=== PATIENT | male | born 1950 | race Caucasian/White ===

== ENCOUNTER → 2017-07-10 11:11 | Outpatient (CLI) | payer MEDICARE, BC, SELFPAY ==
[2017-07-10 12:14] LABS: Absolute Lymphocyte Count 2.16 X10^3/ul (0.83-4.51); Absolute Neutrophil Count 5.6 X10^3/uL (2.0-7.7); Basophil# 0.03 X10^3/uL; Basophil% 0.3 % (0-1); Eosinophil# 0.61 X10^3/uL; Eosinophils% 6.7 % (0-5); Hematocrit 40.5 % (40-54); Hemoglobin 13.4 g/dl (13.0-16.5); Lymphocyte # 2.16 X10^3/ul (4.0); Lymphocyte % 23.7 % (19-41); Mean Corp Hgb Conc 33.1 g/gl (32-36); Mean Corpuscular Volume 96.7 fL (80-94); Mean Platelet Vol. 9.8 fl (6.2-12.0); Monocyte# 0.62 X10^3/uL; Monocyte% 6.8 % (0-10); Neutrophil # 5.64 X10^3/uL (2.7-7.7); Neutrophil % 62.1 % (47-70); Platelet Count 232 K/mm3 (150-450); RBC Distribution Width CV 12.6 % (11.6-14.6); Red Blood Count 4.19 M/mm3 (4.6-6.2); White Blood Count 9.1 K/mm3 (4.4-11.0)
[2017-07-10 12:24] LABS: POSITIVE COUNT NO; POSITIVE DIFFERENTIAL NO; POSITIVE MORPHOLOGY NO
[2017-07-10 13:09] LABS: Albumin, Serum 3.6 g/dL (3.2-5.0); BUN 66 mg/dL (7-18); BUN/Creat Ratio 29.6 RATIO (10-20); Chloride 99 mmol/L (98-107); Creatinine, Serum 2.23 mg/dL (0.70-1.30); EST Glomerular Filtration Rate 31 mL/min (>60); Est Glom Filt Rate - Afr Amer 38 mL/min (>60); Glucose 89 mg/dL (74-106); Magnesium 2.2 mg/dL (1.6-2.6); Phosphorus 4.1 mg/dL (2.5-4.9); Potassium 4.7 mmol/L (3.5-5.1); Sodium Level 137 mmol/L (136-145); Uric Acid 6.4 mg/dL (3.5-7.2)
[2017-07-10 13:41] LABS: PTHIN 77.6 pg/mL (18.4-80.1)
[2017-07-10 13:42] LABS: Vitamin D,25 Hydroxy 23.4 ng/mL (29.95-100.01)
[2017-07-10 14:14] LABS: Microalbumin:Creatinine Ratio 365.2 mg/g CRE (<30 mg/g CRE)
== END ==
PROVIDERS: Family Provider Preventive Medicine Occupational Medicine; PCP Preventive Medicine Occupational Medicine; Visit Provider Internal Medicine Nephrology
DX: N18.3 Chronic kidney disease, stage 3 (moderate) (principal); E55.9 Vitamin D deficiency, unspecified; E83.42 Hypomagnesemia; M10.9 Gout, unspecified
CPT/HCPCS: 36415; 80069; 82043; 82306; 82570; 83735; 83970; 84550; 85025

== ENCOUNTER → 2017-08-21 09:43 | Outpatient (CLI) | payer MEDICARE, BC, SELFPAY ==
[2017-08-21 12:44] LABS: Hemoglobin A1c 7.7 % (4.2-6.3)
[2017-08-21 12:46] LABS: AST(SGOT) 23 U/L (15-37); Alanine Aminotransfer ALT/SGPT 29 U/L (16-61); Anion Gap 7 (5-15); BUN 59 mg/dL (7-18); BUN/Creat Ratio 29.6 RATIO (10-20); Calcium,Total 9.1 mg/dL (8.5-10.1); Chloride 103 mmol/L (98-107); Creatinine, Serum 1.99 mg/dL (0.70-1.30); EST Glomerular Filtration Rate 36 mL/min (>60); Est Glom Filt Rate - Afr Amer 43 mL/min (>60); Glucose 98 mg/dL (74-106); Potassium 4.4 mmol/L (3.5-5.1); Sodium Level 140 mmol/L (136-145)
== END ==
PROVIDERS: Family Provider Preventive Medicine Occupational Medicine; PCP Preventive Medicine Occupational Medicine; Visit Provider Internal Medicine Endocrinology, Diabetes & Metabolism
DX: E11.42 Type 2 diabetes mellitus with diabetic polyneuropathy (principal)
CPT/HCPCS: 36415; 80048; 83036; 84450; 84460

== ENCOUNTER → 2018-02-26 07:02 | Outpatient (CLI) | payer MEDICARE, BC, SELFPAY ==
[2018-02-26 10:21] LABS: Hemoglobin A1c 6.9 % (4.2-6.3)
[2018-02-26 10:29] LABS: AST(SGOT) 22 U/L (15-37); Alanine Aminotransfer ALT/SGPT 31 U/L (16-61); Anion Gap 10 (5-15); BUN 62 mg/dL (7-18); BUN/Creat Ratio 32.5 RATIO (10-20); Calcium,Total 9.5 mg/dL (8.5-10.1); Chloride 102 mmol/L (98-107); Cholesterol 146 mg/dL (200); Creatinine, Serum 1.91 mg/dL (0.70-1.30); EST Glomerular Filtration Rate 37 mL/min (>60); Est Glom Filt Rate - Afr Amer 45 mL/min (>60); Glucose 126 mg/dL (74-106); High Density Lipoprotein 32 mg/dL; Potassium 4.4 mmol/L (3.5-5.1); Sodium Level 141 mmol/L (136-145); Triglycerides 275 mg/dL; Very Low Density Lipoprotein 55 mg/dL (5-40)
== END ==
PROVIDERS: Family Provider Preventive Medicine Occupational Medicine; PCP Preventive Medicine Occupational Medicine; Referring Provider Internal Medicine Endocrinology, Diabetes & Metabolism; Visit Provider Internal Medicine Endocrinology, Diabetes & Metabolism
DX: E11.42 Type 2 diabetes mellitus with diabetic polyneuropathy (principal); E11.21 Type 2 diabetes mellitus with diabetic nephropathy; E78.2 Mixed hyperlipidemia
CPT/HCPCS: 36415; 80048; 80061; 83036; 84450; 84460

== ENCOUNTER → 2018-05-04 09:47 | Outpatient (CLI) | payer MEDICARE, BC, SELFPAY ==
[2018-05-04 11:59] LABS: Hematocrit 39.3 % (40-54); Hemoglobin 12.9 g/dl (13.0-16.5); Mean Corp Hgb Conc 32.8 g/gl (32-36); Mean Corpuscular Hgb 31.9 pg (27.0-32.0); Mean Platelet Vol. 10.4 fl (6.2-12.0); Platelet Count 254 K/mm3 (150-450); RBC Distribution Width CV 12.6 % (11.6-14.6); RBC Distribution Width SD 44.6 fl (35.1-43.9); Red Blood Count 4.05 M/mm3 (4.6-6.2)
[2018-05-04 12:02] LABS: Scan Indicated on CBC? Y/N NO
[2018-05-04 12:11] LABS: Protein, Urine (Random) 24.5 mg/dL (<11.9); Protein:Creat Ratio 648 mg/g CRE (0-200)
[2018-05-04 12:13] LABS: Albumin, Serum 3.8 g/dL (3.2-5.0); BUN 83 mg/dL (7-18); BUN/Creat Ratio 40.7 RATIO (10-20); Calcium,Total 9.6 mg/dL (8.5-10.1); Chloride 105 mmol/L (98-107); Creatinine, Serum 2.04 mg/dL (0.70-1.30); EST Glomerular Filtration Rate 35 mL/min (>60); Est Glom Filt Rate - Afr Amer 42 mL/min (>60); Glucose 90 mg/dL (74-106); Phosphorus 4.8 mg/dL (2.5-4.9); Potassium 4.5 mmol/L (3.5-5.1); Sodium Level 140 mmol/L (136-145); Uric Acid 6.3 mg/dL (3.5-7.2)
[2018-05-04 12:14] LABS: Hemoglobin A1c 7.9 % (4.2-6.3)
[2018-05-04 12:17] LABS: PTHIN 20.3 pg/mL (18.4-80.1); Vitamin D,25 Hydroxy 31.3 ng/mL (29.95-100.01)
== END ==
PROVIDERS: Family Provider Preventive Medicine Occupational Medicine; PCP Preventive Medicine Occupational Medicine; Referring Provider Internal Medicine Nephrology; Visit Provider Internal Medicine Nephrology
DX: E11.21 Type 2 diabetes mellitus with diabetic nephropathy (principal); E11.22 Type 2 diabetes mellitus with diabetic chronic kidney disease; N18.4 Chronic kidney disease, stage 4 (severe); E55.9 Vitamin D deficiency, unspecified; E83.42 Hypomagnesemia; M10.9 Gout, unspecified
CPT/HCPCS: 36415; 80069; 82306; 82570; 83036; 83735; 83970; 84156; 84550; 85027

== ENCOUNTER → 2018-06-05 10:44 | Outpatient (CLI) | payer MEDICARE, BC, SELFPAY ==
[2018-06-05 12:28] LABS: AST(SGOT) 19 U/L (15-37); Alanine Aminotransfer ALT/SGPT 32 U/L (16-61); Anion Gap 9 (5-15); BUN 72 mg/dL (7-18); BUN/Creat Ratio 31.7 RATIO (10-20); Calcium,Total 9.8 mg/dL (8.5-10.1); Chloride 105 mmol/L (98-107); Creatinine, Serum 2.27 mg/dL (0.70-1.30); EST Glomerular Filtration Rate 31 mL/min (>60); Est Glom Filt Rate - Afr Amer 37 mL/min (>60); Glucose 144 mg/dL (74-106); Potassium 4.5 mmol/L (3.5-5.1); Sodium Level 142 mmol/L (136-145)
[2018-06-05 12:35] LABS: Hemoglobin A1c 7.7 % (4.2-6.3)
== END ==
PROVIDERS: Family Provider Preventive Medicine Occupational Medicine; PCP Preventive Medicine Occupational Medicine; Referring Provider Internal Medicine Endocrinology, Diabetes & Metabolism; Visit Provider Internal Medicine Endocrinology, Diabetes & Metabolism
DX: E11.42 Type 2 diabetes mellitus with diabetic polyneuropathy (principal)
CPT/HCPCS: 36415; 80048; 83036; 84450; 84460

== ENCOUNTER → 2018-09-05 10:06 | Outpatient (CLI) | payer MEDICARE, BC, SELFPAY ==
[2018-09-05 12:35] LABS: Hematocrit 38.1 % (40-54); Hemoglobin 12.7 g/dl (13.0-16.5); Mean Corp Hgb Conc 33.3 g/gl (32-36); Mean Platelet Vol. 10.2 fl (6.2-12.0); Platelet Count 256 K/mm3 (150-450); RBC Distribution Width CV 12.6 % (11.6-14.6); RBC Distribution Width SD 43.9 fl (35.1-43.9); Red Blood Count 3.97 M/mm3 (4.6-6.2); White Blood Count 8.7 K/mm3 (4.4-11.0)
[2018-09-05 12:46] LABS: Scan Indicated on CBC? Y/N NO
[2018-09-05 12:49] LABS: AST(SGOT) 17 U/L (15-37); Alanine Aminotransfer ALT/SGPT 32 U/L (16-61); Albumin, Serum 3.7 g/dL (3.2-5.0); BUN 79 mg/dL (7-18); BUN/Creat Ratio 33.3 RATIO (10-20); Calcium,Total 9.2 mg/dL (8.5-10.1); Chloride 107 mmol/L (98-107); Creatinine, Serum 2.37 mg/dL (0.70-1.30); EST Glomerular Filtration Rate 29 mL/min (>60); Est Glom Filt Rate - Afr Amer 35 mL/min (>60); Glucose 91 mg/dL (74-106); Magnesium 2.4 mg/dL (1.6-2.6); Potassium 4.3 mmol/L (3.5-5.1); Sodium Level 140 mmol/L (136-145)
[2018-09-05 12:54] LABS: Microalbumin:Creatinine Ratio 81.1 mg/g CRE (<30 mg/g CRE); Protein, Urine (Random) 8.4 mg/dL (<11.9); Protein:Creat Ratio 148 mg/g CRE (0-200)
[2018-09-05 12:59] LABS: Vitamin D,25 Hydroxy 27.2 ng/mL (29.95-100.01)
[2018-09-05 13:18] LABS: PTHIN 54.7 pg/mL (18.4-80.1)
== END ==
PROVIDERS: Family Provider Preventive Medicine Occupational Medicine; PCP Preventive Medicine Occupational Medicine; Referring Provider Internal Medicine Endocrinology, Diabetes & Metabolism; Visit Provider Internal Medicine Endocrinology, Diabetes & Metabolism
DX: E11.65 Type 2 diabetes mellitus with hyperglycemia (principal); E55.9 Vitamin D deficiency, unspecified; N18.4 Chronic kidney disease, stage 4 (severe)
CPT/HCPCS: 36415; 80069; 82043; 82306; 82570; 83036; 83735; 83970; 84156; 84450; 84460; 85027

== ENCOUNTER → 2019-01-01 | Outpatient (CLI) | payer MEDICARE, BC, SELFPAY ==
[2019-01-01 10:21] LABS: Hematocrit 35.8 % (40-54); Hemoglobin 11.9 g/dL (13.0-16.5); Mean Corp Hgb Conc 33.2 g/dL (32-36); Mean Corpuscular Hgb 33.1 pg (27.0-32.0); Mean Corpuscular Volume 99.7 fL (80-94); Mean Platelet Vol. 10.2 fl (6.2-12.0); Platelet Count 227 K/mm3 (150-450); RBC Distribution Width CV 12.2 % (11.6-14.6); RBC Distribution Width SD 44.5 fl (35.1-43.9); Red Blood Count 3.59 M/mm3 (4.6-6.2); White Blood Count 10.9 K/mm3 (4.4-11.0)
[2019-01-01 10:40] LABS: Microalbumin:Creatinine Ratio 328.7 mg/g CRE (<30 mg/g CRE)
[2019-01-01 10:44] LABS: PTHIN 64.4 pg/mL (18.4-80.1)
[2019-01-01 10:49] LABS: Hemoglobin A1c 6.6 % (4.2-6.3)
[2019-01-01 10:54] LABS: AST(SGOT) 18 U/L (15-37); Alanine Aminotransfer ALT/SGPT 27 U/L (16-61); Albumin, Serum 3.4 g/dL (3.2-5.0); BUN 78 mg/dL (7-18); BUN/Creat Ratio 34.5 RATIO (10-20); Chloride 106 mmol/L (98-107); Creatinine, Serum 2.26 mg/dL (0.70-1.30); EST Glomerular Filtration Rate 31 mL/min (>60); Est Glom Filt Rate - Afr Amer 37 mL/min (>60); Glucose 133 mg/dL (74-106); Magnesium 2.4 mg/dL (1.6-2.6); Phosphorus 2.9 mg/dL (2.5-4.9); Potassium 4.7 mmol/L (3.5-5.1); Sodium Level 141 mmol/L (136-145); Uric Acid 6.3 mg/dL (3.5-7.2)
[2019-01-01 11:05] LABS: Vitamin D,25 Hydroxy 36.5 ng/mL (29.95-100.01)
== END | disposition home or self-care (01) ==
LOC: MTLAB 09:06
PROVIDERS: Internal Medicine Endocrinology, Diabetes & Metabolism; Family Provider Preventive Medicine Occupational Medicine; PCP Preventive Medicine Occupational Medicine; Referring Provider Preventive Medicine Occupational Medicine; Visit Provider Preventive Medicine Occupational Medicine
DX: E55.9 Vitamin D deficiency, unspecified (principal); E11.22 Type 2 diabetes mellitus with diabetic chronic kidney disease; N18.4 Chronic kidney disease, stage 4 (severe); E83.42 Hypomagnesemia; M10.9 Gout, unspecified; E11.65 Type 2 diabetes mellitus with hyperglycemia
CPT/HCPCS: 36415; 80069; 82043; 82306; 82570; 83036; 83735; 83970; 84450; 84460; 84550; 85027

== ENCOUNTER → 2019-06-27 | Outpatient (CLI) | payer MEDICARE, BC, SELFPAY ==
[2019-06-27 12:27] LABS: Hematocrit 37.1 % (40-54); Hemoglobin 12.1 g/dL (13.0-16.5); Mean Corp Hgb Conc 32.6 g/dL (32-36); Mean Corpuscular Hgb 31.9 pg (27.0-32.0); Mean Corpuscular Volume 97.9 fL (80-94); Mean Platelet Vol. 10.3 fl (6.2-12.0); Platelet Count 233 K/mm3 (150-450); RBC Distribution Width CV 11.9 % (11.6-14.6); RBC Distribution Width SD 43.3 fl (35.1-43.9); Red Blood Count 3.79 M/mm3 (4.6-6.2); White Blood Count 7.4 K/mm3 (4.4-11.0)
[2019-06-27 12:54] LABS: PTHIN 35.7 pg/mL (18.4-80.1)
[2019-06-27 12:58] LABS: Vitamin D,25 Hydroxy 40.1 ng/mL
[2019-06-27 13:00] LABS: Hemoglobin A1c 6.4 % (4.2-6.3)
[2019-06-27 13:14] LABS: ALB/GLOB Ratio 0.8 RATIO (0.9-2.4); AST(SGOT) 22 U/L (15-37); Alanine Aminotransfer ALT/SGPT 34 U/L (16-61); Albumin, Serum 3.7 g/dL (3.2-5.0); Alkaline Phosphatase 110 U/L (45-117); Anion Gap 5 (5-15); BUN 72 mg/dL (7-18); BUN/Creat Ratio 29.3 RATIO (10-20); Calcium,Total 9.6 mg/dL (8.5-10.1); Chloride 108 mmol/L (98-107); Creatinine, Serum 2.46 mg/dL (0.70-1.30); EST Glomerular Filtration Rate 28 mL/min (>60); Est Glom Filt Rate - Afr Amer 34 mL/min (>60); Globulin 4.8 g/dL (2.2-4.2); Glucose 109 mg/dL (74-106); Magnesium 2.4 mg/dL (1.6-2.6); PSA,Total - Annual Screen 0.74 ng/mL (0.00-4.00); Phosphorus 3.7 mg/dL (2.5-4.9); Potassium 4.5 mmol/L (3.5-5.1); Protein, Total 8.5 g/dL (6.4-8.2); Sodium Level 141 mmol/L (136-145)
[2019-06-27 13:18] LABS: Microalbumin,Random Urine 54.9 mg/L (NO RANGE EST.); Microalbumin:Creatinine Ratio 125.3 mg/g CRE (<30 mg/g CRE)
== END | disposition home or self-care (01) ==
LOC: MTLAB 09:23
PROVIDERS: PCP Preventive Medicine Occupational Medicine; Referring Provider Urology; Visit Provider Urology
DX: E55.9 Vitamin D deficiency, unspecified (principal); E11.22 Type 2 diabetes mellitus with diabetic chronic kidney disease; N18.4 Chronic kidney disease, stage 4 (severe); E11.42 Type 2 diabetes mellitus with diabetic polyneuropathy; E83.42 Hypomagnesemia; Z12.5 Encounter for screening for malignant neoplasm of prostate
CPT/HCPCS: 36415; 80053; 82043; 82306; 82570; 83036; 83735; 83970; 84100; 84153; 85027; G0103

== ENCOUNTER 2019-10-14 14:51 | Outpatient (RCR) | payer MEDICARE, BC, SELFPAY ==
--- NOTE | 2019-10-15 06:17 | HP.OTEVAL_ITS ---
Patient's Visit Information ANALILIA CORLEY is a 69 year old M, referred to Occupational Therapy by Dr. Fabrice Pulido MD, with a diagnosis of lymphedema. Date of Evaluation: 10/14/19 Occupational Therapist: Emilie Billingsley, LINDAR/Oracio, CHT - Subjective This 69 year old male was seen for OT eval with dx of LE lymphedema. pt states he has had the issue of swelling since May. pt states he worked with his family and then was referred to [facility] for care. Pt states he has a sore on his left LE at this time. right has compression sock as wound on that leg is gone. pt would like to know what to do to assist. in decreassing his fluid retention and assist with wound healing on left LE. pt's compresssion socks are 20-30mmHg. - Pain bilateral LE 2 Pain Intensity Range: 2, 3 - Lymphedema (Circumferential Measure) Ankle: left 29cm right 27cm Lower calf: left 32cm right 28cm Largest calf: left 49cm right 47cm Below knee: left 41cm right 40cm - Sensation Sensation Comments: at times tingling - Lower Limb Functional Index Lower Extremity Functional Score: 44 - Goals Demonstrate a 20% reduction in edema by d/c: Yes Demonstrate adequate knowledge of self-bangaging by 1st week: Yes Demonstrate adequate knowledge skin care/prec by 2nd week: Yes Demonstrate adequate knowledge therapeutic exercises by d/c: Yes Select approp compression garment w/donning/care/wear by d/c: Yes Voice need to replace compression garment every 4-6mo by dc: Yes Goal:: pt will demo the understanding to increase compression of socks to 30-40 mmHg if his current socks do not assist with controlling edema. - Rehabilitation General Assessment: pt demo with mild swelling in bilateral LE- right LE has compression sock on at 20-30mmHG. pts left LE has unoboot on ( wrap from above ankle to mid calf) pt report typically he is wrapped weekly from foot to below knee. states new person at [facility] wapped him last week. therapist advised to return as this facility does not carry unoboots. Pt stated he would call. Pt demo a need for skilled OT services 2-3 visits to ed. on self mtg of lymphedema and compression socks or alternatives. Today pt was ed. on lymphedema, skin care, use of compression socks 20-30 mmHg and if they did not mtg edema he would have to increase compression class to 30-40mmHg. pt demo understanding. therapist ed. pt on lymph stim exercises and beneficial physical tasks as water arobics, walking or swimming would also assist in mtg edema. Therapist advised not to get in water until wound was healed. Pt demo understanding. Therapist ed. pt on lymphedema tx with use of short stretch wraps with multi wraps and wrapping clock kenny and counter clockwise to assist with edema (pt not receptive at this time as it would be difficult for pt to wrap his LE). Therapist and pt agree to use of compression socks, lymph stim exercises and skin care will be pt initial targeted mtg at this time. Pt demo understanding and agree to POC. Rehabilitation Potential: Questionable - Anticipated Interventions Education re Diagnosis, Education re Life-long lymphedema Management, Education re Skin Care and Precautions, Education re Correct Donning Tech,Care&Wearing Sched Comp Garments, Home Program - Visit Plan TEXT: Thank you for the opportunity to evaluate your patient. For Medicare and Medicare HMO plans, please review the plan of care and approve it. It will need to be FAXED BACK to us at [phone] for Medicare purposes. Please let me know if there are questions or concerns regarding this plan of care. Physician Signature: Date:
--- NOTE | 2020-01-01 14:29 | HP.OT.NRP ---
ANALILIA CORLEY was seen in my office for initial evaluation on 10/14/19. The following Plan of Care was established for this patient: pt was seen for eval only- has not called with questions or scheduled further apts. Pt d/c at this time. Anticipated Interventions: Education re Diagnosis, Education re Life-long lymphedema Management, Education re Skin Care and Precautions, Education re Correct Donning Tech,Care&Wearing Sched Comp Garments, Home Program This patient was last seen in our office . Pertinent comments regarding their Occupational therapy will appear below: At this point I will be discontinuing this patient from occupational therapy. I would be happy to see this patient again in the future if found appropriate by the physician. Thank you! Emilie Billingsley, OTR/L, CHT
== END 2019-10-14 19:00 ==
LOC: OT 14:51
PROVIDERS: PCP Preventive Medicine Occupational Medicine; Referring Provider Dermatology; Visit Provider Dermatology
DX: I89.0 Lymphedema, not elsewhere classified (principal); I87.2 Venous insufficiency (chronic) (peripheral)
CPT/HCPCS: 97110; 97166

== ENCOUNTER → 2020-03-02 07:17 | Outpatient (CLI) | payer MEDICARE, BC, SELFPAY ==
[2020-03-02 10:17] LABS: Hematocrit 37.1 % (40-54); Hemoglobin 11.8 g/dL (13.0-16.5); Mean Corp Hgb Conc 31.8 g/dL (32-36); Mean Corpuscular Hgb 32.3 pg (27.0-32.0); Mean Corpuscular Volume 101.6 fL (80-94); Mean Platelet Vol. 10.1 fl (6.2-12.0); Platelet Count 202 K/mm3 (150-450); RBC Distribution Width CV 12.6 % (11.6-14.6); RBC Distribution Width SD 47.5 fl (35.1-43.9); Red Blood Count 3.65 M/mm3 (4.6-6.2); White Blood Count 5.7 K/mm3 (4.4-11.0)
[2020-03-02 10:22] LABS: PTHIN 37.8 pg/mL (18.4-80.1)
[2020-03-02 10:22] LABS: Hemoglobin A1c 6.7 % (3.8-5.6)
[2020-03-02 10:25] LABS: Vitamin D,25 Hydroxy 44.2 ng/mL
[2020-03-02 10:29] LABS: AST(SGOT) 25 U/L (15-37); Alanine Aminotransfer ALT/SGPT 37 U/L (16-61); Anion Gap 6 (5-15); BUN 58 mg/dL (7-18); BUN/Creat Ratio 25.7 RATIO (10-20); Calcium,Total 9.5 mg/dL (8.5-10.1); Chloride 106 mmol/L (98-107); Cholesterol 137 mg/dL (200); Creatinine, Serum 2.26 mg/dL (0.70-1.30); EST Glomerular Filtration Rate 31 mL/min (>60); Est Glom Filt Rate - Afr Amer 37 mL/min (>60); Glucose 119 mg/dL (74-106); High Density Lipoprotein 32 mg/dL; Potassium 4.7 mmol/L (3.5-5.1); Sodium Level 139 mmol/L (136-145); Triglycerides 257 mg/dL; Very Low Density Lipoprotein 51 mg/dL (5-40)
[2020-03-02 10:48] LABS: Albumin, Serum 3.6 g/dL (3.2-5.0); BUN 58 mg/dL (7-18); BUN/Creat Ratio 25.1 RATIO (10-20); Calcium,Total 9.4 mg/dL (8.5-10.1); Chloride 107 mmol/L (98-107); Creatinine, Serum 2.31 mg/dL (0.70-1.30); EST Glomerular Filtration Rate 30 mL/min (>60); Est Glom Filt Rate - Afr Amer 36 mL/min (>60); Glucose 119 mg/dL (74-106); Phosphorus 4.2 mg/dL (2.5-4.9); Potassium 4.6 mmol/L (3.5-5.1); Sodium Level 140 mmol/L (136-145)
[2020-03-02 11:52] LABS: Microalbumin:Creatinine Ratio 398.6 mg/g CRE (<30 mg/g CRE)
== END ==
PROVIDERS: Internal Medicine Endocrinology, Diabetes & Metabolism; PCP Preventive Medicine Occupational Medicine; Referring Provider Internal Medicine Nephrology; Visit Provider Internal Medicine Nephrology
DX: E11.42 Type 2 diabetes mellitus with diabetic polyneuropathy (principal); E78.2 Mixed hyperlipidemia; E55.9 Vitamin D deficiency, unspecified; E11.22 Type 2 diabetes mellitus with diabetic chronic kidney disease; N18.4 Chronic kidney disease, stage 4 (severe); E83.42 Hypomagnesemia
CPT/HCPCS: 36415; 80048; 80061; 80069; 82043; 82306; 82570; 83036; 83735; 83970; 84450; 84460; 85027

== ENCOUNTER → 2020-06-24 13:15 | Outpatient (CLI) | payer MEDICARE, BC, SELFPAY ==
[2020-06-24 15:10] LABS: Hematocrit 38.3 % (40-54); Hemoglobin 12.7 g/dL (13.0-16.5); Mean Corp Hgb Conc 33.2 g/dL (32-36); Mean Corpuscular Hgb 32.6 pg (27.0-32.0); Mean Corpuscular Volume 98.2 fL (80-94); Mean Platelet Vol. 10.5 fl (6.2-12.0); Platelet Count 236 K/mm3 (150-450); RBC Distribution Width SD 43.1 fl (35.1-43.9); White Blood Count 7.4 K/mm3 (4.4-11.0)
[2020-06-24 15:58] LABS: AST(SGOT) 25 U/L (15-37); Alanine Aminotransfer ALT/SGPT 36 U/L (16-61); Albumin, Serum 3.6 g/dL (3.2-5.0); BUN 62 mg/dL (7-18); BUN/Creat Ratio 30.2 RATIO (10-20); Calcium,Total 9.5 mg/dL (8.5-10.1); Chloride 106 mmol/L (98-107); Creatinine, Serum 2.05 mg/dL (0.70-1.30); EST Glomerular Filtration Rate 34 mL/min (>60); Est Glom Filt Rate - Afr Amer 41 mL/min (>60); Glucose 132 mg/dL (74-106); Magnesium 1.9 mg/dL (1.6-2.6); Phosphorus 3.4 mg/dL (2.5-4.9); Potassium 4.3 mmol/L (3.5-5.1); Sodium Level 139 mmol/L (136-145); Uric Acid 6.6 mg/dL (3.5-7.2)
[2020-06-24 16:01] LABS: Vitamin D,25 Hydroxy 31.9 ng/mL
[2020-06-24 16:38] LABS: Microalbumin:Creatinine Ratio 287.4 mg/g CRE (<30 mg/g CRE)
[2020-06-24 17:42] LABS: Hemoglobin A1c 6.8 % (3.8-5.6)
[2020-06-25 08:13] LABS: PTHIN 34.3 pg/mL (18.4-80.1)
== END ==
PROVIDERS: PCP Preventive Medicine Occupational Medicine; Referring Provider Preventive Medicine Occupational Medicine; Visit Provider Preventive Medicine Occupational Medicine
DX: E55.9 Vitamin D deficiency, unspecified (principal); E83.42 Hypomagnesemia; E11.42 Type 2 diabetes mellitus with diabetic polyneuropathy; M1A.9XX0 Chronic gout, unspecified, without tophus (tophi); E11.22 Type 2 diabetes mellitus with diabetic chronic kidney disease; N18.4 Chronic kidney disease, stage 4 (severe)
CPT/HCPCS: 36415; 80069; 82043; 82306; 82570; 83036; 83735; 83970; 84450; 84460; 84550; 85027

== ENCOUNTER → 2020-10-23 10:02 | Outpatient (CLI) | payer MEDICARE, BC, SELFPAY ==
[2020-10-23 12:26] LABS: Hematocrit 38.9 % (40-54); Hemoglobin 12.7 g/dL (13.0-16.5); Mean Corp Hgb Conc 32.6 g/dL (32-36); Mean Corpuscular Hgb 32.4 pg (27.0-32.0); Mean Corpuscular Volume 99.2 fL (80-94); Mean Platelet Vol. 10.3 fl (6.2-12.0); Platelet Count 264 K/mm3 (150-450); RBC Distribution Width CV 12.4 % (11.6-14.6); RBC Distribution Width SD 44.4 fl (35.1-43.9); Red Blood Count 3.92 M/mm3 (4.6-6.2); White Blood Count 8.8 K/mm3 (4.4-11.0)
[2020-10-23 12:39] LABS: Protein, Urine (Random) 7.8 mg/dL (<11.9); Protein:Creat Ratio 130 mg/g CRE (0-200)
[2020-10-23 12:56] LABS: PTHIN 52.2 pg/mL (18.4-80.1)
[2020-10-23 13:00] LABS: Hemoglobin A1c 6.6 % (3.8-5.6)
[2020-10-23 13:09] LABS: AST(SGOT) 24 U/L (15-37); Alanine Aminotransfer ALT/SGPT 32 U/L (16-61); Albumin, Serum 3.7 g/dL (3.2-5.0); BUN 74 mg/dL (7-18); Calcium,Total 9.5 mg/dL (8.5-10.1); Chloride 104 mmol/L (98-107); Creatinine, Serum 2.74 mg/dL (0.70-1.30); EST Glomerular Filtration Rate 24 mL/min (>60); Est Glom Filt Rate - Afr Amer 30 mL/min (>60); Glucose 192 mg/dL (74-106); Magnesium 2.2 mg/dL (1.6-2.6); Phosphorus 4.2 mg/dL (2.5-4.9); Potassium 4.3 mmol/L (3.5-5.1); Sodium Level 140 mmol/L (136-145)
[2020-10-23 14:25] LABS: Microalbumin,Random Urine 28.9 mg/L (NO RANGE EST.); Microalbumin:Creatinine Ratio 48.3 mg/g CRE (<30 mg/g CRE)
== END ==
PROVIDERS: PCP Preventive Medicine Occupational Medicine; Referring Provider Internal Medicine Nephrology; Visit Provider Internal Medicine Nephrology
DX: E11.42 Type 2 diabetes mellitus with diabetic polyneuropathy (principal); E11.22 Type 2 diabetes mellitus with diabetic chronic kidney disease; E55.9 Vitamin D deficiency, unspecified; N18.4 Chronic kidney disease, stage 4 (severe); E83.42 Hypomagnesemia
CPT/HCPCS: 80069; 82043; 82306; 82570; 83036; 83735; 83970; 84156; 84450; 84460; 85027

== ENCOUNTER → 2021-02-17 07:05 | Outpatient (CLI) | payer MEDICARE, BC, SELFPAY ==
[2021-02-17 10:11] LABS: Hematocrit 40.5 % (40-54); Hemoglobin 13.2 g/dL (13.0-16.5); Mean Corp Hgb Conc 32.6 g/dL (32-36); Mean Corpuscular Hgb 32.1 pg (27.0-32.0); Mean Corpuscular Volume 98.5 fL (80-94); Mean Platelet Vol. 10.4 fl (6.2-12.0); Platelet Count 309 K/mm3 (150-450); RBC Distribution Width SD 43.6 fl (35.1-43.9); Red Blood Count 4.11 M/mm3 (4.6-6.2); White Blood Count 8.2 K/mm3 (4.4-11.0)
[2021-02-17 10:30] LABS: AST(SGOT) 25 U/L (15-37); Alanine Aminotransfer ALT/SGPT 31 U/L (16-61); Albumin, Serum 3.5 g/dL (3.2-5.0); BUN 100 mg/dL (7-18); BUN/Creat Ratio 39.1 RATIO (10-20); Calcium,Total 9.7 mg/dL (8.5-10.1); Chloride 105 mmol/L (98-107); Cholesterol 149 mg/dL (200); Creatinine, Serum 2.56 mg/dL (0.70-1.30); EST Glomerular Filtration Rate 26 mL/min (>60); Est Glom Filt Rate - Afr Amer 32 mL/min (>60); Glucose 116 mg/dL (74-106); High Density Lipoprotein 35 mg/dL; Magnesium 2.3 mg/dL (1.6-2.6); PSA,Total - Annual Screen 1.46 ng/mL (0.00-4.00); Potassium 4.4 mmol/L (3.5-5.1); Sodium Level 139 mmol/L (136-145); Triglycerides 254 mg/dL; Uric Acid 6.8 mg/dL (3.5-7.2); Very Low Density Lipoprotein 51 mg/dL (5-40)
[2021-02-17 10:34] LABS: Hemoglobin A1c 7.3 % (3.8-5.6)
[2021-02-17 10:38] LABS: Microalbumin,Random Urine 54.6 mg/L (NO RANGE EST.); Microalbumin:Creatinine Ratio 64.4 mg/g CRE (<30 mg/g CRE)
[2021-02-17 12:11] LABS: PTHIN 36.9 pg/mL (18.4-80.1)
== END ==
PROVIDERS: PCP Preventive Medicine Occupational Medicine; Referring Provider Nurse Practitioner Primary Care; Visit Provider Nurse Practitioner Primary Care
DX: E11.42 Type 2 diabetes mellitus with diabetic polyneuropathy (principal); E55.9 Vitamin D deficiency, unspecified; M10.9 Gout, unspecified; E78.2 Mixed hyperlipidemia; E11.22 Type 2 diabetes mellitus with diabetic chronic kidney disease; N18.4 Chronic kidney disease, stage 4 (severe); E83.42 Hypomagnesemia; Z13.6 Encounter for screening for cardiovascular disorders; Z12.5 Encounter for screening for malignant neoplasm of prostate
CPT/HCPCS: 36415; 80061; 80069; 82043; 82306; 82570; 83036; 83735; 83970; 84153; 84450; 84460; 84550; 85027; G0103

== ENCOUNTER 2021-05-03 11:09 | Outpatient (CLI) | payer MEDICARE, BC, SELFPAY ==
[2021-05-03 12:20] LABS: Hematocrit 39.8 % (40-54); Hemoglobin 13.4 g/dL (13.0-16.5); Mean Corp Hgb Conc 33.7 g/dL (32-36); Mean Corpuscular Hgb 32.2 pg (27.0-32.0); Mean Corpuscular Volume 95.7 fL (80-94); Mean Platelet Vol. 9.8 fl (6.2-12.0); Platelet Count 314 K/mm3 (150-450); RBC Distribution Width CV 12.3 % (11.6-14.6); RBC Distribution Width SD 43.2 fl (35.1-43.9); Red Blood Count 4.16 M/mm3 (4.6-6.2); White Blood Count 10.8 K/mm3 (4.4-11.0)
[2021-05-03 12:57] LABS: PTHIN 42.7 pg/mL (18.4-80.1)
[2021-05-03 13:00] LABS: Vitamin D,25 Hydroxy 41.2 ng/mL
[2021-05-03 13:09] LABS: Albumin, Serum 3.5 g/dL (3.2-5.0); BUN 95 mg/dL (7-18); BUN/Creat Ratio 38.6 RATIO (10-20); Chloride 102 mmol/L (98-107); Creatinine, Serum 2.46 mg/dL (0.70-1.30); EST Glomerular Filtration Rate 28 mL/min (>60); Est Glom Filt Rate - Afr Amer 33 mL/min (>60); Glucose 103 mg/dL (74-106); Magnesium 2.4 mg/dL (1.6-2.6); Phosphorus 4.2 mg/dL (2.5-4.9); Potassium 4.5 mmol/L (3.5-5.1); Sodium Level 137 mmol/L (136-145)
[2021-05-03 13:17] LABS: Microalbumin,Random Urine 32.1 mg/L (NO RANGE EST.); Microalbumin:Creatinine Ratio 65.2 mg/g CRE (<30 mg/g CRE)
== END 2021-05-03 23:59 | disposition short-term general hospital (02) ==
PROVIDERS: PCP Preventive Medicine Occupational Medicine; Referring Provider Internal Medicine Nephrology; Visit Provider Internal Medicine Nephrology
DX: E55.9 Vitamin D deficiency, unspecified (principal); N18.4 Chronic kidney disease, stage 4 (severe); E83.42 Hypomagnesemia
CPT/HCPCS: 36415; 80069; 82043; 82306; 82570; 83735; 83970; 85027

== ENCOUNTER 2021-06-24 07:49 | Outpatient (CLI) | payer MEDICARE, BC, SELFPAY ==
[2021-06-24 10:25] LABS: AST(SGOT) 24 U/L (15-37); Alanine Aminotransfer ALT/SGPT 31 U/L (16-61); Anion Gap 4 (5-15); BUN 100 mg/dL (7-18); BUN/Creat Ratio 40.5 RATIO (10-20); Calcium,Total 9.4 mg/dL (8.5-10.1); Chloride 107 mmol/L (98-107); Creatinine, Serum 2.47 mg/dL (0.70-1.30); EST Glomerular Filtration Rate 27 mL/min (>60); Est Glom Filt Rate - Afr Amer 33 mL/min (>60); Glucose 133 mg/dL (74-106); PSA,Total - Annual Screen 0.76 ng/mL (0.00-4.00); Potassium 4.8 mmol/L (3.5-5.1); Sodium Level 139 mmol/L (136-145)
[2021-06-24 10:27] LABS: Hemoglobin A1c 6.7 % (3.8-5.6)
== END 2021-06-24 23:59 | disposition home or self-care (01) ==
LOC: MTLAB 07:52
PROVIDERS: PCP Preventive Medicine Occupational Medicine; Referring Provider Urology; Visit Provider Urology
DX: E11.42 Type 2 diabetes mellitus with diabetic polyneuropathy (principal); I10 Essential (primary) hypertension; Z12.5 Encounter for screening for malignant neoplasm of prostate
CPT/HCPCS: 36415; 80048; 83036; 84153; 84450; 84460; G0103

== ENCOUNTER → 2021-08-31 | Outpatient (CLI) | payer MEDICARE, BC, SELFPAY ==
[2021-08-31 10:08] LABS: Hematocrit 38.6 % (40-54); Hemoglobin 12.3 g/dL (13.0-16.5); Mean Corp Hgb Conc 31.9 g/dL (32-36); Mean Corpuscular Hgb 32.4 pg (27.0-32.0); Mean Corpuscular Volume 101.6 fL (80-94); Mean Platelet Vol. 10.3 fl (6.2-12.0); Platelet Count 243 K/mm3 (150-450); RBC Distribution Width CV 12.7 % (11.6-14.6); RBC Distribution Width SD 47.6 fl (35.1-43.9); White Blood Count 7.4 K/mm3 (4.4-11.0)
[2021-08-31 10:19] LABS: Albumin, Serum 3.4 g/dL (3.2-5.0); BUN 79 mg/dL (7-18); BUN/Creat Ratio 39.5 RATIO (10-20); Calcium,Total 9.3 mg/dL (8.5-10.1); Chloride 106 mmol/L (98-107); EST Glomerular Filtration Rate 35 mL/min (>60); Est Glom Filt Rate - Afr Amer 42 mL/min (>60); Glucose 130 mg/dL (74-106); Magnesium 2.2 mg/dL (1.6-2.6); Potassium 4.5 mmol/L (3.5-5.1); Sodium Level 143 mmol/L (136-145)
[2021-08-31 10:22] LABS: PTHIN 64.6 pg/mL (18.4-80.1)
[2021-08-31 10:27] LABS: Vitamin D,25 Hydroxy 42.6 ng/mL
[2021-08-31 10:30] LABS: Microalbumin,Random Urine 60.9 mg/L (NO RANGE EST.)
[2021-08-31 10:32] LABS: Uric Acid 5.9 mg/dL (3.5-7.2)
== END | disposition home or self-care (01) ==
LOC: MTLAB 07:53
PROVIDERS: Internal Medicine Nephrology; PCP Preventive Medicine Occupational Medicine; Referring Provider Preventive Medicine Occupational Medicine; Visit Provider Preventive Medicine Occupational Medicine
DX: N18.4 Chronic kidney disease, stage 4 (severe) (principal); E55.9 Vitamin D deficiency, unspecified; M1A.9XX0 Chronic gout, unspecified, without tophus (tophi)
CPT/HCPCS: 36415; 80069; 82043; 82306; 82570; 83735; 83970; 84550; 85027

== ENCOUNTER → 2021-11-02 | Outpatient (CLI) | payer MEDICARE, BC, SELFPAY ==
[2021-11-02 10:22] LABS: AST(SGOT) 24 U/L (15-37); Alanine Aminotransfer ALT/SGPT 31 U/L (16-61); Anion Gap 7 (5-15); BUN 72 mg/dL (7-18); BUN/Creat Ratio 25.7 RATIO (10-20); Calcium,Total 9.7 mg/dL (8.5-10.1); Chloride 104 mmol/L (98-107); EST Glomerular Filtration Rate 24 mL/min (>60); Est Glom Filt Rate - Afr Amer 29 mL/min (>60); Glucose 153 mg/dL (74-106); Potassium 4.6 mmol/L (3.5-5.1); Sodium Level 138 mmol/L (136-145)
[2021-11-02 10:24] LABS: Hemoglobin A1c 6.4 % (3.8-5.6)
== END | disposition home or self-care (01) ==
LOC: MTLAB 08:46
PROVIDERS: PCP Preventive Medicine Occupational Medicine; Referring Provider Internal Medicine Endocrinology, Diabetes & Metabolism; Visit Provider Internal Medicine Endocrinology, Diabetes & Metabolism
DX: E11.42 Type 2 diabetes mellitus with diabetic polyneuropathy (principal)
CPT/HCPCS: 36415; 80048; 83036; 84450; 84460

== ENCOUNTER → 2022-02-02 | Outpatient (CLI) | payer MEDICARE, BC, SELFPAY ==
[2022-02-02 10:15] LABS: Hematocrit 36.8 % (40-54); Hemoglobin 11.9 g/dL (13.0-16.5); Mean Corp Hgb Conc 32.3 g/dL (32-36); Mean Corpuscular Hgb 33.1 pg (27.0-32.0); Mean Corpuscular Volume 102.5 fL (80-94); Mean Platelet Vol. 10.2 fl (6.2-12.0); Platelet Count 261 K/mm3 (150-450); RBC Distribution Width SD 49.1 fl (35.1-43.9); Red Blood Count 3.59 M/mm3 (4.6-6.2); White Blood Count 7.4 K/mm3 (4.4-11.0)
[2022-02-02 10:46] LABS: Albumin, Serum 3.4 g/dL (3.2-5.0); BUN 89 mg/dL (7-18); Calcium,Total 10.1 mg/dL (8.5-10.1); Chloride 106 mmol/L (98-107); Creatinine, Serum 2.87 mg/dL (0.70-1.30); EST Glomerular Filtration Rate 23 mL/min (>60); Est Glom Filt Rate - Afr Amer 28 mL/min (>60); Glucose 104 mg/dL (74-106); Magnesium 2.2 mg/dL (1.6-2.6); Phosphorus 4.6 mg/dL (2.5-4.9); Potassium 4.3 mmol/L (3.5-5.1); Sodium Level 141 mmol/L (136-145)
[2022-02-02 10:54] LABS: PTHIN 40.3 pg/mL (18.4-80.1)
[2022-02-03 14:41] LABS: Microalbumin,Random Urine 31.8 mg/L (NO RANGE EST.); Microalbumin:Creatinine Ratio 85.7 mg/g CRE (<30 mg/g CRE)
== END | disposition home or self-care (01) ==
LOC: MTLAB 08:54
PROVIDERS: PCP Preventive Medicine Occupational Medicine; Referring Provider Internal Medicine Nephrology; Visit Provider Internal Medicine Nephrology
DX: N18.4 Chronic kidney disease, stage 4 (severe) (principal); E55.9 Vitamin D deficiency, unspecified
CPT/HCPCS: 36415; 80069; 82043; 82306; 82570; 83735; 83970; 85027

== ENCOUNTER → 2022-03-04 | Outpatient (CLI) | payer MEDICARE, BC, SELFPAY ==
[2022-03-04 10:23] LABS: Hemoglobin A1c 6.1 % (3.8-5.6)
[2022-03-04 10:24] LABS: AST(SGOT) 23 U/L (15-37); Alanine Aminotransfer ALT/SGPT 31 U/L (16-61); Albumin, Serum 3.7 g/dL (3.2-5.0); BUN 100 mg/dL (7-18); BUN/Creat Ratio 38.9 RATIO (10-20); Calcium,Total 10.2 mg/dL (8.5-10.1); Chloride 103 mmol/L (98-107); Cholesterol 170 mg/dL (200); Creatinine, Serum 2.57 mg/dL (0.70-1.30); EST Glomerular Filtration Rate 26 mL/min (>60); Est Glom Filt Rate - Afr Amer 32 mL/min (>60); Glucose 120 mg/dL (74-106); High Density Lipoprotein 32 mg/dL; Phosphorus 4.3 mg/dL (2.5-4.9); Potassium 4.3 mmol/L (3.5-5.1); Sodium Level 139 mmol/L (136-145); Triglycerides 344 mg/dL; Very Low Density Lipoprotein 69 mg/dL (5-40)
[2022-03-04 10:32] LABS: Microalbumin,Random Urine 36.7 mg/L (NO RANGE EST.); Microalbumin:Creatinine Ratio 53.7 mg/g CRE (<30 mg/g CRE)
== END | disposition home or self-care (01) ==
LOC: MTLAB 07:04
PROVIDERS: PCP Preventive Medicine Occupational Medicine; Referring Provider Internal Medicine Endocrinology, Diabetes & Metabolism; Visit Provider Internal Medicine Endocrinology, Diabetes & Metabolism
DX: E11.42 Type 2 diabetes mellitus with diabetic polyneuropathy (principal); E11.22 Type 2 diabetes mellitus with diabetic chronic kidney disease; N18.4 Chronic kidney disease, stage 4 (severe); E78.2 Mixed hyperlipidemia
CPT/HCPCS: 36415; 80061; 80069; 82043; 82570; 83036; 84450; 84460

== ENCOUNTER → 2022-11-10 | Outpatient (CLI) | payer MEDICARE, BC, SELFPAY ==
[2022-11-10 10:19] LABS: Hematocrit 38.3 % (40-54); Hemoglobin 12.3 g/dL (13.0-16.5); Mean Corp Hgb Conc 32.1 g/dL (32-36); Mean Corpuscular Volume 102.7 fL (80-94); Mean Platelet Vol. 10.1 fl (6.2-12.0); Platelet Count 226 K/mm3 (150-450); RBC Distribution Width CV 12.7 % (11.6-14.6); RBC Distribution Width SD 47.8 fl (35.1-43.9); Red Blood Count 3.73 M/mm3 (4.6-6.2); White Blood Count 7.2 K/mm3 (4.4-11.0)
[2022-11-10 11:08] LABS: Microalbumin,Random Urine 13.9 mg/L (NO RANGE EST.); PTHIN 72.7 pg/mL (18.4-80.1)
[2022-11-10 11:12] LABS: Vitamin D,25 Hydroxy 67.1 ng/mL
[2022-11-10 11:50] LABS: AST(SGOT) 23 U/L (15-37); Alanine Aminotransfer ALT/SGPT 23 U/L (16-61); Albumin, Serum 3.2 g/dL (3.2-5.0); BUN 87 mg/dL (7-18); BUN/Creat Ratio 32.1 RATIO (10-20); Calcium,Total 9.7 mg/dL (8.5-10.1); Chloride 105 mmol/L (98-107); Creatinine, Serum 2.71 mg/dL (0.70-1.30); EST Glomerular Filtration Rate 25 mL/min (>60); Est Glom Filt Rate - Afr Amer 30 mL/min (>60); Glucose 134 mg/dL (74-106); PSA,Total- Diagnostic 1.15 ng/mL (0.0-4.0); Phosphorus 3.6 mg/dL (2.5-4.9); Potassium 4.4 mmol/L (3.5-5.1); Sodium Level 139 mmol/L (136-145)
[2022-11-10 13:40] LABS: Hemoglobin A1c 5.7 % (3.8-5.6)
== END | disposition home or self-care (01) ==
LOC: MTLAB 09:20
PROVIDERS: PCP Preventive Medicine Occupational Medicine; Visit Provider Internal Medicine Nephrology
DX: E55.9 Vitamin D deficiency, unspecified (principal); E11.42 Type 2 diabetes mellitus with diabetic polyneuropathy; E11.22 Type 2 diabetes mellitus with diabetic chronic kidney disease; N18.4 Chronic kidney disease, stage 4 (severe); M10.9 Gout, unspecified; R97.20 Elevated prostate specific antigen [PSA]
CPT/HCPCS: 36415; 80069; 82043; 82306; 82570; 83036; 83735; 83970; 84153; 84450; 84460; 84550; 85027

== ENCOUNTER → 2023-02-07 | Outpatient (CLI) | payer MEDICARE, BC, SELFPAY ==
[2023-02-07 10:32] LABS: Hematocrit 36.6 % (40-54); Hemoglobin 12.1 g/dL (13.0-16.5); Mean Corp Hgb Conc 33.1 g/dL (32-36); Mean Corpuscular Hgb 33.3 pg (27.0-32.0); Mean Corpuscular Volume 100.8 fL (80-94); Mean Platelet Vol. 10.2 fl (6.2-12.0); Platelet Count 276 K/mm3 (150-450); RBC Distribution Width CV 11.8 % (11.6-14.6); RBC Distribution Width SD 43.2 fl (35.1-43.9); Red Blood Count 3.63 M/mm3 (4.6-6.2); White Blood Count 7.1 K/mm3 (4.4-11.0)
[2023-02-07 10:36] LABS: Color, Urine Yellow (Yellow); Glucose, Dipstick Normal (Normal); Ketone-Dipstick Negative (Negative); Leukocyte Esterase-Dipstick 100 /ul (Negative); Nitrite-Dipstick Negative (Negative); Occult Blood-Urine Negative /ul (Negative); Protein-Dipstick 15 mg/dl (Negative); Urine Bilirubin Dipstick Negative (Negative); Urine Clarity Clear (Clear); Urine Urobilinogen Normal (Normal)
[2023-02-07 10:59] LABS: Albumin, Serum 3.5 g/dL (3.2-5.0); BUN 65 mg/dL (7-18); BUN/Creat Ratio 26.5 RATIO (10-20); Calcium,Total 10.5 mg/dL (8.5-10.1); Chloride 102 mmol/L (98-107); Cholesterol 142 mg/dL (200); Creatinine, Serum 2.45 mg/dL (0.70-1.30); EST Glomerular Filtration Rate 28 mL/min (>60); Est Glom Filt Rate - Afr Amer 33 mL/min (>60); Glucose 179 mg/dL (74-106); High Density Lipoprotein 32 mg/dL; Phosphorus 3.5 mg/dL (2.5-4.9); Potassium 4.1 mmol/L (3.5-5.1); Sodium Level 138 mmol/L (136-145); Triglycerides 293 mg/dL; Very Low Density Lipoprotein 59 mg/dL (5-40)
[2023-02-07 11:20] LABS: PTHIN 51.1 pg/mL (18.4-80.1); Protein, Urine (Random) 7.5 mg/dL (<11.9); Protein:Creat Ratio 90 mg/g CRE (0-200)
== END | disposition home or self-care (01) ==
LOC: MTLAB 08:00
PROVIDERS: PCP Preventive Medicine Occupational Medicine; Referring Provider Nurse Practitioner Family; Visit Provider Nurse Practitioner Family
DX: N18.4 Chronic kidney disease, stage 4 (severe) (principal); E55.9 Vitamin D deficiency, unspecified; I25.10 Atherosclerotic heart disease of native coronary artery without angina pectoris; I12.9 Hypertensive chronic kidney disease with stage 1 through stage 4 chronic kidney disease, or unspecified chronic kidney disease; G47.33 Obstructive sleep apnea (adult) (pediatric)
CPT/HCPCS: 36415; 80061; 80069; 81002; 82306; 82570; 83970; 84156; 85027

== ENCOUNTER → 2023-03-20 | Outpatient (CLI) | payer MEDICARE, BC, SELFPAY ==
[2023-03-20 11:12] LABS: AST(SGOT) 21 U/L (15-37); Alanine Aminotransfer ALT/SGPT 21 U/L (16-61); Anion Gap 4 (5-15); BUN 40 mg/dL (7-18); Calcium,Total 9.8 mg/dL (8.5-10.1); Chloride 104 mmol/L (98-107); Cholesterol 135 mg/dL (200); Creatinine, Serum 1.67 mg/dL (0.70-1.30); EST Glomerular Filtration Rate 43 mL/min (>60); Est Glom Filt Rate - Afr Amer 52 mL/min (>60); Glucose 121 mg/dL (74-106); High Density Lipoprotein 36 mg/dL; Potassium 4.1 mmol/L (3.5-5.1); Sodium Level 140 mmol/L (136-145); Thyroid Stim Hormone (TSH) 2.08 uIU/mL (0.358-3.74); Triglycerides 167 mg/dL; Very Low Density Lipoprotein 33 mg/dL (5-40)
== END | disposition home or self-care (01) ==
LOC: MTLAB 07:04
PROVIDERS: PCP Preventive Medicine Occupational Medicine; Referring Provider Internal Medicine Endocrinology, Diabetes & Metabolism; Visit Provider Internal Medicine Endocrinology, Diabetes & Metabolism
DX: E11.42 Type 2 diabetes mellitus with diabetic polyneuropathy (principal); E04.9 Nontoxic goiter, unspecified; I10 Essential (primary) hypertension
CPT/HCPCS: 36415; 80048; 80061; 84443; 84450; 84460

== ENCOUNTER → 2023-06-20 | Outpatient (CLI) | payer MEDICARE, BC, SELFPAY ==
[2023-06-20 12:25] LABS: AST(SGOT) 19 U/L (15-37); Alanine Aminotransfer ALT/SGPT 26 U/L (16-61); Anion Gap 5 (5-15); BUN 49 mg/dL (7-18); BUN/Creat Ratio 28.3 RATIO (10-20); Calcium,Total 9.8 mg/dL (8.5-10.1); Chloride 105 mmol/L (98-107); Creatinine, Serum 1.73 mg/dL (0.70-1.30); EST Glomerular Filtration Rate 41 mL/min (>60); Est Glom Filt Rate - Afr Amer 50 mL/min (>60); Glucose 141 mg/dL (74-106); Potassium 4.3 mmol/L (3.5-5.1); Sodium Level 141 mmol/L (136-145)
[2023-06-20 12:36] LABS: Hemoglobin A1c 6.9 % (3.8-5.6)
== END | disposition home or self-care (01) ==
LOC: MTLAB 10:44
PROVIDERS: PCP Preventive Medicine Occupational Medicine; Referring Provider Internal Medicine Endocrinology, Diabetes & Metabolism; Visit Provider Internal Medicine Endocrinology, Diabetes & Metabolism
DX: E11.65 Type 2 diabetes mellitus with hyperglycemia (principal); E78.2 Mixed hyperlipidemia; I10 Essential (primary) hypertension
CPT/HCPCS: 36415; 80048; 83036; 84450; 84460

== ENCOUNTER → 2023-07-11 | Outpatient (CLI) | payer MEDICARE, BC, SELFPAY ==
[2023-07-11 07:32] LABS: Bacteria 0 SEEN /hpf (None Seen); Mucous, Urine 0 SEEN /hpf (<or=2+)
--- OUTSIDE RECORDS SUMMARY | 2023-07-11 07:47 | XMS RPT_ITS | CCD ---
Author Name Unknown Address [id number] [place] [address] Organization [facility] Care Team Providers Care Driver Operator Name Role Phone BOBBY WILSON Unavailable Unavailable BOBBY WILSON Unavailable Unavailable NO REFERRING Unavailable Unavailable ANALILIA WILSON Unavailable Unavailable ANALILIA WILSON Unavailable Unavailable MELE MACK DO Primary Care Physician Angela Lord PT Unavailable Unavailable Mele Mack Primary Care Provider Mele Mack Primary Care Provider MELE MACK DO Primary Care Physician Mele Mack Primary Care Provider Mele Mack DO Primary Care Provider Mele Mack DO Primary Care Provider JESS COPELAND Attending UnavailMELE Carlson Primary Care Unavailable MELE MACK F Referring Unavailable MELE MACK F Primary Care Unavailable JESS COPELAND Attending Unavaildaina MACK MELE F Referring Unavailable MELE MACK F Primary Care Unavailable JESS COPELAND Attending Unavaildaina MACK MELE F Referring Unavailable MELE MACK Primary Care Unavailable JESS COPELAND Attending Unavaildaina MACK MELE F Referring Unavailable JESS COPELAND Attending Unavaildaina MACK MELE F Primary Care Unavailable MELE MACK F Referring Unavailable DR AMANDO SANFORD MD Attending Unavailable MELE MACK DO Primary Care Unavailable DR AMANDO SANFORD MD Attending Unavailable JEREMY DO, MELE Primary Care Unavailable DR AMANDO SANFORD MD Attending Unavailable JEREMY DO, MELE Primary Care Unavailable JEREMY DO, MEEL Attending Unavailable JEREMY DO, MELE Primary Care Unavailable CORBY DE LA CRUZ, STEPHEN Mclaughlin Attending Yamini vailable JEREMY DO, MELE Primary Care Unavailable MELE RUBALCAVA MD Attending Unavailable JEREMY DO, MELE Primary Care Unavailable LAMONT JONES MD Attending Unava ilable JEREMY DO, MELE Primary Care Unavailable WAYLON SHAIKH MD Attending Unavailable JEREMY DO, MELE Primary Care Unavailable JEREMY, MELE F Primary Care Unavailable JEREMY, MELE F Primary Care Unavailable JEREMY, MELE F Primary Care Unavailable JEREMY, MELE F Primary Care Unavailable STALIN HUFFMAN Attending Unavailable JEREMY, MELE F Primary Care Unavailable LYNDSEY SANCHEZ Referring Unavailable STALIN HUFFMAN Attending Unavailable JEREMY, MELE F Primary Care Unavailable LYNDSEY SANCHEZ Referring Unavailable STALIN HUFFMAN Attending Unavailable LYNDSEY SANCHEZ Referring Unavailable JEREMY, MELE F Primary Care Unavailable STALIN HUFFMAN Attending Unavailable LYNDSEY SANCHEZ Referring Unavailable JEREMY, MELE F Primary Care Unavailable JEREMY, MELE F Primary Care Unavailable STALIN HUFFMAN Attending Unavailable LYNDSEY SANCHEZ Referring Unavailable JEREMY, MELE F Primary Care Unavailable RAFI RUFFIN Referring Unavailable JEREMY, MELE F Primary Care Unavailable RAFI RUFFIN Attending Unavailable JEREMY, MELE F Primary Care Unavailable Allergies Allergy Classification Reported Allergen(s) Allergy Type Date of Onset Reaction(s) Facility (20 sources) Bee; Translations: [BEES] Propensity to adverse reactions (disorder) 7 [facility] Repository (13 sources) Bee/Wasp/Ant venom Allergy to substance [facility] (20 sources) LORazepam; Translations: [lorazepam] Drug Allergy [address] [facility] (20 sources) Mupirocin; Translations: [mupirocin topical] Drug Allergy 0 Blister (morphologic abnormality), Rash [facility] (20 sources) Oseltamivir; Translations: [oseltamivir] Drug Allergy 0 Unknown (qualifier value), Unknown [facility] Medications Current Medications Medication Drug Class(es) Dates Sig (Normalized) Sig (Original) amoxicillin 875 mg oral tablet (1 source) Penicillin-class Antibacterial Start: 03-26-2023 End: 03-31-2023 take 1 tablet by mouth twice daily amoxicillin (AMOXIL) 875 mg tablet Indications: Tooth abscess Take 1 tablet by mouth two times a day for 5 days. 10 tablet 0 03/26/2023 03/31/2023 Active Completed/Discontinued Medications Medication Drug Class(es) Dates Sig (Normalized) Sig (Original) 0.25 MG, 0.5 MG Dose 3 ML semaglutide 0.68 MG/ML Pen Injector [Ozempic] (1 source) Start: 11-30-2022 inject 0.5 mg by subcutaneous injection every week Ozempic 2 mg/3 mL (0.25 mg or 0.5 mg dose) subcutaneous solution Dose : 0.25 mg =, Subcutaneous, qWeek, rotate injection sites, # 1 EA, 0 Refill(s) Start Date: 11/30/22 Status: Ordered acetaminophen 325 mg / HYDROcodone bitartrate 5 mg oral tablet (20 sources) Opioid Agonist Start: 01-03-2020 End: 10-29-2022 take 1 tablet by mouth every six hours as needed HYDROcodone-acetami nophen (NORCO) 5-325 mg per tablet Take 1 tablet by mouth every 6 hours as needed. 0 01/03/2020 Active Problems Active Problems Problem Classification Problem Date Documented Da te Episodic/Chronic Cancer of colon (13 sources) Malignant tumor of colon 03-01-2019 Chronic Chronic kidney disease (13 sources) Chronic kidney disease 03-01-2019 Chronic Chronic ulcer of skin (6 sources) Ulcer of big toe; Translations: [Non-pressure chronic ulcer of unspecified part of right lower leg with unspecified severity] Onset: 12-10-2021 08-17-2016 Chronic Past or Other Problems Problem Classification Problem Date Documented Date Episodic/Chronic Fracture of upper limb (20 sources) Closed fracture of upper end of humerus; Translations: [Other displaced fracture of upper end of unspecified humerus, initial encounter for closed fracture] Onset: 09-21-2007 09-21-2007 Episodic Other aftercare (4 sources) 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; Translations: [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] Onset: 12-06-2016 Episodic Other diseases of veins and lymphatics (1 source) Venous insufficiency (chronic) (peripheral); Translations: [Venous stasis dermatitis of both lower extremities] Onset: 12-10-2021 Episodic Residual codes; unclassified (1 source) Pain, unspecified; Translations: [Pain] Onset: 07-21-2022 Episodic Results Test Name Value Interpretation Reference Range Facil ity Vital Signs Date Time Vital Sign Value Performing Clinician Facility 03-26-2023 09:06-0500 Body temperature 97.81 [degF] Leyla Cain APRN.CNP Work Phone: [facility] 03-26-2023 09:06-0500 Body weight 119.3 kg Leyla Cain APRN.CNP Work Phone: [facility] 03-26-2023 09:06-0500 Diastolic blood pressure 69 mm[Hg] Leyla Cain APRN.CNP Work Phone: [facility] 03-26-2023 09:06-0500 Heart rate 61 /min Leyla Cain APRN.FARM GENERAL MANAGER Work Phone: [facility] 03-26-2023 09:06-0500 Respiratory rate 18 /min Leyla Cain APRN.CNP Work Phone: [facility] 03-26-2023 09:06-0500 SaO2% (BldA) [Mass fraction] 98 % Leyla Cain APRN.CNP Work Phone: [facility] 03-26-2023 09:06-0500 Systolic blood pressure 154 mm[Hg] Leyla Cain APRN.CNP Work Phone: [facility] 11-30-2022 08:17-0400 Body temperature 96.4 [degF] Jess Copeland APRN.CNP Work Phone: [facility] 11-30-2022 08:17-0400 Diastolic blood pressure 74 mm[Hg] Jess Copeland APRN.FARM GENERAL MANAGER Work Phone: [facility] 11-30-2022 08:17-0400 Heart rate 73 /min Jess Jarrellesperanza CARD PLACER.FARM GENERAL MANAGER Work Phone: [facility] 11-30-2022 08:17-0400 SaO2% (BldA) [Mass fraction] 98 % Jess Camachobert CARD PLACER.FARM GENERAL MANAGER Work Phone: [facility] 11-30-2022 08:17-0400 Systolic blood pressure 152 mm[Hg] Jess Jarrellesperanza CARD PLACER.FARM GENERAL MANAGER Work Phone: [facility] 10-31-2022 08:21-0400 Body temperature 97.81 [degF] Dale Oscar MD Work Phone: [facility] 10-31-2022 08:21-0400 Body weight 135.81 kg Dale Oscar MD Work Phone: [facility] 10-31-2022 08:21-0400 Diastolic blood pressure 72 mm[Hg] Dale Oscar MD Work Phone: [facility] 10-31-2022 08:21-0400 Heart rate 52 /min Dale Oscar MD Work Phone: [facility] 10-31-2022 08:21-0400 Respiratory rate 18 /min Dale Oscar MD Work Phone: [facility] 10-31-2022 08:21-0400 SaO2% (BldA) [Mass fraction] 97 % Dale Oscar MD Work Phone: [facility] 10-31-2022 08:21-0400 Systolic blood pressure 122 mm[Hg] Dale Oscar MD Work Phone: [facility] 10-02-2022 08:40-0400 Body temperature 97.7 [degF] Ifeanyi Stone APRN.FARM GENERAL MANAGER Work Phone: [facility] 10-02-2022 08:40-0400 Body weight 136.53 kg Ifeanyi Stone CARD PLACER.FARM GENERAL MANAGER Work Phone: [facility] 10-02-2022 08:40-0400 Diastolic blood pressure 70 mm[Hg] Ifeanyi Stone CARD PLACER.FARM GENERAL MANAGER Work Phone: [facility] 10-02-2022 08:40-0400 Heart rate 58 /min Ifeanyi Stone CARD PLACER.FARM GENERAL MANAGER Work Phone: [facility] 10-02-2022 08:40-0400 SaO2% (BldA) [Mass fraction] 98 % Ifeanyi Stone CARD PLACER.FARM GENERAL MANAGER Work Phone: [facility] 10-02-2022 08:40-0400 Systolic blood pressure 118 mm[Hg] Ifeanyi Stone CARD PLACER.FARM GENERAL MANAGER Work Phone: [facility] 06-20-2022 09:11-0500 Body temperature 97.9 [degF] Krislyn Aberegg PA Work Phone: [facility] 06-20-2022 09:11-0500 Body weight 140.89 kg Krislyn Aberegg PA Work Phone: [facility] 06-20-2022 09:11-0500 Diastolic blood pressure 76 mm[Hg] Krislyn Aberegg PA Work Phone: [facility] 06-20-2022 09:11-0500 Heart rate 69 /min Krislyn Aberegg PA Work Phone: [facility] 06-20-2022 09:11-0500 Respiratory rate 20 /min Krislyn Aberegg PA Work Phone: [facility] 06-20-2022 09:11-0500 SaO2% (BldA) [Mass fraction] 97 % Krislyn Aberegg PA Work Phone: [facility] 06-20-2022 09:11-0500 Systolic blood pressure 122 mm[Hg] Krislyn Aberegg PA Work Phone: [facility] 05-09-2022 16:10-0500 Body temperature 96.3 [degF] Lupe Anam CARD PLACER.FARM GENERAL MANAGER Work Phone: [facility] 05-09-2022 16:10-0500 Body weight 143.52 kg Lupe Mendieta CARD PLACER.FARM GENERAL MANAGER Work Phone: [facility] 05-09-2022 16:10-0500 Diastolic blood pressure 74 mm[Hg] Lupe Anam CARD PLACER.FARM GENERAL MANAGER Work Phone: [facility] 05-09-2022 16:10-0500 Heart rate 67 /min Lupe Anam CARD PLACER.FARM GENERAL MANAGER Work Phone: [facility] 05-09-2022 16:10-0500 Respiratory rate 21 /min Lupe Anam CARD PLACER.FARM GENERAL MANAGER Work Phone: [facility] 05-09-2022 16:10-0500 SaO2% (BldA) [Mass fraction] 98 % Lupe Mendieta CARD PLACER.FARM GENERAL MANAGER Work Phone: [facility] 05-09-2022 16:10-0500 Systolic blood pressure 148 mm[Hg] Lupe Anam CARD PLACER.FARM GENERAL MANAGER Work Phone: [facility] 01-26-2022 09:09-0400 Body temperature 97.2 [degF] Jess Copeland CARD PLACER.FARM GENERAL MANAGER Work Phone: [facility] 01-26-2022 09:09-0400 Diastolic blood pressure 77 mm[Hg] Jess Copeland CARD PLACER.FARM GENERAL MANAGER Work Phone: [facility] 01-26-2022 09:09-0400 Heart rate 60 /min Jess Coepland CARD PLACER.FARM GENERAL MANAGER Work Phone: [facility] 01-26-2022 09:09-0400 Respiratory rate 18 /min Jess Copeland CARD PLACER.FARM GENERAL MANAGER Work Phone: [facility] 01-26-2022 09:09-0400 SaO2% (BldA) [Mass fraction] 100 % Jess Copeladn CARD PLACER.FARM GENERAL MANAGER Work Phone: [facility] 01-26-2022 09:09-0400 Systolic blood pressure 156 mm[Hg] Jess Copeland CARD PLACER.FARM GENERAL MANAGER Work Phone: [facility] 01-10-2022 09:54-0400 Diastolic blood pressure 89 mm[Hg] Jess Copeland CARD PLACER.FARM GENERAL MANAGER Work Phone: [facility] 01-10-2022 09:54-0400 Systolic blood pressure 157 mm[Hg] Jess Copeland CARD PLACER.FARM GENERAL MANAGER Work Phone: [facility] 01-10-2022 09:47-0400 Body temperature 97.5 [degF] Jess Copeland CARD PLACER.FARM GENERAL MANAGER Work Phone: [facility] 01-10-2022 09:47-0400 Heart rate 85 /min Jess Copeland CARD PLACER.FARM GENERAL MANAGER Work Phone: [facility] 01-10-2022 09:47-0400 Respiratory rate 16 /min Jess Copeland CARD PLACER.FARM GENERAL MANAGER Work Phone: [facility] 01-10-2022 09:47-0400 SaO2% (BldA) [Mass fraction] 97 % Jess Copeland CARD PLACER.FARM GENERAL MANAGER Work Phone: [facility] 12-27-2021 09:54-0400 Diastolic blood pressure 59 mm[Hg] Jess Copeland CARD PLACER.FARM GENERAL MANAGER Work Phone: [facility] 12-27-2021 09:54-0400 Systolic blood pressure 121 mm[Hg] Jess Copeland CARD PLACER.FARM GENERAL MANAGER Work Phone: [facility] 12-27-2021 09:44-0400 Body temperature 97.7 [degF] Jess Copeland CARD PLACER.FARM GENERAL MANAGER Work Phone: [facility] 12-27-2021 09:44-0400 Heart rate 84 /min Jess Copeland CARD PLACER.FARM GENERAL MANAGER Work Phone: [facility] 12-27-2021 09:44-0400 Respiratory rate 18 /min Jess Katrinchak CARD PLACER.FARM GENERAL MANAGER Work Phone: [facility] 12-27-2021 09:44-0400 SaO2% (BldA) [Mass fraction] 97 % Jess Katrinchak CARD PLACER.FARM GENERAL MANAGER Work Phone: [facility] 12-10-2021 11:42-0400 Body temperature 98.49 [degF] Jess Katrinchak CARD PLACER.FARM GENERAL MANAGER Work Phone: [facility] 12-10-2021 11:42-0400 Diastolic blood pressure 64 mm[Hg] Jess Katrinchak CARD PLACER.FARM GENERAL MANAGER Work Phone: [facility] 12-10-2021 11:42-0400 Heart rate 58 /min Jess Katrinchak CARD PLACER.FARM GENERAL MANAGER Work Phone: [facility] 12-10-2021 11:42-0400 Respiratory rate 18 /min Jess Katrinchak CARD PLACER.FARM GENERAL MANAGER Work Phone: [facility] 12-10-2021 11:42-0400 SaO2% (BldA) [Mass fraction] 97 % Jess Katrinchak CARD PLACER.FARM GENERAL MANAGER Work Phone: [facility] 12-10-2021 11:42-0400 Systolic blood pressure 117 mm[Hg] Jess Katrinchak CARD PLACER.FARM GENERAL MANAGER Work Phone: [facility] 12-02-2021 09:34-0400 Body temperature 97.59 [degF] Jess Katrinchak CARD PLACER.FARM GENERAL MANAGER Work Phone: [facility] 12-02-2021 09:34-0400 Diastolic blood pressure 51 mm[Hg] Jess Katrinchak CARD PLACER.FARM GENERAL MANAGER Work Phone: [facility] 12-02-2021 09:34-0400 Heart rate 60 /min Jess Katrinchak CARD PLACER.FARM GENERAL MANAGER Work Phone: [facility] 12-02-2021 09:34-0400 Respiratory rate 22 /min Jess Camachok CARD PLACER.FARM GENERAL MANAGER Work Phone: [facility] 12-02-2021 09:34-0400 SaO2% (BldA) [Mass fraction] 98 % Jess Herrerachak CARD PLACER.FARM GENERAL MANAGER Work Phone: [facility] 12-02-2021 09:34-0400 Systolic blood pressure 140 mm[Hg] Jess Katrinchak CARD PLACER.FARM GENERAL MANAGER Work Phone: [facility] 11-25-2021 10:39-0400 Body temperature 97.11 [degF] Jess Janicek CARD PLACER.FARM GENERAL MANAGER Work Phone: [facility] 11-25-2021 10:39-0400 Diastolic blood pressure 65 mm[Hg] Jess Katrinchak CARD PLACER.FARM GENERAL MANAGER Work Phone: [facility] 11-25-2021 10:39-0400 Heart rate 83 /min Jess Katrajwinderchak CARD PLACER.FARM GENERAL MANAGER Work Phone: [facility] 11-25-2021 10:39-0400 Respiratory rate 22 /min Jess Katrajwinderchak CARD PLACER.FARM GENERAL MANAGER Work Phone: [facility] 11-25-2021 10:39-0400 SaO2% (BldA) [Mass fraction] 97 % Jess Camachok CARD PLACER.FARM GENERAL MANAGER Work Phone: [facility] 11-25-2021 10:39-0400 Systolic blood pressure 126 mm[Hg] Jess Katrinchak CARD PLACER.FARM GENERAL MANAGER Work Phone: [facility] 11-12-2021 08:26-0400 Diastolic blood pressure 57 mm[Hg] Jess Katrinchak CARD PLACER.FARM GENERAL MANAGER Work Phone: [facility] 11-12-2021 08:26-0400 Systolic blood pressure 136 mm[Hg] Jess Katrinchak CARD PLACER.FARM GENERAL MANAGER Work Phone: [facility] 11-12-2021 08:25-0400 Body temperature 97.7 [degF] Jess Copeland CARD PLACER.FARM GENERAL MANAGER Work Phone: [facility] 11-12-2021 08:25-0400 Heart rate 79 /min Jess Copeland CARD PLACER.FARM GENERAL MANAGER Work Phone: [facility] 11-12-2021 08:25-0400 SaO2% (BldA) [Mass fraction] 95 % Jess Copeland CARD PLACER.FARM GENERAL MANAGER Work Phone: [facility] 10-29-2021 09:05-0400 Body temperature 98.1 [degF] Jess Copeland CARD PLACER.FARM GENERAL MANAGER Work Phone: [facility] 10-29-2021 09:05-0400 Diastolic blood pressure 56 mm[Hg] Jess Copeland CARD PLACER.FARM GENERAL MANAGER Work Phone: [facility] 10-29-2021 09:05-0400 Heart rate 80 /min Jess Copeland CARD PLACER.FARM GENERAL MANAGER Work Phone: [facility] 10-29-2021 09:05-0400 SaO2% (BldA) [Mass fraction] 95 % Jess Copeland APRN.FARM GENERAL MANAGER Work Phone: [facility] 10-29-2021 09:05-0400 Systolic blood pressure 119 mm[Hg] Jess Copeland CARD PLACER.FARM GENERAL MANAGER Work Phone: [facility] 08-19-2021 10:39-0400 Body temperature 96.8 [degF] Jess Copeland CARD PLACER.FARM GENERAL MANAGER Work Phone: [facility] 08-19-2021 10:39-0400 Diastolic blood pressure 55 mm[Hg] Jess Copeland CARD PLACER.FARM GENERAL MANAGER Work Phone: [facility] 08-19-2021 10:39-0400 Heart rate 57 /min Jess Copeland CARD PLACER.FARM GENERAL MANAGER Work Phone: [facility] 08-19-2021 10:39-0400 SaO2% (BldA) [Mass fraction] 98 % Jess Katrinchak CARD PLACER.FARM GENERAL MANAGER Work Phone: [facility] 08-19-2021 10:39-0400 Systolic blood pressure 127 mm[Hg] Jess Katrinchak CARD PLACER.FARM GENERAL MANAGER Work Phone: [facility] 08-12-2021 09:10-0400 Diastolic blood pressure 70 mm[Hg] Jess Katrinchak CARD PLACER.FARM GENERAL MANAGER Work Phone: [facility] 08-12-2021 09:10-0400 Systolic blood pressure 127 mm[Hg] Jess Katrinchak CARD PLACER.FARM GENERAL MANAGER Work Phone: [facility] 08-12-2021 09:09-0400 Body temperature 97.5 [degF] Jess Katrinchak CARD PLACER.FARM GENERAL MANAGER Work Phone: [facility] 08-12-2021 09:09-0400 Heart rate 80 /min Jess Katrinchak CARD PLACER.FARM GENERAL MANAGER Work Phone: [facility] 08-12-2021 09:09-0400 SaO2% (BldA) [Mass fraction] 96 % Jess Katrinchak CARD PLACER.FARM GENERAL MANAGER Work Phone: [facility] 07-30-2021 08:55-0400 Body temperature 98.91 [degF] Jess Katrinchak CARD PLACER.FARM GENERAL MANAGER Work Phone: [facility] 07-30-2021 08:55-0400 Diastolic blood pressure 56 mm[Hg] Jess Katrinchak CARD PLACER.FARM GENERAL MANAGER Work Phone: [facility] 07-30-2021 08:55-0400 Heart rate 81 /min Jess Katrinchak CARD PLACER.FARM GENERAL MANAGER Work Phone: [facility] 07-30-2021 08:55-0400 Respiratory rate 20 /min Jess Katrinchak CARD PLACER.FARM GENERAL MANAGER Work Phone: [facility] 07-30-2021 08:55-0400 SaO2% (BldA) [Mass fraction] 96 % Jess Copeland CARD PLACER.FARM GENERAL MANAGER Work Phone: [facility] 07-30-2021 08:55-0400 Systolic blood pressure 133 mm[Hg] Jess Copeland CARD PLACER.FARM GENERAL MANAGER Work Phone: [facility] 07-27-2021 08:30-0400 Diastolic blood pressure 63 mm[Hg] Jess Copeland CARD PLACER.FARM GENERAL MANAGER Work Phone: [facility] 07-27-2021 08:30-0400 Systolic blood pressure 136 mm[Hg] Jess Camachok CARD PLACER.FARM GENERAL MANAGER Work Phone: [facility] 07-27-2021 08:29-0400 Body temperature 97.11 [degF] Jess oCpeland CARD PLACER.FARM GENERAL MANAGER Work Phone: [facility] 07-27-2021 08:29-0400 Heart rate 82 /min Jess Copeland CARD PLACER.FARM GENERAL MANAGER Work Phone: [facility] 07-27-2021 08:29-0400 SaO2% (BldA) [Mass fraction] 97 % Jess Copeland CARD PLACER.FARM GENERAL MANAGER Work Phone: [facility] 07-23-2021 10:04-0400 Diastolic blood pressure 71 mm[Hg] Jess Camachok CARD PLACER.FARM GENERAL MANAGER Work Phone: [facility] 07-23-2021 10:04-0400 Systolic blood pressure 138 mm[Hg] Jess Sharonchak CARD PLACER.FARM GENERAL MANAGER Work Phone: [facility] 07-23-2021 10:03-0400 Body temperature 96.91 [degF] Jess Camachok CARD PLACER.FARM GENERAL MANAGER Work Phone: [facility] 07-23-2021 10:03-0400 Heart rate 80 /min Jess Copeland CARD PLACER.FARM GENERAL MANAGER Work Phone: [facility] 07-23-2021 10:03-0400 SaO2% (BldA) [Mass fraction] 98 % Jess Copeland CARD PLACER.FARM GENERAL MANAGER Work Phone: [facility] 07-20-2021 08:20-0400 Diastolic blood pressure 65 mm[Hg] Jess Copeland CARD PLACER.FARM GENERAL MANAGER Work Phone: [facility] 07-20-2021 08:20-0400 Systolic blood pressure 132 mm[Hg] Jess Copeland CARD PLACER.FARM GENERAL MANAGER Work Phone: [facility] 07-20-2021 08:11-0400 Body temperature 97.11 [degF] Jess Copeland CARD PLACER.FARM GENERAL MANAGER Work Phone: [facility] 07-20-2021 08:11-0400 Heart rate 82 /min Jess Copeland CARD PLACER.FARM GENERAL MANAGER Work Phone: [facility] 07-20-2021 08:11-0400 Respiratory rate 16 /min Jess Copeland CARD PLACER.FARM GENERAL MANAGER Work Phone: [facility] 07-20-2021 08:11-0400 SaO2% (BldA) [Mass fraction] 96 % Jess Copeland CARD PLACER.FARM GENERAL MANAGER Work Phone: [facility] 03-08-2021 09:30-0500 Diastolic Blood Pressure NBP [address] MD [facility] 03-08-2021 09:30-0500 Heart rate 55 /min DR BLADE VILLASENOR MD [facility] 03-08-2021 09:30-0500 Respiratory rate 14 /min DR BLADE VILLASENOR MD [facility] 03-08-2021 09:30-0500 Systolic Blood Pressure NBP [address]ASENOR MD [facility] 03-08-2021 09:25-0500 Diastolic Blood Pressure NBP [address] BLADE VILLASENOR MD [facility] 03-08-2021 09:25-0500 Heart rate 61 /min DR BLADE VILLASENOR MD [facility] 03-08-2021 09:25-0500 Respiratory rate 16 /min DR BLADE VILLASENOR MD [facility] 03-08-2021 09:25-0500 Systolic Blood Pressure NBP [address] BLADE VILLASENOR MD [facility] 03-08-2021 09:20-0500 Diastolic Blood Pressure NBP [address] BLADE VILLASENOR MD [facility] 03-08-2021 09:20-0500 Heart rate 61 /min DR BLADE VILLASENOR MD [facility] 03-08-2021 09:20-0500 Respiratory rate 16 /min DR BLADE VILLASENOR MD [facility] 03-08-2021 09:20-0500 Systolic Blood Pressure NBP [address] BLADE VILLASENOR MD [facility] 03-08-2021 09:11-0500 Body temperature 97.16 [degF] DR BLADE VILLASENOR MD [facility] 03-08-2021 07:23-0500 Body height [address] BLADE VILLASENOR MD [facility] 03-08-2021 07:23-0500 Body temperature 96.62 [degF] DR BLADE VILLASENOR MD [facility] 03-08-2021 07:23-0500 Body weight [address] BLADE VILLASENOR MD [facility] 03-08-2021 07:23-0500 Body weight 41.98 kg/m2 DR BLADE VILLASENOR MD [facility] 03-08-2021 07:23-0500 diastolic 57 mm[Hg] DR BLADE VILLASENOR MD [facility] 03-08-2021 07:23-0500 Heart rate 65 /min DR BLADE VILLASENOR MD [facility] 03-08-2021 07:23-0500 systolic 149 mm[Hg] DR BLADE VILLASENOR MD [facility] Encounters Encounter Date Encounter Type Care Provider Facility Start: 03-26-2023 End: 03-26-2023 [facility] Facility:[facility] Start: 03-26-2023 End: 03-26-2023 Patient encounter procedure Leyla Cain APRN.CNP Work Phone: [facility] Procedures Date Procedure Procedure Detail Performing Clinician Start: 07-21-2022 Arthrocentesis aspir &/inj major jt/bursa w/o us Lyndsey Ruhland DO Work Phone: Start: 07-21-2022 Radiologic examinati on pelvis 1/2 views Rafi Ruffin MD Work Phone: Start: 05-01-[address] AMANDO SANFORD MD Start: 03-14-2019 Cardiovascular stres s test interpretation (observable entity) DR BLADE VILLASENOR MD Plan of Treatment Date Care Activity Detail Author Start: 12-30-2022 Covid-19 Vaccine () Covid-19 Vaccine () [facility] Start: 12-30-2022 Influenza vaccination [facility] Start: 06-20-2022 End: 07-04-2022 Influenza virus A and B RNA and SARS-CoV-2 (COVID-19) N gene panel - Respiratory specimen by ARLETTE with probe detection COVID WITH FLUA+B, ROUTINE Microbiology Routine URI, acute Expected: 06/20/2022, Expires: 07/04/2022 [facility] Work Phone: Immunizations Immunization Date Immunization Notes Care Provider [facility] 02-21-2022 influenza virus vaccine, unspecified formulation Xr Rej Work Phone: [facility] 04-27-2021 SARS-CoV-2 (COVID-19 ) mRNA-[id number] MAANDO SANFORD MD [facility] 03-27-2021 influenza virus vaccine, unspecified formulation DR AMANDO SANFORD MD [facility] 08-20-2020 SARS-CoV-2 (COVID-19 ) mRNA-[id number] BLADE VILLASENOR MD [facility] Payers Date Payer Category Payer Unknown RUBIN HORTON BS FEP PPO [id number] 2016-Present [phone] [address] [place] [address] PPO [id number] 2016 Unknown RUBIN CONKLIN BC BS FEP PPO [id number] 2016-Present [phone] [address] [place] [address] PPO [id number] 2016 Unknown [id number] 2013 Medicare MEDICARE MEDICAR E A AND B [id number] 2013-Present [phone] [place] [address] Medicare [id number] 2013 Medicare MEDICARE MEDICAR E A AND B [id number] 2013-Present [phone] [place] [address] Medicare [id number] 2013 Medicare [id number] 1948 Unknown [id number] 1948 Unknown [id number] 1948 Unknown [id number] 1948 Unknown [id number] 1948 Unknown [id number] 1948 Unknown [id number] 1948 Unknown [id number] 1950 Unknown [id number] Medicare [id number] Social History Date Type Detail Facility Start: 05-26-2020 End: 12-10-2021 Never smoked tobacco (finding) [facility] Sex Assigned At Male [facility] Start: 07-20-2021 End: 03-26-2023 Alcohol intake Current drinker of alcohol (finding) [facility] Start: 1950 Sex Assigned At Not on file [facility] Start: 07-10-2021 End: 01-26-2022 Exposure to SARS-CoV-2 (event) Not sure [facility] Start: 12-10-2021 Tobacco use and exposure Smokeless tobacco non-user [facility] Start: 09-05-2022 End: 11-30-2022 History of Social function [facility] Start: 09-05-2022 End: 11-30-2022 Tobacco use panel [facility] National Score (1-100), lower number is lower risk 36 [facility] Medical Equipment Procedure Code Equipment Code Equipment Origin al Text Equipment Identifier Dates One Touch Delica 30g Lancets Start: 11-15-2018 UNIFINE PNTP MIS [id number] Start: 11-15-2018 One Touch Delica 30g Lancets Start: 11-15-2018 UNIFINE PNTP MIS [id number] Start: 11-15-2018 One Touch Delica 30g Lancets Start: 11-15-2018 UNIFINE PNTP MIS [id number] Start: 11-15-2018 One Touch Delica 30g Lancets Start: 11-15-2018 UNIFINE PNTP MIS [id number] Start: 11-15-2018 Start: 05-14-2007 Clinical Notes 03-08-2021 to 03-26-2023 Leyla Cain APRN.[facility] - 03/26/2023 9:13 AM Jess Lopez APRN.[employer] - 11/30/2022 8:25 AM EDTPatient InstructionsIdania Rainey RN - 11/30/2022 8:17 AM EDTPatient Instructions Note Date & Type Note Facility 03-26-2023 Note HNO ID: [id number] Author: Leyla Cain APRN.[facility] Service: ? Author Type: Nurse Practitioner Type: Progress Notes Filed: 03/26/2023 9:17 AM Note Text: This note was created using [employer]. Subjective Analilia Rodirguez is a 73 year old male. Patient reports he bit his tongue on Monday and broke off part of his tooth. Patient reports since then he has had ear pain on the left side as well as sinus congestion and postnasal drainage. Patient reports he has dentist appointment on . Objective BP 154/69 Pulse 61 Temp 36.6 ?C (97.8 ?F) Resp 18 Wt 119.3 kg (263 lb) SpO2 98% BMI 36.68 kg/m? Physical Exam PHYSICAL EXAMINATION: General appearance: Well appearing, alert, in no acute distress, well-hydrated, well nourished. Oropharynx: Positive findings: dental caries, moderate oropharyngeal erythema, broken tooth left lower molar Neck: Positive findings: posterior cervical adenopathy Assessment and Plan ASSESSMENT/PLAN: 1. Tooth abscess - ICD9: 522.5, ICD10: K04.7 - AMOXICILLIN 875 MG TABLET -Follow up with dentist on as scheduled. - Encourage warm salt water gargles and use of OTC medication for pain, drainage. Leyla Cain APRN.[facility] 03-26-2023 History of Present illness Narrative This note was created using [employer]. Subjective Analilia Rodriguez is a 73 year old male. Patient reports he bit his tongue on Monday and broke off part of his tooth. Patient reports since then he has had ear pain on the left side as well as sinus congestion and postnasal drainage. Patient reports he has dentist appointment on . Objective BP 154/69 Pulse 61 Temp 36.6 C (97.8 F) Resp 18 Wt 119.3 kg (263 lb) SpO2 98% BMI 36.68 kg/m Physical Exam PHYSICAL EXAMINATION: General appearance: Well appearing, alert, in no acute distress, well-hydrated, well nourished. Oropharynx: Positive findings: dental caries, moderate oropharyngeal erythema, broken tooth left lower molar Neck: Positive findings: posterior cervical adenopathy Assessment and Plan ASSESSMENT/PLAN: 1. Tooth abscess - ICD9: 522.5, ICD10: K04.7 - AMOXICILLIN 875 MG TABLET -Follow up with dentist on as scheduled. - Encourage warm salt water gargles and use of OTC medication for pain, drainage. Leyla Cain APRN.[employer] documented in this encounter [facility] 11-30-2022 Note HNO ID: [id number] Author: Jess Copeland APRN.[facility] Service: ? Author Type: Nurse Practitioner Type: Progress Notes Filed: 11/30/2022 10:25 AM Note Text: WOUND CENTER PROGRESS NOTE PATIENT NAME: Analilia Rodriguez DATE OF FOLLOW UP: 11/30/2022 REASON FOR FOLLOW UP: bilat lower leg blisters and stasis dermatitis HISTORY OF PRESENT ILLNESS: Analilia Rodriguez is a 72 year old y/o male w/ hx DM2, HTN, CAD w/ stent placement, gout, who presents for wound assessment new blisters of bilat lower legs and increased redness of right crawford x approx 2 weeks. Pt states he noticed some blisters on the anterior aspect of both lower legs about 2 weeks ago. He denies any injury or trauma to the affected areas. He has not been wearing any compression stockings. He states compression stockings actually seem to cause blisters. He states the stockings/CircAid garments cause his legs to sweat more and feel hot. He has not worn compression since his last visit to the wound center Dec 2021, and he state he has not had any issues with wounds/blisters until now. Location: billat lower legs Onset: October 2022 Aggravating factors: Diabetes mellitus and Vascular impairment Wound etiology: Vascular, Dermatologic Associated pain with wound: no Relieving factors for wound pain: n/a Treatments: Current: triple antibiotic Past: n/a PAST MEDICAL HISTORY Diagnosis Date Cancer (HCC) colon cancer late Coronary artery disease one stent Diabetes mellitus without mention of complication Diabetes mellitus Gout Hypertension PMH - PAST MEDICAL HISTORY OF 09/10/07 Right shoulder fracture Renal disorder PAST SURGICAL HISTORY Procedure Laterality Date COLON SURGERY HX 1990s ORTHOPEDICS SURGERY HX , carpal tunnel TONSILLECTOMY HX ALLERGIES ALLERGIES Allergen Reactions Bees swells Lorazepam Intolerance Mupirocin Rash blisters Oseltamivir Unknown made me sick, told I shouldn't take it Silver Sulfadiazine Rash CURRENT OUTPATIENT MEDICATIONS semaglutide (OZEMPIC) 0.25 mg or 0.5 mg (2 mg/3 mL) pen Inject subcutaneously one time a week. cholecalciferol (VITAMIN D3) 50 mcg (2,000 unit) tablet Take 2,000 Units by mouth once daily. diclofenac sodium (VOLTAREN) 1 % topical gel Apply 2 g to affected area three times daily as needed (pain and swelling). febuxostat (ULORIC) 80 mg tab Take 1 tablet by mouth once daily. finasteride (PROSCAR) 5 mg tablet Take 1 tablet by mouth once daily. fluticasone (FLONASE) 50 mcg/actuation nasal spray Use 2 Sprays in each nostril every morning. HYDROcodone-acetaminophen (NORCO) 5-325 mg per tablet Take 1 tablet by mouth every 6 hours as needed. tamsulosin ER (FLOMAX) 0.4 mg Take 1 capsule by mouth daily at bedtime. carvedilol (COREG) 25 mg tablet Take 1 tablet by mouth twice daily. furosemide (LASIX) 20 mg tablet Take 1 tablet by mouth twice daily. Valsartan-Hydrochlorothiazide 320-25 mg per tablet Take 1 tablet by mouth once daily. blood sugar diagnostic(ASCENSIA CONTOUR TEST STRIPS) Testing twice daily needles, insulin disposable(BD INSULIN PEN NEEDLE UF SHORT 31 X 09/13 ) use as directed aspirin(ECOTRIN LOW STRENGTH 81 MG TAB) Take one(1) tablet daily. multivitamins(MULTIPLE VITAMINS TAB) Take one(1) tablet daily. calcium carbonate/vitamin d3(CALCIUM 600 + D(3) 600 MG (1,500)-200 UNIT TAB) Take 1 tablet by mouth once daily. LANCETS Use as directed. fluocinonide (LIDEX) 0.05 % cream Apply to affected areas on both lower legs as directed (Patient not taking: Reported on 10/02/2022) NOVOLOG MIX 70-30 100 unit/mL (70-30) inpn injection Inject subcutaneously three times daily with meals. -sliding scale Up to 40 units TID (Patient not taking: Reported on 11/30/2022) amLODIPine (NORVASC) 5 mg tablet Take 1 tablet by mouth once daily. (Patient not taking: No sig reported) GLIPIZIDE 10 MG TAB Take one(1) tablet two(2) times daily. (Patient not taking: No sig reported) exenatide(BYETTA 10 MCG/0.04 ML PER DOSE SUB-Q PEN INJECTOR) Inject ten(10) mcg subcutaneously twice daily within 60 minutes prior to a meal . (Patient not taking: No sig reported) carvedilol(COREG 6.25 MG TAB) Take one(1) tablet twice daily. (Patient not taking: ) furosemide(LASIX 40 MG TAB) Take one(1) tablet two(2) times daily. (Patient not taking: No sig reported) valsartan/hydrochlorothiazide(DIOV AN HCT 160 MG-12.5 MG TAB) Take one(1) tablet daily. (Patient not taking: No sig reported) amlodipine (NORVASC) 10 mg ORAL Tab Take one(1) tablet daily. (Patient not taking: No sig reported) No family history on file. Social History Tobacco Use Smoking status: Never Smokeless tobacco: Never Vaping Use Vaping Use: Never used Substance Use Topics Alcohol use: Yes Comment: rare Drug use: Never REVIEW OF SYSTEMS: GENERAL: No weight loss, malaise or fevers RESPIRATORY: Negative for cough, hemoptysis, wheezing, COPD, dyspnea or shortnes (more content not included)... [facility] 11-30-2022 History of Present illness Narrative Images from the original note were not included. WOUND CENTER PROGRESS NOTE PATIENT NAME: Analilia Rodriguez DATE OF FOLLOW UP: 11/30/2022 REASON FOR FOLLOW UP: bilat lower leg blisters and stasis dermatitis HISTORY OF PRESENT ILLNESS: Analilia Rodriguez is a 72 year old y/o male w/ hx DM2, HTN, CAD w/ stent placement, gout, who presents for wound assessment new blisters of bilat lower legs and increased redness of right crawford x approx 2 weeks. Pt states he noticed some blisters on the anterior aspect of both lower legs about 2 weeks ago. He denies any injury or trauma to the affected areas. He has not been wearing any compression stockings. He states compression stockings actually seem to cause blisters. He states the stockings/CircAid garments cause his legs to sweat more and feel hot. He has not worn compression since his last visit to the wound center Dec 2021, and he state he has not had any issues with wounds/blisters until now. Location: billat lower legs Onset: October 2022 Aggravating factors: Diabetes mellitus and Vascular impairment Wound etiology: Vascular, Dermatologic Associated pain with wound: no Relieving factors for wound pain: n/a Treatments: Current: triple antibiotic Past: n/a PAST MEDICAL HISTORY Diagnosis Date Cancer (HCC) colon cancer late Coronary artery disease one stent Diabetes mellitus without mention of complication Diabetes mellitus Gout Hypertension PMH - PAST MEDICAL HISTORY OF 09/10/07 Right shoulder fracture Renal disorder PAST SURGICAL HISTORY Procedure Laterality Date COLON SURGERY HX ORTHOPEDICS SURGERY HX , carpal tunnel TONSILLECTOMY HX ALLERGIES ALLERGIES Allergen Reactions Bees swells Lorazepam Intolerance Mupirocin Rash blisters Oseltamivir Unknown made me sick, told I shouldn't take it Silver Sulfadiazine Rash CURRENT OUTPATIENT MEDICATIONS semaglutide (OZEMPIC) 0.25 mg or 0.5 mg (2 mg/3 mL) pen Inject subcutaneously one time a week. cholecalciferol (VITAMIN D3) 50 mcg (2,000 unit) tablet Take 2,000 Units by mouth once daily. diclofenac sodium (VOLTAREN) 1 % topical gel Apply 2 g to affected area three times daily as needed (pain and swelling). febuxostat (ULORIC) 80 mg tab Take 1 tablet by mouth once daily. finasteride (PROSCAR) 5 mg tablet Take 1 tablet by mouth once daily. fluticasone (FLONASE) 50 mcg/actuation nasal spray Use 2 Sprays in each nostril every morning. HYDROcodone-acetaminophen (NORCO) 5-325 mg per tablet Take 1 tablet by mouth every 6 hours as needed. tamsulosin ER (FLOMAX) 0.4 mg Take 1 capsule by mouth daily at bedtime. carvedilol (COREG) 25 mg tablet Take 1 tablet by mouth twice daily. furosemide (LASIX) 20 mg tablet Take 1 tablet by mouth twice daily. Valsartan-Hydrochlorothiazide 320-25 mg per tablet Take 1 tablet by mouth once daily. blood sugar diagnostic(ASCENSIA CONTOUR TEST STRIPS) Testing twice daily needles, insulin disposable(BD INSULIN PEN NEEDLE UF SHORT 31 X /16 ) use as directed aspirin(ECOTRIN LOW STRENGTH 81 MG TAB) Take one(1) tablet daily. multivitamins(MULTIPLE VITAMINS TAB) Take one(1) tablet daily. calcium carbonate/vitamin d3(CALCIUM 600 + D(3) 600 MG (1,500)-200 UNIT TAB) Take 1 tablet by mouth once daily. LANCETS Use as directed. fluocinonide (LIDEX) 0.05 % cream Apply to affected areas on both lower legs as directed (Patient not taking: Reported on 10/02/2022) NOVOLOG MIX 70-30 100 unit/mL (70-30) inpn injection Inject subcutaneously three times daily with meals. -sliding scale Up to 40 units TID (Patient not taking: Reported on 11/30/2022) amLODIPine (NORVASC) 5 mg tablet Take 1 tablet by mouth once daily. (Patient not taking: No sig reported) GLIPIZIDE 10 MG TAB Take one(1) tablet two(2) times daily. (Patient not taking: No sig reported) exenatide(BYETTA 10 MCG/0.04 ML PER DOSE SUB-Q PEN INJECTOR) Inject ten(10) mcg subcutaneously twice daily within 60 minutes prior to a meal . (Patient not taking: No sig reported) carvedilol(COREG 6.25 MG TAB) Take one(1) tablet twice daily. (Patient not taking: ) furosemide(LASIX 40 MG TAB) Take one(1) tablet two(2) times daily. (Patient not taking: No sig reported) valsartan/hydrochlorothiazide(DIOV AN HCT 160 MG-12.5 MG TAB) Take one(1) tablet daily. (Patient not taking: No sig reported) amlodipine (NORVASC) 10 mg ORAL Tab Take one(1) tablet daily. (Patient not taking: No sig reported) No family history on file. Social History Tobacco Use Smoking status: Never Smokeless tobacco: Never Vaping Use Vaping Use: Never used Substance Use Topics Alcohol use: Yes Comment: rare Drug use: Never REVIEW OF SYSTEMS: GENERAL: No weight loss, malaise or fevers RESPIRATORY: Negative for cough, hemoptysis, wheezing, COPD, dyspnea or shortness of breath CARDIOVASCULAR: Negative for chest pain, HTN, leg swelling, CHF or palpitations. GI: No nausea, vomiting, or diarrhea MUSCULOSKELETAL: Negative for joint pain or swelling, back pain or muscle pain SKIN: Positive for blister, right lower leg. Positive for color change, right lateral lower leg. HEMATOLOGY/LYMPHOLOGY: Negative for prolonged bleeding, bruising easily or swollen nodes ENDOCRINE: Negative for cold or heat intolerance, polyuria, polydipsia and goiter NEURO: No history of headaches, syncope, paralysis, seizures or tremors PHYSICAL EXAM: BP 152/74 / Pulse 73 / Resp 18 / Temp 96.4 F / SpO2 98% General appearance: Well appearing, alert, in no acute distress, well-hydrated, well nourished. Skin: Skin color, texture, turgor normal, no suspicious rashes or lesions. Positive stasis related erythema with mild scabbed excoriations right pretibial area. Deflated serous blister on right lateral lower leg, no drainage. Very mild stasis related erythema of left pretibial area w/ deflated dry healing blister, no drainage. Head: Normocephalic, no masses, lesions, tenderness or abnormalities Eyes: Anicteric sclera. Pupils are equally round and reactive to light. Extraocular movements are intact. Lungs: Respirations even and unlabored Extremities: Edema: 1+ edema right lower leg, trace edema right foot; 1+ edema left lower leg, trace edema left foot Musculoskeletal: No joint swelling, deformity, or tenderness Peripheral pulses: triphasic doppler signals x 4; palpable DP pulses bilat Neuro: Oriented X 3. Ambulatory WOUND ASSESSMENT N/a DATA PHOTOGRAPHY: yes A photo was taken of the patient's wound(s). Photos can be found under the [facility] images tab on [facility]. The purpose of the photo(s) is to optimize the patient's medical care and allow a visual aid to their wound evaluation and progress. The photo(s) are not intended for publication, education, or research. If the use of the photo is desired in any additional way, other than for the above outlined purposes, then an additional consent for the intended use will need to be obtained by the requesting provider. Photo was taken of: bilat anterior shins Verbal consent was obtained: yes MICROBIOLOGY: Reviewed IMAGING: Reviewed IMPRESSION/RECOMMENDATIONS The patient's age and other co morbidities are likely to impact wound and skin integrity Additional impediments to healing Diabetic: Yes Anticoagulation: Aspirin Antibiotics: No Steroids: No (I87.2) Venous stasis dermatitis of both lower extremities (S80.821A) Blister (nonthermal), right lower leg, initial encounter Comment: No s/s acute infection. Flare of stasis dermatitis RLE. Plan: - Cleanse bilat LE with Dial soap and water. Pat dry. - Apply Triamcinolone 0.1% ointment to right crawford area twice a day. Leave SIDE GLUER. - Apply Betadine to blister on right lateral lower leg. Cover with 4x4 gauze and conform roll gauze. Change daily and prn. - Moisturize intact non reddened skin RLE and LLE daily (Vaseline applied in clinic today). - Pt agreeable to single layer Tubi-b2b sales representative RLE for compression/edema control/secure dressing - Recommend continue to elevate legs at least 30 min 3x/day - Follow up in wound center with [facility] GENERAL MANAGER in about 2 weeks I discussed the plan in detail with the patient and the patient verbalizes understanding and is in agreement. My previous progress note dated 01/26/2022 was copied forward, updated where appropriate, and reflective of current medical decision making today, 11/30/2022. Jess Copeland APRN, [employer]ARM [employer]NAGER, CWS Certified Forest Fire Prevention Specialist November 30, 2022 documented in this encounter [facility] 11-30-2022 Instructions Idania Rainey RN - 11/30/2022 8:18 AM EDT WOUND CARE INSTRUCTIONS- Analilia Rodriguez Wound location: Bilateral lower legs Wash your hands with soap and water before and after wound care. Gather all supplies needed. Wash your legs with Dial soap and warm water. Rinse and pat dry. Right Lower Leg red/ rash area -For the next two weeks apply triamcinolone mixed with triple antibiotic twice daily -Cover with 4x4, conform -apply Tubigrip size F from base of toes to 1 inch below knee daily if you can tolerate it, apply in am , may remove at bedtime Right Lower Leg blister - [place] with Betadine daily -Cover with 4x4, conform Left lower leg apply vaseline daily SHORTY WRAP/TUBI-DAG SPRAYER: Remove compression wraps if they become uncomfortable or cause a change in color or sensation to the extremity. Your wrap should always be worn from the base of the toes to 1 below the knee. Avoid sitting with your legs in a dependent position or standing for long periods of time.Attempt to lay flat and elevate your legs above the level of your heart 2-3 times daily for 30 minutes at a time. If it becomes necessary to remove the wrap, do so by unwinding it and apply clean dressing as instructed then notify the wound care center. COMPRESSION must be removed if: it becomes wet or soiled If you have numbness or tingling in your foot or toes If you have increased pain If toes become cold or discolored Regarding lymphedema/edema: Elevation of extremity above the heart for 30 minutes three times daily and as needed Exercise such as writing the ABC's with your toes in the air, walking and/or calf pumps Wearing compression as ordered by provider Diet controlling of sodium as instructed by provider Use of medication to help control edema. To give your wound the best chance to heal: - Eat three balanced meals daily focusing on the protein - Control swelling by elevating the extremity above your heart - exercise the extremity - Control your blood sugar. Keep blood sugar less than 200 - Complete your wound care instructions - Vitamin C 500 mg twice daily - Multiple Vitamin Daily - Drink a protein shake daily Report any of the following changes to the Wound Center at [phone] or go to the Emergency Department: Fever or chills Increased drainage Green or yellow drainage Foul odor Increased pain Hardness around the wound Redness, warmth or swelling of the surrounding tissue Color change to the wound Plan: Return to the wound center to see Jess Copeland CNP in 2 weeks Rx : refill for steroid cream sent to your pharmacy Jess Copeland CNP/sarah/ documented in this encounter [facility] 11-30-2022 Nurse Note Nursing Documentation Pertinent Medical History: DM II, heart stent Wound Etiology according to patient: 11/30/22Blisters started 2 weeks ago Patient arrived via: ambulatory with [facility]Nursing Facility:NA Consent captured for debridement per Jess Copeland CNP and good until June 2022 Anticoagulant Therapy: ASA 81 mg ACTIVE CARE PER PROVIDER: Jess Copeland CNP Wound 1-13 previously healed WOUND # 14 LOCATION: Right Lower Leg - Anterior (NEW 11/25/21) Closed 12/27/21, remains closed 01/10/22 WOUND # 15 LOCATION: Left lower leg - Anterior (NEW 11/25/21) Closed 12/27/21, remains closed 01/10/22 WOUND # 16 LOCATION: Right lower leg - Lateral NEW 12/02/21 Closed 12/27/21, remains closed 01/10/22 WOUND # 17 LOCATION: Right lower leg - Crawford NEW 12/02/21 Closed 12/27/21 , remains closed 01/10/22 Healed 01-26-2022 WOUND # 18 LOCATION: Right Lower leg - Crawford lateral NEW 12/02/21 - Closed 12/10/21, remains closed 12/27/21, remains closed 01/10/22, Healed 01-26-2022 WOUND # 21 LOCATION: Right Anterior Lower Leg (New 12/27/21) closed 01/10/22, Healed 01-26-2022 _WOUND # __19__ LOCATION: Left Anterior Crawford (New wound 12/10/21) Healed 01-26-2022 WOUND # __20__ LOCATION: Left Lower Medial Leg (New wound 12/10/21) Healed 01-26-2022 11/30/22 pt arrived at wound center with no compression, per pt he cannot wear compression , states blisters start when wearing any kind of compresssion WOUND ASSESSMENT: Refer to Provider's Wound Assessment Note VASCULAR ASSESSMENT BY PROVIDER: Doppler : triphasic x 4 CHF History: patient denies EDEMA: Right foot: trace Right calf: 1+ Left foot : trace Left Calf: 1+ Other: NA MEASUREMENTS: in CM Right Calf: 47.6 Right Ankle: 25.7 Left Calf: 46.7 Left Ankle: 26.5 Length: 46.5 - not measured at today's visit WOUND PHOTOGRAPHY: yes x2 DEBRIDEMENT PROCEDURE BY PROVIDER: Anesthetic Used: N/A Wound # Other procedure: N/A Specimen collected: NA WOUND TREATMENT PER MD ORDER: All wounds cleansed by mechanical debridement with NS and gauze to allow provider to visualize wound bed * DO NOT USE SILVER DRESSINGS LOCATION: right lateral lower leg, deflated blister(11/30/22) cm Post debridement measurements (if applicable) : L: cm x W: cm x D: cm Cleansed with: saline Applied to conrad-wound skin:betadine Covered and secured with: 4x4, conform Area of concern : Right lateral lower leg, contact dermatitis(11/30/22) L: cm x W: cm x D: cm Cleansed with: saline Applied to conrad-wound skin:Hydrocortisone 2.5% mixed with triple antibiotic Covered and secured with: 4x4, conform SHORTY WRAP/[employer]/Tubi-b2b sales representative: Foot is warm and pink before and after application. It was demonstrated to the patient how to check for adequate circulation. Patient voices understanding. If circulation becomes compromised by a change in color, increased pain, numbness or tingling to the area, the patient knows to remove the compression and elevate the leg above the heart. COMPRESSION: Tubigrip size f to right lower leg SPECIAL NEEDS: Coordination of care - n/a Emotional support N/A OR set-up N/A Equipment Operator N/A Incontinence needs N/A DISCHARGED in stable condition to: Self ambulatory with rolator walker [employer] period dates if applicable: N/A Plan: Return to the wound center to see Jess Copeland CNP in 2 weeks Rx : refill for steroid cream sent to your pharmacy EDUCATION: The patient/family was instructed how to cleanse the wound(s). Visual demonstration on how to apply the dressing with teach back method. Signs & symptoms of infection were reviewed: Increased redness, swelling, pain, green/yellow drainage, fever and/or chills would all need to be evaluated by a Physician. Patient received typed home-going wound care instructions and has expressed intent to comply. OTHER EDUCATION: Education performed regarding lymphedema/edema: Elevation of extremity above the heart for 30 minutes three times daily and as needed Exercise such as writing the ABC's with your toes in the air, walking and/or calf pumps Wearing compression as ordered by provider Diet controlling of sodium as instructed by provider Use of medication to help control edema. _ UNIVERSAL PROTOCOL / SAFETY CHECKLIST: N/A Current HBOT Status: Active or Complete - see screening below WOUND CENTER HYPERBARIC OXYGEN THERAPY SCREENING 1. Is the patient diabetic? (If No, skip to question 5) Yes 2. Does the patient have a lower extremity wound? Yes 3. Is there exposed/involved tendon or bone? No 4. Has the wound been present for 30 days? no If Yes to ALL questions above, consult the [facility]ic Center 5. Has the patient been diagnosed with osteomyelitis? No 6. Has the patient had a previous skin graft or flap at the wound? No 7. Has the patient had or been offered vascular intervention/evaluation? No 8. Does the patient have a wound at an amputation site? No 9. Has the patient had radiation therapy at the site of the problem? No If Yes to ANY of questions 5-9, consult the Hyperbaric Center Idania Rainey RN/LT documented in this encounter [facility] 11-11-2022 Note HNO ID: [id number] Author: Stalin Huffman PT Service: ? Author Type: Physical Therapist Type: Progress Notes Filed: 11/11/2022 1:50 PM Note Text: 11/11/2022 [facility] PHYSICAL THERAPY DISCONTINUANCE OF CARE Plan of Care Period: Start of Care Date: 08/05/22 Last Visit Date: 09/19/2022 Therapy Program: The following is a summary of the interventions provided for this episode of care; Therapeutic exercise, Manual therapy, Self-senior living management, and Patient/Family/Caregiver Education Assessment: The following is the goal status: Goals updated 09/05/2022 Goals for Episode of Care: created on 08/05/22 through 09/30/22 [place] in home exercise program. - MET Increase ROM of the R and L knee to 120 degrees or better for improved gait mechanics and ease of getting in the car - Progressing, will continue Increased strength of RLE and LE to to 5/5 for ease of getting in the car - Not met, will continue Normal gait. - Progressing, will continue Patient Goals: Basically be able to move around better Based on the most recent progress report, patient was progressing as expected toward functional goals based on pain levels and documented subjective information on progress. Reason for Discontinuation of Care: Patient has not returned to therapy or scheduled additional follow-up appointments. Stalin Huffman PT [facility] 10-31-2022 Note HNO ID: [id number] Author: Dale Oscar MD Service: ? Author Type: Physician Type: Progress Notes Filed: 10/31/2022 8:59 AM Note Text: Patient presents with: Eye Pain Left Eye: X2 days HPI: Feeling left eye irritation and cold symptoms for 3 days. Had similar issue in May. Positive symptoms: Cough, Sore throat, Nasal Congestion, Rhinorrhea, left eye irritation and drainage, blurry vision improves with clearing drainage Negative symptoms: Fever, OTC: eye drops sting, tylenol MEDICATIONS: Current Outpatient Medications Medication Sig fluocinonide (LIDEX) 0.05 % cream Apply to affected areas on both lower legs as directed (Patient not taking: Reported on 10/02/2022) cholecalciferol (VITAMIN D3) 50 mcg (2,000 unit) tablet Take 2,000 Units by mouth once daily. diclofenac sodium (VOLTAREN) 1 % topical gel Apply 2 g to affected area three times daily as needed (pain and swelling). febuxostat (ULORIC) 80 mg tab Take 1 tablet by mouth once daily. finasteride (PROSCAR) 5 mg tablet Take 1 tablet by mouth once daily. fluticasone (FLONASE) 50 mcg/actuation nasal spray Use 2 Sprays in each nostril every morning. HYDROcodone-acetaminophen (NORCO) 5-325 mg per tablet Take 1 tablet by mouth every 6 hours as needed. NOVOLOG MIX 70-30 100 unit/mL (70-30) inpn injection Inject subcutaneously three times daily with meals. -sliding scale Up to 40 units TID tamsulosin ER (FLOMAX) 0.4 mg Take 1 capsule by mouth daily at bedtime. amLODIPine (NORVASC) 5 mg tablet Take 1 tablet by mouth once daily. (Patient not taking: No sig reported) carvedilol (COREG) 25 mg tablet Take 1 tablet by mouth twice daily. furosemide (LASIX) 20 mg tablet Take 1 tablet by mouth twice daily. Valsartan-Hydrochlorothiazide 320-25 mg per tablet Take 1 tablet by mouth once daily. GLIPIZIDE 10 MG TAB Take one(1) tablet two(2) times daily. (Patient not taking: No sig reported) blood sugar diagnostic(ASCENSIA CONTOUR TEST STRIPS) Testing twice daily exenatide(BYETTA 10 MCG/0.04 ML PER DOSE SUB-Q PEN INJECTOR) Inject ten(10) mcg subcutaneously twice daily within 60 minutes prior to a meal . (Patient not taking: No sig reported) needles, insulin disposable(BD INSULIN PEN NEEDLE UF SHORT 31 X 09/13 ) use as directed carvedilol(COREG 6.25 MG TAB) Take one(1) tablet twice daily. (Patient not taking: ) furosemide(LASIX 40 MG TAB) Take one(1) tablet two(2) times daily. (Patient not taking: No sig reported) aspirin(ECOTRIN LOW STRENGTH 81 MG TAB) Take one(1) tablet daily. valsartan/hydrochlorothiazide(DIOV AN HCT 160 MG-12.5 MG TAB) Take one(1) tablet daily. (Patient not taking: No sig reported) multivitamins(MULTIPLE VITAMINS TAB) Take one(1) tablet daily. calcium carbonate/vitamin d3(CALCIUM 600 + D(3) 600 MG (1,500)-200 UNIT TAB) Take 1 tablet by mouth once daily. LANCETS Use as directed. amlodipine (NORVASC) 10 mg ORAL Tab Take one(1) tablet daily. (Patient not taking: No sig reported) No current facility-administered medications for this visit. ALLERGIES: ALLERGIES Allergen Reactions Bees swells Lorazepam Intolerance Mupirocin Rash blisters Oseltamivir Unknown made me sick, told I shouldn't take it Silver Sulfadiazine Rash VITALS: BP 122/72 Pulse (!) 52 Temp 36.6 ?C (97.8 ?F) Resp 18 Wt 135.8 kg (299 lb 6.4 oz) SpO2 97% BMI 41.76 kg/m? PHYSICAL EXAM: GEN: Pleasant, in no acute distress. HEENT: PERRL, EOMI, right conjunctiva clear, left conjunctiva moderate injection, mild lateral canthus skin irritation Ears: small cerumen. TMs without erythema, bulge, or effusion Sinuses: non-tender frontal sinus, non-tender maxillary sinuses Throat: moist mucous membranes, mild erythema, no exudate Neck: supple, no thyromegaly, no lymphadenopathy HEART: regular rate and rhythm, no murmurs LUNGS: clear to auscultation, no wheezes or crackles, no increased WOB ASSESSMENT/PLAN: 1. Acute conjunctivitis of left eye, unspecified acute conjunctivitis type - ICD9: 372.00, ICD10: H10.32 Suspect viral URI with conjunctivitis. [place] eye discussed. Infectious conjunctivitis is most commonly caused by cold viruses and is a self-limited condition which usually resolves in about a week. Bacterial conjunctivitis usually follows a similar course, but symptoms and contagiousness are responsive to antibiotics. Bacterial infection can rarely progress to more serious infection. Hand hygiene with washing or menu planner is important to reduce spread of the infection. Seek re-evaluation for high fever, increasing periocular redness/swelling, eye pain, or vision change as these can be symptoms of serious infection. He plans to use left over erythromycin ophthalmic ointment. Dale Oscar MD [facility] 10-31-2022 History of Present illness Narrative Patient presents with: Eye Pain Left Eye: X2 days HPI: Feeling left eye irritation and cold symptoms for 3 days. Had similar issue in May. Positive symptoms: Cough, Sore throat, Nasal Congestion, Rhinorrhea, left eye irritation and drainage, blurry vision improves with clearing drainage Negative symptoms: Fever, OTC: eye drops sting, tylenol MEDICATIONS: Current Outpatient Medications Medication Sig fluocinonide (LIDEX) 0.05 % cream Apply to affected areas on both lower legs as directed (Patient not taking: Reported on 10/02/2022) cholecalciferol (VITAMIN D3) 50 mcg (2,000 unit) tablet Take 2,000 Units by mouth once daily. diclofenac sodium (VOLTAREN) 1 % topical gel Apply 2 g to affected area three times daily as needed (pain and swelling). febuxostat (ULORIC) 80 mg tab Take 1 tablet by mouth once daily. finasteride (PROSCAR) 5 mg tablet Take 1 tablet by mouth once daily. fluticasone (FLONASE) 50 mcg/actuation nasal spray Use 2 Sprays in each nostril every morning. HYDROcodone-acetaminophen (NORCO) 5-325 mg per tablet Take 1 tablet by mouth every 6 hours as needed. NOVOLOG MIX 70-30 100 unit/mL (70-30) inpn injection Inject subcutaneously three times daily with meals. -sliding scale Up to 40 units TID tamsulosin ER (FLOMAX) 0.4 mg Take 1 capsule by mouth daily at bedtime. amLODIPine (NORVASC) 5 mg tablet Take 1 tablet by mouth once daily. (Patient not taking: No sig reported) carvedilol (COREG) 25 mg tablet Take 1 tablet by mouth twice daily. furosemide (LASIX) 20 mg tablet Take 1 tablet by mouth twice daily. Valsartan-Hydrochlorothiazide 320-25 mg per tablet Take 1 tablet by mouth once daily. GLIPIZIDE 10 MG TAB Take one(1) tablet two(2) times daily. (Patient not taking: No sig reported) blood sugar diagnostic(ASCENSIA CONTOUR TEST STRIPS) Testing twice daily exenatide(BYETTA 10 MCG/0.04 ML PER DOSE SUB-Q PEN INJECTOR) Inject ten(10) mcg subcutaneously twice daily within 60 minutes prior to a meal . (Patient not taking: No sig reported) needles, insulin disposable(BD INSULIN PEN NEEDLE UF SHORT 31 X 09/13 ) use as directed carvedilol(COREG 6.25 MG TAB) Take one(1) tablet twice daily. (Patient not taking: ) furosemide(LASIX 40 MG TAB) Take one(1) tablet two(2) times daily. (Patient not taking: No sig reported) aspirin(ECOTRIN LOW STRENGTH 81 MG TAB) Take one(1) tablet daily. valsartan/hydrochlorothiazide(DIOV AN HCT 160 MG-12.5 MG TAB) Take one(1) tablet daily. (Patient not taking: No sig reported) multivitamins(MULTIPLE VITAMINS TAB) Take one(1) tablet daily. calcium carbonate/vitamin d3(CALCIUM 600 + D(3) 600 MG (1,500)-200 UNIT TAB) Take 1 tablet by mouth once daily. LANCETS Use as directed. amlodipine (NORVASC) 10 mg ORAL Tab Take one(1) tablet daily. (Patient not taking: No sig reported) No current facility-administered medications for this visit. ALLERGIES: ALLERGIES Allergen Reactions Bees swells Lorazepam Intolerance Mupirocin Rash blisters Oseltamivir Unknown made me sick, told I shouldn't take it Silver Sulfadiazine Rash VITALS: BP 122/72 Pulse (!) 52 Temp 36.6 C (97.8 F) Resp 18 Wt 135.8 kg (299 lb 6.4 oz) SpO2 97% BMI 41.76 kg/m PHYSICAL EXAM: GEN: Pleasant, in no acute distress. HEENT: PERRL, EOMI, right conjunctiva clear, left conjunctiva moderate injection, mild lateral canthus skin irritation Ears: small cerumen. TMs without erythema, bulge, or effusion Sinuses: non-tender frontal sinus, non-tender maxillary sinuses Throat: moist mucous membranes, mild erythema, no exudate Neck: supple, no thyromegaly, no lymphadenopathy HEART: regular rate and rhythm, no murmurs LUNGS: clear to auscultation, no wheezes or crackles, no increased WOB ASSESSMENT/PLAN: 1. Acute conjunctivitis of left eye, unspecified acute conjunctivitis type - ICD9: 372.00, ICD10: H10.32 Suspect viral URI with conjunctivitis. [place] eye discussed. Infectious conjunctivitis is most commonly caused by cold viruses and is a self-limited condition which usually resolves in about a week. Bacterial conjunctivitis usually follows a similar course, but symptoms and contagiousness are responsive to antibiotics. Bacterial infection can rarely progress to more serious infection. Hand hygiene with washing or menu planner is important to reduce spread of the infection. Seek re-evaluation for high fever, increasing periocular redness/swelling, eye pain, or vision change as these can be symptoms of serious infection. He plans to use left over erythromycin ophthalmic ointment. Dale Oscar MD documented in this encounter [facility] 10-02-2022 Note HNO ID: [id number] Author: Ifeanyi Stone APRN.[employer]ARM GENERAL MANAGER Service: ? Author Type: Nurse Practitioner Type: Progress Notes Filed: 10/02/2022 9:02 AM Note Text: Subjective HPI Nontoxic-appearing male presents urgent care chief complaint sinus pressure cough eye drainage and redness. Duration of symptoms 8 days. Associated symptoms listed above. States on Monday he thought it was getting better. Symptoms returned again on Monday. Were symptom today is sinus pressure and drainage. Has been using OTC medications this has not helped. No significant pain currently. Sick contacts similar signs symptoms. Denies any fever body aches chills productive cough chest pain shortness of breath pleuritic pain hemoptysis nausea vomiting abdominal pain change in bowel or bladder habits. Past medical history prescription medication use and allergies reviewed. .Patient presents with: Nasal Congestion: Cough, headache, eyes sore, runny nose PAST MEDICAL HISTORY Diagnosis Date Cancer (HCC) colon cancer late Coronary artery disease one stent Diabetes mellitus without mention of complication Diabetes mellitus Gout Hypertension PMH - PAST MEDICAL HISTORY OF 09/10/07 Right shoulder fracture Renal disorder PAST SURGICAL HISTORY Procedure Laterality Date COLON SURGERY HX ORTHOPEDICS SURGERY HX , carpal tunnel TONSILLECTOMY HX ALLERGIES Bees, Lorazepam, Mupirocin, Oseltamivir, and Silver Sulfadiazine MEDICATIONS cholecalciferol (VITAMIN D3) 50 mcg (2,000 unit) tablet Take 2,000 Units by mouth once daily. diclofenac sodium (VOLTAREN) 1 % topical gel Apply 2 g to affected area three times daily as needed (pain and swelling). febuxostat (ULORIC) 80 mg tab Take 1 tablet by mouth once daily. finasteride (PROSCAR) 5 mg tablet Take 1 tablet by mouth once daily. fluticasone (FLONASE) 50 mcg/actuation nasal spray Use 2 Sprays in each nostril every morning. HYDROcodone-acetaminophen (NORCO) 5-325 mg per tablet Take 1 tablet by mouth every 6 hours as needed. NOVOLOG MIX 70-30 100 unit/mL (70-30) inpn injection Inject subcutaneously three times daily with meals. -sliding scale Up to 40 units TID tamsulosin ER (FLOMAX) 0.4 mg Take 1 capsule by mouth daily at bedtime. carvedilol (COREG) 25 mg tablet Take 1 tablet by mouth twice daily. furosemide (LASIX) 20 mg tablet Take 1 tablet by mouth twice daily. Valsartan-Hydrochlorothiazide 320-25 mg per tablet Take 1 tablet by mouth once daily. blood sugar diagnostic(ASCENSIA CONTOUR TEST STRIPS) Testing twice daily needles, insulin disposable(BD INSULIN PEN NEEDLE UF SHORT 31 X /16 ) use as directed aspirin(ECOTRIN LOW STRENGTH 81 MG TAB) Take one(1) tablet daily. multivitamins(MULTIPLE VITAMINS TAB) Take one(1) tablet daily. calcium carbonate/vitamin d3(CALCIUM 600 + D(3) 600 MG (1,500)-200 UNIT TAB) Take 1 tablet by mouth once daily. LANCETS Use as directed. fluocinonide (LIDEX) 0.05 % cream Apply to affected areas on both lower legs as directed (Patient not taking: Reported on 10/02/2022) amLODIPine (NORVASC) 5 mg tablet Take 1 tablet by mouth once daily. (Patient not taking: No sig reported) GLIPIZIDE 10 MG TAB Take one(1) tablet two(2) times daily. (Patient not taking: No sig reported) exenatide(BYETTA 10 MCG/0.04 ML PER DOSE SUB-Q PEN INJECTOR) Inject ten(10) mcg subcutaneously twice daily within 60 minutes prior to a meal . (Patient not taking: No sig reported) carvedilol(COREG 6.25 MG TAB) Take one(1) tablet twice daily. (Patient not taking: ) furosemide(LASIX 40 MG TAB) Take one(1) tablet two(2) times daily. (Patient not taking: No sig reported) valsartan/hydrochlorothiazide(DIOV AN HCT 160 MG-12.5 MG TAB) Take one(1) tablet daily. (Patient not taking: No sig reported) amlodipine (NORVASC) 10 mg ORAL Tab Take one(1) tablet daily. (Patient not taking: No sig reported) History reviewed. No pertinent family history. Social History Tobacco Use Smoking status: Never Smokeless tobacco: Never Vaping Use Vaping Use: Never used Substance Use Topics Alcohol use: Yes Comment: rare Drug use: Never BP 118/70 Pulse (!) 58 Temp 36.5 ?C (97.7 ?F) Wt (!) 136.5 kg (301 lb) SpO2 98% BMI 41.98 kg/m? Review of Systems Constitutional: Negative for chills, fever and malaise/fatigue. HENT: Positive for congestion and sinus pain. Negative for ear discharge, ear pain and sore throat. Eyes: Positive for discharge and redness. Negative for blurred vision, double vision, photophobia and pain. Respiratory: Positive for cough. Negative for hemoptysis, sputum production, shortness of breath, wheezing and stridor. Cardiovascular: Negative for chest pain. Gastrointestinal: Negative for abdominal pain, diarrhea, nausea and vomiting. Musculoskeletal: Negative for myalgias. Skin: Negative for itching and rash. Neurological: Positive for headaches. Negative for dizziness. Objective Physical E (more content not included)... [facility] 10-02-2022 History of Present illness Narrative Subjective HPI Nontoxic-appearing male presents urgent care chief complaint sinus pressure cough eye drainage and redness. Duration of symptoms 8 days. Associated symptoms listed above. States on Monday he thought it was getting better. Symptoms returned again on Monday. Were symptom today is sinus pressure and drainage. Has been using OTC medications this has not helped. No significant pain currently. Sick contacts similar signs symptoms. Denies any fever body aches chills productive cough chest pain shortness of breath pleuritic pain hemoptysis nausea vomiting abdominal pain change in bowel or bladder habits. Past medical history prescription medication use and allergies reviewed. .Patient presents with: Nasal Congestion: Cough, headache, eyes sore, runny nose PAST MEDICAL HISTORY Diagnosis Date Cancer (HCC) colon cancer late 1990s Coronary artery disease one stent Diabetes mellitus without mention of complication Diabetes mellitus Gout Hypertension PMH - PAST MEDICAL HISTORY OF 09/10/07 Right shoulder fracture Renal disorder PAST SURGICAL HISTORY Procedure Laterality Date COLON SURGERY HX 1990s ORTHOPEDICS SURGERY HX , carpal tunnel TONSILLECTOMY HX ALLERGIES Bees, Lorazepam, Mupirocin, Oseltamivir, and Silver Sulfadiazine MEDICATIONS cholecalciferol (VITAMIN D3) 50 mcg (2,000 unit) tablet Take 2,000 Units by mouth once daily. diclofenac sodium (VOLTAREN) 1 % topical gel Apply 2 g to affected area three times daily as needed (pain and swelling). febuxostat (ULORIC) 80 mg tab Take 1 tablet by mouth once daily. finasteride (PROSCAR) 5 mg tablet Take 1 tablet by mouth once daily. fluticasone (FLONASE) 50 mcg/actuation nasal spray Use 2 Sprays in each nostril every morning. HYDROcodone-acetaminophen (NORCO) 5-325 mg per tablet Take 1 tablet by mouth every 6 hours as needed. NOVOLOG MIX 70-30 100 unit/mL (70-30) inpn injection Inject subcutaneously three times daily with meals. -sliding scale Up to 40 units TID tamsulosin ER (FLOMAX) 0.4 mg Take 1 capsule by mouth daily at bedtime. carvedilol (COREG) 25 mg tablet Take 1 tablet by mouth twice daily. furosemide (LASIX) 20 mg tablet Take 1 tablet by mouth twice daily. Valsartan-Hydrochlorothiazide 320-25 mg per tablet Take 1 tablet by mouth once daily. blood sugar diagnostic(ASCENSIA CONTOUR TEST STRIPS) Testing twice daily needles, insulin disposable(BD INSULIN PEN NEEDLE UF SHORT 31 X /16 ) use as directed aspirin(ECOTRIN LOW STRENGTH 81 MG TAB) Take one(1) tablet daily. multivitamins(MULTIPLE VITAMINS TAB) Take one(1) tablet daily. calcium carbonate/vitamin d3(CALCIUM 600 + D(3) 600 MG (1,500)-200 UNIT TAB) Take 1 tablet by mouth once daily. LANCETS Use as directed. fluocinonide (LIDEX) 0.05 % cream Apply to affected areas on both lower legs as directed (Patient not taking: Reported on 10/02/2022) amLODIPine (NORVASC) 5 mg tablet Take 1 tablet by mouth once daily. (Patient not taking: No sig reported) GLIPIZIDE 10 MG TAB Take one(1) tablet two(2) times daily. (Patient not taking: No sig reported) exenatide(BYETTA 10 MCG/0.04 ML PER DOSE SUB-Q PEN INJECTOR) Inject ten(10) mcg subcutaneously twice daily within 60 minutes prior to a meal . (Patient not taking: No sig reported) carvedilol(COREG 6.25 MG TAB) Take one(1) tablet twice daily. (Patient not taking: ) furosemide(LASIX 40 MG TAB) Take one(1) tablet two(2) times daily. (Patient not taking: No sig reported) valsartan/hydrochlorothiazide(DIOV AN HCT 160 MG-12.5 MG TAB) Take one(1) tablet daily. (Patient not taking: No sig reported) amlodipine (NORVASC) 10 mg ORAL Tab Take one(1) tablet daily. (Patient not taking: No sig reported) History reviewed. No pertinent family history. Social History Tobacco Use Smoking status: Never Smokeless tobacco: Never Vaping Use Vaping Use: Never used Substance Use Topics Alcohol use: Yes Comment: rare Drug use: Never BP 118/70 Pulse (!) 58 Temp 36.5 C (97.7 F) Wt (!) 136.5 kg (301 lb) SpO2 98% BMI 41.98 kg/m Review of Systems Constitutional: Negative for chills, fever and malaise/fatigue. HENT: Positive for congestion and sinus pain. Negative for ear discharge, ear pain and sore throat. Eyes: Positive for discharge and redness. Negative for blurred vision, double vision, photophobia and pain. Respiratory: Positive for cough. Negative for hemoptysis, sputum production, shortness of breath, wheezing and stridor. Cardiovascular: Negative for chest pain. Gastrointestinal: Negative for abdominal pain, diarrhea, nausea and vomiting. Musculoskeletal: Negative for myalgias. Skin: Negative for itching and rash. Neurological: Positive for headaches. Negative for dizziness. Objective Physical Exam Constitutional: General: He is not in acute distress. Appearance: He is not diaphoretic. HENT: Head: Normocephalic. Jaw: No trismus or swelling. Nose: Congestion present. Right Sinus: Maxillary sinus tenderness present. Left Sinus: Maxillary sinus tenderness present. Mouth/Throat: Mouth: Mucous membranes are moist. Pharynx: Oropharynx is clear. No oropharyngeal exudate or posterior oropharyngeal erythema. Eyes: General: Lids are everted, no foreign bodies appreciated. Vision grossly intact. Right eye: Discharge present. No foreign body or hordeolum. Left eye: Discharge present.No foreign body or hordeolum. Conjunctiva/sclera: Right eye: Right conjunctiva is injected. No chemosis or exudate. Left eye: Left conjunctiva is injected. Exudate present. No chemosis or hemorrhage. Pupils: Pupils are equal, round, and reactive to light. Comments: [place] clear. Visual acuity unchanged. Cardiovascular: Rate and Rhythm: Normal rate and regular rhythm. Heart sounds: Normal heart sounds. Pulmonary: Effort: Pulmonary effort is normal. No tachypnea, accessory muscle usage or respiratory distress. Breath sounds: Normal breath sounds. No stridor. No wheezing, rhonchi or rales. Abdominal: Palpations: Abdomen is soft. Tenderness: There is no abdominal tenderness. There is no guarding or rebound. Musculoskeletal: Cervical back: Normal range of motion and neck supple. No rigidity or tenderness. Lymphadenopathy: Cervical: No cervical adenopathy. Skin: General: Skin is warm and dry. Neurological: Mental Status: He is alert and oriented to person, place, and time. ASSESSMENT/PLAN: 1. Sinobronchitis - ICD9: 473.9, 490, ICD10: J32.9, J40 Diagnosis sinobronchitis. Placed on doxycycline and Polytrim. Follow-up with PCP 2 to 3 days reevaluation. Red flags prompt reevaluation discussed. Patient was educated on supportive therapies. Patient was instructed to immediately proceed to emergency room for any new, worsening, or symptoms lasting longer than anticipated. The patient's clinical presentation is otherwise unremarkable at this time. Based on exam and clinical finding, the patient is stable for discharge. Plan of care was discussed with patient. Patient verbalizes understanding and agrees to plan of care. This note was generated using [employer] software. It may contain errors in wording, punctuation, or spelling. Ifeanyi Stone APRN.URIAH documented in this encounter [facility] 09-19-2022 Note HNO ID: [id number] Author: Stalin Huffman PT Service: ? Author Type: Physical Therapist Type: Progress Notes Filed: 09/19/2022 8:19 AM Note Text: Episode Visit Count: 5 Therapist That Will Accept/Oversee The Plan Of Care: Stalin Huffman Start of Care Date: 08/05/22 Onset Date: 08/15/20 Plan of Care Certification Date: 09/05/22 Next Certification Due Date: 10/10/22 Patient Identified by Name and Date of : Yes REHABILITATION AND SPORTS THERAPY PHYSICAL THERAPY TREATMENT NOTE ASSESSMENT: Analilia Rodriguez tolerated the session with no issues. He demonstrated good tolerance to newly added therapeutic exercises. The patient will continue to benefit from ongoing skilled physical therapy for reassessment by supervising therapist. PLAN FOR NEXT VISIT: Possible D/C SUBJECTIVE: Patient Reason for Visit: The back is being irritated by the knee exercises. Needs to see his pain management doctor in early September. Pain: Pain Pain Location: Knee - Right Pain Location 2: Knee - Left OBJECTIVE MEASURES WITH LEVEL OF FUNCTION: Limited knee flexion TREATMENT: Therapeutic Exercise: 1: Knee add iso x 10 holding 5 sec each 2: Seated LAQ BTB 2 x 10 each leg 3: Seated heel slides x 20 each leg 5: STS 21 inches x 10 Skilled Intervention: Patient was educated in proper exercise technique and purpose for exercises. Correct performance of therapeutic exercises was facilitated with verbal and visual cuing. Billing Therapeutic Exercise Treatment Minutes: 30 Total Treatment Time Minutes (timed/untimed): 30 Stalin Huffman PT [facility] 09-05-2022 Note HNO ID: [id number] Author: Stalin Huffman PT Service: ? Author Type: Physical Therapist Type: Progress Notes Filed: 09/05/2022 9:18 AM Note Text: Episode Visit Count: 4 Therapist That Will Accept/Oversee The Plan Of Care: Stalin Huffman Start of Care Date: 08/05/22 Onset Date: 08/15/20 Plan of Care Certification Date: 09/05/22 Next Certification Due Date: 10/10/22 Patient Identified by Name and Date of : Yes REHABILITATION AND SPORTS THERAPY PHYSICAL THERAPY PROGRESS REPORT PLAN OF CARE UPDATE: Assessment: Analilia Rodriguez demonstrates difficulty with walking and stair negotiation and improvements in knee ROM and improved ability to perform STS. He has progressed toward goals. Patient continues to present with impairments in independence in exercise, overall function, range of motion, strength, and stress management that interfere with walking in the community, walking, stair negotiation . Current prognosis is Good due to: current objective clinical presentation, good overall health status . He will benefit from continued skilled therapy services to meet the updated goals for this plan of care as noted below. Goals updated 09/05/2022 Goals for Episode of Care: created on 08/05/22 through 09/30/22 [place] in home exercise program. - MET Increase ROM of the R and L knee to 120 degrees or better for improved gait mechanics and ease of getting in the car - Progressing, will continue Increased strength of RLE and LE to to 5/5 for ease of getting in the car - Not met, will continue Normal gait. - Progressing, will continue Patient Goals: Basically be able to move around better Patient Goals: Basically be able to move around better Planned Interventions, Frequency, and Duration: 1x every other week, 4 weeks Total Number of Visits Planned: 2 Patient to be seen for Therapeutic exercise (70107), Neuromuscular re-education (13887), Manual therapy (94125), Self-senior living management (66615), Patient/Family/Caregiver Education PLAN FOR NEXT VISIT: STS, stepping, mini squats SUBJECTIVE: Patient Reason for Visit: Pt missed last appointment. Trying to do exercises once a day. Can get up and down in the bed without use of arms. Patient Goals: Basically be able to move around better Functional Limitations: walking in the community, walking, stair negotiation Prior Level of Function: Independent without limitations Intake Information: Prescription present Previous Treatment: Surgery Pain: Pain Pain Level: 0 Pain Location: Knee - Right Pain Level 2: 0 Pain Location 2: Knee - Left PROMIS Scales T-scores: mean of general population = 50. 5 points is clinically meaningfully difference Percentiles provide an indication of how the patient's score ranks in relation to the general population. Higher percentile rankings indicate better function/quality of life. 50th percentile is the average of the general population and indicates half of respondents had a worse score. OBJECTIVE MEASURES WITH LEVEL OF FUNCTION: LE AROM R LE AROM: WNL L LE AROM: WNL R Knee Extension: 3 Degrees R Knee Flexion: 106 Degrees L Knee Flexion: 103 Degrees LE Flexibility Flexibility: Hamstring Flexibility R Hamstring Flexibility: Tight L Hamstring Flexibility: Tight LE Strength R LE Strength: Grossly 5/5 L LE Strength: Grossly 5/5 R Hip Extension: 4+/5 R Hip External Rotation: 4/5 R Knee Extension (L3): 5/5 L Hip Extension: 4+/5 L Hip External Rotation: 4/5 L Knee Extension (L3): 5/5 Gait Gait Distance (feet): 50 Gait Device: Cane Gait Deviations Right Lower Extremity: Stance time decreased, Step length decreased TREATMENT: Therapeutic Exercise: 1: All objective measures taken this session 2: 4 F step-up x 10 3: 6 F step-up x 10 4: Seated HS stretch 3 x 30 sec each leg 5: STS 21 inches 2 x 10 Skilled Intervention: Patient was educated in proper exercise technique and purpose for exercises. Correct performance of therapeutic exercises was facilitated with verbal and visual cuing. Billing Therapeutic Exercise Treatment Minutes: 38 Total Treatment Time Minutes (timed/untimed): 38 Stalin Huffman PT [facility] 09-05-2022 History of Present illness Narrative Episode Visit Count: 4 Therapist That Will Accept/Oversee The Plan Of Care: Stalin Huffman Start of Care Date: 08/05/22 Onset Date: 08/15/20 Plan of Care Certification Date: 09/05/22 Next Certification Due Date: 10/10/22 Patient Identified by Name and Date of : Yes REHABILITATION AND SPORTS THERAPY PHYSICAL THERAPY PROGRESS REPORT PLAN OF CARE UPDATE: Assessment: Analilia Rodriguez demonstrates difficulty with walking and stair negotiation and improvements in knee ROM and improved ability to perform STS. He has progressed toward goals. Patient continues to present with impairments in independence in exercise, overall function, range of motion, strength, and stress management that interfere with walking in the community, walking, stair negotiation . Current prognosis is Good due to: current objective clinical presentation, good overall health status . He will benefit from continued skilled therapy services to meet the updated goals for this plan of care as noted below. Goals updated 09/05/2022 Goals for Episode of Care: created on 08/05/22 through 09/30/22 [place] in home exercise program. - MET Increase ROM of the R and L knee to 120 degrees or better for improved gait mechanics and ease of getting in the car - Progressing, will continue Increased strength of RLE and LE to to 5/5 for ease of getting in the car - Not met, will continue Normal gait. - Progressing, will continue Patient Goals: Basically be able to move around better Patient Goals: Basically be able to move around better Planned Interventions, Frequency, and Duration: 1x every other week, 4 weeks Total Number of Visits Planned: 2 Patient to be seen for Therapeutic exercise (02888), Neuromuscular re-education (60188), Manual therapy (75072), Self-senior living management (51052), Patient/Family/Caregiver Education PLAN FOR NEXT VISIT: STS, stepping, mini squats SUBJECTIVE: Patient Reason for Visit: Pt missed last appointment. Trying to do exercises once a day. Can get up and down in the bed without use of arms. Patient Goals: Basically be able to move around better Functional Limitations: walking in the community, walking, stair negotiation Prior Level of Function: Independent without limitations Intake Information: Prescription present Previous Treatment: Surgery Pain: Pain Pain Level: 0 Pain Location: Knee - Right Pain Level 2: 0 Pain Location 2: Knee - Left PROMIS Scales T-scores: mean of general population = 50. 5 points is clinically meaningfully difference Percentiles provide an indication of how the patient's score ranks in relation to the general population. Higher percentile rankings indicate better function/quality of life. 50th percentile is the average of the general population and indicates half of respondents had a worse score. OBJECTIVE MEASURES WITH LEVEL OF FUNCTION: LE AROM R LE AROM: WNL L LE AROM: WNL R Knee Extension: 3 Degrees R Knee Flexion: 106 Degrees L Knee Flexion: 103 Degrees LE Flexibility Flexibility: Hamstring Flexibility R Hamstring Flexibility: Tight L Hamstring Flexibility: Tight LE Strength R LE Strength: Grossly 5/5 L LE Strength: Grossly 5/5 R Hip Extension: 4+/5 R Hip External Rotation: 4/5 R Knee Extension (L3): 5/5 L Hip Extension: 4+/5 L Hip External Rotation: 4/5 L Knee Extension (L3): 5/5 Gait Gait Distance (feet): 50 Gait Device: Cane Gait Deviations Right Lower Extremity: Stance time decreased, Step length decreased TREATMENT: Therapeutic Exercise: 1: All objective measures taken this session 2: 4 F step-up x 10 3: 6 F step-up x 10 4: Seated HS stretch 3 x 30 sec each leg 5: STS 21 inches 2 x 10 Skilled Intervention: Patient was educated in proper exercise technique and purpose for exercises. Correct performance of therapeutic exercises was facilitated with verbal and visual cuing. Billing Therapeutic Exercise Treatment Minutes: 38 Total Treatment Time Minutes (timed/untimed): 38 Stalin Huffman PT documented in this encounter [facility] 08-22-2022 Note HNO ID: [id number] Author: Stalin Huffman PT Service: ? Author Type: Physical Therapist Type: Progress Notes Filed: 08/22/2022 11:26 AM Note Text: Episode Visit Count: 3 Therapist That Will Accept/Oversee The Plan Of Care: Stalin Huffman Start of Care Date: 08/05/22 Onset Date: 08/15/20 ( years ) Plan of Care Certification Date: 08/05/22 Next Certification Due Date: 09/09/22 Patient Identified by Name and Date of : Yes REHABILITATION AND SPORTS THERAPY PHYSICAL THERAPY TREATMENT NOTE ASSESSMENT: Analilia Rodriguez tolerated the session with no issues. He demonstrated good form with STS without need of UE support if done from 25 . The patient will continue to benefit from ongoing skilled physical therapy to progress toward set goals. PLAN FOR NEXT VISIT: Continue progressing ROM and LE strengthening SUBJECTIVE: Patient Reason for Visit: Pt feels it is getting easier to get around. Has noticed that the knees are not as sore when sitting for a prolonged period of time. Pain: Pain Pain Level: 0 Pain Location: Knee - Right Description: Stiffness Additional Pain Information : Location 2 Pain Level 2: 0 Pain Location 2: Knee - Left Description 2: Stiffness OBJECTIVE MEASURES WITH LEVEL OF FUNCTION: L knee flexion approximately 100 strap assisted TREATMENT: Therapeutic Exercise: 1: Supine heel slides x 20 each strap assist 2: Supine SLR 1# on ankles 2 x 12 reps each leg 3: Supine hip abd BTB at knees 2 x 10 each leg 4: Hooklying hip ADD iso 2 x 20 reps into ball 5: Seated HS stretch 3 x 30 each leg 6: STS from high perch 2 x 10 reps Skilled Intervention: Patient was educated in proper exercise technique and purpose for exercises. Correct performance of therapeutic exercises was facilitated with verbal cuing. Billing Therapeutic Exercise Treatment Minutes: 40 Total Treatment Time Minutes (timed/untimed): 40 Stalin Huffman PT [facility] 08-22-2022 History of Present illness Narrative Episode Visit Count: 3 Therapist That Will Accept/Oversee The Plan Of Care: Stalin Huffman Start of Care Date: 08/05/22 Onset Date: 08/15/20 ( years ) Plan of Care Certification Date: 08/05/22 Next Certification Due Date: 09/09/22 Patient Identified by Name and Date of : Yes REHABILITATION AND SPORTS THERAPY PHYSICAL THERAPY TREATMENT NOTE ASSESSMENT: Analilia Rodriguez tolerated the session with no issues. He demonstrated good form with STS without need of UE support if done from 25 . The patient will continue to benefit from ongoing skilled physical therapy to progress toward set goals. PLAN FOR NEXT VISIT: Continue progressing ROM and LE strengthening SUBJECTIVE: Patient Reason for Visit: Pt feels it is getting easier to get around. Has noticed that the knees are not as sore when sitting for a prolonged period of time. Pain: Pain Pain Level: 0 Pain Location: Knee - Right Description: Stiffness Additional Pain Information : Location 2 Pain Level 2: 0 Pain Location 2: Knee - Left Description 2: Stiffness OBJECTIVE MEASURES WITH LEVEL OF FUNCTION: L knee flexion approximately 100 strap assisted TREATMENT: Therapeutic Exercise: 1: Supine heel slides x 20 each strap assist 2: Supine SLR 1# on ankles 2 x 12 reps each leg 3: Supine hip abd BTB at knees 2 x 10 each leg 4: Hooklying hip ADD iso 2 x 20 reps into ball 5: Seated HS stretch 3 x 30 each leg 6: STS from high perch 2 x 10 reps Skilled Intervention: Patient was educated in proper exercise technique and purpose for exercises. Correct performance of therapeutic exercises was facilitated with verbal cuing. Billing Therapeutic Exercise Treatment Minutes: 40 Total Treatment Time Minutes (timed/untimed): 40 Stalin Huffman PT documented in this encounter [facility] 08-15-2022 Note HNO ID: [id number] Author: Stalin Huffman PT Service: ? Author Type: Physical Therapist Type: Progress Notes Filed: 08/15/2022 8:29 AM Note Text: Episode Visit Count: 2 Therapist That Will Accept/Oversee The Plan Of Care: Stalin Huffman Start of Care Date: 08/05/22 Onset Date: 08/15/20 ( years ) Plan of Care Certification Date: 08/05/22 Next Certification Due Date: 09/09/22 Patient Identified by Name and Date of : Yes REHABILITATION AND SPORTS THERAPY PHYSICAL THERAPY TREATMENT NOTE ASSESSMENT: Analilia Rodriguez tolerated the session with no issues. He demonstrated good form with all therapeutic exercises. The patient will continue to benefit from ongoing skilled physical therapy to progress toward set goals. PLAN FOR NEXT VISIT: Progress LE strengthening as tolerated. HS stretching SUBJECTIVE: Patient Reason for Visit: The back is sore today. May need to get something done about the back. Sees pain management for it. The LE exercises are ok but sometimes gets back pain with them. Pain: Pain Pain Level: 0 Pain Location: Knee - Right Additional Pain Information : Location 2 Pain Level 2: 0 Pain Location 2: Knee - Left OBJECTIVE MEASURES WITH LEVEL OF FUNCTION: LE Flexibility Flexibility: Hamstring Flexibility R Hamstring Flexibility: Tight L Hamstring Flexibility: Tight Wedge x2 placed under thorax decrease back pain SLR 25 degrees bilat due to HS tightness TREATMENT: Therapeutic Exercise: 1: Supine heel slides x 15 each strap assist 2: Supine SLR x 10 each leg x 2 sets 3: [place] Butterflys purple TB 2 x 15 reps 4: Hooklying Hip ADD iso ball 2 x 15 reps holding 2 sec each 5: Seated HS stretch 3 x 30 each leg Skilled Intervention: Patient was educated in proper exercise technique and purpose for exercises. Correct performance of therapeutic exercises was facilitated with verbal and visual cuing. Billing Therapeutic Exercise Treatment Minutes: 42 Total Treatment Time Minutes (timed/untimed): 42 Stalin Huffman PT [facility] 08-15-2022 History of Present illness Narrative Episode Visit Count: 2 Therapist That Will Accept/Oversee The Plan Of Care: Stalin Huffman Start of Care Date: 08/05/22 Onset Date: 08/15/20 ( years ) Plan of Care Certification Date: 08/05/22 Next Certification Due Date: 09/09/22 Patient Identified by Name and Date of : Yes REHABILITATION AND SPORTS THERAPY PHYSICAL THERAPY TREATMENT NOTE ASSESSMENT: Analilia Rodriguez tolerated the session with no issues. He demonstrated good form with all therapeutic exercises. The patient will continue to benefit from ongoing skilled physical therapy to progress toward set goals. PLAN FOR NEXT VISIT: Progress LE strengthening as tolerated. HS stretching SUBJECTIVE: Patient Reason for Visit: The back is sore today. May need to get something done about the back. Sees pain management for it. The LE exercises are ok but sometimes gets back pain with them. Pain: Pain Pain Level: 0 Pain Location: Knee - Right Additional Pain Information : Location 2 Pain Level 2: 0 Pain Location 2: Knee - Left OBJECTIVE MEASURES WITH LEVEL OF FUNCTION: LE Flexibility Flexibility: Hamstring Flexibility R Hamstring Flexibility: Tight L Hamstring Flexibility: Tight Wedge x2 placed under thorax decrease back pain SLR 25 degrees bilat due to HS tightness TREATMENT: Therapeutic Exercise: 1: Supine heel slides x 15 each strap assist 2: Supine SLR x 10 each leg x 2 sets 3: [place] Butterflys purple TB 2 x 15 reps 4: Hooklying Hip ADD iso ball 2 x 15 reps holding 2 sec each 5: Seated HS stretch 3 x 30 each leg Skilled Intervention: Patient was educated in proper exercise technique and purpose for exercises. Correct performance of therapeutic exercises was facilitated with verbal and visual cuing. Billing Therapeutic Exercise Treatment Minutes: 42 Total Treatment Time Minutes (timed/untimed): 42 Stalin Huffman PT documented in this encounter [facility] 08-05-2022 Note HNO ID: [id number] Author: Stalin Huffman PT Service: ? Author Type: Physical Therapist Type: Progress Notes Filed: 08/15/2022 7:43 AM Note Text: Episode Visit Count: 1 Therapist That Will Accept/Oversee The Plan Of Care: Stalin Huffman Start of Care Date: 08/05/22 Onset Date: 08/15/20 ( years ) Plan of Care Certification Date: 08/05/22 Next Certification Due Date: 09/09/22 Patient Identified by Name and Date of : Yes REHABILITATION AND SPORTS THERAPY PHYSICAL THERAPY EVALUATION PLAN OF CARE: Assessment: Analilia Rodriguez presents with chief complaint of bilat knee stiffness that interferes with walking in the community, walking, stair negotiation . He presents with impairments in gait, independence in exercise, range of motion, and strength. Patient did not complete the PROMIS? (Patient Reported Outcome Measures Information System). Prognosis for therapy is Good due to: current objective clinical presentation, good overall health status . Pt demonstrates hypomobility of the tibiofemoral joint bilat as most pertinent findings. He will benefit from skilled therapy services to meet the goals established for this plan of care as noted below. Goals for Episode of Care: created on 08/05/22 through 09/30/22 [place] in home exercise program. Increase ROM of the R and L knee to 120 degrees or better for improved gait mechanics and ease of getting in the car Increased strength of RLE and LE to to 5/5 for ease of getting in the car Normal gait. Patient Goals: Basically be able to move around better Planned Interventions, Frequency, and Duration: Current Frequency: 1x/week Duration: 4 weeks Total Number of Visits Planned: 4 Planned Treatment Interventions: Therapeutic exercise (71304), Neuromuscular re-education (90032), Manual therapy (42824), Self-senior living management (54006), Patient/Family/Caregiver Education PLAN FOR NEXT VISIT: Assess reaction to HEP. Mobility exercises for bilat knees. STS from high perch. SLR. HS stretch seated. Patient demonstrates good understanding of plan of care and treatment. The above goals and plan of care were discussed and agreed upon by patient/family. SUBJECTIVE: Analilia Rodriguez is a 72 year old male seen today for The Pain is not bad but mostly stiff. Uses a cane out and about. Not in the house. Got a shot in the L knee and the R knee seems more stiff. Pt can walk very short distances maybe more due to his back. Had PT around 1.5 years ago after a meniscal procedure. @ procedures in the L knee and none in the R. Getting in the car is a challenge because there is a lack of mobility in the knees, particularly the L knee. Patient Goals: Basically be able to move around better Functional Limitations: walking in the community, walking, stair negotiation Prior Level of Function: Independent without limitations Intake Information: Prescription present Previous Treatment: Surgery Pain: Pain Pain Level: 0 Pain Location: Knee - Right Additional Pain Information : Location 2 Pain Level 2: 0 Pain Location 2: Knee - Left PROMIS Scales T-scores: mean of general population = 50. 5 points is clinically meaningfully difference Percentiles provide an indication of how the patient's score ranks in relation to the general population. Higher percentile rankings indicate better function/quality of life. 50th percentile is the average of the general population and indicates half of respondents had a worse score. OBJECTIVE MEASURES WITH LEVEL OF FUNCTION: LE AROM R LE AROM: WNL L LE AROM: WNL R Knee Extension: 3 Degrees R Knee Flexion: 96 Degrees L Knee Extension: 3 Degrees L Knee Flexion: 90 Degrees LE Strength R LE Strength: Grossly 5/5 L LE Strength: Grossly 5/5 R Hip Extension: 4+/5 R Hip Flexion (L2): 4/5 R Hip External Rotation: 4/5 L Hip Extension: 4+/5 L Hip Flexion (L2): 4/5 L Hip External Rotation: 4/5 L Knee Extension (L3): 4+/5 Gait Gait: Modified Independent Gait Distance (feet): 50 Gait Device: Cane Gait Deviations: Right Lower Extremity, Left Lower Extremity Gait Deviations Right Lower Extremity: Stance time decreased, Step length decreased, Heel strike during initial stance decreased Gait Deviations Left Lower Extremity: Stance time decreased, Step length decreased, Heel strike during initial stance decreased Education: Education Learning Preferences: Demonstration, Explanation, Performance, Printed Materials Barriers: None Learning/educational needs: Home exercise program, Plan of Care Education Provided: Yes, see treatment interventions for education provided Education Provided To: Patient Education Mode/Type: Demonstration, Explanation/Discussion, Literature/Printed Materials, Performance Response to Education/Teach Back: States/Identifies, Return Demonstration TREATMENT: PT Treatment Interventions: Therapeutic Exercise Evaluation Therapeutic Exercise: 1: Di (more content not included)... [facility] 08-05-2022 History of Present illness Narrative Episode Visit Count: 1 Therapist That Will Accept/Oversee The Plan Of Care: Stalin Huffman Start of Care Date: 08/05/22 Plan of Care Certification Date: 08/05/22 Next Certification Due Date: 09/09/22 Patient Identified by Name and Date of : Yes REHABILITATION AND SPORTS THERAPY PHYSICAL THERAPY EVALUATION PLAN OF CARE: Assessment: Analilia oRdriguez presents with chief complaint of bilat knee stiffness that interferes with walking in the community, walking, stair negotiation . He presents with impairments in gait, independence in exercise, range of motion, and strength. Patient did not complete the PROMIS (Patient Reported Outcome Measures Information System). Prognosis for therapy is Good due to: current objective clinical presentation, good overall health status . Pt demonstrates hypomobility of the tibiofemoral joint bilat as most pertinent findings. He will benefit from skilled therapy services to meet the goals established for this plan of care as noted below. Goals for Episode of Care: created on 08/05/22 through 09/30/22 [place] in home exercise program. Increase ROM of the R and L knee to 120 degrees or better for improved gait mechanics and ease of getting in the car Increased strength of RLE and LE to to 5/5 for ease of getting in the car Normal gait. Patient Goals: Basically be able to move around better Planned Interventions, Frequency, and Duration: Current Frequency: 1x/week Duration: 4 weeks Total Number of Visits Planned: 4 Planned Treatment Interventions: Therapeutic exercise (30813), Neuromuscular re-education (49233), Manual therapy (17968), Self-senior living management ([id number]), Patient/Family/Caregiver Education PLAN FOR NEXT VISIT: Assess reaction to HEP. Mobility exercises for bilat knees. STS from high perch. SLR. HS stretch seated. Patient demonstrates good understanding of plan of care and treatment. The above goals and plan of care were discussed and agreed upon by patient/family. SUBJECTIVE: Analilia Rodriguez is a 72 year old male seen today for The Pain is not bad but mostly stiff. Uses a cane out and about. Not in the house. Got a shot in the L knee and the R knee seems more stiff. Pt can walk very short distances maybe more due to his back. Had PT around 1.5 years ago after a meniscal procedure. @ procedures in the L knee and none in the R. Getting in the car is a challenge because there is a lack of mobility in the knees, particularly the L knee. Patient Goals: Basically be able to move around better Functional Limitations: walking in the community, walking, stair negotiation Prior Level of Function: Independent without limitations Intake Information: Prescription present Previous Treatment: Surgery Pain: Pain Pain Level: 0 Pain Location: Knee - Right Additional Pain Information : Location 2 Pain Level 2: 0 Pain Location 2: Knee - Left PROMIS Scales T-scores: mean of general population = 50. 5 points is clinically meaningfully difference Percentiles provide an indication of how the patient's score ranks in relation to the general population. Higher percentile rankings indicate better function/quality of life. 50th percentile is the average of the general population and indicates half of respondents had a worse score. OBJECTIVE MEASURES WITH LEVEL OF FUNCTION: LE AROM R LE AROM: WNL L LE AROM: WNL R Knee Extension: 3 Degrees R Knee Flexion: 96 Degrees L Knee Extension: 3 Degrees L Knee Flexion: 90 Degrees LE Strength R LE Strength: Grossly 5/5 L LE Strength: Grossly 5/5 R Hip Extension: 4+/5 R Hip Flexion (L2): 4/5 R Hip External Rotation: 4/5 L Hip Extension: 4+/5 L Hip Flexion (L2): 4/5 L Hip External Rotation: 4/5 L Knee Extension (L3): 4+/5 Gait Gait: Modified Independent Gait Distance (feet): 50 Gait Device: Cane Gait Deviations: Right Lower Extremity, Left Lower Extremity Gait Deviations Right Lower Extremity: Stance time decreased, Step length decreased, Heel strike during initial stance decreased Gait Deviations Left Lower Extremity: Stance time decreased, Step length decreased, Heel strike during initial stance decreased Education: Education Learning Preferences: Demonstration, Explanation, Performance, Printed Materials Barriers: None Learning/educational needs: Home exercise program, Plan of Care Education Provided: Yes, see treatment interventions for education provided Education Provided To: Patient Education Mode/Type: Demonstration, Explanation/Discussion, Literature/Printed Materials, Performance Response to Education/Teach Back: States/Identifies, Return Demonstration TREATMENT: PT Treatment Interventions: Therapeutic Exercise Evaluation Therapeutic Exercise: 1: Discussed therapy goals, exam findings, and HEP discussed. 2: Supine heel slides strap assist x 10 each leg 3: Supine SLR x 8 each leg Skilled Intervention: Patient was educated in proper exercise technique and purpose for exercises. Provided written instruction for home exercise program to facilitate proper performance and compliance. Correct performance of therapeutic exercises was facilitated with verbal and visual cuing. Billing * Evaluation Low Complexity: 1 Unit Therapeutic Exercise Treatment Minutes: 15 Total Treatment Time Minutes (timed/untimed): 35 Stalin Huffman PT documented in this encounter [facility] 07-21-2022 Note HNO ID: [id number] Author: Stephen Garcia, RT(R) Service: Radiology Author Type: Technologist Type: Progress Notes Filed: 07/21/2022 1:39 PM Note Text: Radiology Service Progress Note PATIENT NAME: Analilia Rodriguez DATE OF SERVICE: July 21, 2022 TIME: 1:34 PM PATIENT IDENTITY VERIFICATION COMPLETED USING TWO (2) IDENTIFIERS: Name and Date of confirmed by patient verbally. FALL SCREENING: Has the patient had 2 falls in the last year or 1 fall with injury or currently using an Ambulatory Assistive Device (Walker, Cane, Wheelchair, Crutches, etc.)? No PATIENT GENDER DATA: Male PATIENT RELEVANT IMPLANT DATA REVIEWED: Not Applicable RADIOLOGY DEPARTMENT: General X-ray: Exam(s) Completed: Pelvis X-Ray: Pelvis General AP Lower Extremity X-Ray(s): Knee, AP / Lat / Tunne / Merchant Bilateral and Wt. Bearing PERIPHERAL IV DATA: Not applicable SIGNED BY: Angela Millan (RT) RT Kayli(R) July 21, 2022 1:34 PM [facility] 07-21-2022 Note HNO ID: [id number] Author: Rafi Ruffin MD Service: ? Author Type: Physician Type: Progress Notes Filed: 07/21/2022 2:25 PM Note Text: CONSULT ORTHOPAEDIC: KNEE PRIMARY CARE PHYSICIAN: Mele Mack DO REFERRING PROVIDER: No referring provider defined for this encounter. ASSESSMENT AND PLAN Impression: Bilateral Knee Moderate Degenerative Osteoarthritis, Primary After discussion with Analilia Rodriguez, continued non-operative management of physical therapy and injection(s) was chosen. The patient currently has had six months of unsuccessful non-operative treatment as outlined in the HPI below and progressive symptoms. Provided patient with a left knee CSI in office today. Progressive Symptoms Include: Pain worsened by weight bearing Pain limiting ability to stay fit and healthy Unable to ambulate 2 blocks without significant pain and dysfunction . The patient has been ordered: Physical therapy CONSULTS: Patient does not require consults for optimization at this time. ACTIVE PROBLEM LIST Type II Or Unspecified Type Diabetes Mellitus Without Mention of Complication, Not Stated As Uncontrolled Other Closed Fractures of Upper End of Humerus Localized Osteoarthrosis Not Specified Whether Primary Or Secondary, Shoulder Region SUBJECTIVE CHIEF COMPLAINT: Bilateral Knee Pain HPI: Analilia Rodriguez is a 72 year old patient here for evaluation and management of bilateral knee pain, left greater than right. Analilia Rodriguez has had progressive problems with the knees, primarily the left knee for many years, worse over the past 3 to 4 years interfering with activities which include walking, rising from a sitting position, standing for prolonged periods of time, and climbing stairs. Patient states that about 10 years ago he had 5 series gel injection which did provide some significant relief for what was thought to be a meniscus tear. He states that the knee has continued to be problematic and that about a year and a half ago he underwent left knee arthroscopy with partial meniscectomy by the [facility]. This provided some improvement in his symptoms but the knee continues to be painful and stiff. His right knee only gives him problems intermittently outside of an incident in March when there was a loud pop in the right knee associated with pain. He was again found to have a meniscus tear but was recommended not to proceed with arthroscopy due to the advanced state of his degenerative disease. He denies any hip pain. Does not walk with any ambulatory devices. Anlailia Rodriguez also complains of chronic low back pain. FUNCTIONAL STATUS: Walk a block or two on level ground (2.75 METs) PREVIOUS TREATMENTS: Medical Treatments: Viscosupplementation Left Knee Physical Therapy: Activities Modified Previous Surgery: Knee Arthroscopy- left knee ~2020 REVIEW OF SYSTEMS: PAIN ASSESSMENT: See HPI. MUSCULOSKELETAL: See HPI. Risk Factors for Total Joint Arthroplasty (TJA) Obesity Unknown Risk High: BMI > 40 Moderate: BMI 30-40 Normal: BMI < 30 Diabetes High Risk High: A1C > 8 Moderate: A1C 7-8 Normal: A1C < 7 Smoking normal High: Current smoker Normal: Non smoker Anemia normal High: Hgb < 13 (men) N/A: Hgb >= 13 (men) Nutritional Status normal High: Alb<3.4, or prealb<15, or serum transferrin<200, or total lymphocyte count<1500 Normal: normal labs COPD normal High: dx of COPD Normal: no dx of COPD MRSA normal High: dx of MRSA or positive lab test Normal: no MRSA CKD normal High: eGFR<60 Moderate: eGFR 60-89 Normal: eGFR>90 Hx of DVT / PE normal High: dx of DVT / PE Normal: no dx of DVT / PE Narcotics Use Moderate Risk High:NarxCare >=300 Moderate: 100-299 Normal: 0-99 CEDRIC normal High: dx of CEDRIC N/A: no dx of CEDRIC Coagulation normal High:PT Sec>13, or PT INR>1.3, or APTT>32.4, or Plt ct<150k Moderate: on anticoag but none of the above Normal: none Obesity: height and/or weight are out of date (There is no height and/or weight reading in the past 365 days, so the below BMI readings may be inaccurate) BMI Readings from Last 3 Encounters: 06/20/22 : 43.32 kg/m? 05/09/22 : 44.13 kg/m? 05/09/20 : 43.24 kg/m? Diabetes: Analilia has been diagnosed with Diabetes. His last Hemoglobin A1C was 8.2 (05/27/2008). NarxCare score NARX Narcotics: 250 (07/21/2022 12:57 PM) Other Risk Factors None PAST MEDICAL HISTORY Diagnosis Date Cancer (HCC) colon cancer late Coronary artery disease one stent Diabetes mellitus without mention of complication Diabetes mellitus Gout Hypertension PMH - PAST MEDICAL HISTORY OF 09/10/07 Right shoulder fracture Renal disorder PAST SURGICAL HISTORY Procedure Laterality Date COLON SURGERY HX ORTHOPEDICS SURGERY HX , carpal tunnel TONSILLECTOMY HX No family history on file. Social History Tobacco Use Smoking status: Never Smokeless tobacco: Never Vaping Use Vaping Use: Never us (more content not included)... [facility] 07-21-2022 History of Present illness Narrative Radiology Service Progress Note PATIENT NAME: Analilia Rodriguez DATE OF SERVICE: July 21, 2022 TIME: 1:34 PM PATIENT IDENTITY VERIFICATION COMPLETED USING TWO (2) IDENTIFIERS: Name and Date of confirmed by patient verbally. FALL SCREENING: Has the patient had 2 falls in the last year or 1 fall with injury or currently using an Ambulatory Assistive Device (Walker, Cane, Wheelchair, Crutches, etc.)? No PATIENT GENDER DATA: Male PATIENT RELEVANT IMPLANT DATA REVIEWED: Not Applicable RADIOLOGY DEPARTMENT: General X-ray: Exam(s) Completed: Pelvis X-Ray: Pelvis General AP Lower Extremity X-Ray(s): Knee, AP / Lat / Tunne / Merchant Bilateral and Wt. Bearing PERIPHERAL IV DATA: Not applicable SIGNED BY: Angela Millan (RT) RT Kayli(R) July 21, 2022 1:34 PM documented in this encounter [facility] 07-21-2022 History of Present illness Narrative Associated Order(s): Large Joint Arthro/Inj: L knee joint Post-Procedure Diagnose(s): Primary osteoarthritis of left knee CONSULT ORTHOPAEDIC: KNEE PRIMARY CARE PHYSICIAN: Mele Mack DO REFERRING PROVIDER: No referring provider defined for this encounter. ASSESSMENT & PLAN Impression: Bilateral Knee Moderate Degenerative Osteoarthritis, Primary After discussion with Analilia Rodriguez, continued non-operative management of physical therapy and injection(s) was chosen. The patient currently has had six months of unsuccessful non-operative treatment as outlined in the HPI below and progressive symptoms. Provided patient with a left knee CSI in office today. Progressive Symptoms Include: Pain worsened by weight bearing Pain limiting ability to stay fit and healthy Unable to ambulate 2 blocks without significant pain and dysfunction . The patient has been ordered: Physical therapy CONSULTS: Patient does not require consults for optimization at this time. ACTIVE PROBLEM LIST Type II Or Unspecified Type Diabetes Mellitus Without Mention of Complication, Not Stated As Uncontrolled Other Closed Fractures of Upper End of Humerus Localized Osteoarthrosis Not Specified Whether Primary Or Secondary, Shoulder Region SUBJECTIVE CHIEF COMPLAINT: Bilateral Knee Pain HPI: Analilia Rodriguez is a 72 year old patient here for evaluation and management of bilateral knee pain, left greater than right. Analilia Rodriguez has had progressive problems with the knees, primarily the left knee for many years, worse over the past 3 to 4 years interfering with activities which include walking, rising from a sitting position, standing for prolonged periods of time, and climbing stairs. Patient states that about 10 years ago he had 5 series gel injection which did provide some significant relief for what was thought to be a meniscus tear. He states that the knee has continued to be problematic and that about a year and a half ago he underwent left knee arthroscopy with partial meniscectomy by the [facility]. This provided some improvement in his symptoms but the knee continues to be painful and stiff. His right knee only gives him problems intermittently outside of an incident in March when there was a loud pop in the right knee associated with pain. He was again found to have a meniscus tear but was recommended not to proceed with arthroscopy due to the advanced state of his degenerative disease. He denies any hip pain. Does not walk with any ambulatory devices. Analilia Rodriguez also complains of chronic low back pain. FUNCTIONAL STATUS: Walk a block or two on level ground (2.75 METs) PREVIOUS TREATMENTS: Medical Treatments: Viscosupplementation Left Knee Physical Therapy: Activities Modified Previous Surgery: Knee Arthroscopy- left knee ~2020 REVIEW OF SYSTEMS: PAIN ASSESSMENT: See HPI. MUSCULOSKELETAL: See HPI. Risk Factors for Total Joint Arthroplasty (TJA) Obesity Unknown Risk High: BMI > 40 Moderate: BMI 30-40 Normal: BMI < 30 Diabetes High Risk High: A1C > 8 Moderate: A1C 7-8 Normal: A1C < 7 Smoking normal High: Current smoker Normal: Non smoker Anemia normal High: Hgb < 13 (men) N/A: Hgb >= 13 (men) Nutritional Status normal High: Alb<3.4, or prealb<15, or serum transferrin<200, or total lymphocyte count<1500 Normal: normal labs COPD normal High: dx of COPD Normal: no dx of COPD MRSA normal High: dx of MRSA or positive lab test Normal: no MRSA CKD normal High: eGFR<60 Moderate: eGFR 60-89 Normal: eGFR>90 Hx of DVT / PE normal High: dx of DVT / PE Normal: no dx of DVT / PE Narcotics Use Moderate Risk High:NarxCare >=300 Moderate: 100-299 Normal: 0-99 CEDRIC normal High: dx of CEDRIC N/A: no dx of CEDRIC Coagulation normal High:PT Sec>13, or PT INR>1.3, or APTT>32.4, or Plt ct<150k Moderate: on anticoag but none of the above Normal: none Obesity: height and/or weight are out of date (There is no height and/or weight reading in the past 365 days, so the below BMI readings may be inaccurate) BMI Readings from Last 3 Encounters: 06/20/22 : 43.32 kg/m 05/09/22 : 44.13 kg/m 05/09/20 : 43.24 kg/m Diabetes: Analilia has been diagnosed with Diabetes. His last Hemoglobin A1C was 8.2 (05/27/2008). NarxCare score NARX Narcotics: 250 (07/21/2022 12:57 PM) Other Risk Factors None PAST MEDICAL HISTORY Diagnosis Date Cancer (HCC) colon cancer late Coronary artery disease one stent Diabetes mellitus without mention of complication Diabetes mellitus Gout Hypertension PMH - PAST MEDICAL HISTORY OF 09/10/07 Right shoulder fracture Renal disorder PAST SURGICAL HISTORY Procedure Laterality Date COLON SURGERY HX ORTHOPEDICS SURGERY HX , carpal tunnel TONSILLECTOMY HX No family history on file. Social History Tobacco Use Smoking status: Never Smokeless tobacco: Never Vaping Use Vaping Use: Never used Substance Use Topics Alcohol use: Yes Comment: rare Drug use: Never ALLERGIES: Bees, Lorazepam, Mupirocin, Oseltamivir, and Silver Sulfadiazine MEDICATIONS: fluocinonide (LIDEX) 0.05 % cream Apply to affected areas on both lower legs as directed cholecalciferol (VITAMIN D3) 50 mcg (2,000 unit) tablet Take 2,000 Units by mouth once daily. diclofenac sodium (VOLTAREN) 1 % topical gel Apply 2 g to affected area three times daily as needed (pain and swelling). febuxostat (ULORIC) 80 mg tab Take 1 tablet by mouth once daily. finasteride (PROSCAR) 5 mg tablet Take 1 tablet by mouth once daily. fluticasone (FLONASE) 50 mcg/actuation nasal spray Use 2 Sprays in each nostril every morning. HYDROcodone-acetaminophen (NORCO) 5-325 mg per tablet Take 1 tablet by mouth every 6 hours as needed. NOVOLOG MIX 70-30 100 unit/mL (70-30) inpn injection Inject subcutaneously three times daily with meals. -sliding scale Up to 40 units TID tamsulosin ER (FLOMAX) 0.4 mg Take 1 capsule by mouth daily at bedtime. amLODIPine (NORVASC) 5 mg tablet Take 1 tablet by mouth once daily. (Patient not taking: Reported on 05/12/2021 ) carvedilol (COREG) 25 mg tablet Take 1 tablet by mouth twice daily. furosemide (LASIX) 20 mg tablet Take 1 tablet by mouth twice daily. Valsartan-Hydrochlorothiazide 320-25 mg per tablet Take 1 tablet by mouth once daily. GLIPIZIDE 10 MG TAB Take one(1) tablet two(2) times daily. (Patient not taking: ) blood sugar diagnostic(ASCENSIA CONTOUR TEST STRIPS) Testing twice daily exenatide(BYETTA 10 MCG/0.04 ML PER DOSE SUB-Q PEN INJECTOR) Inject ten(10) mcg subcutaneously twice daily within 60 minutes prior to a meal . (Patient not taking: ) needles, insulin disposable(BD INSULIN PEN NEEDLE UF SHORT 31 X 5/16 ) use as directed carvedilol(COREG 6.25 MG TAB) Take one(1) tablet twice daily. (Patient not taking: ) furosemide(LASIX 40 MG TAB) Take one(1) tablet two(2) times daily. (Patient not taking: ) aspirin(ECOTRIN LOW STRENGTH 81 MG TAB) Take one(1) tablet daily. valsartan/hydrochlorothiazide(DIOV AN HCT 160 MG-12.5 MG TAB) Take one(1) tablet daily. (Patient not taking: No sig reported) multivitamins(MULTIPLE VITAMINS TAB) Take one(1) tablet daily. calcium carbonate/vitamin d3(CALCIUM 600 + D(3) 600 MG (1,500)-200 UNIT TAB) Take 1 tablet by mouth once daily. LANCETS Use as directed. amlodipine (NORVASC) 10 mg ORAL Tab Take one(1) tablet daily. (Patient not taking: Reported on 05/12/2021) PHYSICAL EXAM: There were no vitals taken for this visit. All other systems deferred. GENERAL: Appears healthy, well-nourished, no deformities. HABITUS: Obese GAIT: Waddling, stifflegged gait KNEE EXAM: Left: Alignment: Varus deformity, Partially Correctable Range of motion is 5 degrees in extension and 90 degrees of flexion. Extension La degrees Pain with ROM: Yes Effusion: None Tender to the palpation of Patellar tendon, Medial femoral condyle, and Medial joint line Pain with patellar compression: Yes Stability: Anterior/Posterior stable and Varus/Valgus stable Hip Exam: flexion to 100+ degrees, full extension, internal/external rotation adequate, and no pain with log roll Neurovascular Status: Sensation Intact and Moves foot and ankle up & down Right: Alignment: Neutral Range of motion is lacking a few degrees secondary to tight hamstrings degrees in extension and 105 degrees of flexion. Extension La degrees Pain with ROM: No Effusion: None Tender to the palpation of Lateral joint line Pain with patellar compression: No Stability: Anterior/Posterior stable and Varus/Valgus stable Hip Exam: flexion to 100+ degrees, full extension, internal/external rotation adequate, and no pain with log roll Neurovascular Status: Sensation Intact and Moves foot and ankle up & down DATA: Diagnostic tests reviewed for today's visit: Right knee X-Ray: Moderate degenerative changes noted including partial joint space narrowing medially and laterally; calcifications noted in menisci Left knee X-Ray: Moderate degenerative changes noted including partial joint space narrowing medially and laterally; calcifications noted in menisc The following conditions were addressed during the office visit today: None Large Joint Arthro/Inj: L knee joint Informed Consent Consent Obtained: Verbal [place] Protocol SIGN IN Personnel directly involved with the procedure wore the appropriate PPE. TIME OUT Medications required for procedure verified. 07/21/2022 2:05 PM The procedure site was prepped in the usual sterile fashion. Site: L knee joint Medications: 40 mg triamcinolone acetonide 40 mg/mL; 12 mg betamethasone acetate-betamethasone sodium phosphate 6 mg/mL Anesthetics: 4 mL lidocaine (PF) 20 mg/mL (2 %) Outcome: Tolerated well, no immediate complications Post-injection instructions were reviewed with the patient and the patient voiced understanding of these instructions. The History, Exam, and Plan as documented by the Orthopaedic surgery resident/fellow/physician virtual assistant was reviewed and discussed in detail. We have discussed the case and management of the patient's care, and I agree with the above documented information and plan. SIGNATURE: Rafi Ruffin MD PATIENT NAME: Analilia Rodriguez DATE: July 21, 2022 TIME: 1:15 PM documented in this encounter [facility] 06-21-2022 Miscellaneous Notes Left message for patient with negative results.Susie Dowd LPN Left message for patient to return call. Marlene Al Let patient know COVID and flu test was negative. documented in this encounter [facility] 06-20-2022 Note HNO ID: [id number] Author: SHIMA Awad Service: ? Author Type: Physician Chinese Language Professor Type: Progress Notes Filed: 06/20/2022 9:24 AM Note Text: This note was created using [employer]. Subjective Analilia Rodriguez is a 72 year old male. HPI 72-year-old male presents for sinus congestion, sore throat and cough since yesterday. Patient states he started not feeling well yesterday. His is sick with similar symptoms. He has not had any vomiting or diarrhea. No fevers or chills. He states that he mainly just has nasal congestion, cough and sore throat. He denies any sick contacts other than his . No known exposure to COVID. No chest pain or shortness of breath. No history of COPD or asthma. Review of Systems Constitutional: Negative for chills and fever. HENT: Positive for congestion and sore throat. Respiratory: Positive for cough. Negative for shortness of breath. Gastrointestinal: Negative for diarrhea and vomiting. Objective BP 122/76 Pulse 69 Temp 36.6 ?C (97.9 ?F) Resp 20 Wt (!) 140.9 kg (310 lb 9.6 oz) SpO2 97% BMI 43.32 kg/m? Physical Exam Vitals and nursing note reviewed. Constitutional: General: He is not in acute distress. Appearance: Normal appearance. He is not toxic-appearing. HENT: Right Ear: Tympanic membrane and ear canal normal. Left Ear: Tympanic membrane and ear canal normal. Nose: Congestion present. Mouth/Throat: Mouth: Mucous membranes are moist. Eyes: Conjunctiva/sclera: Conjunctivae normal. Cardiovascular: Rate and Rhythm: Normal rate and regular rhythm. Pulmonary: Effort: Pulmonary effort is normal. Breath sounds: Normal breath sounds. Skin: General: Skin is warm and dry. Neurological: Mental Status: He is alert. Assessment and Plan ASSESSMENT/PLAN: 1. URI, acute - ICD9: 465.9, ICD10: J06.9 - Discussed viral etiology and rationale for treatment. - Symptomatic treatment with prn analgesia - Supportive care with fluids and rest - COVID WITH FLUA+B, ROUTINE - In window for antiviral if COVID +. Advised will need follow up with PCP or express care online. He understands. Diagnosis and treatment plan were discussed and questions were answered to the patient's satisfaction. Pt acknowledged understanding of concepts and follow up plan. Specific signs and symptoms that would indicate the need for higher level of care were discussed in detail warranting prompt ER evaluation. SHIMA Awad [facility] 06-20-2022 History of Present illness Narrative This note was created using [employer]. Subjective Analilia Rodriguez is a 72 year old male. HPI 72-year-old male presents for sinus congestion, sore throat and cough since yesterday. Patient states he started not feeling well yesterday. His is sick with similar symptoms. He has not had any vomiting or diarrhea. No fevers or chills. He states that he mainly just has nasal congestion, cough and sore throat. He denies any sick contacts other than his . No known exposure to COVID. No chest pain or shortness of breath. No history of COPD or asthma. Review of Systems Constitutional: Negative for chills and fever. HENT: Positive for congestion and sore throat. Respiratory: Positive for cough. Negative for shortness of breath. Gastrointestinal: Negative for diarrhea and vomiting. Objective BP 122/76 Pulse 69 Temp 36.6 C (97.9 F) Resp 20 Wt (!) 140.9 kg (310 lb 9.6 oz) SpO2 97% BMI 43.32 kg/m Physical Exam Vitals and nursing note reviewed. Constitutional: General: He is not in acute distress. Appearance: Normal appearance. He is not toxic-appearing. HENT: Right Ear: Tympanic membrane and ear canal normal. Left Ear: Tympanic membrane and ear canal normal. Nose: Congestion present. Mouth/Throat: Mouth: Mucous membranes are moist. Eyes: Conjunctiva/sclera: Conjunctivae normal. Cardiovascular: Rate and Rhythm: Normal rate and regular rhythm. Pulmonary: Effort: Pulmonary effort is normal. Breath sounds: Normal breath sounds. Skin: General: Skin is warm and dry. Neurological: Mental Status: He is alert. Assessment and Plan ASSESSMENT/PLAN: 1. URI, acute - ICD9: 465.9, ICD10: J06.9 - Discussed viral etiology and rationale for treatment. - Symptomatic treatment with prn analgesia - Supportive care with fluids and rest - COVID WITH FLUA+B, ROUTINE - In window for antiviral if COVID +. Advised will need follow up with PCP or express care online. He understands. Diagnosis and treatment plan were discussed and questions were answered to the patient's satisfaction. Pt acknowledged understanding of concepts and follow up plan. Specific signs and symptoms that would indicate the need for higher level of care were discussed in detail warranting prompt ER evaluation. SHIMA Awad documented in this encounter [facility] 05-09-2022 Note HNO ID: [id number] Author: Lupe Mendieta APRN.FARM GENERAL MANAGER Service: ? Author Type: Nurse Practitioner Type: Progress Notes Filed: 05/09/2022 4:39 PM Note Text: Subjective The history is provided by the patient. No foreign language stenographer was used. HPI Analilia Rodriguez is a 72 year old male who presents today for CC of itchy, slightly swollen redness around eyelash area for 4 days. This is slight crusting in the am. He is also having mild flaking skin, slight light sensitivity. He denies any pain in eye or swelling around eye or redness, no loss or change in vision. He has been using Systane eye drop without relief. BP 148/74 Pulse 67 Temp (!) 35.7 ?C (96.3 ?F) Resp 21 Wt (!) 143.5 kg (316 lb 6.4 oz) SpO2 98% BMI 44.13 kg/m? Social History Tobacco Use Smoking status: Never Smokeless tobacco: Never Vaping Use Vaping Use: Never used Substance Use Topics Alcohol use: Yes Comment: rare Drug use: Never PAST MEDICAL HISTORY Diagnosis Date Cancer (HCC) colon cancer late 1990s Coronary artery disease one stent Diabetes mellitus without mention of complication Diabetes mellitus Gout Hypertension PMH - PAST MEDICAL HISTORY OF 09/10/07 Right shoulder fracture Renal disorder I have confirmed and edited as necessary, the [facility] Review of Systems Constitutional: Negative for chills and fever. HENT: Negative for congestion, ear pain, sinus pain and sore throat. Eyes: Positive for redness (itching). Respiratory: Negative for cough. Musculoskeletal: Negative for myalgias. Neurological: Negative for headaches. Objective Physical Exam Vitals and nursing note reviewed. Constitutional: Appearance: He is not toxic-appearing. HENT: Head: Normocephalic and atraumatic. Right Ear: Tympanic membrane, ear canal and external ear normal. Left Ear: Tympanic membrane, ear canal and external ear normal. Nose: No mucosal edema, congestion or rhinorrhea. Right Sinus: No maxillary sinus tenderness or frontal sinus tenderness. Left Sinus: No maxillary sinus tenderness or frontal sinus tenderness. Mouth/Throat: Pharynx: Uvula midline. No oropharyngeal exudate or posterior oropharyngeal erythema. Tonsils: No tonsillar abscesses. Eyes: General: Lids are normal. Lids are everted, no foreign bodies appreciated. Vision grossly intact. Right eye: No foreign body, discharge or hordeolum. Left eye: No foreign body or discharge. Extraocular Movements: Right eye: Normal extraocular motion. Left eye: Normal extraocular motion. Conjunctiva/sclera: Right eye: Right conjunctiva is not injected. Left eye: Left conjunctiva is injected. Comments: Area marked redness, slight swelling, flaking skin Cardiovascular: Rate and Rhythm: Normal rate and regular rhythm. Heart sounds: Normal heart sounds. Pulmonary: Effort: Pulmonary effort is normal. Breath sounds: Normal breath sounds. No decreased breath sounds, wheezing, rhonchi or rales. Lymphadenopathy: Head: Right side of head: No submental, submandibular, tonsillar or preauricular adenopathy. Left side of head: No submental, submandibular, tonsillar or preauricular adenopathy. Cervical: No cervical adenopathy. Right cervical: No superficial cervical adenopathy. Left cervical: No superficial cervical adenopathy. Neurological: Mental Status: He is alert. ASSESSMENT/PLAN: 1. Eyelid problem - ICD9: 374.9, ICD10: H02.9 Appears to be blepharitis Warm compresses to area, comfort wetting drops Erythromycin eye ointment as ordered Follow up with opthalmologist if no improvement in the next few days. Lupe Mendieta APRN.CNP [facility] 05-09-2022 Instructions Lupe Mendieta APRN.CNP - 05/09/2022 4:39 PM EST Warm compresses to area, comfort wetting drops Erythromycin eye ointment as ordered Follow up with opthalmologist if no improvement in the next few days. documented in this encounter [facility] 05-09-2022 History of Present illness Narrative Images from the original note were not included. Subjective The history is provided by the patient. No foreign language stenographer was used. [facility] Analilia Rodriguez is a 72 year old male who presents today for CC of itchy, slightly swollen redness around eyelash area for 4 days. This is slight crusting in the am. He is also having mild flaking skin, slight light sensitivity. He denies any pain in eye or swelling around eye or redness, no loss or change in vision. He has been using Systane eye drop without relief. BP 148/74 Pulse 67 Temp (!) 35.7 C (96.3 F) Resp 21 Wt (!) 143.5 kg (316 lb 6.4 oz) SpO2 98% BMI 44.13 kg/m Social History Tobacco Use Smoking status: Never Smokeless tobacco: Never Vaping Use Vaping Use: Never used Substance Use Topics Alcohol use: Yes Comment: rare Drug use: Never PAST MEDICAL HISTORY Diagnosis Date Cancer (HCC) colon cancer late 1990s Coronary artery disease one stent Diabetes mellitus without mention of complication Diabetes mellitus Gout Hypertension PMH - PAST MEDICAL HISTORY OF 09/10/07 Right shoulder fracture Renal disorder I have confirmed and edited as necessary, the [facility] Review of Systems Constitutional: Negative for chills and fever. HENT: Negative for congestion, ear pain, sinus pain and sore throat. Eyes: Positive for redness (itching). Respiratory: Negative for cough. Musculoskeletal: Negative for myalgias. Neurological: Negative for headaches. Objective Physical Exam Vitals and nursing note reviewed. Constitutional: Appearance: He is not toxic-appearing. HENT: Head: Normocephalic and atraumatic. Right Ear: Tympanic membrane, ear canal and external ear normal. Left Ear: Tympanic membrane, ear canal and external ear normal. Nose: No mucosal edema, congestion or rhinorrhea. Right Sinus: No maxillary sinus tenderness or frontal sinus tenderness. Left Sinus: No maxillary sinus tenderness or frontal sinus tenderness. Mouth/Throat: Pharynx: Uvula midline. No oropharyngeal exudate or posterior oropharyngeal erythema. Tonsils: No tonsillar abscesses. Eyes: General: Lids are normal. Lids are everted, no foreign bodies appreciated. Vision grossly intact. Right eye: No foreign body, discharge or hordeolum. Left eye: No foreign body or discharge. Extraocular Movements: Right eye: Normal extraocular motion. Left eye: Normal extraocular motion. Conjunctiva/sclera: Right eye: Right conjunctiva is not injected. Left eye: Left conjunctiva is injected. Comments: Area marked redness, slight swelling, flaking skin Cardiovascular: Rate and Rhythm: Normal rate and regular rhythm. Heart sounds: Normal heart sounds. Pulmonary: Effort: Pulmonary effort is normal. Breath sounds: Normal breath sounds. No decreased breath sounds, wheezing, rhonchi or rales. Lymphadenopathy: Head: Right side of head: No submental, submandibular, tonsillar or preauricular adenopathy. Left side of head: No submental, submandibular, tonsillar or preauricular adenopathy. Cervical: No cervical adenopathy. Right cervical: No superficial cervical adenopathy. Left cervical: No superficial cervical adenopathy. Neurological: Mental Status: He is alert. ASSESSMENT/PLAN: 1. Eyelid problem - ICD9: 374.9, ICD10: H02.9 Appears to be blepharitis Warm compresses to area, comfort wetting drops Erythromycin eye ointment as ordered Follow up with opthalmologist if no improvement in the next few days. Lupe Mendieta APRN.URIAH documented in this encounter [facility] 01-26-2022 Note HNO ID: [id number] Author: Jess Copeland APRN.URIAH Service: ? Author Type: Nurse Practitioner Type: Progress Notes Filed: 01/26/2022 11:03 AM Note Text: WOUND CENTER PROGRESS NOTE PATIENT NAME: Analilia Rodriguez DATE OF FOLLOW UP: 01/26/2022 REASON FOR FOLLOW UP: left lower leg wounds and stasis dermatitis HISTORY OF PRESENT ILLNESS: Analilia Rodriguez is a 71 year old y/o male w/ hx DM2, HTN, CAD w/ stent placement, gout, who presents for wound assessment and treatment evaluation of left lower leg wound and stasis dermatitis. Location: left lower leg Onset: October 2021 Aggravating factors: Diabetes mellitus and Vascular impairment Wound etiology: Vascular, Dermatologic Associated pain with wound: no Relieving factors for wound pain: wound care Treatments: Current: Lidex gel, triple antibiotic, Xeroform Past: hydrogel wound gel, MediHoney gel, triple antibiotic ointment PAST MEDICAL HISTORY Diagnosis Date Cancer (HCC) colon cancer late 1990s Coronary artery disease one stent Diabetes mellitus without mention of complication Diabetes mellitus Gout Hypertension PMH - PAST MEDICAL HISTORY OF 09/10/07 Right shoulder fracture Renal disorder PAST SURGICAL HISTORY Procedure Laterality Date COLON SURGERY HX ORTHOPEDICS SURGERY HX , carpal tunnel TONSILLECTOMY HX ALLERGIES ALLERGIES Allergen Reactions Bees swells Lorazepam Intolerance Mupirocin Rash blisters Oseltamivir Unknown made me sick, told I shouldn't take it Silver Sulfadiazine Rash CURRENT OUTPATIENT MEDICATIONS fluocinonide (LIDEX) 0.05 % cream Apply to affected areas on both lower legs as directed cholecalciferol (VITAMIN D3) 50 mcg (2,000 unit) tablet Take 2,000 Units by mouth once daily. diclofenac sodium (VOLTAREN) 1 % topical gel Apply 2 g to affected area three times daily as needed (pain and swelling). febuxostat (ULORIC) 80 mg tab Take 1 tablet by mouth once daily. finasteride (PROSCAR) 5 mg tablet Take 1 tablet by mouth once daily. fluticasone (FLONASE) 50 mcg/actuation nasal spray Use 2 Sprays in each nostril every morning. HYDROcodone-acetaminophen (NORCO) 5-325 mg per tablet Take 1 tablet by mouth every 6 hours as needed. NOVOLOG MIX 70-30 100 unit/mL (70-30) inpn injection Inject subcutaneously three times daily with meals. -sliding scale Up to 40 units TID tamsulosin ER (FLOMAX) 0.4 mg Take 1 capsule by mouth daily at bedtime. amLODIPine (NORVASC) 5 mg tablet Take 1 tablet by mouth once daily. (Patient not taking: Reported on 05/12/2021 ) carvedilol (COREG) 25 mg tablet Take 1 tablet by mouth twice daily. furosemide (LASIX) 20 mg tablet Take 1 tablet by mouth twice daily. Valsartan-Hydrochlorothiazide 320-25 mg per tablet Take 1 tablet by mouth once daily. GLIPIZIDE 10 MG TAB Take one(1) tablet two(2) times daily. (Patient not taking: ) blood sugar diagnostic(ASCENSIA CONTOUR TEST STRIPS) Testing twice daily exenatide(BYETTA 10 MCG/0.04 ML PER DOSE SUB-Q PEN INJECTOR) Inject ten(10) mcg subcutaneously twice daily within 60 minutes prior to a meal . (Patient not taking: ) needles, insulin disposable(BD INSULIN PEN NEEDLE UF SHORT 31 X 5/16 ) use as directed carvedilol(COREG 6.25 MG TAB) Take one(1) tablet twice daily. (Patient not taking: ) furosemide(LASIX 40 MG TAB) Take one(1) tablet two(2) times daily. (Patient not taking: ) aspirin(ECOTRIN LOW STRENGTH 81 MG TAB) Take one(1) tablet daily. valsartan/hydrochlorothiazide(DIOV AN HCT 160 MG-12.5 MG TAB) Take one(1) tablet daily. (Patient not taking: No sig reported) multivitamins(MULTIPLE VITAMINS TAB) Take one(1) tablet daily. calcium carbonate/vitamin d3(CALCIUM 600 + D(3) 600 MG (1,500)-200 UNIT TAB) Take 1 tablet by mouth once daily. LANCETS Use as directed. amlodipine (NORVASC) 10 mg ORAL Tab Take one(1) tablet daily. (Patient not taking: Reported on 05/12/2021) No family history on file. Social History Tobacco Use Smoking status: Never Smokeless tobacco: Never Vaping Use Vaping Use: Never used Substance Use Topics Alcohol use: Yes Comment: rare Drug use: Never REVIEW OF SYSTEMS: GENERAL: No weight loss, malaise or fevers RESPIRATORY: Negative for cough, hemoptysis, wheezing, COPD, dyspnea or shortness of breath CARDIOVASCULAR: Negative for chest pain, HTN, CHF or palpitations. Positive for leg edema (chronic). GI: No nausea, vomiting, or diarrhea MUSCULOSKELETAL: Negative for joint pain or swelling, back pain or muscle pain SKIN: Positive for color change, bilat shins. HEMATOLOGY/LYMPHOLOGY: Negative for prolonged bleeding, bruising easily or swollen nodes ENDOCRINE: Negative for cold or heat intolerance, polyuria, polydipsia and goiter NEURO: No history of headaches, syncope, paralysis, seizures or tremors PHYSICAL EXAM: BP 156/77 / Pulse 60 / Resp 18 / Temp 97.2 F / SpO2 100% General appearance: Well appearing, alert (more content not included)... [facility] 01-26-2022 History of Present illness Narrative Images from the original note were not included. WOUND CENTER PROGRESS NOTE PATIENT NAME: Analilia Rodriguez DATE OF FOLLOW UP: 01/26/2022 REASON FOR FOLLOW UP: left lower leg wounds and stasis dermatitis HISTORY OF PRESENT ILLNESS: Analilia Rodriguez is a 71 year old y/o male w/ hx DM2, HTN, CAD w/ stent placement, gout, who presents for wound assessment and treatment evaluation of left lower leg wound and stasis dermatitis. Location: left lower leg Onset: October 2021 Aggravating factors: Diabetes mellitus and Vascular impairment Wound etiology: Vascular, Dermatologic Associated pain with wound: no Relieving factors for wound pain: wound care Treatments: Current: Lidex gel, triple antibiotic, Xeroform Past: hydrogel wound gel, MediHoney gel, triple antibiotic ointment PAST MEDICAL HISTORY Diagnosis Date Cancer (HCC) colon cancer late Coronary artery disease one stent Diabetes mellitus without mention of complication Diabetes mellitus Gout Hypertension PMH - PAST MEDICAL HISTORY OF 09/10/07 Right shoulder fracture Renal disorder PAST SURGICAL HISTORY Procedure Laterality Date COLON SURGERY HX ORTHOPEDICS SURGERY HX , carpal tunnel TONSILLECTOMY HX ALLERGIES ALLERGIES Allergen Reactions Bees swells Lorazepam Intolerance Mupirocin Rash blisters Oseltamivir Unknown made me sick, told I shouldn't take it Silver Sulfadiazine Rash CURRENT OUTPATIENT MEDICATIONS fluocinonide (LIDEX) 0.05 % cream Apply to affected areas on both lower legs as directed cholecalciferol (VITAMIN D3) 50 mcg (2,000 unit) tablet Take 2,000 Units by mouth once daily. diclofenac sodium (VOLTAREN) 1 % topical gel Apply 2 g to affected area three times daily as needed (pain and swelling). febuxostat (ULORIC) 80 mg tab Take 1 tablet by mouth once daily. finasteride (PROSCAR) 5 mg tablet Take 1 tablet by mouth once daily. fluticasone (FLONASE) 50 mcg/actuation nasal spray Use 2 Sprays in each nostril every morning. HYDROcodone-acetaminophen (NORCO) 5-325 mg per tablet Take 1 tablet by mouth every 6 hours as needed. NOVOLOG MIX 70-30 100 unit/mL (70-30) inpn injection Inject subcutaneously three times daily with meals. -sliding scale Up to 40 units TID tamsulosin ER (FLOMAX) 0.4 mg Take 1 capsule by mouth daily at bedtime. amLODIPine (NORVASC) 5 mg tablet Take 1 tablet by mouth once daily. (Patient not taking: Reported on 05/12/2021 ) carvedilol (COREG) 25 mg tablet Take 1 tablet by mouth twice daily. furosemide (LASIX) 20 mg tablet Take 1 tablet by mouth twice daily. Valsartan-Hydrochlorothiazide 320-25 mg per tablet Take 1 tablet by mouth once daily. GLIPIZIDE 10 MG TAB Take one(1) tablet two(2) times daily. (Patient not taking: ) blood sugar diagnostic(ASCENSIA CONTOUR TEST STRIPS) Testing twice daily exenatide(BYETTA 10 MCG/0.04 ML PER DOSE SUB-Q PEN INJECTOR) Inject ten(10) mcg subcutaneously twice daily within 60 minutes prior to a meal . (Patient not taking: ) needles, insulin disposable(BD INSULIN PEN NEEDLE UF SHORT 31 X 5/16 ) use as directed carvedilol(COREG 6.25 MG TAB) Take one(1) tablet twice daily. (Patient not taking: ) furosemide(LASIX 40 MG TAB) Take one(1) tablet two(2) times daily. (Patient not taking: ) aspirin(ECOTRIN LOW STRENGTH 81 MG TAB) Take one(1) tablet daily. valsartan/hydrochlorothiazide(DIOV AN HCT 160 MG-12.5 MG TAB) Take one(1) tablet daily. (Patient not taking: No sig reported) multivitamins(MULTIPLE VITAMINS TAB) Take one(1) tablet daily. calcium carbonate/vitamin d3(CALCIUM 600 + D(3) 600 MG (1,500)-200 UNIT TAB) Take 1 tablet by mouth once daily. LANCETS Use as directed. amlodipine (NORVASC) 10 mg ORAL Tab Take one(1) tablet daily. (Patient not taking: Reported on 05/12/2021) No family history on file. Social History Tobacco Use Smoking status: Never Smokeless tobacco: Never Vaping Use Vaping Use: Never used Substance Use Topics Alcohol use: Yes Comment: rare Drug use: Never REVIEW OF SYSTEMS: GENERAL: No weight loss, malaise or fevers RESPIRATORY: Negative for cough, hemoptysis, wheezing, COPD, dyspnea or shortness of breath CARDIOVASCULAR: Negative for chest pain, HTN, CHF or palpitations. Positive for leg edema (chronic). GI: No nausea, vomiting, or diarrhea MUSCULOSKELETAL: Negative for joint pain or swelling, back pain or muscle pain SKIN: Positive for color change, bilat shins. HEMATOLOGY/LYMPHOLOGY: Negative for prolonged bleeding, bruising easily or swollen nodes ENDOCRINE: Negative for cold or heat intolerance, polyuria, polydipsia and goiter NEURO: No history of headaches, syncope, paralysis, seizures or tremors PHYSICAL EXAM: BP 156/77 / Pulse 60 / Resp 18 / Temp 97.2 F / SpO2 100% General appearance: Well appearing, alert, in no acute distress, well-hydrated, well nourished. Skin: Skin color, texture, turgor normal, no suspicious rashes or lesions. Positive mild erythema bilat pretibial areas, R>L. Head: Normocephalic, no masses, lesions, tenderness or abnormalities Eyes: Anicteric sclera. Pupils are equally round and reactive to light. Extraocular movements are intact. Lungs: Respirations even and unlabored Extremities: Edema: 2+ edema right lower leg, 1+ edema right foot; 2+ edema left lower leg, trace edema left foot Musculoskeletal: No joint swelling, deformity, or tenderness Peripheral pulses: triphasic doppler signals x 4; palpable DP pulses bilat Neuro: Oriented X 3. Ambulatory WOUND ASSESSMENT Wound 19: Location: left anterior crawford Type: vascular insufficiency Stage: NA Exposed structure:None Progress: healed Wound measurements (cm): 0 Full thickness- Yes Tunneling/undermining: none Wound tissue color: epithelial Periwound tissue: dry and intact Drainage: none Drainage odor: n/a Wound 20: Location: left medial lower leg Type: vascular insufficiency Stage: NA Exposed structure:None Progress: healed Wound measurements (cm): 0 Full thickness- Yes Tunneling/undermining: none Wound tissue color: epithelial Periwound tissue: dry and intact Drainage: none Drainage odor: n/a DATA PHOTOGRAPHY: yes A photo was taken of the patient's wound(s). Photos can be found under the [facility] images tab on [facility]. The purpose of the photo(s) is to optimize the patient's medical care and allow a visual aid to their wound evaluation and progress. The photo(s) are not intended for publication, education, or research. If the use of the photo is desired in any additional way, other than for the above outlined purposes, then an additional consent for the intended use will need to be obtained by the requesting provider. 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 Mild stasis erythema; expect some residual chronic erythema Plan: Taper off topical steroid - Apply Fluocinonide 0.05% cream to reddened areas bilat anterior shins M-F x 2 weeks, then every other day x 2 weeks then stop. - Vaseline to intact non reddened skin bilat lower legs daily to moisturize. - Double layer Tubi-b2b sales representative size F bilat LE ---pt to resume wear of his CircAid compression wraps at home - Recommend to continue to elevate legs at least 30 min 3x/day - Follow up in wound center as needed I discussed the plan in detail with the patient and the patient verbalizes understanding and is in agreement. My previous progress note dated 01/10/2022 was copied forward, updated where appropriate, and reflective of current medical decision making today, 01/26/2022. Jess Copeland APRN, URIAH, CWS Certified Forest Fire Prevention Specialist January 26, 2022 Medical Decision Making: Problems: Low: Stable chronic illness Risk: Low: Low risk from testing/treatment Moderate: Drug management Medical Decision Making Level: 3 - Low documented in this encounter [facility] 01-26-2022 Nurse Note Nursing Documentation Pertinent Medical History: DM II, heart stent Wound Etiology according to patient: Blisters and wounds appeared March 31 2021 Patient arrived via: ambulatory with [facility]Nursing Facility:NA Consent captured for debridement per Jess Copeland CNP and good until June 2022 Anticoagulant Therapy: ASA 81 mg ACTIVE CARE PER PROVIDER: Jess Copeland CNP Wound 1-13 previously healed WOUND # 14 LOCATION: Right Lower Leg - Anterior (NEW 11/25/21) Closed 12/27/21, remains closed 01/10/22 WOUND # 15 LOCATION: Left lower leg - Anterior (NEW 11/25/21) Closed 12/27/21, remains closed 01/10/22 WOUND # 16 LOCATION: Right lower leg - Lateral NEW 12/02/21 Closed 12/27/21, remains closed 01/10/22 WOUND # 17 LOCATION: Right lower leg - Crawford NEW 12/02/21 Closed 12/27/21 , remains closed 01/10/22 Healed 01-26-2022 WOUND # 18 LOCATION: Right Lower leg - Crawford lateral NEW 12/02/21 - Closed 12/10/21, remains closed 12/27/21, remains closed 01/10/22, Healed 01-26-2022 WOUND # 21 LOCATION: Right Anterior Lower Leg (New 12/27/21) closed 01/10/22, Healed 01-26-2022 WOUND ASSESSMENT: Refer to Provider's Wound Assessment Note VASCULAR ASSESSMENT BY PROVIDER: Doppler : triphasic x 4 CHF History: patient denies EDEMA: Right foot: 1+ Right calf: 2+ Left foot : trace Left Calf: 2+ Other: NA MEASUREMENTS: in CM Right Calf: 47.4 Right Ankle: 26.5 Left Calf: 46.4 Left Ankle: 26.0 Length: 46.5 - not measured at today's visit WOUND PHOTOGRAPHY: yes x2 DEBRIDEMENT PROCEDURE BY PROVIDER: Anesthetic Used: N/A Wound # Other procedure: N/A Specimen collected: NA WOUND TREATMENT PER MD ORDER: All wounds cleansed by mechanical debridement with NS and gauze to allow provider to visualize wound bed * DO NOT USE SILVER DRESSINGS WOUND # __19__ LOCATION: Left Anterior Crawford (New wound 12/10/21) Healed 01-26-2022 WOUND # __20__ LOCATION: Left Lower Medial Leg (New wound 12/10/21) Healed 01-26-2022 SHORTY WRAP/SurePress/Tubi-b2b sales representative: Foot is warm and pink before and after application. It was demonstrated to the patient how to check for adequate circulation. Patient voices understanding. If circulation becomes compromised by a change in color, increased pain, numbness or tingling to the area, the patient knows to remove the compression and elevate the leg above the heart. COMPRESSION: Double layerTubiGrip size F SPECIAL NEEDS: Coordination of care - n/a Emotional support N/A OR set-up N/A Equipment Operator N/A Incontinence needs N/A DISCHARGED in stable condition to: Self ambulatory with dileep walker [facility] surgical period dates if applicable: N/A Plan: Return to the wound center to see Jess Copeland CNP as needed Rx : refill for steroid cream sent to your pharmacy 3. PRISM: for any additional wound care supplies EDUCATION: The patient/family was instructed how to cleanse the wound(s). Visual demonstration on how to apply the dressing with teach back method. Signs & symptoms of infection were reviewed: Increased redness, swelling, pain, green/yellow drainage, fever and/or chills would all need to be evaluated by a Physician. Patient received typed home-going wound care instructions and has expressed intent to comply. OTHER EDUCATION: Education performed regarding lymphedema/edema: Elevation of extremity above the heart for 30 minutes three times daily and as needed Exercise such as writing the ABC's with your toes in the air, walking and/or calf pumps Wearing compression as ordered by provider Diet controlling of sodium as instructed by provider Use of medication to help control edema. _ UNIVERSAL PROTOCOL / SAFETY CHECKLIST: N/A Current HBOT Status: Active or Complete - see screening below WOUND CENTER HYPERBARIC OXYGEN THERAPY SCREENING 1. Is the patient diabetic? (If No, skip to question 5) Yes 2. Does the patient have a lower extremity wound? Yes 3. Is there exposed/involved tendon or bone? No 4. Has the wound been present for 30 days? no If Yes to ALL questions above, consult the [facility]ic Center 5. Has the patient been diagnosed with osteomyelitis? No 6. Has the patient had a previous skin graft or flap at the wound? No 7. Has the patient had or been offered vascular intervention/evaluation? No 8. Does the patient have a wound at an amputation site? No 9. Has the patient had radiation therapy at the site of the problem? No If Yes to ANY of questions 5-9, [facility] Luzma Yang RN/vicky/ej- orientation documented in this encounter [facility] 01-26-2022 Instructions Nadja Carson RN - 01/26/2022 9:37 AM EDT WOUND CARE INSTRUCTIONS- Analilia Rodriguez Wound location: Bilateral lower legs Wash your hands with soap and water before and after wound care. Gather all supplies needed. Wash your legs with Dial soap and warm water. Rinse and pat dry. Both Lower Legs: Apply steroid cream rapp Monday through Monday and not Monday and Monday for two weeks For the next two weeks apply steroid cream every other day Then after that stop steroid cream and monitor for any inflammation If any inflammation call the wound center to be seen Return to using own compression wraps SHORTY WRAP/TUBI-DAG SPRAYER: Remove compression wraps if they become uncomfortable or cause a change in color or sensation to the extremity. Your wrap should always be worn from the base of the toes to 1 below the knee. Avoid sitting with your legs in a dependent position or standing for long periods of time.Attempt to lay flat and elevate your legs above the level of your heart 2-3 times daily for 30 minutes at a time. If it becomes necessary to remove the wrap, do so by unwinding it and apply clean dressing as instructed then notify the wound care center. COMPRESSION must be removed if: it becomes wet or soiled If you have numbness or tingling in your foot or toes If you have increased pain If toes become cold or discolored Regarding lymphedema/edema: Elevation of extremity above the heart for 30 minutes three times daily and as needed Exercise such as writing the ABC's with your toes in the air, walking and/or calf pumps Wearing compression as ordered by provider Diet controlling of sodium as instructed by provider Use of medication to help control edema. To give your wound the best chance to heal: - Eat three balanced meals daily focusing on the protein - Control swelling by elevating the extremity above your heart - exercise the extremity - Control your blood sugar. Keep blood sugar less than 200 - Complete your wound care instructions - Vitamin C 500 mg twice daily - Multiple Vitamin Daily - Drink a protein shake daily Report any of the following changes to the Wound Center at [phone] or go to the Emergency Department: Fever or chills Increased drainage Green or yellow drainage Foul odor Increased pain Hardness around the wound Redness, warmth or swelling of the surrounding tissue Color change to the wound Plan: Return to the wound center to see Jess Copeland CNP as needed Rx : refill for steroid cream sent to your pharmacy 3. PRISM: for any additional wound care supplies Jess Copeland CNP/patrick documented in this encounter [facility] 01-10-2022 Note HNO ID: [id number] Author: Jess Copeland APRN.URIAH Service: ? Author Type: Nurse Practitioner Type: Progress Notes Filed: 01/10/2022 12:14 PM Note Text: WOUND CENTER PROGRESS NOTE PATIENT NAME: Analilai Rodriguez DATE OF FOLLOW UP: 01/10/2022 REASON FOR FOLLOW UP: bilat lower leg wounds HISTORY OF PRESENT ILLNESS: Analilia Rodriguez is a 71 year old y/o male w/ hx DM2, HTN, CAD w/ stent placement, gout, who presents for wound assessment and treatment evaluation of bilat lower leg wounds. Location: left lower leg Onset: October 2021 Aggravating factors: Diabetes mellitus and Vascular impairment Wound etiology: Vascular, Dermatologic Associated pain with wound: yes, mild tenderness to right leg wound Relieving factors for wound pain: wound care Treatments: Current: Lidex gel, triple antibiotic, Xeroform Past: hydrogel wound gel, MediHoney gel, triple antibiotic ointment PAST MEDICAL HISTORY Diagnosis Date Cancer (HCC) colon cancer late Coronary artery disease one stent Diabetes mellitus without mention of complication Diabetes mellitus Gout Hypertension PMH - PAST MEDICAL HISTORY OF 09/10/07 Right shoulder fracture Renal disorder PAST SURGICAL HISTORY Procedure Laterality Date COLON SURGERY HX ORTHOPEDICS SURGERY HX , carpal tunnel TONSILLECTOMY HX ALLERGIES ALLERGIES Allergen Reactions Bees swells Lorazepam Intolerance Mupirocin Rash blisters Oseltamivir Unknown made me sick, told I shouldn't take it Silver Sulfadiazine Rash CURRENT OUTPATIENT MEDICATIONS fluocinonide (LIDEX) 0.05 % cream Apply to affected areas on both lower legs as directed cholecalciferol (VITAMIN D3) 50 mcg (2,000 unit) tablet Take 2,000 Units by mouth once daily. diclofenac sodium (VOLTAREN) 1 % topical gel Apply 2 g to affected area three times daily as needed (pain and swelling). febuxostat (ULORIC) 80 mg tab Take 1 tablet by mouth once daily. finasteride (PROSCAR) 5 mg tablet Take 1 tablet by mouth once daily. fluticasone (FLONASE) 50 mcg/actuation nasal spray Use 2 Sprays in each nostril every morning. HYDROcodone-acetaminophen (NORCO) 5-325 mg per tablet Take 1 tablet by mouth every 6 hours as needed. NOVOLOG MIX 70-30 100 unit/mL (70-30) inpn injection Inject subcutaneously three times daily with meals. -sliding scale Up to 40 units TID tamsulosin ER (FLOMAX) 0.4 mg Take 1 capsule by mouth daily at bedtime. amLODIPine (NORVASC) 5 mg tablet Take 1 tablet by mouth once daily. (Patient not taking: Reported on 05/12/2021 ) carvedilol (COREG) 25 mg tablet Take 1 tablet by mouth twice daily. furosemide (LASIX) 20 mg tablet Take 1 tablet by mouth twice daily. Valsartan-Hydrochlorothiazide 320-25 mg per tablet Take 1 tablet by mouth once daily. GLIPIZIDE 10 MG TAB Take one(1) tablet two(2) times daily. (Patient not taking: ) blood sugar diagnostic(ASCENSIA CONTOUR TEST STRIPS) Testing twice daily exenatide(BYETTA 10 MCG/0.04 ML PER DOSE SUB-Q PEN INJECTOR) Inject ten(10) mcg subcutaneously twice daily within 60 minutes prior to a meal . (Patient not taking: ) needles, insulin disposable(BD INSULIN PEN NEEDLE UF SHORT 31 X 09/13 ) use as directed carvedilol(COREG 6.25 MG TAB) Take one(1) tablet twice daily. (Patient not taking: ) furosemide(LASIX 40 MG TAB) Take one(1) tablet two(2) times daily. (Patient not taking: ) aspirin(ECOTRIN LOW STRENGTH 81 MG TAB) Take one(1) tablet daily. valsartan/hydrochlorothiazide(DIOV AN HCT 160 MG-12.5 MG TAB) Take one(1) tablet daily. (Patient not taking: No sig reported) multivitamins(MULTIPLE VITAMINS TAB) Take one(1) tablet daily. calcium carbonate/vitamin d3(CALCIUM 600 + D(3) 600 MG (1,500)-200 UNIT TAB) Take 1 tablet by mouth once daily. LANCETS Use as directed. amlodipine (NORVASC) 10 mg ORAL Tab Take one(1) tablet daily. (Patient not taking: Reported on 05/12/2021) No family history on file. Social History Tobacco Use Smoking status: Never Smokeless tobacco: Never Vaping Use Vaping Use: Never used Substance Use Topics Alcohol use: Yes Comment: rare Drug use: Never REVIEW OF SYSTEMS: GENERAL: No weight loss, malaise or fevers RESPIRATORY: Negative for cough, hemoptysis, wheezing, COPD, dyspnea or shortness of breath CARDIOVASCULAR: Negative for chest pain, HTN, CHF or palpitations. Positive for leg edema (chronic). GI: No nausea, vomiting, or diarrhea MUSCULOSKELETAL: Negative for joint pain or swelling, back pain or muscle pain SKIN: Positive for wounds, left lower leg (see wound assessment). HEMATOLOGY/LYMPHOLOGY: Negative for prolonged bleeding, bruising easily or swollen nodes ENDOCRINE: Negative for cold or heat intolerance, polyuria, polydipsia and goiter NEURO: No history of headaches, syncope, paralysis, seizures or tremors PHYSICAL EXAM: BP 157/89 / Pulse 85 / Resp 16 / Temp 97.5 F / SpO2 97% General appearance: Well a (more content not included)... [facility] 01-10-2022 History of Present illness Narrative Images from the original note were not included. WOUND CENTER PROGRESS NOTE PATIENT NAME: Analilia Rodriguez DATE OF FOLLOW UP: 01/10/2022 REASON FOR FOLLOW UP: bilat lower leg wounds HISTORY OF PRESENT ILLNESS: Analilia Rodriguez is a 71 year old y/o male w/ hx DM2, HTN, CAD w/ stent placement, gout, who presents for wound assessment and treatment evaluation of bilat lower leg wounds. Location: left lower leg Onset: October 2021 Aggravating factors: Diabetes mellitus and Vascular impairment Wound etiology: Vascular, Dermatologic Associated pain with wound: yes, mild tenderness to right leg wound Relieving factors for wound pain: wound care Treatments: Current: Lidex gel, triple antibiotic, Xeroform Past: hydrogel wound gel, MediHoney gel, triple antibiotic ointment PAST MEDICAL HISTORY Diagnosis Date Cancer (HCC) colon cancer late Coronary artery disease one stent Diabetes mellitus without mention of complication Diabetes mellitus Gout Hypertension PMH - PAST MEDICAL HISTORY OF 09/10/07 Right shoulder fracture Renal disorder PAST SURGICAL HISTORY Procedure Laterality Date COLON SURGERY HX ORTHOPEDICS SURGERY HX , carpal tunnel TONSILLECTOMY HX ALLERGIES ALLERGIES Allergen Reactions Bees swells Lorazepam Intolerance Mupirocin Rash blisters Oseltamivir Unknown made me sick, told I shouldn't take it Silver Sulfadiazine Rash CURRENT OUTPATIENT MEDICATIONS fluocinonide (LIDEX) 0.05 % cream Apply to affected areas on both lower legs as directed cholecalciferol (VITAMIN D3) 50 mcg (2,000 unit) tablet Take 2,000 Units by mouth once daily. diclofenac sodium (VOLTAREN) 1 % topical gel Apply 2 g to affected area three times daily as needed (pain and swelling). febuxostat (ULORIC) 80 mg tab Take 1 tablet by mouth once daily. finasteride (PROSCAR) 5 mg tablet Take 1 tablet by mouth once daily. fluticasone (FLONASE) 50 mcg/actuation nasal spray Use 2 Sprays in each nostril every morning. HYDROcodone-acetaminophen (NORCO) 5-325 mg per tablet Take 1 tablet by mouth every 6 hours as needed. NOVOLOG MIX 70-30 100 unit/mL (70-30) inpn injection Inject subcutaneously three times daily with meals. -sliding scale Up to 40 units TID tamsulosin ER (FLOMAX) 0.4 mg Take 1 capsule by mouth daily at bedtime. amLODIPine (NORVASC) 5 mg tablet Take 1 tablet by mouth once daily. (Patient not taking: Reported on 05/12/2021 ) carvedilol (COREG) 25 mg tablet Take 1 tablet by mouth twice daily. furosemide (LASIX) 20 mg tablet Take 1 tablet by mouth twice daily. Valsartan-Hydrochlorothiazide 320-25 mg per tablet Take 1 tablet by mouth once daily. GLIPIZIDE 10 MG TAB Take one(1) tablet two(2) times daily. (Patient not taking: ) blood sugar diagnostic(ASCENSIA CONTOUR TEST STRIPS) Testing twice daily exenatide(BYETTA 10 MCG/0.04 ML PER DOSE SUB-Q PEN INJECTOR) Inject ten(10) mcg subcutaneously twice daily within 60 minutes prior to a meal . (Patient not taking: ) needles, insulin disposable(BD INSULIN PEN NEEDLE UF SHORT 31 X 5/16 ) use as directed carvedilol(COREG 6.25 MG TAB) Take one(1) tablet twice daily. (Patient not taking: ) furosemide(LASIX 40 MG TAB) Take one(1) tablet two(2) times daily. (Patient not taking: ) aspirin(ECOTRIN LOW STRENGTH 81 MG TAB) Take one(1) tablet daily. valsartan/hydrochlorothiazide(DIOV AN HCT 160 MG-12.5 MG TAB) Take one(1) tablet daily. (Patient not taking: No sig reported) multivitamins(MULTIPLE VITAMINS TAB) Take one(1) tablet daily. calcium carbonate/vitamin d3(CALCIUM 600 + D(3) 600 MG (1,500)-200 UNIT TAB) Take 1 tablet by mouth once daily. LANCETS Use as directed. amlodipine (NORVASC) 10 mg ORAL Tab Take one(1) tablet daily. (Patient not taking: Reported on 05/12/2021) No family history on file. Social History Tobacco Use Smoking status: Never Smokeless tobacco: Never Vaping Use Vaping Use: Never used Substance Use Topics Alcohol use: Yes Comment: rare Drug use: Never REVIEW OF SYSTEMS: GENERAL: No weight loss, malaise or fevers RESPIRATORY: Negative for cough, hemoptysis, wheezing, COPD, dyspnea or shortness of breath CARDIOVASCULAR: Negative for chest pain, HTN, CHF or palpitations. Positive for leg edema (chronic). GI: No nausea, vomiting, or diarrhea MUSCULOSKELETAL: Negative for joint pain or swelling, back pain or muscle pain SKIN: Positive for wounds, left lower leg (see wound assessment). HEMATOLOGY/LYMPHOLOGY: Negative for prolonged bleeding, bruising easily or swollen nodes ENDOCRINE: Negative for cold or heat intolerance, polyuria, polydipsia and goiter NEURO: No history of headaches, syncope, paralysis, seizures or tremors PHYSICAL EXAM: BP 157/89 / Pulse 85 / Resp 16 / Temp 97.5 F / SpO2 97% General appearance: Well appearing, alert, in no acute distress, well-hydrated, well nourished. Skin: Skin color, texture, turgor normal, no suspicious rashes or lesions. Positive mild erythema bilat pretibial areas, R>L. Positive wounds, left lower leg (see wound assessment). Head: Normocephalic, no masses, lesions, tenderness or abnormalities Eyes: Anicteric sclera. Pupils are equally round and reactive to light. Extraocular movements are intact. Lungs: Respirations even and unlabored Extremities: Edema: 2+ edema right lower leg, 1+ edema right foot; 2+ edema left lower leg, trace edema left foot Musculoskeletal: No joint swelling, deformity, or tenderness Peripheral pulses: triphasic doppler signals x 4; palpable DP pulses bilat Neuro: Oriented X 3. Ambulatory WOUND ASSESSMENT Wound 19: Location: left anterior crawford Type: vascular insufficiency Stage: NA Exposed structure:None Progress: reopened Wound measurements (cm): 0.7 x 0.3 x 0.1 Full thickness- Yes Tunneling/undermining: none Wound tissue color: red Periwound tissue: dry and intact Drainage:serosanguinous, scant Drainage odor: none Wound 20: Location: left medial lower leg Type: vascular insufficiency Stage: NA Exposed structure:None Progress: reopened Wound measurements (cm): 0.6 x 0.3 x 0.1 Full thickness- Yes Tunneling/undermining: none Wound tissue color: red Periwound tissue: dry and intact Drainage: serosanguinous, scant Drainage odor: none Wound 21: Location: right anterior lower leg Type: trauma complicated by vascular insufficiency Stage: NA Exposed structure:None Progress: closed Wound measurements (cm): 0 Full thickness- Yes Tunneling/undermining: none Wound tissue color: epithelial Periwound tissue: dry and intact Drainage: none Drainage odor: n/a DATA PHOTOGRAPHY: yes A photo was taken of the patient's wound(s). Photos can be found under the [facility] images tab on [facility]. The purpose of the photo(s) is to optimize the patient's medical care and allow a visual aid to their wound evaluation and progress. The photo(s) are not intended for publication, education, or research. If the use of the photo is desired in any additional way, other than for the above outlined purposes, then an additional consent for the intended use will need to be obtained by the requesting provider. 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 Edema improved Plan: - Cleanse legs with Dial soap and water. Pat dry. Vashe soak to wounds. Apply Fluocinonide 0.05% cream to reddened areas bilat anterior shins (Hydrocortisone 2.5% cream applied in clinic today) daily. Apply triple antibiotic and Xeroform to the open wounds on LLE. Cover with 4x4 gauze and conform roll gauze. Change daily and prn. - Vaseline to intact non reddened skin bilat lower legs daily to moisturize. - Double layer Tubi-b2b sales representative size F reny ORAL ---pt to try wearing his CircAid wrap on his right leg at home - Recommend elevate legs at least 30 min 3x/day - Follow up in wound center in 2 weeks I discussed the plan in detail with the patient and the patient verbalizes understanding and is in agreement. My previous progress note dated 12/27/2021 was copied forward, updated where appropriate, and reflective of current medical decision making today, 01/10/2022. Jess Copeland APRN, FARM GENERAL MANAGER, CWS Certified Forest Fire Prevention Specialist January 10, 2022 documented in this encounter [facility] 01-10-2022 Instructions Luzma Yang RN - 01/10/2022 9:50 AM EDT WOUND CARE INSTRUCTIONS- Analilia Rodriguez Wound location: Bilateral lower legs Wash your hands with soap and water before and after wound care. Gather all supplies needed. Wash your legs with Dial soap and warm water. Rinse and pat dry. Apply Vashe' soak for 5-10 minutes then pat dry Both Lower Legs: Cleanse with: Vashe Apply to conrad-wound skin: vaseline avoiding red areas, may use steroid cream to the red areas both legs. Apply to wound bed: thin layer of antibiotic ointment to the xeroform then place antibiotic side down to all the open area on left leg only. No need to wrap Right leg. Cover and secure with: 4x4 gauze, conform and tape Change your dressing every day. Other: Apply compression wrap on your right leg and apply double layer size F tubi-b2b sales representative to Left Leg (On in the AM and off at Bedtime) SHORTY WRAP/TUBI-DAG SPRAYER: Remove compression wraps if they become uncomfortable or cause a change in color or sensation to the extremity. Your wrap should always be worn from the base of the toes to 1 below the knee. Avoid sitting with your legs in a dependent position or standing for long periods of time.Attempt to lay flat and elevate your legs above the level of your heart 2-3 times daily for 30 minutes at a time. If it becomes necessary to remove the wrap, do so by unwinding it and apply clean dressing as instructed then notify the wound care center. COMPRESSION must be removed if: it becomes wet or soiled If you have numbness or tingling in your foot or toes If you have increased pain If toes become cold or discolored Regarding lymphedema/edema: Elevation of extremity above the heart for 30 minutes three times daily and as needed Exercise such as writing the ABC's with your toes in the air, walking and/or calf pumps Wearing compression as ordered by provider Diet controlling of sodium as instructed by provider Use of medication to help control edema. To give your wound the best chance to heal: - Eat three balanced meals daily focusing on the protein - Control swelling by elevating the extremity above your heart - exercise the extremity - Control your blood sugar. Keep blood sugar less than 200 - Complete your wound care instructions - Vitamin C 500 mg twice daily - Multiple Vitamin Daily - Drink a protein shake daily Report any of the following changes to the Wound Center at [phone] or go to the Emergency Department: Fever or chills Increased drainage Green or yellow drainage Foul odor Increased pain Hardness around the wound Redness, warmth or swelling of the surrounding tissue Color change to the wound Plan: Return to the wound center to see Jess Copeland CNP in 2 weeks Follow up with your PCP regarding elevated BP 3. PRISM: for any additional wound care supplies Jess Copeland CNP/morgan/vicky/matt documented in this encounter [facility] 01-10-2022 Nurse Note Nursing Documentation Pertinent Medical History: DM II, heart stent Wound Etiology according to patient: Blisters and wounds appeared March 31 2021 Patient arrived via: ambulatory with LouiseAcacia FREDRICK [employer]/Nursing Facility:NA Consent captured for debridement per Jess Copeland CNP and good until June 2022 Anticoagulant Therapy: ASA 81 mg ACTIVE CARE PER PROVIDER: Jess Copeland CNP Wound 1-13 previously healed WOUND ASSESSMENT: Refer to Provider's Wound Assessment Note VASCULAR ASSESSMENT BY PROVIDER: Doppler : triphasic x 4 CHF History: patient denies EDEMA: Right foot: 1+ Right calf: 2+ Left foot : trace Left Calf: 2+ Other: NA MEASUREMENTS: in CM Right Calf: 47.4 Right Ankle: 26.5 Left Calf: 46.4 Left Ankle: 26.0 Length: 46.5 - not measured at today's visit WOUND PHOTOGRAPHY: yes x2 DEBRIDEMENT PROCEDURE BY PROVIDER: Anesthetic Used: N/A Wound # Other procedure: N/A Specimen collected: NA WOUND TREATMENT PER MD ORDER: All wounds cleansed by mechanical debridement with NS and gauze to allow provider to visualize wound bed * DO NOT USE SILVER DRESSINGS WOUND # 14 LOCATION: Right Lower Leg - Anterior (NEW 11/25/21) L: cm x W: cm x D: cm - Closed 12/27/21, remains closed 01/10/22 DEBRIDEMENT by provider: n/a WOUND # 15 LOCATION: Left lower leg - Anterior (NEW 11/25/21) cx collected L: cm x W: cm x D:cm - Closed 12/27/21, remains closed 01/10/22 DEBRIDEMENT by provider: n/a WOUND # 16 LOCATION: Right lower leg - Lateral NEW 12/02/21 cx collected L: cm x W: m x D: cm - Closed 12/27/21, remains closed 01/10/22 DEBRIDEMENT by provider: n/a WOUND # 17 LOCATION: Right lower leg - Crawford NEW 12/02/21 L: cm x W: cm x D: cm - Closed 12/27/21 , remains closed 01/10/22 DEBRIDEMENT by provider: n/a WOUND # 18 LOCATION: Right Lower leg - Crawford lateral NEW 12/02/21 - Closed 12/10/21, remains closed 12/27/21, remains closed 01/10/22 WOUND # __19__ LOCATION: Left Anterior Crawford (New wound 12/10/21) L: 0.7 cm x W: 0.3 cm x D: 0.1 cm - closed 12/27/21, re-opened 01/10/22 DEBRIDEMENT: None WOUND # __20__ LOCATION: Left Lower Medial Leg (New wound 12/10/21) L: 0.6 cm x W: 0.3 cm x D: 0.1 cm- Closed 12/27/21, re-opened 01/10/22 DEBRIDEMENT: None Cleansed with: vashe Applied to conrad-wound skin: vaseline Applied to wound bed: triple ATB, xeroform Covered and secured with: 4x4 gauze, conform, tape. Other: WOUND # 21 LOCATION: Right Anterior Lower Leg (New 12/27/21) L: cm x W: cm x D: cm- closed 01/10/22 DEBRIDEMENT: None Post debridement measurements if applicable : L: cm x W: cm x D: cm Cleansed with: saline Applied to conrad-wound skin: Vaseline to intact skin avoiding red areas Applied to wound bed: hydrocortisone Covered and secured with: Other: Tubigrips F double layer SHORTY WRAP/[employer]/Tubi-b2b sales representative: Foot is warm and pink before and after application. It was demonstrated to the patient how to check for adequate circulation. Patient voices understanding. If circulation becomes compromised by a change in color, increased pain, numbness or tingling to the area, the patient knows to remove the compression and elevate the leg above the heart. COMPRESSION: Double layerTubiGrip size F SPECIAL NEEDS: Coordination of care - n/a Emotional support N/A OR set-up N/A Equipment Operator N/A Incontinence needs N/A DISCHARGED in stable condition to: Self ambulatory with rolator walker Global surgical period dates if applicable: N/A Plan: Return to the wound center to see Jess Copeland CNP in 2 weeks Follow up with your PCP regarding elevated BP 3. PRISM: for any additional wound care supplies EDUCATION: The patient/family was instructed how to cleanse the wound(s). Visual demonstration on how to apply the dressing with teach back method. Signs & symptoms of infection were reviewed: Increased redness, swelling, pain, green/yellow drainage, fever and/or chills would all need to be evaluated by a Physician. Patient received typed home-going wound care instructions and has expressed intent to comply. OTHER EDUCATION: Education performed regarding lymphedema/edema: Elevation of extremity above the heart for 30 minutes three times daily and as needed Exercise such as writing the ABC's with your toes in the air, walking and/or calf pumps Wearing compression as ordered by provider Diet controlling of sodium as instructed by provider Use of medication to help control edema. _ UNIVERSAL PROTOCOL / SAFETY CHECKLIST: N/A Current HBOT Status: Active or Complete - see screening below WOUND CENTER HYPERBARIC OXYGEN THERAPY SCREENING 1. Is the patient diabetic? (If No, skip to question 5) Yes 2. Does the patient have a lower extremity wound? Yes 3. Is there exposed/involved tendon or bone? No 4. Has the wound been present for 30 days? no If Yes to ALL questions above, consult the Hyperbaric Center 5. Has the patient been diagnosed with osteomyelitis? No 6. Has the patient had a previous skin graft or flap at the wound? No 7. Has the patient had or been offered vascular intervention/evaluation? No 8. Does the patient have a wound at an amputation site? No 9. Has the patient had radiation therapy at the site of the problem? No If Yes to ANY of questions 5-9, consult the Hyperbaric Center Luzma Yang RN/vicky/ej- orientation documented in this encounter [facility] 12-27-2021 Note HNO ID: [id number] Author: Jess Copeland APRN.FARM GENERAL MANAGER Service: ? Author Type: Nurse Practitioner Type: Progress Notes Filed: 12/27/2021 11:15 AM Note Text: WOUND CENTER PROGRESS NOTE PATIENT NAME: Analilia Rodriguez DATE OF FOLLOW UP: 12/27/2021 REASON FOR FOLLOW UP: bilat lower leg wounds HISTORY OF PRESENT ILLNESS: Analilia Rodriguez is a 71 year old y/o male w/ hx DM2, HTN, CAD w/ stent placement, gout, who presents for wound assessment and treatment evaluation of bilat lower leg wounds. Pt reports a new wound on his right lower leg x 1 week; he dropped something and it his his right crawford as it fell. Location: left lower leg, right lower leg Onset: right lower leg-October 2021 Aggravating factors: Diabetes mellitus and Vascular impairment Wound etiology: Vascular, Dermatologic Associated pain with wound: yes, mild tenderness to right leg wound Relieving factors for wound pain: wound care Treatments: Current: Lidex gel, triple antibiotic, Xeroform Past: hydrogel wound gel, MediHoney gel, triple antibiotic ointment PAST MEDICAL HISTORY Diagnosis Date Cancer (HCC) colon cancer late Coronary artery disease one stent Diabetes mellitus without mention of complication Diabetes mellitus Gout Hypertension PMH - PAST MEDICAL HISTORY OF 09/10/07 Right shoulder fracture Renal disorder PAST SURGICAL HISTORY Procedure Laterality Date COLON SURGERY HX ORTHOPEDICS SURGERY HX , carpal tunnel TONSILLECTOMY HX ALLERGIES ALLERGIES Allergen Reactions Bees swells Lorazepam Intolerance Mupirocin Rash blisters Oseltamivir Unknown made me sick, told I shouldn't take it Silver Sulfadiazine Rash CURRENT OUTPATIENT MEDICATIONS fluocinonide (LIDEX) 0.05 % cream Apply to affected areas on both lower legs as directed sulfamethoxazole-trimethoprim (BACTRIM DS,SEPTRA DS) 800-160 mg per tablet TAKE 1 TABLET BY MOUTH EVERY 12 HOURS FOR 10 DAYS. Drink plenty OF fluids (Patient not taking: No sig reported) cholecalciferol (VITAMIN D3) 50 mcg (2,000 unit) tablet Take 2,000 Units by mouth once daily. diclofenac sodium (VOLTAREN) 1 % topical gel Apply 2 g to affected area three times daily as needed (pain and swelling). febuxostat (ULORIC) 80 mg tab Take 1 tablet by mouth once daily. finasteride (PROSCAR) 5 mg tablet Take 1 tablet by mouth once daily. fluticasone (FLONASE) 50 mcg/actuation nasal spray Use 2 Sprays in each nostril every morning. HYDROcodone-acetaminophen (NORCO) 5-325 mg per tablet Take 1 tablet by mouth every 6 hours as needed. NOVOLOG MIX 70-30 100 unit/mL (70-30) inpn injection Inject subcutaneously three times daily with meals. -sliding scale Up to 40 units TID tamsulosin ER (FLOMAX) 0.4 mg Take 1 capsule by mouth daily at bedtime. amLODIPine (NORVASC) 5 mg tablet Take 1 tablet by mouth once daily. (Patient not taking: Reported on 05/12/2021 ) carvedilol (COREG) 25 mg tablet Take 1 tablet by mouth twice daily. furosemide (LASIX) 20 mg tablet Take 1 tablet by mouth twice daily. Valsartan-Hydrochlorothiazide 320-25 mg per tablet Take 1 tablet by mouth once daily. GLIPIZIDE 10 MG TAB Take one(1) tablet two(2) times daily. (Patient not taking: ) blood sugar diagnostic(ASCENSIA CONTOUR TEST STRIPS) Testing twice daily exenatide(BYETTA 10 MCG/0.04 ML PER DOSE SUB-Q PEN INJECTOR) Inject ten(10) mcg subcutaneously twice daily within 60 minutes prior to a meal . (Patient not taking: ) needles, insulin disposable(BD INSULIN PEN NEEDLE UF SHORT 31 X 09/13 ) use as directed carvedilol(COREG 6.25 MG TAB) Take one(1) tablet twice daily. (Patient not taking: ) furosemide(LASIX 40 MG TAB) Take one(1) tablet two(2) times daily. (Patient not taking: ) aspirin(ECOTRIN LOW STRENGTH 81 MG TAB) Take one(1) tablet daily. valsartan/hydrochlorothiazide(DIOV AN HCT 160 MG-12.5 MG TAB) Take one(1) tablet daily. (Patient not taking: No sig reported) multivitamins(MULTIPLE VITAMINS TAB) Take one(1) tablet daily. calcium carbonate/vitamin d3(CALCIUM 600 + D(3) 600 MG (1,500)-200 UNIT TAB) Take 1 tablet by mouth once daily. LANCETS Use as directed. amlodipine (NORVASC) 10 mg ORAL Tab Take one(1) tablet daily. (Patient not taking: Reported on 05/12/2021) No family history on file. Social History Tobacco Use Smoking status: Never Smokeless tobacco: Never Vaping Use Vaping Use: Never used Substance Use Topics Alcohol use: Yes Comment: rare Drug use: Never REVIEW OF SYSTEMS: GENERAL: No weight loss, malaise or fevers RESPIRATORY: Negative for cough, hemoptysis, wheezing, COPD, dyspnea or shortness of breath CARDIOVASCULAR: Negative for chest pain, HTN, CHF or palpitations. Positive for leg edema (chronic). GI: No nausea, vomiting, or diarrhea MUSCULOSKELETAL: Negative for joint pain or swelling, back pain or muscle pain SKIN: Positive for wounds, right and left lower legs (see wound assessment) (more content not included)... [facility] 12-27-2021 Instructions Luzma Yang RN - 12/27/2021 9:41 AM EDT WOUND CARE INSTRUCTIONS- Analilia Rodriguez Wound location: Bilateral lower legs Wash your hands with soap and water before and after wound care. Gather all supplies needed. Wash your legs with Dial soap and warm water. Rinse and pat dry. Apply Vashe' soak for 5-10 minutes then pat dry Both Lower Legs: Cleanse with: Vashe' Apply to conrad-wound skin: vaseline avoiding red areas, may use hydrocortisone to the red areas & wounds on both legs Apply to wound bed: thin layer of antibiotic ointment to the xeroform then place antibiotic side down to all the open area Cover and secure with: 4x4 gauze, conform and tape Change your dressing every day. Other: Apply a single layer of tubi-b2b sales representative F on Right Leg and apply double layer size F tubi-b2b sales representative to Left Leg (On in the AM and off at Bedtime) SHORTY WRAP/TUBI-DAG SPRAYER: Remove compression wraps if they become uncomfortable or cause a change in color or sensation to the extremity. Your wrap should always be worn from the base of the toes to 1 below the knee. Avoid sitting with your legs in a dependent position or standing for long periods of time.Attempt to lay flat and elevate your legs above the level of your heart 2-3 times daily for 30 minutes at a time. If it becomes necessary to remove the wrap, do so by unwinding it and apply clean dressing as instructed then notify the wound care center. COMPRESSION must be removed if: it becomes wet or soiled If you have numbness or tingling in your foot or toes If you have increased pain If toes become cold or discolored Regarding lymphedema/edema: Elevation of extremity above the heart for 30 minutes three times daily and as needed Exercise such as writing the ABC's with your toes in the air, walking and/or calf pumps Wearing compression as ordered by provider Diet controlling of sodium as instructed by provider Use of medication to help control edema. To give your wound the best chance to heal: - Eat three balanced meals daily focusing on the protein - Control swelling by elevating the extremity above your heart - exercise the extremity - Control your blood sugar. Keep blood sugar less than 200 - Complete your wound care instructions - Vitamin C 500 mg twice daily - Multiple Vitamin Daily - Drink a protein shake daily Report any of the following changes to the Wound Center at [phone] or go to the Emergency Department: Fever or chills Increased drainage Green or yellow drainage Foul odor Increased pain Hardness around the wound Redness, warmth or swelling of the surrounding tissue Color change to the wound Plan: Return to the wound center to see Jess Copeland CNP in 2 weeks 2. PRISM: for any additional wound care supplies- supplies ordered this visit Jess Copeland CNP/morgan/brice/matt documented in this encounter [facility] 12-27-2021 History of Present illness Narrative Images from the original note were not included. WOUND CENTER PROGRESS NOTE PATIENT NAME: Analilia Rodriguez DATE OF FOLLOW UP: 12/27/2021 REASON FOR FOLLOW UP: bilat lower leg wounds HISTORY OF PRESENT ILLNESS: Analilia Rodriguez is a 71 year old y/o male w/ hx DM2, HTN, CAD w/ stent placement, gout, who presents for wound assessment and treatment evaluation of bilat lower leg wounds. Pt reports a new wound on his right lower leg x 1 week; he dropped something and it his his right crawford as it fell. Location: left lower leg, right lower leg Onset: right lower leg-October 2021 Aggravating factors: Diabetes mellitus and Vascular impairment Wound etiology: Vascular, Dermatologic Associated pain with wound: yes, mild tenderness to right leg wound Relieving factors for wound pain: wound care Treatments: Current: Lidex gel, triple antibiotic, Xeroform Past: hydrogel wound gel, MediHoney gel, triple antibiotic ointment PAST MEDICAL HISTORY Diagnosis Date Cancer (HCC) colon cancer late Coronary artery disease one stent Diabetes mellitus without mention of complication Diabetes mellitus Gout Hypertension PMH - PAST MEDICAL HISTORY OF 09/10/07 Right shoulder fracture Renal disorder PAST SURGICAL HISTORY Procedure Laterality Date COLON SURGERY HX ORTHOPEDICS SURGERY HX , carpal tunnel TONSILLECTOMY HX ALLERGIES ALLERGIES Allergen Reactions Bees swells Lorazepam Intolerance Mupirocin Rash blisters Oseltamivir Unknown made me sick, told I shouldn't take it Silver Sulfadiazine Rash CURRENT OUTPATIENT MEDICATIONS fluocinonide (LIDEX) 0.05 % cream Apply to affected areas on both lower legs as directed sulfamethoxazole-trimethoprim (BACTRIM DS,SEPTRA DS) 800-160 mg per tablet TAKE 1 TABLET BY MOUTH EVERY 12 HOURS FOR 10 DAYS. Drink plenty OF fluids (Patient not taking: No sig reported) cholecalciferol (VITAMIN D3) 50 mcg (2,000 unit) tablet Take 2,000 Units by mouth once daily. diclofenac sodium (VOLTAREN) 1 % topical gel Apply 2 g to affected area three times daily as needed (pain and swelling). febuxostat (ULORIC) 80 mg tab Take 1 tablet by mouth once daily. finasteride (PROSCAR) 5 mg tablet Take 1 tablet by mouth once daily. fluticasone (FLONASE) 50 mcg/actuation nasal spray Use 2 Sprays in each nostril every morning. HYDROcodone-acetaminophen (NORCO) 5-325 mg per tablet Take 1 tablet by mouth every 6 hours as needed. NOVOLOG MIX 70-30 100 unit/mL (70-30) inpn injection Inject subcutaneously three times daily with meals. -sliding scale Up to 40 units TID tamsulosin ER (FLOMAX) 0.4 mg Take 1 capsule by mouth daily at bedtime. amLODIPine (NORVASC) 5 mg tablet Take 1 tablet by mouth once daily. (Patient not taking: Reported on 05/12/2021 ) carvedilol (COREG) 25 mg tablet Take 1 tablet by mouth twice daily. furosemide (LASIX) 20 mg tablet Take 1 tablet by mouth twice daily. Valsartan-Hydrochlorothiazide 320-25 mg per tablet Take 1 tablet by mouth once daily. GLIPIZIDE 10 MG TAB Take one(1) tablet two(2) times daily. (Patient not taking: ) blood sugar diagnostic(ASCENSIA CONTOUR TEST STRIPS) Testing twice daily exenatide(BYETTA 10 MCG/0.04 ML PER DOSE SUB-Q PEN INJECTOR) Inject ten(10) mcg subcutaneously twice daily within 60 minutes prior to a meal . (Patient not taking: ) needles, insulin disposable(BD INSULIN PEN NEEDLE UF SHORT 31 X 09/13 ) use as directed carvedilol(COREG 6.25 MG TAB) Take one(1) tablet twice daily. (Patient not taking: ) furosemide(LASIX 40 MG TAB) Take one(1) tablet two(2) times daily. (Patient not taking: ) aspirin(ECOTRIN LOW STRENGTH 81 MG TAB) Take one(1) tablet daily. valsartan/hydrochlorothiazide(DIOV AN HCT 160 MG-12.5 MG TAB) Take one(1) tablet daily. (Patient not taking: No sig reported) multivitamins(MULTIPLE VITAMINS TAB) Take one(1) tablet daily. calcium carbonate/vitamin d3(CALCIUM 600 + D(3) 600 MG (1,500)-200 UNIT TAB) Take 1 tablet by mouth once daily. LANCETS Use as directed. amlodipine (NORVASC) 10 mg ORAL Tab Take one(1) tablet daily. (Patient not taking: Reported on 05/12/2021) No family history on file. Social History Tobacco Use Smoking status: Never Smokeless tobacco: Never Vaping Use Vaping Use: Never used Substance Use Topics Alcohol use: Yes Comment: rare Drug use: Never REVIEW OF SYSTEMS: GENERAL: No weight loss, malaise or fevers RESPIRATORY: Negative for cough, hemoptysis, wheezing, COPD, dyspnea or shortness of breath CARDIOVASCULAR: Negative for chest pain, HTN, CHF or palpitations. Positive for leg edema (chronic). GI: No nausea, vomiting, or diarrhea MUSCULOSKELETAL: Negative for joint pain or swelling, back pain or muscle pain SKIN: Positive for wounds, right and left lower legs (see wound assessment). HEMATOLOGY/LYMPHOLOGY: Negative for prolonged bleeding, bruising easily or swollen nodes ENDOCRINE: Negative for cold or heat intolerance, polyuria, polydipsia and goiter NEURO: No history of headaches, syncope, paralysis, seizures or tremors PHYSICAL EXAM: BP 121/59 / Pulse 84 / Resp 18 / Temp 97.7 F / SpO2 97% General appearance: Well appearing, alert, in no acute distress, well-hydrated, well nourished. Skin: Skin color, texture, turgor normal, no suspicious rashes or lesions. Positive erythema bilat pretibial areas, R>L, improving. Positive wounds, right and left lower leg (see wound assessment). Head: Normocephalic, no masses, lesions, tenderness or abnormalities Eyes: Anicteric sclera. Pupils are equally round and reactive to light. Extraocular movements are intact. Lungs: Respirations even and unlabored Extremities: Edema: 3+ edema right lower leg, 1+ edema right foot; 3+ edema left lower leg, 1+ edema left foot Musculoskeletal: No joint swelling, deformity, or tenderness Peripheral pulses: triphasic doppler signals x 4; palpable DP pulses bilat Neuro: Oriented X 3. Ambulatory WOUND ASSESSMENT Wound 14: Location: right anterior lower leg Type: vascular insufficiency Stage: NA Exposed structure:None Progress:closed Wound measurements (cm): 0 Full thickness- Yes Tunneling/undermining: none Wound tissue color: epithelial Periwound tissue: erythema, improved Drainage:none Drainage odor: n/a Wound 15: Location: left anterior lower leg Type: vascular insufficiency Stage: NA Exposed structure:None Progress: closed Wound measurements (cm): 0 Full thickness- Yes Tunneling/undermining: none Wound tissue color: epithelial Periwound tissue: erythema, improved Drainage: none Drainage odor: n/a Wound 16: Location: right lower leg lateral Type: vascular insufficiency Stage: NA Exposed structure:None Progress: closed Wound measurements (cm): 0 Full thickness- Yes Tunneling/undermining: none Wound tissue color: epithelial Periwound tissue: erythema, improved Drainage: none Drainage odor: n/a Wound 17: Location: right crawford Type: vascular insufficiency Stage: NA Exposed structure:None Progress: closed Wound measurements (cm): 0 Full thickness- Yes Tunneling/undermining: none Wound tissue color: epithelial Periwound tissue: erythema, improved Drainage: none Drainage odor: n/a Wound 18: Location: right crawford lateral Type: vascular insufficiency Stage: NA Exposed structure:None Progress: healed Wound measurements (cm): 0 Full thickness- Yes Tunneling/undermining: none Wound tissue color: epithelial Periwound tissue: erythema, improved Drainage: none Drainage odor: n/a Wound 19: Location: left anterior crawford Type: vascular insufficiency Stage: NA Exposed structure:None Progress:closed Wound measurements (cm): 1.5 x 1.2 Full thickness- Yes Tunneling/undermining: none Wound tissue color: fragile epithelial Periwound tissue: dry and intact Drainage: none Drainage odor: n/a Wound 20: Location: left medial lower leg Type: vascular insufficiency Stage: NA Exposed structure:None Progress: closed Wound measurements (cm): 0 Full thickness- Yes Tunneling/undermining: none Wound tissue color: epithelial Periwound tissue: dry and intact Drainage: none Drainage odor: n/a Wound 21: Location: right anterior lower leg Type: trauma complicated by vascular insufficiency Stage: NA Exposed structure:None Progress: initial Wound measurements (cm): 1.3 x 0.9 x 0.1 Full thickness- Yes Tunneling/undermining: none Wound tissue color: red Periwound tissue: dry and intact Drainage: serosanguinous, small Drainage odor: none DATA PHOTOGRAPHY: yes A photo was taken of the patient's wound(s). Photos can be found under the [facility] images tab on [facility]. The purpose of the photo(s) is to optimize the patient's medical care and allow a visual aid to their wound evaluation and progress. The photo(s) are not intended for publication, education, or research. If the use of the photo is desired in any additional way, other than for the above outlined purposes, then an additional consent for the intended use will need to be obtained by the requesting provider. Photo was taken of: reny MIXON nichelle Verbal consent was obtained: yes MICROBIOLOGY: Reviewed; wound culture, left lower leg (12/02/2021)- no growth IMAGING: Reviewed IMPRESSION/RECOMMENDATIONS The patient's age and other co morbidities are likely to impact wound and skin integrity Additional impediments to healing Diabetic: Yes Anticoagulation: Aspirin Antibiotics: Bactrim (per PCP) Steroids: No (I87.311, L97.919) 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) (I87.312, L97.929) Idiopathic chronic venous hypertention of left leg with ulcer (HCC) (I87.2) Venous stasis dermatitis of both lower extremities Comment: Bilat LE improved, several wounds closed; erythema much improved. One new wound d/t injury. Plan: - Cleanse legs with Dial soap and water. Pat dry. Vashe soak to wounds. Apply Fluocinonide 0.05% cream to reddened areas bilat anterior shins, including wounds (Hydrocortisone 2.5% cream applied in clinic today). Then apply triple antibiotic and Xeroform to the open wounds. Cover with 4x4 gauze and conform roll gauze. Change daily and prn. - Apply Fluocinonide cream to reddened areas on shins not covered by dressing twice a day. - Continue antibiotic as prescribed - Vaseline to intact non reddened skin bilat lower legs daily to moisturize. - Single layer Tubi-b2b sales representative size F RLE (d/t crawford tenderness with wound), double layer Tubi-b2b sales representative LLE ---unable to tolerate double layer at this time d/t wound discomfort - Recommend elevate legs at least 30 min 3x/day - Follow up in wound center in 2 weeks I discussed the plan in detail with the patient and the patient verbalizes understanding and is in agreement. My previous progress note dated 12/10/2021 was copied forward, updated where appropriate, and reflective of current medical decision making today, 12/27/2021. Jess Copeland APRN, URIAH, CWS Certified Forest Fire Prevention Specialist December 27, 2021 documented in this encounter [facility] 12-27-2021 Nurse Note Nursing Documentation Pertinent Medical History: DM II, heart stent Wound Etiology according to patient: Blisters and wounds appeared March 31 2021 Patient arrived via: ambulatory with [facility]Nursing Facility:NA Consent captured for debridement per Jess Copeland CNP and good until June 2022 Anticoagulant Therapy: ASA 81 mg ACTIVE CARE PER PROVIDER: Jess Copeland CNP Wound 1-13 previously healed WOUND ASSESSMENT: Refer to Provider's Wound Assessment Note VASCULAR ASSESSMENT BY PROVIDER: Doppler : triphasic x 4 CHF History: patient denies EDEMA: Right foot: 1+ Right calf: 3+ Left foot : 1+ Left Calf: 3+ Other: NA MEASUREMENTS: in CM Right Calf: 46.0 Right Ankle: 26.0 Left Calf: 46.0 Left Ankle: 26.0 Length: 46.5 - not measured at today's visit WOUND PHOTOGRAPHY: yes DEBRIDEMENT PROCEDURE BY PROVIDER: Anesthetic Used: Lidogel 2% applied by maria l Doshi RN Wound # 21 Other procedure: N/A Specimen collected: NA WOUND TREATMENT PER MD ORDER: All wounds cleansed by mechanical debridement with NS and gauze to allow provider to visualize wound bed * DO NOT USE SILVER DRESSINGS WOUND # 14 LOCATION: Right Lower Leg - Anterior (NEW 11/25/21) L: cm x W: cm x D: cm - Closed 12/27/21 DEBRIDEMENT by provider: n/a WOUND # 15 LOCATION: Left lower leg - Anterior (NEW 11/25/21) cx collected L: cm x W: cm x D:cm - Closed 12/27/21 DEBRIDEMENT by provider: n/a WOUND # 16 LOCATION: Right lower leg - Lateral NEW 12/02/21 cx collected L: cm x W: m x D: cm - Closed 12/27/21 DEBRIDEMENT by provider: n/a WOUND # 17 LOCATION: Right lower leg - Crawford NEW 12/02/21 L: cm x W: cm x D: cm - Closed 12/27/21 DEBRIDEMENT by provider: n/a WOUND # 18 LOCATION: Right Lower leg - Crawford lateral NEW 12/02/21 - Closed 12/10/21, remains closed 12/27/21 WOUND # __19__ LOCATION: Left Anterior Crawford (New wound 12/10/21) L: 1.5 cm x W: 1.2 cm x D: cm - closed 12/27/21 , newly epithelialized, patient states still stinging Cleansed with: Vashe' Applied to conrad-wound skin: Vaseline to intact skin avoiding red areas Applied to wound bed: antibiotic ointment , xeroform Covered and secured with: 4x4 gauze, conform and tape Other: Tubigrips F double layer WOUND # __20__ LOCATION: Left Lower Medial Leg (New wound 12/10/21) L: cm x W: cm x D: cm- Closed 12/27/21 DEBRIDEMENT by provider: n/a WOUND # 21 LOCATION: Right Anterior Lower Leg (New 12/27/21) L: 1.3 cm x W: 0.9 cm x D: 0.1 cm DEBRIDEMENT: None Post debridement measurements if applicable : L: cm x W: cm x D: cm Cleansed with: vashe Applied to conrad-wound skin: vaseline Applied to wound bed: triple ATB, xeroform Covered and secured with: 4x4 gauze, conform, tape. Other: Scattered blanchable erythema noted on bilateral anterior lower legs- resolved 12/27/21 SHORTY WRAP/SurePress/Tubi-b2b sales representative: Foot is warm and pink before and after application. It was demonstrated to the patient how to check for adequate circulation. Patient voices understanding. If circulation becomes compromised by a change in color, increased pain, numbness or tingling to the area, the patient knows to remove the compression and elevate the leg above the heart. COMPRESSION: Double layerTubiGrip size F to Left leg and single layer to Right leg SPECIAL NEEDS: Coordination of care - n/a Emotional support N/A OR set-up N/A Equipment Operator N/A Incontinence needs N/A DISCHARGED in stable condition to: Self ambulatory with rolator walker Global surgical period dates if applicable: N/A Plan: Return to the wound center to see Jess Copeland CNP in 2 weeks 2. PRISM: for any additional wound care supplies- supplies ordered this visit EDUCATION: The patient/family was instructed how to cleanse the wound(s). Visual demonstration on how to apply the dressing with teach back method. Signs & symptoms of infection were reviewed: Increased redness, swelling, pain, green/yellow drainage, fever and/or chills would all need to be evaluated by a Physician. Patient received typed home-going wound care instructions and has expressed intent to comply. OTHER EDUCATION: Education performed regarding lymphedema/edema: Elevation of extremity above the heart for 30 minutes three times daily and as needed Exercise such as writing the ABC's with your toes in the air, walking and/or calf pumps Wearing compression as ordered by provider Diet controlling of sodium as instructed by provider Use of medication to help control edema. _ UNIVERSAL PROTOCOL / SAFETY CHECKLIST: N/A Current HBOT Status: Active or Complete - see screening below WOUND CENTER HYPERBARIC OXYGEN THERAPY SCREENING 1. Is the patient diabetic? (If No, skip to question 5) Yes 2. Does the patient have a lower extremity wound? Yes 3. Is there exposed/involved tendon or bone? No 4. Has the wound been present for 30 days? no If Yes to ALL questions above, consult the Hyperbaric Center 5. Has the patient been diagnosed with osteomyelitis? No 6. Has the patient had a previous skin graft or flap at the wound? No 7. Has the patient had or been offered vascular intervention/evaluation? No 8. Does the patient have a wound at an amputation site? No 9. Has the patient had radiation therapy at the site of the problem? No If Yes to ANY of questions 5-9, consult the Hyperbaric Center Luzma Yang RN/briec/matt documented in this encounter [facility] 12-10-2021 Note HNO ID: [id number] Author: Jess Copeland APRN.FARM GENERAL MANAGER Service: ? Author Type: Nurse Practitioner Type: Progress Notes Filed: 12/10/2021 3:19 PM Note Text: WOUND CENTER PROGRESS NOTE PATIENT NAME: Analilia Rodriguez DATE OF FOLLOW UP: 12/10/2021 REASON FOR FOLLOW UP: bilat lower leg wounds HISTORY OF PRESENT ILLNESS: Analilia Rodriguez is a 71 year old y/o male w/ hx DM2, HTN, CAD w/ stent placement, gout, who presents for wound assessment and treatment evaluation of bilat lower leg wounds. Location: left lower leg, right lower leg Onset: right lower leg-October 2021 Aggravating factors: Diabetes mellitus and Vascular impairment Wound etiology: Vascular, Dermatologic Associated pain with wound: yes Relieving factors for wound pain: wound care Treatments: Current: triple antibiotic, Xeroform Past: hydrogel wound gel, MediHoney gel, triple antibiotic ointment PAST MEDICAL HISTORY Diagnosis Date Cancer (HCC) colon cancer late Coronary artery disease one stent Diabetes mellitus without mention of complication Diabetes mellitus Gout Hypertension PMH - PAST MEDICAL HISTORY OF 09/10/07 Right shoulder fracture Renal disorder PAST SURGICAL HISTORY Procedure Laterality Date COLON SURGERY HX ORTHOPEDICS SURGERY HX , carpal tunnel TONSILLECTOMY HX ALLERGIES ALLERGIES Allergen Reactions Bees swells Lorazepam Intolerance Mupirocin Rash blisters Oseltamivir Unknown made me sick, told I shouldn't take it Silver Sulfadiazine Rash CURRENT OUTPATIENT MEDICATIONS sulfamethoxazole-trimethoprim (BACTRIM DS,SEPTRA DS) 800-160 mg per tablet TAKE 1 TABLET BY MOUTH EVERY 12 HOURS FOR 10 DAYS. Drink plenty OF fluids (Patient not taking: Reported on 11/25/2021) triamcinolone acetonide (KENALOG) 0.1 % ointment Apply to affected areas on both lower legs twice a day as directed (Patient not taking: Reported on 10/29/2021 ) cholecalciferol (VITAMIN D-3) 50 mcg (2,000 unit) tablet Take 2,000 Units by mouth once daily. diclofenac sodium (VOLTAREN) 1 % topical gel Apply 2 g to affected area three times daily as needed (pain and swelling). febuxostat (ULORIC) 80 mg tab Take 1 tablet by mouth once daily. finasteride (PROSCAR) 5 mg tablet Take 1 tablet by mouth once daily. fluticasone (FLONASE) 50 mcg/actuation nasal spray Use 2 Sprays in each nostril every morning. HYDROcodone-acetaminophen (NORCO) 5-325 mg per tablet Take 1 tablet by mouth every 6 hours as needed. NOVOLOG MIX 70-30 100 unit/mL (70-30) inpn injection Inject subcutaneously three times daily with meals. -sliding scale Up to 40 units TID tamsulosin ER (FLOMAX) 0.4 mg Take 1 capsule by mouth daily at bedtime. amLODIPine (NORVASC) 5 mg tablet Take 1 tablet by mouth once daily. (Patient not taking: Reported on 05/12/2021 ) carvedilol (COREG) 25 mg tablet Take 1 tablet by mouth twice daily. furosemide (LASIX) 20 mg tablet Take 1 tablet by mouth twice daily. Valsartan-Hydrochlorothiazide 320-25 mg per tablet Take 1 tablet by mouth once daily. GLIPIZIDE 10 MG TAB Take one(1) tablet two(2) times daily. (Patient not taking: ) blood sugar diagnostic(ASCENSIA CONTOUR TEST STRIPS) Testing twice daily exenatide(BYETTA 10 MCG/0.04 ML PER DOSE SUB-Q PEN INJECTOR) Inject ten(10) mcg subcutaneously twice daily within 60 minutes prior to a meal . (Patient not taking: ) needles, insulin disposable(BD INSULIN PEN NEEDLE UF SHORT 31 X 5/16 ) use as directed carvedilol(COREG 6.25 MG TAB) Take one(1) tablet twice daily. (Patient not taking: ) furosemide(LASIX 40 MG TAB) Take one(1) tablet two(2) times daily. (Patient not taking: ) aspirin(ECOTRIN LOW STRENGTH 81 MG TAB) Take one(1) tablet daily. valsartan/hydrochlorothiazide(DIOV AN HCT 160 MG-12.5 MG TAB) Take one(1) tablet daily. (Patient not taking: ) multivitamins(MULTIPLE VITAMINS TAB) Take one(1) tablet daily. calcium carbonate/vitamin d3(CALCIUM 600 + D(3) 600 MG (1,500)-200 UNIT TAB) Take 1 tablet by mouth once daily. LANCETS Use as directed. amlodipine (NORVASC) 10 mg ORAL Tab Take one(1) tablet daily. (Patient not taking: Reported on 05/12/2021) No family history on file. Social History Tobacco Use Smoking status: Never Smokeless tobacco: Never Vaping Use Vaping Use: Never used Substance Use Topics Alcohol use: Yes Comment: rare Drug use: Never REVIEW OF SYSTEMS: GENERAL: No weight loss, malaise or fevers RESPIRATORY: Negative for cough, hemoptysis, wheezing, COPD, dyspnea or shortness of breath CARDIOVASCULAR: Negative for chest pain, HTN, CHF or palpitations. Positive for leg edema (chronic). GI: No nausea, vomiting, or diarrhea MUSCULOSKELETAL: Negative for joint pain or swelling, back pain or muscle pain SKIN: Positive for wounds, right and left lower legs (see wound assessment). HEMATOLOGY/LYMPHOLOGY: Negative for prolonged bleeding, bruising easily or swollen nodes E (more content not included)... [facility] 12-10-2021 History of Present illness Narrative Images from the original note were not included. WOUND CENTER PROGRESS NOTE PATIENT NAME: Analilia Rodriguez DATE OF FOLLOW UP: 12/10/2021 REASON FOR FOLLOW UP: bilat lower leg wounds HISTORY OF PRESENT ILLNESS: Analilia Rodriguez is a 71 year old y/o male w/ hx DM2, HTN, CAD w/ stent placement, gout, who presents for wound assessment and treatment evaluation of bilat lower leg wounds. Location: left lower leg, right lower leg Onset: right lower leg-October 2021 Aggravating factors: Diabetes mellitus and Vascular impairment Wound etiology: Vascular, Dermatologic Associated pain with wound: yes Relieving factors for wound pain: wound care Treatments: Current: triple antibiotic, Xeroform Past: hydrogel wound gel, MediHoney gel, triple antibiotic ointment PAST MEDICAL HISTORY Diagnosis Date Cancer (HCC) colon cancer late Coronary artery disease one stent Diabetes mellitus without mention of complication Diabetes mellitus Gout Hypertension PMH - PAST MEDICAL HISTORY OF 09/10/07 Right shoulder fracture Renal disorder PAST SURGICAL HISTORY Procedure Laterality Date COLON SURGERY HX ORTHOPEDICS SURGERY HX , carpal tunnel TONSILLECTOMY HX ALLERGIES ALLERGIES Allergen Reactions Bees swells Lorazepam Intolerance Mupirocin Rash blisters Oseltamivir Unknown made me sick, told I shouldn't take it Silver Sulfadiazine Rash CURRENT OUTPATIENT MEDICATIONS sulfamethoxazole-trimethoprim (BACTRIM DS,SEPTRA DS) 800-160 mg per tablet TAKE 1 TABLET BY MOUTH EVERY 12 HOURS FOR 10 DAYS. Drink plenty OF fluids (Patient not taking: Reported on 11/25/2021) triamcinolone acetonide (KENALOG) 0.1 % ointment Apply to affected areas on both lower legs twice a day as directed (Patient not taking: Reported on 10/29/2021 ) cholecalciferol (VITAMIN D-3) 50 mcg (2,000 unit) tablet Take 2,000 Units by mouth once daily. diclofenac sodium (VOLTAREN) 1 % topical gel Apply 2 g to affected area three times daily as needed (pain and swelling). febuxostat (ULORIC) 80 mg tab Take 1 tablet by mouth once daily. finasteride (PROSCAR) 5 mg tablet Take 1 tablet by mouth once daily. fluticasone (FLONASE) 50 mcg/actuation nasal spray Use 2 Sprays in each nostril every morning. HYDROcodone-acetaminophen (NORCO) 5-325 mg per tablet Take 1 tablet by mouth every 6 hours as needed. NOVOLOG MIX 70-30 100 unit/mL (70-30) inpn injection Inject subcutaneously three times daily with meals. -sliding scale Up to 40 units TID tamsulosin ER (FLOMAX) 0.4 mg Take 1 capsule by mouth daily at bedtime. amLODIPine (NORVASC) 5 mg tablet Take 1 tablet by mouth once daily. (Patient not taking: Reported on 05/12/2021 ) carvedilol (COREG) 25 mg tablet Take 1 tablet by mouth twice daily. furosemide (LASIX) 20 mg tablet Take 1 tablet by mouth twice daily. Valsartan-Hydrochlorothiazide 320-25 mg per tablet Take 1 tablet by mouth once daily. GLIPIZIDE 10 MG TAB Take one(1) tablet two(2) times daily. (Patient not taking: ) blood sugar diagnostic(ASCENSIA CONTOUR TEST STRIPS) Testing twice daily exenatide(BYETTA 10 MCG/0.04 ML PER DOSE SUB-Q PEN INJECTOR) Inject ten(10) mcg subcutaneously twice daily within 60 minutes prior to a meal . (Patient not taking: ) needles, insulin disposable(BD INSULIN PEN NEEDLE UF SHORT 31 X 09/13 ) use as directed carvedilol(COREG 6.25 MG TAB) Take one(1) tablet twice daily. (Patient not taking: ) furosemide(LASIX 40 MG TAB) Take one(1) tablet two(2) times daily. (Patient not taking: ) aspirin(ECOTRIN LOW STRENGTH 81 MG TAB) Take one(1) tablet daily. valsartan/hydrochlorothiazide(DIOV AN HCT 160 MG-12.5 MG TAB) Take one(1) tablet daily. (Patient not taking: ) multivitamins(MULTIPLE VITAMINS TAB) Take one(1) tablet daily. calcium carbonate/vitamin d3(CALCIUM 600 + D(3) 600 MG (1,500)-200 UNIT TAB) Take 1 tablet by mouth once daily. LANCETS Use as directed. amlodipine (NORVASC) 10 mg ORAL Tab Take one(1) tablet daily. (Patient not taking: Reported on 05/12/2021) No family history on file. Social History Tobacco Use Smoking status: Never Smokeless tobacco: Never Vaping Use Vaping Use: Never used Substance Use Topics Alcohol use: Yes Comment: rare Drug use: Never REVIEW OF SYSTEMS: GENERAL: No weight loss, malaise or fevers RESPIRATORY: Negative for cough, hemoptysis, wheezing, COPD, dyspnea or shortness of breath CARDIOVASCULAR: Negative for chest pain, HTN, CHF or palpitations. Positive for leg edema (chronic). GI: No nausea, vomiting, or diarrhea MUSCULOSKELETAL: Negative for joint pain or swelling, back pain or muscle pain SKIN: Positive for wounds, right and left lower legs (see wound assessment). HEMATOLOGY/LYMPHOLOGY: Negative for prolonged bleeding, bruising easily or swollen nodes ENDOCRINE: Negative for cold or heat intolerance, polyuria, polydipsia and goiter NEURO: No history of headaches, syncope, paralysis, seizures or tremors PHYSICAL EXAM: BP 117/64 / Pulse 58 / Resp 18 / Temp 98.5 F / SpO2 97% General appearance: Well appearing, alert, in no acute distress, well-hydrated, well nourished. Skin: Skin color, texture, turgor normal, no suspicious rashes or lesions. Positive erythema bilat pretibial areas, R>L. Positive wounds, right and left lower leg (see wound assessment). Head: Normocephalic, no masses, lesions, tenderness or abnormalities Eyes: Anicteric sclera. Pupils are equally round and reactive to light. Extraocular movements are intact. Lungs: Respirations even and unlabored Extremities: Edema: trace edema right lower leg, 1+ edema right foot; trace edema left lower leg, trace edema left foot Musculoskeletal: No joint swelling, deformity, or tenderness Peripheral pulses: triphasic doppler signals x 4; palpable DP pulses bilat Neuro: Oriented X 3. Ambulatory WOUND ASSESSMENT Wound 14: Location: right anterior lower leg Type: vascular insufficiency Stage: NA Exposed structure:None Progress: improved Wound measurements (cm): 0.5 x 0.5 x 0.1 Full thickness- Yes Tunneling/undermining: none Wound tissue color: red Periwound tissue: erythema, improved Drainage: serosanguinous, small Drainage odor: none Wound 15: Location: left anterior lower leg Type: vascular insufficiency Stage: NA Exposed structure:None Progress: no change Wound measurements (cm): 2.1 x 1.5 x 0.1 Full thickness- Yes Tunneling/undermining: none Wound tissue color: red Periwound tissue: erythema, improved Drainage: serosanguinous, small Drainage odor: none Wound 16: Location: right lower leg lateral Type: vascular insufficiency Stage: NA Exposed structure:None Progress: improved Wound measurements (cm): 0.5 x 0.3 x 0.1 Full thickness- Yes Tunneling/undermining: none Wound tissue color: red Periwound tissue: erythema, improved Drainage: serosanguinous, small Drainage odor: none Wound 17: Location: right [place] Type: vascular insufficiency Stage: NA Exposed structure:None Progress: improved Wound measurements (cm): 1.2 x 1.0 Full thickness- Yes Tunneling/undermining: none Wound tissue color: red Periwound tissue: erythema, improved Drainage: serosanguinous, scant Drainage odor: none Wound 18: Location: right [place] lateral Type: vascular insufficiency Stage: NA Exposed structure:None Progress: healed Wound measurements (cm): 0 Full thickness- Yes Tunneling/undermining: none Wound tissue color: epithelial Periwound tissue: erythema, improved Drainage: none Drainage odor: n/a Wound 19: Location: left anterior [place] Type: vascular insufficiency Stage: NA Exposed structure:None Progress:initial Wound measurements (cm): 0.4 x 0.3 x 0.1 Full thickness- Yes Tunneling/undermining: none Wound tissue color: deflated blister Periwound tissue: erythema Drainage: none Drainage odor: n/a Wound 20: Location: left anterior [place] Type: vascular insufficiency Stage: NA Exposed structure:None Progress:initial Wound measurements (cm): 2.0 x 1.5 x 0.1 Full thickness- Yes Tunneling/undermining: none Wound tissue color:red Periwound tissue: erythema Drainage: serosanguinous, small Drainage odor: n/a DATA PHOTOGRAPHY: yes A photo was taken of the patient's wound(s). Photos can be found under the [facility] images tab on [facility]. The purpose of the photo(s) is to optimize the patient's medical care and allow a visual aid to their wound evaluation and progress. The photo(s) are not intended for publication, education, or research. If the use of the photo is desired in any additional way, other than for the above outlined purposes, then an additional consent for the intended use will need to be obtained by the requesting provider. 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 Wound culture showed no growth. Erythema likely r/t dermatitis vs infectious Plan: - Cleanse legs with Dial soap and water. Pat dry. Vashe soak to wounds. Apply Fluocinonide 0.05% cream to reddened areas bilat anterior shins, including wounds (Hydrocortisone 2.5% cream applied in clinic today). Then apply triple antibiotic and Xeroform to open wounds. Cover with 4x4 gauze and conform roll gauze. Change daily and prn. - Vaseline to intact non reddened skin bilat lower legs daily to moisturize. - Single layer Tubi-b2b sales representative size F bilat LE for edema control/compression ---unable to tolerate double layer at this time d/t wound discomfort - Recommend elevate legs at least 30 min 3x/day - Follow up in wound center in 2 weeks I discussed the plan in detail with the patient and the patient verbalizes understanding and is in agreement. My previous progress note dated 12/02/2021 was copied forward, updated where appropriate, and reflective of current medical decision making today, 12/10/2021. Jess Copeland APRN, URIAH, CWS Certified Forest Fire Prevention Specialist December 10, 2021 documented in this encounter [facility] 12-10-2021 Nurse Note Nursing Documentation Pertinent Medical History: DM II, heart stent Wound Etiology according to patient: Blisters and wounds appeared March 31 2021 Patient arrived via: ambulatory , POV Home Care Company/Nursing Facility:NA Consent captured for debridement per Jess Copeland CNP and good until November 2021 Anticoagulant Therapy: ASA 81 mg ACTIVE CARE PER PROVIDER: Jess Copeland CNP Wound 1-7 previously healed WOUND # [id number] previously closed WOUND ASSESSMENT: Refer to Provider's Wound Assessment Note VASCULAR ASSESSMENT BY PROVIDER: Doppler : triphasic x 4 CHF History: patient denies EDEMA: Right foot: 1+ Right calf: trace Left foot : trace Left Calf: trace Other: NA MEASUREMENTS: in CM Right Calf: 48.0 Right Ankle: 25.6 Left Calf: 47.0 Left Ankle: 26.0 Length: 46.5 - not measured at today's visit WOUND PHOTOGRAPHY: yes DEBRIDEMENT PROCEDURE BY PROVIDER: Anesthetic Used: NA Wound # Other procedure: N/A Specimen collected: NA WOUND TREATMENT PER MD ORDER: All wounds cleansed by mechanical debridement with NS and gauze to allow provider to visualize wound bed * DO NOT USE SILVER DRESSINGS WOUND # 14 LOCATION: Right Lower Leg - Anterior (NEW 11/25/21) L: 0.5 cm x W: 0.5 cm x D: 0.1 cm DEBRIDEMENT by provider: n/a WOUND # 15 LOCATION: Left lower leg - Anterior (NEW 11/25/21) cx collected L: 2.1 cm x W: 1.5 cm x D: 0.1 cm DEBRIDEMENT by provider: ARTURO WOUND # 16 LOCATION: Right lower leg - Lateral NEW 12/02/21 cx collected L: 0.5 cm x W: 0.3 cm x D: 0.1 cm DEBRIDEMENT by provider: ARTURO WOUND # 17 LOCATION: Right lower leg - [place] NEW 12/02/21 L: 1.2 cm x W: 1.0 cm x D: 0.1 cm DEBRIDEMENT by provider: ARTURO WOUND # 18 LOCATION: Right Lower leg - [place] lateral NEW 12/02/21 - Closed 12/10/21 WOUND # __19__ LOCATION: Left Anterior [place] (New wound 12/10/21) L: 0.4 cm x W: 0. 3 cm x D: 0.1 cm WOUND # __20__ LOCATION: Left Lower Medial Leg (New wound 12/10/21) L: 2.0cm x W: 1.5 cm x D: 0.1cm DEBRIDEMENT: NA Cleansed with: Vashe' Applied to conrad-wound skin: Vaseline to intact skin avoiding red areas, hydrocortisone to red areas on legs Applied to wound bed: antibiotic ointment , xeroform Covered and secured with: 4x4 gauze, conform and tape Other: Tubigrips F bilateral lower legs Scattered blanchable erythema noted on bilateral anterior lower legs . 1. Right lateral lower leg 20.0 cm x 10.0 cm blanchable erythema 2. Left lateral lower leg 13.4 cm x 10.2 cm blanchable erythema SHORTY WRAP/SurePress/Tubi-b2b sales representative: Foot is warm and pink before and after application. It was demonstrated to the patient how to check for adequate circulation. Patient voices understanding. If circulation becomes compromised by a change in color, increased pain, numbness or tingling to the area, the patient knows to remove the compression and elevate the leg above the heart. COMPRESSION: Double layerTubiGrip size F bilateral lower legs - patient unable to tolerate the 2 layer of tubi-b2b sales representative due to pain SPECIAL NEEDS: Coordination of care - n/a Emotional support N/A OR set-up N/A Equipment Operator N/A Incontinence needs N/A DISCHARGED in stable condition to: Self ambulatory with dlieep walker [facility] surgical period dates if applicable: N/A Plan: Return to the wound center to see Jess Copeland CNP in 2 weeks Prescription for steriod cream sent to your pharmacy ([facility] in [place]). 3. PRISM: for any additional wound care supplies EDUCATION: The patient/family was instructed how to cleanse the wound(s). Visual demonstration on how to apply the dressing with teach back method. Signs & symptoms of infection were reviewed: Increased redness, swelling, pain, green/yellow drainage, fever and/or chills would all need to be evaluated by a Physician. Patient received typed home-going wound care instructions and has expressed intent to comply. OTHER EDUCATION: Education performed regarding lymphedema/edema: Elevation of extremity above the heart for 30 minutes three times daily and as needed Exercise such as writing the ABC's with your toes in the air, walking and/or calf pumps Wearing compression as ordered by provider Diet controlling of sodium as instructed by provider Use of medication to help control edema. _ UNIVERSAL PROTOCOL / SAFETY CHECKLIST: N/A Current HBOT Status: Active or Complete - see screening below WOUND CENTER HYPERBARIC OXYGEN THERAPY SCREENING 1. Is the patient diabetic? (If No, skip to question 5) Yes 2. Does the patient have a lower extremity wound? Yes 3. Is there exposed/involved tendon or bone? No 4. Has the wound been present for 30 days? no If Yes to ALL questions above, consult the Hyperbaric Center 5. Has the patient been diagnosed with osteomyelitis? No 6. Has the patient had a previous skin graft or flap at the wound? No 7. Has the patient had or been offered vascular intervention/evaluation? No 8. Does the patient have a wound at an amputation site? No 9. Has the patient had radiation therapy at the site of the problem? No If Yes to ANY of questions 5-9, consult the Hyperbaric Center Shira SLADE, RN, CWOCN Nadja Carson RN documented in this encounter [facility] 12-10-2021 Instructions Shira Loving RN - 12/10/2021 11:29 AM EDT WOUND CARE INSTRUCTIONS- Analilia Rodriguez Wound location: Bilateral lower legs Wash your hands with soap and water before and after wound care. Gather all supplies needed. Wash your legs with Dial soap and warm water. Rinse and pat dry. Apply Vashe' soak for 5-10 minutes then pat dry Both Lower Legs: Cleanse with: Vashe' Apply to conrad-wound skin: vaseline avoiding red areas, may use hydrocortisone to the red areas & wounds on both legs Apply to wound bed: thin layer of antibiotic ointment to the xeroform then place antibiotic side down to all the open area Cover and secure with: 4x4 gauze, conform and tape Change your dressing every day. Other: Apply a single layer of tubi-b2b sales representative F to both lower legs (On in the AM and off at Bedtime) SHORTY WRAP/TUBI-DAG SPRAYER: Remove compression wraps if they become uncomfortable or cause a change in color or sensation to the extremity. Your wrap should always be worn from the base of the toes to 1 below the knee. Avoid sitting with your legs in a dependent position or standing for long periods of time.Attempt to lay flat and elevate your legs above the level of your heart 2-3 times daily for 30 minutes at a time. If it becomes necessary to remove the wrap, do so by unwinding it and apply clean dressing as instructed then notify the wound care center. COMPRESSION must be removed if: it becomes wet or soiled If you have numbness or tingling in your foot or toes If you have increased pain If toes become cold or discolored Regarding lymphedema/edema: Elevation of extremity above the heart for 30 minutes three times daily and as needed Exercise such as writing the ABC's with your toes in the air, walking and/or calf pumps Wearing compression as ordered by provider Diet controlling of sodium as instructed by provider Use of medication to help control edema. To give your wound the best chance to heal: - Eat three balanced meals daily focusing on the protein - Control swelling by elevating the extremity above your heart - exercise the extremity - Control your blood sugar. Keep blood sugar less than 200 - Complete your wound care instructions - Vitamin C 500 mg twice daily - Multiple Vitamin Daily - Drink a protein shake daily Report any of the following changes to the Wound Center at [phone] or go to the Emergency Department: Fever or chills Increased drainage Green or yellow drainage Foul odor Increased pain Hardness around the wound Redness, warmth or swelling of the surrounding tissue Color change to the wound Plan: Return to the wound center to see Jess Copeland CNP in 2 weeks Prescription for steriod cream sent to your pharmacy ([facility] in [place]). 3. PRISM: for any additional wound care supplies Jess Copeland CNP documented in this encounter [facility] 12-02-2021 History of Present illness Narrative Images from the original note were not included. WOUND CENTER PROGRESS NOTE PATIENT NAME: Analilia Rodriguez DATE OF FOLLOW UP: 12/02/2021 REASON FOR FOLLOW UP: left lower leg wounds HISTORY OF PRESENT ILLNESS: Analilia Rodriguez is a 71 year old y/o male w/ hx DM2, HTN, CAD w/ stent placement, gout, who presents for wound assessment and treatment evaluation of bilat lower leg wounds. Pt complete course of Doxycycline for bilat LE cellulitis. Location: left lower leg, right lower leg Onset: right lower leg-October 2021 Aggravating factors: Diabetes mellitus and Vascular impairment Wound etiology: Vascular, Dermatologic Associated pain with wound: yes Relieving factors for wound pain: wound care Treatments: Current: hydrogel, Xeroform Past: MediHoney gel, triple antibiotic ointment PAST MEDICAL HISTORY Diagnosis Date Cancer (HCC) colon cancer late Coronary artery disease one stent Diabetes mellitus without mention of complication Diabetes mellitus Gout Hypertension PMH - PAST MEDICAL HISTORY OF 09/10/07 Right shoulder fracture Renal disorder PAST SURGICAL HISTORY Procedure Laterality Date COLON SURGERY HX ORTHOPEDICS SURGERY HX , carpal tunnel TONSILLECTOMY HX ALLERGIES ALLERGIES Allergen Reactions Bees swells Lorazepam Intolerance Mupirocin Rash blisters Oseltamivir Unknown made me sick, told I shouldn't take it Silver Sulfadiazine Rash CURRENT OUTPATIENT MEDICATIONS cholecalciferol (VITAMIN D-3) 50 mcg (2,000 unit) tablet Take 2,000 Units by mouth once daily. diclofenac sodium (VOLTAREN) 1 % topical gel Apply 2 g to affected area three times daily as needed (pain and swelling). febuxostat (ULORIC) 80 mg tab Take 1 tablet by mouth once daily. finasteride (PROSCAR) 5 mg tablet Take 1 tablet by mouth once daily. fluticasone (FLONASE) 50 mcg/actuation nasal spray Use 2 Sprays in each nostril every morning. HYDROcodone-acetaminophen (NORCO) 5-325 mg per tablet Take 1 tablet by mouth every 6 hours as needed. NOVOLOG MIX 70-30 100 unit/mL (70-30) inpn injection Inject subcutaneously three times daily with meals. -sliding scale Up to 40 units TID tamsulosin ER (FLOMAX) 0.4 mg Take 1 capsule by mouth daily at bedtime. carvedilol (COREG) 25 mg tablet Take 1 tablet by mouth twice daily. furosemide (LASIX) 20 mg tablet Take 1 tablet by mouth twice daily. Valsartan-Hydrochlorothiazide 320-25 mg per tablet Take 1 tablet by mouth once daily. blood sugar diagnostic(ASCENSIA CONTOUR TEST STRIPS) Testing twice daily needles, insulin disposable(BD INSULIN PEN NEEDLE UF SHORT 31 X 5/16 ) use as directed aspirin(ECOTRIN LOW STRENGTH 81 MG TAB) Take one(1) tablet daily. multivitamins(MULTIPLE VITAMINS TAB) Take one(1) tablet daily. calcium carbonate/vitamin d3(CALCIUM 600 + D(3) 600 MG (1,500)-200 UNIT TAB) Take 1 tablet by mouth once daily. LANCETS Use as directed. doxycycline monohydrate (MONODOX) 100 mg capsule Take 1 capsule by mouth twice daily for 7 days. sulfamethoxazole-trimethoprim (BACTRIM DS,SEPTRA DS) 800-160 mg per tablet TAKE 1 TABLET BY MOUTH EVERY 12 HOURS FOR 10 DAYS. Drink plenty OF fluids triamcinolone acetonide (KENALOG) 0.1 % ointment Apply to affected areas on both lower legs twice a day as directed amLODIPine (NORVASC) 5 mg tablet Take 1 tablet by mouth once daily. GLIPIZIDE 10 MG TAB Take one(1) tablet two(2) times daily. exenatide(BYETTA 10 MCG/0.04 ML PER DOSE SUB-Q PEN INJECTOR) Inject ten(10) mcg subcutaneously twice daily within 60 minutes prior to a meal . carvedilol(COREG 6.25 MG TAB) Take one(1) tablet twice daily. furosemide(LASIX 40 MG TAB) Take one(1) tablet two(2) times daily. valsartan/hydrochlorothiazide(DIOV AN HCT 160 MG-12.5 MG TAB) Take one(1) tablet daily. amlodipine (NORVASC) 10 mg ORAL Tab Take one(1) tablet daily. No family history on file. Social History Tobacco Use Smoking status: Never Smoker Smokeless tobacco: Never Used Vaping Use Vaping Use: Never used Substance Use Topics Alcohol use: Yes Comment: rare Drug use: Never REVIEW OF SYSTEMS: GENERAL: No weight loss, malaise or fevers RESPIRATORY: Negative for cough, hemoptysis, wheezing, COPD, dyspnea or shortness of breath CARDIOVASCULAR: Negative for chest pain, HTN, CHF or palpitations. Positive for leg edema (chronic). GI: No nausea, vomiting, or diarrhea MUSCULOSKELETAL: Negative for joint pain or swelling, back pain or muscle pain SKIN: Positive for wounds, right and left lower legs (see wound assessment). HEMATOLOGY/LYMPHOLOGY: Negative for prolonged bleeding, bruising easily or swollen nodes ENDOCRINE: Negative for cold or heat intolerance, polyuria, polydipsia and goiter NEURO: No history of headaches, syncope, paralysis, seizures or tremors PHYSICAL EXAM: BP 140/51 / Pulse 60 / Resp 22 / Temp 97.6 F / SpO2 98% General appearance: Well appearing, alert, in no acute distress, well-hydrated, well nourished. Skin: Skin color, texture, turgor normal, no suspicious rashes or lesions. Positive erythema bilat pretibial areas, R>L. Positive wounds, right and left lower leg (see wound assessment). Head: Normocephalic, no masses, lesions, tenderness or abnormalities Eyes: Anicteric sclera. Pupils are equally round and reactive to light. Extraocular movements are intact. Lungs: Respirations even and unlabored Extremities: Edema: 2+ right lower leg, trace edema right foot; 3+ edema left lower leg, trace edema left foot Musculoskeletal: No joint swelling, deformity, or tenderness Peripheral pulses: triphasic doppler signals x 4; palpable DP pulses bilat Neuro: Oriented X 3. Ambulatory WOUND ASSESSMENT Wound 14: Location: right anterior lower leg Type: vascular insufficiency Stage: NA Exposed structure:None Progress: improved Wound measurements (cm): 1.0 x 0.4 x 0.1 Full thickness- Yes Tunneling/undermining: none Wound tissue color: red Periwound tissue: erythema Drainage: serosanguinous, small Drainage odor: none Wound 15: Location: left anterior lower leg Type: vascular insufficiency Stage: NA Exposed structure:None Progress: slight improvment Wound measurements (cm): 2.1 x 1.5 x 0.1 Full thickness- Yes Tunneling/undermining: none Wound tissue color: 15% slough, 85% red Periwound tissue: erythema Drainage: serosanguinous, small Drainage odor: none Wound 16: Location: right lower leg lateral Type: vascular insufficiency Stage: NA Exposed structure:None Progress: initial Wound measurements (cm): 1.2 x 1.0 x 0.1 Full thickness- Yes Tunneling/undermining: none Wound tissue color: 15% slough, 85% red Periwound tissue: erythema Drainage: serosanguinous, small Drainage odor: none Wound 17: Location: right [place] Type: vascular insufficiency Stage: NA Exposed structure:None Progress: initial Wound measurements (cm): 3.0 x 1.0 Full thickness- Yes Tunneling/undermining: none Wound tissue color: deflated blister Periwound tissue: erythema Drainage: seropurulent, scant Drainage odor: none Wound 18: Location: right [place] lateral Type: vascular insufficiency Stage: NA Exposed structure:None Progress: initial Wound measurements (cm): 1.7 x 1.5 Full thickness- Yes Tunneling/undermining: none Wound tissue color: deflated blister Periwound tissue: erythema Drainage: seropurulent, scant Drainage odor: none PROCEDURE: Excisional Sharp Debridement-left lower leg anterior A time out was performed immediately prior to procedure start with the CARD PLACER and team , correctly identifying the patient name, date of , procedure, anatomy, patient position, safety precautions, and procedure-specific equipment needs. The procedure was explained to the patient including the risks, benefits and alternatives. The risks, including but not limited to infection and bleeding, were reviewed by the performing provider and the patient agrees to undergo the procedure. Written consent was obtained . With appropriate consent the wound was sharply debrided down to and including subcutaneous tissue Total tissue debrided Less than 20 sq.cm Using a sterile currette the wound was debrided. Patient required pre-medication: Lidocaine 2% gel Patient expressed pain during procedure: no Scale: 0 EBL:minimal Wound measurement prior to debridement: 2.1 x 1.5 x 0.1 Wound measurement post debridement: 2.1 x 1.5 x 0.1 Type of tissue debrided: ( slough, necrotic, devitalized) Tissue at wound bed after debridment: red Dressing applied after debridement: yes Patient tolerated procedure well without apparent complications. PROCEDURE: Excisional Sharp Debridement-right lower leg lateral A time out was performed immediately prior to procedure start with the CARD PLACER and team , correctly identifying the patient name, date of , procedure, anatomy, patient position, safety precautions, and procedure-specific equipment needs. The procedure was explained to the patient including the risks, benefits and alternatives. The risks, including but not limited to infection and bleeding, were reviewed by the performing provider and the patient agrees to undergo the procedure. Written consent was obtained . With appropriate consent the wound was sharply debrided down to and including subcutaneous tissue Total tissue debrided Less than 20 sq.cm Using a sterile currette the wound was debrided. Patient required pre-medication: Lidocaine 2% gel Patient expressed pain during procedure: no Scale: 0 EBL:minimal Wound measurement prior to debridement: 1.2 x 1.0 x 0.1 Wound measurement post debridement: 1.3 x 1.4 x 0.1 Type of tissue debrided: ( slough, necrotic, devitalized) Tissue at wound bed after debridment: red Dressing applied after debridement: yes Patient tolerated procedure well without apparent complications. DATA PHOTOGRAPHY: yes A photo was taken of the patient's wound(s). Photos can be found under the [facility] images tab on [facility]. The purpose of the photo(s) is to optimize the patient's medical care and allow a visual aid to their wound evaluation and progress. The photo(s) are not intended for publication, education, or research. If the use of the photo is desired in any additional way, other than for the above outlined purposes, then an additional consent for the intended use will need to be obtained by the requesting provider. 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 Continues to have erythema of bilat pretibial areas, R>L, no increased warmth, some tenderness; venous stasis dermatitis flare vs cellulitis Plan: change tx; wound culture - wound culture for C&S, right lateral lower leg wound, left anterior lower leg wound, concern for underlying infection, and to help guide treatment - Cleanse legs with Dial soap and water. Pat dry. Vashe soak to wounds. Apply triple antibiotic and Xeroform to open wounds. Cover with 4x4 gauze and conform roll gauze. Change daily and prn. - Hydrocortisone 2.5% cream to bilat pretibial reddened areas daily - Vaseline to intact non reddened skin bilat lower legs daily to moisturize. - Single layer Tubi-b2b sales representative size F bilat LE for edema control/compression ---unable to tolerate double layer at this time d/t wound pain - Recommend elevate legs at least 30 min 3x/day - Follow up in wound center in 1 week I discussed the plan in detail with the patient and the patient verbalizes understanding and is in agreement. My previous progress note dated 11/25/2021 was copied forward, updated where appropriate, and reflective of current medical decision making today, 12/02/2021. Jess Copeland APRN, FARM GENERAL MANAGER, CWS Certified Forest Fire Prevention Specialist December 02, 2021 documented in this encounter [facility] 12-02-2021 Instructions Marlene Raymundo RN - 12/02/2021 9:39 AM EDT WOUND CARE INSTRUCTIONS- Analilia Rodriguez Wound location: Bilateral lower legs Wash your hands with soap and water before and after wound care. Gather all supplies needed. Wash your legs with Dial soap and warm water. Rinse and pat dry. Apply vaseline or vitamin A&D to all intact skin to lower legs Apply Vashe' soak for 5-10 minutes then pat dry Lower Lower Legs: Cleanse with: Vashe' Apply to conrad-wound skin: vaseline avoiding red areas, may use hydrocortisone to the red areas on both legs Apply to wound bed: thin layer of antibiotic ointment to the xeroform then place antibiotic side down in to the wound Cover and secure with: 4x4 gauze, conform and tape Other: Apply tubi-b2b sales representative F to both lower legs (On in the AM and off at Bedtime) SHORTY WRAP/TUBI-DAG SPRAYER: Remove compression wraps if they become uncomfortable or cause a change in color or sensation to the extremity. Your wrap should always be worn from the base of the toes to 1 below the knee. Avoid sitting with your legs in a dependent position or standing for long periods of time.Attempt to lay flat and elevate your legs above the level of your heart 2-3 times daily for 30 minutes at a time. If it becomes necessary to remove the wrap, do so by unwinding it and apply clean dressing as instructed then notify the wound care center. COMPRESSION must be removed if: it becomes wet or soiled If you have numbness or tingling in your foot or toes If you have increased pain If toes become cold or discolored Regarding lymphedema/edema: Elevation of extremity above the heart for 30 minutes three times daily and as needed Exercise such as writing the ABC's with your toes in the air, walking and/or calf pumps Wearing compression as ordered by provider Diet controlling of sodium as instructed by provider Use of medication to help control edema. To give your wound the best chance to heal: - Eat three balanced meals daily focusing on the protein - Control swelling by elevating the extremity above your heart - exercise the extremity - Control your blood sugar. Keep blood sugar less than 200 - Complete your wound care instructions - Vitamin C 500 mg twice daily - Multiple Vitamin Daily - Drink a protein shake daily Report any of the following changes to the Wound Center at [phone] or go to the Emergency Department: Fever or chills Increased drainage Green or yellow drainage Foul odor Increased pain Hardness around the wound Redness, warmth or swelling of the surrounding tissue Color change to the wound Plan: Return to the wound center to see Jess Copeland CNP in 1 week PRISM: for any additional wound care supplies Jess Copeland CNP/ramirez/sis documented in this encounter [facility] 12-02-2021 Nurse Note Nursing Documentation Pertinent Medical History: DM II, heart stent Wound Etiology according to patient: Blisters and wounds appeared March 31 2021 Patient arrived via: ambulatory , POV Home Care Company/Nursing Facility:NA Consent captured for debridement per Jess Copeland CNP and good until November 2021 Anticoagulant Therapy: ASA 81 mg ACTIVE CARE PER PROVIDER: Jess Copeland CNP Wound 1-7 previously healed WOUND # 8-13 previously closed WOUND ASSESSMENT: Refer to Provider's Wound Assessment Note VASCULAR ASSESSMENT BY PROVIDER: Doppler : triphasic x 4 CHF History: patient denies EDEMA: Right foot: trace Right calf: 2+ Left foot : trace Left Calf: 3+ Other: NA MEASUREMENTS: in CM Right Calf: 47.0 Right Ankle: 26.5 Left Calf: 47.8 Left Ankle: 28.2 Length: 46.5 WOUND PHOTOGRAPHY: yes DEBRIDEMENT PROCEDURE BY PROVIDER: Anesthetic Used: 2% lidocaine gel applied by rossi Gordon RN Wound # 14, 15, 16 Other procedure: N/A Specimen collected: wound culture 15 and 16 WOUND TREATMENT PER MD ORDER: All wounds cleansed by mechanical debridement with NS and gauze to allow provider to visualize wound bed * DO NOT USE SILVER DRESSINGS WOUND # 14 LOCATION: Right Lower Leg - Anterior (11/25/21) L: 1.0 cm x W: 0.4 cm x D: 0.1 cm DEBRIDEMENT by provider: n/a Post debridement measurements: L: cm x W: cm x D: cm WOUND # 15 LOCATION: Left lower leg - Anterior (NEW 11/25/21) cx collected L: 2.1 cm x W: 1.5 cm x D: 0.1 cm DEBRIDEMENT by provider: sq Post debridement measurements: L: 2.1 cm x W: 1.5 cm x D: 0.1 cm WOUND # 16 LOCATION: Right lower leg - Lateral NEW 12/02/21 cx collected L: 1.2 cm x W: 1.0 cm x D: 0.1 cm DEBRIDEMENT by provider: sq Post debridement measurements: L: 1.3 cm x W: 1.4 cm x D: 0.1 cm WOUND # 17 LOCATION: Right lower leg - [place] NEW 12/02/21 L: cm x W: cm x D: cm DEBRIDEMENT by provider: Post debridement measurements: L: 3.0 cm x W: 1.0 cm x D: deflated WOUND # 18 LOCATION: Right Lower leg - [place] lateral NEW 12/02/21 L: cm x W: cm x D: cm DEBRIDEMENT by provider: Post debridement measurements: L: 1.7 cm x W: 1.5 cm x D: deflated Cleansed with: Vashe' Applied to conrad-wound skin: Vaseline to intact skin avoiding red areas, hydrocortisone to red areas on legs Applied to wound bed: antibiotic ointment , xeroform Covered and secured with: 4x4 gauze, conform and tape Other: Tubigrips F bilateral lower legs Scattered blanchable erythema noted on bilateral anterior lower legs . 1. Right lateral lower leg 20.5 cm x 11.0 cm blanchable 2. Left lateral lower leg 13.4 cm x 10.2 cm blanchable SHORTY WRAP/SurePress/Tubi-b2b sales representative: Foot is warm and pink before and after application. It was demonstrated to the patient how to check for adequate circulation. Patient voices understanding. If circulation becomes compromised by a change in color, increased pain, numbness or tingling to the area, the patient knows to remove the compression and elevate the leg above the heart. COMPRESSION: Double layerTubiGrip size F bilateral lower legs - patient unable to tolerate the 2 layer of tubi-b2b sales representative due to pain SPECIAL NEEDS: Coordination of care - n/a Emotional support N/A OR set-up N/A Equipment Operator N/A Incontinence needs N/A DISCHARGED in stable condition to: Self ambulatory with rolator walker Global surgical period dates if applicable: N/A Plan: Return to the wound center to see Jess Copeland CNP in 1 week PRISM: for any additional wound care supplies EDUCATION: The patient/family was instructed how to cleanse the wound(s). Visual demonstration on how to apply the dressing with teach back method. Signs & symptoms of infection were reviewed: Increased redness, swelling, pain, green/yellow drainage, fever and/or chills would all need to be evaluated by a Physician. Patient received typed home-going wound care instructions and has expressed intent to comply. OTHER EDUCATION: New wound care Education performed regarding lymphedema/edema: Elevation of extremity above the heart for 30 minutes three times daily and as needed Exercise such as writing the ABC's with your toes in the air, walking and/or calf pumps Wearing compression as ordered by provider Diet controlling of sodium as instructed by provider Use of medication to help control edema. _ UNIVERSAL PROTOCOL / SAFETY CHECKLIST: N/A __ Current HBOT Status: Active or Complete - see screening below WOUND CENTER HYPERBARIC OXYGEN THERAPY SCREENING 1. Is the patient diabetic? (If No, skip to question 5) Yes 2. Does the patient have a lower extremity wound? Yes 3. Is there exposed/involved tendon or bone? No 4. Has the wound been present for 30 days? no If Yes to ALL questions above, consult the Hyperbaric Center 5. Has the patient been diagnosed with osteomyelitis? No 6. Has the patient had a previous skin graft or flap at the wound? No 7. Has the patient had or been offered vascular intervention/evaluation? No 8. Does the patient have a wound at an amputation site? No 9. Has the patient had radiation therapy at the site of the problem? No If Yes to ANY of questions 5-9, consult the Hyperbaric Center documented in this encounter [facility] 11-25-2021 Nurse Note PRISM: Prism has provided service for the patient with no further action required Nursing Documentation Pertinent Medical History: DM II, heart stent Wound Etiology according to patient: Blisters and wounds appeared March 31 2021 Patient arrived via: ambulatory , POV Home Care Company/Nursing Facility:NA Consent captured for debridement per Jess Copeland CNP and good until November 2021 Anticoagulant Therapy: ASA 81 mg ACTIVE CARE PER PROVIDER: Jess Copeland CNP Wound 1-7 previously healed WOUND # 8-13 previously closed WOUND ASSESSMENT: Refer to Provider's Wound Assessment Note VASCULAR ASSESSMENT BY PROVIDER: Doppler : triphasic x 4 CHF History: family hx noted, patient denies EDEMA: Right foot: trace Right calf: 1+ Left foot : trace Left Calf: 1+ Other: NA MEASUREMENTS: in CM Right Calf: 46.8 Right Ankle: 27.0 Left Calf: 47.4 Left Ankle: 27.0 Length: 46.5 WOUND PHOTOGRAPHY: yes DEBRIDEMENT PROCEDURE BY PROVIDER: Anesthetic Used: 2% lidocaine gel applied by Dior Mccullough RN Wound # 14 and 15 Other procedure: N/A Specimen collected: N/A WOUND TREATMENT PER MD ORDER: All wounds cleansed by mechanical debridement with NS and gauze to allow provider to visualize wound bed WOUND # 14 LOCATION: Right Lower Leg - Anterior (NEW 11/25/21) L: 1.8 cm x W: 2.0 cm x D: 0.1 cm DEBRIDEMENT by provider: Post debridement measurements: L: cm x W: cm x D: cm WOUND # 15 LOCATION: Left lower leg - Anterior (NEW 11/25/21) L: 2.2 cm x W: 2.0 cm x D: 0.1 cm DEBRIDEMENT by provider: Post debridement measurements: L: cm x W: cm x D: cm Cleansed with: Vashe' Applied to conrad-wound skin:vaseline Applied to wound bed: hydrogel, xeroform Covered and secured with: 4x4 gauze, conform and tape Other: double Tubigrips bilateral lower legs Scattered blanchable erythema noted on bilateral anterior lower legs . 1. Right lateral lower leg 21.0 cm x 10.0cm blanchable 2. Left lateral lower leg 12.0 cm x 8.0 blanchable SHORTY WRAP/SurePress/Tubi-b2b sales representative: Foot is warm and pink before and after application. It was demonstrated to the patient how to check for adequate circulation. Patient voices understanding. If circulation becomes compromised by a change in color, increased pain, numbness or tingling to the area, the patient knows to remove the compression and elevate the leg above the heart. COMPRESSION: Double layerTubiGrip size F bilateral lower legs - patient unable to tolerate the 2 layer of tubi-b2b sales representative due to pain SPECIAL NEEDS: Coordination of care - [facility] as needed for supplies - ordered Emotional support N/A OR set-up N/A Equipment Operator N/A Incontinence needs N/A DISCHARGED in stable condition to: Self ambulatory with rollator walker Global surgical period dates if applicable: N/A Plan: Return to the wound center to see Jess Copeland CNP in 1 week Rx: Doxycycline Marlene to order wound care supplies from [facility]: EDUCATION: The patient/family was instructed how to cleanse the wound(s). Visual demonstration on how to apply the dressing with teach back method. Signs & symptoms of infection were reviewed: Increased redness, swelling, pain, green/yellow drainage, fever and/or chills would all need to be evaluated by a Physician. Patient received typed home-going wound care instructions and has expressed intent to comply. OTHER EDUCATION: Provider discussed wound care to right lower leg and also creams to treat reddened skin periwound; the need for more elevation of legs. Education performed regarding lymphedema/edema: Elevation of extremity above the heart for 30 minutes three times daily and as needed Exercise such as writing the ABC's with your toes in the air, walking and/or calf pumps Wearing compression as ordered by provider Diet controlling of sodium as instructed by provider Use of medication to help control edema. _ UNIVERSAL PROTOCOL / SAFETY CHECKLIST: N/A __ Current HBOT Status: Active or Complete - see screening below WOUND CENTER HYPERBARIC OXYGEN THERAPY SCREENING 1. Is the patient diabetic? (If No, skip to question 5) Yes 2. Does the patient have a lower extremity wound? Yes 3. Is there exposed/involved tendon or bone? No 4. Has the wound been present for 30 days? no If Yes to ALL questions above, consult the Hyperbaric Center 5. Has the patient been diagnosed with osteomyelitis? No 6. Has the patient had a previous skin graft or flap at the wound? No 7. Has the patient had or been offered vascular intervention/evaluation? No 8. Does the patient have a wound at an amputation site? No 9. Has the patient had radiation therapy at the site of the problem? No If Yes to ANY of questions 5-9, consult the Hyperbaric Center documented in this encounter [facility] 11-25-2021 History of Present illness Narrative Images from the original note were not included. WOUND CENTER PROGRESS NOTE PATIENT NAME: Analilia Rodriguez DATE OF FOLLOW UP: 11/25/2021 REASON FOR FOLLOW UP: left lower leg wounds HISTORY OF PRESENT ILLNESS: Analilia Rodriguez is a 71 year old y/o male w/ hx DM2, HTN, CAD w/ stent placement, gout, who presents for wound assessment and treatment evaluation of left lower leg wounds. Pt reports a new wounds opened up on both lower legs after his last wound center visit on 11/12/2021. He has been putting MediHoney and Adaptic on the wounds. He has only been able to tolerate one layer of Tubi-b2b sales representative since the wounds occurred d/t pain at the wound sites. Location: left lower leg, right lower leg Onset: right lower leg-approx 2 weeks Aggravating factors: Diabetes mellitus and Vascular impairment Wound etiology: Vascular, Dermatologic Associated pain with wound: yes Relieving factors for wound pain: wound care Treatments: Current: MediHoney gel, Adaptic Past: triple antibiotic ointment PAST MEDICAL HISTORY Diagnosis Date Cancer (HCC) colon cancer late Coronary artery disease one stent Diabetes mellitus without mention of complication Diabetes mellitus Gout Hypertension PMH - PAST MEDICAL HISTORY OF 09/10/07 Right shoulder fracture Renal disorder PAST SURGICAL HISTORY Procedure Laterality Date COLON SURGERY HX ORTHOPEDICS SURGERY HX , carpal tunnel TONSILLECTOMY HX ALLERGIES ALLERGIES Allergen Reactions Bees swells Lorazepam Intolerance Mupirocin Rash blisters Oseltamivir Unknown made me sick, told I shouldn't take it Silver Sulfadiazine Rash CURRENT OUTPATIENT MEDICATIONS cholecalciferol (VITAMIN D-3) 50 mcg (2,000 unit) tablet Take 2,000 Units by mouth once daily. diclofenac sodium (VOLTAREN) 1 % topical gel Apply 2 g to affected area three times daily as needed (pain and swelling). finasteride (PROSCAR) 5 mg tablet Take 1 tablet by mouth once daily. fluticasone (FLONASE) 50 mcg/actuation nasal spray Use 2 Sprays in each nostril every morning. HYDROcodone-acetaminophen (NORCO) 5-325 mg per tablet Take 1 tablet by mouth every 6 hours as needed. NOVOLOG MIX 70-30 100 unit/mL (70-30) inpn injection Inject subcutaneously three times daily with meals. -sliding scale Up to 40 units TID tamsulosin ER (FLOMAX) 0.4 mg Take 1 capsule by mouth daily at bedtime. carvedilol (COREG) 25 mg tablet Take 1 tablet by mouth twice daily. furosemide (LASIX) 20 mg tablet Take 1 tablet by mouth twice daily. Valsartan-Hydrochlorothiazide 320-25 mg per tablet Take 1 tablet by mouth once daily. blood sugar diagnostic(ASCENSIA CONTOUR TEST STRIPS) Testing twice daily needles, insulin disposable(BD INSULIN PEN NEEDLE UF SHORT 31 X 5/16 ) use as directed aspirin(ECOTRIN LOW STRENGTH 81 MG TAB) Take one(1) tablet daily. multivitamins(MULTIPLE VITAMINS TAB) Take one(1) tablet daily. calcium carbonate/vitamin d3(CALCIUM 600 + D(3) 600 MG (1,500)-200 UNIT TAB) Take 1 tablet by mouth once daily. LANCETS Use as directed. sulfamethoxazole-trimethoprim (BACTRIM DS,SEPTRA DS) 800-160 mg per tablet TAKE 1 TABLET BY MOUTH EVERY 12 HOURS FOR 10 DAYS. Drink plenty OF fluids triamcinolone acetonide (KENALOG) 0.1 % ointment Apply to affected areas on both lower legs twice a day as directed febuxostat (ULORIC) 80 mg tab Take 1 tablet by mouth once daily. amLODIPine (NORVASC) 5 mg tablet Take 1 tablet by mouth once daily. GLIPIZIDE 10 MG TAB Take one(1) tablet two(2) times daily. exenatide(BYETTA 10 MCG/0.04 ML PER DOSE SUB-Q PEN INJECTOR) Inject ten(10) mcg subcutaneously twice daily within 60 minutes prior to a meal . carvedilol(COREG 6.25 MG TAB) Take one(1) tablet twice daily. furosemide(LASIX 40 MG TAB) Take one(1) tablet two(2) times daily. valsartan/hydrochlorothiazide(DIOV AN HCT 160 MG-12.5 MG TAB) Take one(1) tablet daily. amlodipine (NORVASC) 10 mg ORAL Tab Take one(1) tablet daily. No family history on file. Social History Tobacco Use Smoking status: Never Smoker Smokeless tobacco: Never Used Vaping Use Vaping Use: Never used Substance Use Topics Alcohol use: Yes Comment: rare Drug use: Never REVIEW OF SYSTEMS: GENERAL: No weight loss, malaise or fevers RESPIRATORY: Negative for cough, hemoptysis, wheezing, COPD, dyspnea or shortness of breath CARDIOVASCULAR: Negative for chest pain, HTN, CHF or palpitations. Positive for leg edema (chronic). GI: No nausea, vomiting, or diarrhea MUSCULOSKELETAL: Negative for joint pain or swelling, back pain or muscle pain SKIN: Positive for wounds, right and left lower legs (see wound assessment). HEMATOLOGY/LYMPHOLOGY: Negative for prolonged bleeding, bruising easily or swollen nodes ENDOCRINE: Negative for cold or heat intolerance, polyuria, polydipsia and goiter NEURO: No history of headaches, syncope, paralysis, seizures or tremors PHYSICAL EXAM: BP 126/65 / Pulse 83 / Resp 22 / Temp 97.1 F / SpO2 97% General appearance: Well appearing, alert, in no acute distress, well-hydrated, well nourished. Skin: Skin color, texture, turgor normal, no suspicious rashes or lesions. Increased erythema with warmth of bilat pretibial areas, R>L. Positive wounds, right and left lower leg (see wound assessment). Head: Normocephalic, no masses, lesions, tenderness or abnormalities Eyes: Anicteric sclera. Pupils are equally round and reactive to light. Extraocular movements are intact. Lungs: Respirations even and unlabored Extremities: Edema: 1+ right lower leg, trace edema right foot; 1+ edema left lower leg, trace edema left foot Musculoskeletal: No joint swelling, deformity, or tenderness Peripheral pulses: triphasic doppler signals x 4; palpable DP pulses bilat Neuro: Oriented X 3. Ambulatory WOUND ASSESSMENT Wound 13: Location: left anterior lower leg inferior Type: vascular insufficiency Stage: NA Exposed structure:None Progress: closed Wound measurements (cm): 0 Full thickness- Yes Tunneling/undermining: not applicable Wound tissue color: epithelial Periwound tissue: erythema Drainage: none Drainage odor: n/a Wound 14: Location: right anterior lower leg Type: vascular insufficiency Stage: NA Exposed structure:None Progress: initial Wound measurements (cm): 1.8 x 2.0 x 0.1 Full thickness- Yes Tunneling/undermining: none Wound tissue color: red Periwound tissue: erythema Drainage: serosanguinous, small Drainage odor: none Wound 15: Location: left anterior lower leg Type: vascular insufficiency Stage: NA Exposed structure:None Progress: initial Wound measurements (cm): 2.2 x 2.0 x 0.1 Full thickness- Yes Tunneling/undermining: none Wound tissue color: red Periwound tissue: erythema Drainage: serosanguinous, small Drainage odor: none DATA PHOTOGRAPHY:no A photo was taken of the patient's wound(s). Photos can be found under the [facility] images tab on [facility]. The purpose of the photo(s) is to optimize the patient's medical care and allow a visual aid to their wound evaluation and progress. The photo(s) are not intended for publication, education, or research. If the use of the photo is desired in any additional way, other than for the above outlined purposes, then an additional consent for the intended use will need to be obtained by the requesting provider. 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 Increased erythema with warmth and tenderness of bilat pretibial areas. Plan: change tx - Cleanse legs with Dial soap and water. Pat dry. Vashe soak to wounds. Apply hydrogel wound gel and Xeroform to wounds. Cover with 4x4 gauze and conform roll gauze. Change daily and prn. - Doxycycline 100mg one tab po twice a day x 7 days for bilat LE cellulitis - Vaseline to intact skin bilat lower legs daily to moisturize. - Single layer Tubi-b2b sales representative size F bilat LE for edema control/compression ---unable to tolerate double layer at this time d/t wound pain - Recommend elevate legs at least 30 min 3x/day - Follow up in wound center in 1 week I discussed the plan in detail with the patient and the patient verbalizes understanding and is in agreement. My previous progress note dated 11/12/2021 was copied forward, updated where appropriate, and reflective of current medical decision making today, 11/25/2021. Jess Copeland APRN, FARM GENERAL MANAGER, CWS Certified Forest Fire Prevention Specialist November 25, 2021 documented in this encounter [facility] 11-25-2021 Instructions Marlene Raymundo RN - 11/25/2021 10:40 AM EDT WOUND CARE INSTRUCTIONS- Analilia Rodriguez Wound location: Right lower leg Wash your hands with soap and water before and after wound care. Gather all supplies needed. Wash your legs with Dial soap and warm water. Rinse and pat dry. Apply vaseline or vitamin A&D to all intact skin to lower legs Apply Vashe' soak for 5-10 minutes then pat dry Lower Anterior Lower Legs: Cleanse with: Vashe' Apply to conrad-wound skin: vaseline Apply to wound bed: dab of hydrogel, xeroform Cover and secure with: 4x4 gauze, conform and tape Other: Apply tubi-b2b sales representative F to both lower legs (On in the AM and off at Bedtime) SHORTY WRAP/TUBI-DAG SPRAYER: Remove compression wraps if they become uncomfortable or cause a change in color or sensation to the extremity. Your wrap should always be worn from the base of the toes to 1 below the knee. Avoid sitting with your legs in a dependent position or standing for long periods of time.Attempt to lay flat and elevate your legs above the level of your heart 2-3 times daily for 30 minutes at a time. If it becomes necessary to remove the wrap, do so by unwinding it and apply clean dressing as instructed then notify the wound care center. COMPRESSION must be removed if: it becomes wet or soiled If you have numbness or tingling in your foot or toes If you have increased pain If toes become cold or discolored Regarding lymphedema/edema: Elevation of extremity above the heart for 30 minutes three times daily and as needed Exercise such as writing the ABC's with your toes in the air, walking and/or calf pumps Wearing compression as ordered by provider Diet controlling of sodium as instructed by provider Use of medication to help control edema. To give your wound the best chance to heal: - Eat three balanced meals daily focusing on the protein - Control swelling by elevating the extremity above your heart - exercise the extremity - Control your blood sugar. Keep blood sugar less than 200 - Complete your wound care instructions - Vitamin C 500 mg twice daily - Multiple Vitamin Daily - Drink a protein shake daily Report any of the following changes to the Wound Center at [phone] or go to the Emergency Department: Fever or chills Increased drainage Green or yellow drainage Foul odor Increased pain Hardness around the wound Redness, warmth or swelling of the surrounding tissue Color change to the wound Plan: Return to the wound center to see Jess Copeland CNP in 1 week Rx: Doxycycline Marlene to order wound care supplies from [facility]: Jess Copeland, URIAH/mjl/tlc documented in this encounter [facility] 11-12-2021 History of Present illness Narrative Images from the original note were not included. WOUND CENTER PROGRESS NOTE PATIENT NAME: Analilia Rodriguez DATE OF FOLLOW UP: 11/12/2021 REASON FOR FOLLOW UP: left lower leg wounds HISTORY OF PRESENT ILLNESS: Analilia Rodriguez is a 71 year old y/o male w/ hx DM2, HTN, CAD w/ stent placement, gout, who presents for wound assessment and treatment evaluation of left lower leg wounds. Pt reports a new wound opened up on his right lower leg about 3 days after his last wound center visit on 10/29/2021. He has been putting MediHoney on it and thinks the wound is improving. He also has noticed some increased LE edema; he admits to being on his feet more lately. He states he does wear the Tubi-b2b sales representative compression stockings. He relates he asked his PCP about increasing his Lasix, but the PCP did not want to do that d/t pt kidney function. He completed the course of Bactrim for LE cellulitis. Location: left lower leg, right lower leg Onset: right lower leg-approx 2 weeks Aggravating factors: Diabetes mellitus and Vascular impairment Wound etiology: Vascular, Dermatologic Associated pain with wound: no Relieving factors for wound pain: n/a Treatments: Current: MediHoney gel Past: triple antibiotic ointment PAST MEDICAL HISTORY Diagnosis Date Cancer (HCC) colon cancer late Coronary artery disease one stent Diabetes mellitus without mention of complication Diabetes mellitus Gout Hypertension PMH - PAST MEDICAL HISTORY OF 09/10/07 Right shoulder fracture Renal disorder PAST SURGICAL HISTORY Procedure Laterality Date COLON SURGERY HX ORTHOPEDICS SURGERY HX , carpal tunnel TONSILLECTOMY HX ALLERGIES ALLERGIES Allergen Reactions Bees swells Lorazepam Intolerance Mupirocin Rash blisters Oseltamivir Unknown made me sick, told I shouldn't take it Silver Sulfadiazine Rash CURRENT OUTPATIENT MEDICATIONS sulfamethoxazole-trimethoprim (BACTRIM DS,SEPTRA DS) 800-160 mg per tablet TAKE 1 TABLET BY MOUTH EVERY 12 HOURS FOR 10 DAYS. Drink plenty OF fluids triamcinolone acetonide (KENALOG) 0.1 % ointment Apply to affected areas on both lower legs twice a day as directed cholecalciferol (VITAMIN D-3) 50 mcg (2,000 unit) tablet Take 2,000 Units by mouth once daily. diclofenac sodium (VOLTAREN) 1 % topical gel Apply 2 g to affected area three times daily as needed (pain and swelling). febuxostat (ULORIC) 80 mg tab Take 1 tablet by mouth once daily. finasteride (PROSCAR) 5 mg tablet Take 1 tablet by mouth once daily. fluticasone (FLONASE) 50 mcg/actuation nasal spray Use 2 Sprays in each nostril every morning. HYDROcodone-acetaminophen (NORCO) 5-325 mg per tablet Take 1 tablet by mouth every 6 hours as needed. NOVOLOG MIX 70-30 100 unit/mL (70-30) inpn injection Inject subcutaneously three times daily with meals. -sliding scale Up to 40 units TID tamsulosin ER (FLOMAX) 0.4 mg Take 1 capsule by mouth daily at bedtime. amLODIPine (NORVASC) 5 mg tablet Take 1 tablet by mouth once daily. carvedilol (COREG) 25 mg tablet Take 1 tablet by mouth twice daily. furosemide (LASIX) 20 mg tablet Take 1 tablet by mouth twice daily. Valsartan-Hydrochlorothiazide 320-25 mg per tablet Take 1 tablet by mouth once daily. GLIPIZIDE 10 MG TAB Take one(1) tablet two(2) times daily. blood sugar diagnostic(ASCENSIA CONTOUR TEST STRIPS) Testing twice daily exenatide(BYETTA 10 MCG/0.04 ML PER DOSE SUB-Q PEN INJECTOR) Inject ten(10) mcg subcutaneously twice daily within 60 minutes prior to a meal . needles, insulin disposable(BD INSULIN PEN NEEDLE UF SHORT 31 X 516 ) use as directed carvedilol(COREG 6.25 MG TAB) Take one(1) tablet twice daily. furosemide(LASIX 40 MG TAB) Take one(1) tablet two(2) times daily. aspirin(ECOTRIN LOW STRENGTH 81 MG TAB) Take one(1) tablet daily. valsartan/hydrochlorothiazide(DIOV AN HCT 160 MG-12.5 MG TAB) Take one(1) tablet daily. multivitamins(MULTIPLE VITAMINS TAB) Take one(1) tablet daily. calcium carbonate/vitamin d3(CALCIUM 600 + D(3) 600 MG (1,500)-200 UNIT TAB) Take 1 tablet by mouth once daily. LANCETS Use as directed. amlodipine (NORVASC) 10 mg ORAL Tab Take one(1) tablet daily. No family history on file. Social History Tobacco Use Smoking status: Never Smoker Smokeless tobacco: Never Used Vaping Use Vaping Use: Never used Substance Use Topics Alcohol use: Yes Comment: rare Drug use: Never REVIEW OF SYSTEMS: GENERAL: No weight loss, malaise or fevers RESPIRATORY: Negative for cough, hemoptysis, wheezing, COPD, dyspnea or shortness of breath CARDIOVASCULAR: Negative for chest pain, HTN, CHF or palpitations. Positive for leg edema (chronic). GI: No nausea, vomiting, or diarrhea MUSCULOSKELETAL: Negative for joint pain or swelling, back pain or muscle pain SKIN: Positive for wound, right lower leg. HEMATOLOGY/LYMPHOLOGY: Negative for prolonged bleeding, bruising easily or swollen nodes ENDOCRINE: Negative for cold or heat intolerance, polyuria, polydipsia and goiter NEURO: No history of headaches, syncope, paralysis, seizures or tremors PHYSICAL EXAM: BP 136/57 / Pulse 79 / Resp 20 / Temp 97.7 F / SpO2 95% General appearance: Well appearing, alert, in no acute distress, well-hydrated, well nourished. Skin: Skin color, texture, turgor normal, no suspicious rashes or lesions. Stasis related erythema bilat pretibial areas, R>L. Positive wound, right lower leg (see wound assessment). No increased warmth of pretibial areas. Head: Normocephalic, no masses, lesions, tenderness or abnormalities Eyes: Anicteric sclera. Pupils are equally round and reactive to light. Extraocular movements are intact. Lungs: Respirations even and unlabored Extremities: Edema: 2+ right lower leg, trace edema right foot; 1+ edema left lower leg, trace edema left foot Musculoskeletal: No joint swelling, deformity, or tenderness Peripheral pulses: triphasic doppler signals x 4; palpable DP pulses bilat Neuro: Oriented X 3. Ambulatory WOUND ASSESSMENT Wound 11: Location: left anterior lower leg superior Type: vascular insufficiency Stage: NA Exposed structure:None Progress: closed Wound measurements (cm): 0 Full thickness- Yes Tunneling/undermining: none Wound tissue color: epithelial Periwound tissue: mild erythema Drainage: none Drainage odor: n/a Wound 12: Location: left anterior lower leg inferior Type: vascular insufficiency Stage: NA Exposed structure:None Progress: closed Wound measurements (cm): 0 Full thickness- Yes Tunneling/undermining: not applicable Wound tissue color: epithelial Periwound tissue: mild erythema Drainage: none Drainage odor: n/a Wound 13: Location: left anterior lower leg inferior Type: vascular insufficiency Stage: NA Exposed structure:None Progress: initial Wound measurements (cm): 0.4 x 0.4 x 0.1 Full thickness- Yes Tunneling/undermining: not applicable Wound tissue color: red Periwound tissue: blanchable erythema Drainage: serosanguinous, small Drainage odor: none DATA PHOTOGRAPHY:no A photo was taken of the patient's wound(s). Photos can be found under the [facility] images tab on [facility]. The purpose of the photo(s) is to optimize the patient's medical care and allow a visual aid to their wound evaluation and progress. The photo(s) are not intended for publication, education, or research. If the use of the photo is desired in any additional way, other than for the above outlined purposes, then an additional consent for the intended use will need to be obtained by the requesting provider. 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 New right leg wound, no s/s infection. Some increased erythema of right pretibial, but no increased warmth, pt denies pain and itching, only mild soreness Plan: - Cleanse legs with Dial soap and water. Pat dry. Vashe soak to wound. Apply 50/50 mix of Hydrocortisone 2.5% cream and triple antibiotic ointment to reddened pretibial area. Apply MediHoney and Adaptic to right lower leg wound. Cover with 4x4 gauze and conform roll gauze. Change daily and prn. - No further tx needed to LLE. Keep SIDE GLUER. - Vaseline to intact skin bilat lower legs daily to moisturize. - Double layer Tubi-b2b sales representative bilat LE for edema control/compression - Recommend elevate legs at least 30 min 3x/day - Follow up in wound center in 2 weeks I discussed the plan in detail with the patient and the patient verbalizes understanding and is in agreement. My previous progress note dated 10/29/2021 was copied forward, updated where appropriate, and reflective of current medical decision making today, 11/12/2021. Jess Copeland APRN, FARM GENERAL MANAGER, CWS Certified Forest Fire Prevention Specialist November 12, 2021 documented in this encounter [facility] 11-12-2021 Instructions Maria L Roque RN - 11/12/2021 8:11 AM EDT WOUND CARE INSTRUCTIONS- Analilia Rodriguez Wound location: Right lower leg Wash your hands with soap and water before and after wound care. Gather all supplies needed. Wash your legs with Dial soap and warm water. Rinse and pat dry. Apply Vashe' soak for 5-10 minutes then pat dry Apply a mixture of 2.5% hydrocortison cream and triple antibiotic ointment to the reddened skin around the wound right leg Apply medi-honey to the base of the wound then adaptic (mesh like material) over the wound Cover with 4x4 gauze Secure with conform and tape Change your dressing every day Apply double layer tubi-b2b sales representative to both lower legs beginning behind the toes and up to one inch below the knee. Apply first thing in the morning and you may remove at bedtime SHORTY WRAP/TUBI-DAG SPRAYER: Remove compression wraps if they become uncomfortable or cause a change in color or sensation to the extremity. Your wrap should always be worn from the base of the toes to 1 below the knee. Avoid sitting with your legs in a dependent position or standing for long periods of time.Attempt to lay flat and elevate your legs above the level of your heart 2-3 times daily for 30 minutes at a time. If it becomes necessary to remove the wrap, do so by unwinding it and apply clean dressing as instructed then notify the wound care center. COMPRESSION must be removed if: it becomes wet or soiled If you have numbness or tingling in your foot or toes If you have increased pain If toes become cold or discolored Regarding lymphedema/edema: Elevation of extremity above the heart for 30 minutes three times daily and as needed Exercise such as writing the ABC's with your toes in the air, walking and/or calf pumps Wearing compression as ordered by provider Diet controlling of sodium as instructed by provider Use of medication to help control edema. To give your wound the best chance to heal: - Eat three balanced meals daily focusing on the protein - Control swelling by elevating the extremity above your heart - exercise the extremity - Control your blood sugar. Keep blood sugar less than 200 - Complete your wound care instructions - Vitamin C 500 mg twice daily - Multiple Vitamin Daily - Drink a protein shake daily Report any of the following changes to the Wound Center at [phone] or go to the Emergency Department: Fever or chills Increased drainage Green or yellow drainage Foul odor Increased pain Hardness around the wound Redness, warmth or swelling of the surrounding tissue Color change to the wound Plan: Return to the wound center to see Jess Copeland CNP in 2 weeks Jess Copeland CNP/brice/sarah documented in this encounter [facility] 11-12-2021 Nurse Note Nursing Documentation Pertinent Medical History: DM II, heart stent Wound Etiology according to patient: Blisters and wounds appeared March 31 2021 Patient arrived via: [facility] Aircraft Logs/Nursing Facility:NA Consent captured for debridement per Jess Copeland CNP and good until November 2021 Anticoagulant Therapy: ASA 81 mg ACTIVE CARE PER PROVIDER: Jess Copeland CNP Wound 1-7 previously healed WOUND # 8 RIGHT anterior lateral lower leg (NEW 08/12/21) - Closed 08/19/21 WOUND # 9 RIGHT anterior medial lower leg (NEW 08/12/21) -Closed 08/19/21 WOUND # 10 LEFT anterior lateral lower leg (NEW 08/12/21) - Closed 08/19/21 WOUND # 11 LOCATION: Left anterior lower leg superior - new 10/29/21 Closed 11/12/21 WOUND # 12 LOCATION: left anterior lower leg inferior - new 10/29/21 Closed 11/12/21 _ WOUND ASSESSMENT: Refer to Provider's Wound Assessment Note VASCULAR ASSESSMENT BY PROVIDER: Doppler : triphasic x 4 CHF History: family hx noted, patient denies EDEMA: Right foot: trace Right calf: 2+ Left foot : trace Left Calf: 1+ Other: NA MEASUREMENTS: in CM Right Calf: 47.6 Right Ankle: 27.0 Left Calf: 48.5 Left Ankle: 27.4 Length: 46.5 WOUND PHOTOGRAPHY: NO DEBRIDEMENT PROCEDURE BY PROVIDER: Anesthetic Used: 2% lidocaine gel applied by Brandon Rainey RN Wound # 13 Other procedure: N/A Specimen collected: N/A WOUND TREATMENT PER MD ORDER: All wounds cleansed by mechanical debridement with NS and gauze to allow provider to visualize wound bed WOUND #13 LOCATION: Right anterior lower leg (NEW 11/12/21) L: 0.4 cm x W: 0.4 cm x D: 0.1cm DEBRIDEMENT: N/A Post debridement measurements: L: cm x W: cm x D: Cm Cleansed with: Vashe' Applied to conrad-wound skin: triple antibiotic ointment mixed with 2.5 % hydrocortisone cream Applied to wound bed: medi-honey, adaptic Covered and secured with: 4x4 gauze, conform and tape Other: double Tubigrips bilateral lower legs Scattered blanchable erythema noted on bilateral anterior lower legs . 1. Right lateral lower leg 21.3 cm x 12.0cm 2. Left lateral lower leg 10.9cm x 8.9 cm SHORTY WRAP/SurePress/Tubi-b2b sales representative: Foot is warm and pink before and after application. It was demonstrated to the patient how to check for adequate circulation. Patient voices understanding. If circulation becomes compromised by a change in color, increased pain, numbness or tingling to the area, the patient knows to remove the compression and elevate the leg above the heart. COMPRESSION: Double layerTubiGrip size SPECIAL NEEDS: Coordination of care - Prism as needed for supplies Emotional support N/A OR set-up N/A Equipment Operator N/A Incontinence needs N/A DISCHARGED in stable condition to: Self ambulatory with rollator walker Global surgical period dates if applicable: N/A Plan: Return to the wound center to see Jess Copeland CNP in 2 weeks EDUCATION: The patient/family was instructed how to cleanse the wound(s). Visual demonstration on how to apply the dressing with teach back method. Signs & symptoms of infection were reviewed: Increased redness, swelling, pain, green/yellow drainage, fever and/or chills would all need to be evaluated by a Physician. Patient received typed home-going wound care instructions and has expressed intent to comply. OTHER EDUCATION: Provider discussed wound care to right lower leg and also creams to treat reddened skin periwound; the need for more elevation of legs. Education performed regarding lymphedema/edema: Elevation of extremity above the heart for 30 minutes three times daily and as needed Exercise such as writing the ABC's with your toes in the air, walking and/or calf pumps Wearing compression as ordered by provider Diet controlling of sodium as instructed by provider Use of medication to help control edema. _ UNIVERSAL PROTOCOL / SAFETY CHECKLIST: N/A __ Current HBOT Status: Active or Complete - see screening below WOUND CENTER HYPERBARIC OXYGEN THERAPY SCREENING 1. Is the patient diabetic? (If No, skip to question 5) Yes 2. Does the patient have a lower extremity wound? Yes 3. Is there exposed/involved tendon or bone? No 4. Has the wound been present for 30 days? no If Yes to ALL questions above, consult the Hyperbaric Center 5. Has the patient been diagnosed with osteomyelitis? No 6. Has the patient had a previous skin graft or flap at the wound? No 7. Has the patient had or been offered vascular intervention/evaluation? No 8. Does the patient have a wound at an amputation site? No 9. Has the patient had radiation therapy at the site of the problem? No If Yes to ANY of questions 5-9, consult the Hyperbaric Center Maria L Roque RN/sarah documented in this encounter [facility] 10-29-2021 History of Present illness Narrative Images from the original note were not included. WOUND CENTER PROGRESS NOTE PATIENT NAME: Analilia Rodriguez DATE OF FOLLOW UP: 10/29/2021 REASON FOR FOLLOW UP: left lower leg wounds HISTORY OF PRESENT ILLNESS: Analilia Rodriguez is a 71 year old y/o male w/ hx DM2, HTN, CAD w/ stent placement, gout, who presents for evaluation of new left lower leg wounds. Pt reports he developed blisters on his left lower leg about 2 weeks ago. He is uncertain how they started, he may have hit his leg on something. He is currently on po Bactrim for the wounds, prescribed by his PCP d/t concern for infection. Location: left lower leg Onset: 2 weeks Aggravating factors: Diabetes mellitus and Vascular impairment Wound etiology: Vascular, Dermatologic Associated pain with wound: yes, burning Relieving factors for wound pain: wound care Treatments: Current: triple antibiotic ointment Past: n/a PAST MEDICAL HISTORY Diagnosis Date Cancer (HCC) colon cancer late Coronary artery disease one stent Diabetes mellitus without mention of complication Diabetes mellitus Gout Hypertension PMH - PAST MEDICAL HISTORY OF 09/10/07 Right shoulder fracture Renal disorder PAST SURGICAL HISTORY Procedure Laterality Date COLON SURGERY HX ORTHOPEDICS SURGERY HX , carpal tunnel TONSILLECTOMY HX ALLERGIES ALLERGIES Allergen Reactions Bees swells Lorazepam Intolerance Mupirocin Rash blisters Oseltamivir Unknown made me sick, told I shouldn't take it Silver Sulfadiazine Rash CURRENT OUTPATIENT MEDICATIONS sulfamethoxazole-trimethoprim (BACTRIM DS,SEPTRA DS) 800-160 mg per tablet TAKE 1 TABLET BY MOUTH EVERY 12 HOURS FOR 10 DAYS. Drink plenty OF fluids cholecalciferol (VITAMIN D-3) 50 mcg (2,000 unit) tablet Take 2,000 Units by mouth once daily. diclofenac sodium (VOLTAREN) 1 % topical gel Apply 2 g to affected area three times daily as needed (pain and swelling). febuxostat (ULORIC) 80 mg tab Take 1 tablet by mouth once daily. finasteride (PROSCAR) 5 mg tablet Take 1 tablet by mouth once daily. fluticasone (FLONASE) 50 mcg/actuation nasal spray Use 2 Sprays in each nostril every morning. HYDROcodone-acetaminophen (NORCO) 5-325 mg per tablet Take 1 tablet by mouth every 6 hours as needed. NOVOLOG MIX 70-30 100 unit/mL (70-30) inpn injection Inject subcutaneously three times daily with meals. -sliding scale Up to 40 units TID tamsulosin ER (FLOMAX) 0.4 mg Take 1 capsule by mouth daily at bedtime. carvedilol (COREG) 25 mg tablet Take 1 tablet by mouth twice daily. furosemide (LASIX) 20 mg tablet Take 1 tablet by mouth twice daily. Valsartan-Hydrochlorothiazide 320-25 mg per tablet Take 1 tablet by mouth once daily. blood sugar diagnostic(ASCENSIA CONTOUR TEST STRIPS) Testing twice daily needles, insulin disposable(BD INSULIN PEN NEEDLE UF SHORT 31 X 09/13 ) use as directed aspirin(ECOTRIN LOW STRENGTH 81 MG TAB) Take one(1) tablet daily. multivitamins(MULTIPLE VITAMINS TAB) Take one(1) tablet daily. calcium carbonate/vitamin d3(CALCIUM 600 + D(3) 600 MG (1,500)-200 UNIT TAB) Take 1 tablet by mouth once daily. LANCETS Use as directed. triamcinolone acetonide (KENALOG) 0.1 % ointment Apply to affected areas on both lower legs twice a day as directed amLODIPine (NORVASC) 5 mg tablet Take 1 tablet by mouth once daily. GLIPIZIDE 10 MG TAB Take one(1) tablet two(2) times daily. exenatide(BYETTA 10 MCG/0.04 ML PER DOSE SUB-Q PEN INJECTOR) Inject ten(10) mcg subcutaneously twice daily within 60 minutes prior to a meal . carvedilol(COREG 6.25 MG TAB) Take one(1) tablet twice daily. furosemide(LASIX 40 MG TAB) Take one(1) tablet two(2) times daily. valsartan/hydrochlorothiazide(DIOV AN HCT 160 MG-12.5 MG TAB) Take one(1) tablet daily. amlodipine (NORVASC) 10 mg ORAL Tab Take one(1) tablet daily. No family history on file. Social History Tobacco Use Smoking status: Never Smoker Smokeless tobacco: Never Used Vaping Use Vaping Use: Never used Substance Use Topics Alcohol use: Yes Comment: rare Drug use: Never REVIEW OF SYSTEMS: GENERAL: No weight loss, malaise or fevers RESPIRATORY: Negative for cough, hemoptysis, wheezing, COPD, dyspnea or shortness of breath CARDIOVASCULAR: Negative for chest pain, HTN, CHF or palpitations. Positive for leg edema (chronic). GI: No nausea, vomiting, or diarrhea MUSCULOSKELETAL: Negative for joint pain or swelling, back pain or muscle pain SKIN: Positive for wounds, left lower leg. HEMATOLOGY/LYMPHOLOGY: Negative for prolonged bleeding, bruising easily or swollen nodes ENDOCRINE: Negative for cold or heat intolerance, polyuria, polydipsia and goiter NEURO: No history of headaches, syncope, paralysis, seizures or tremors PHYSICAL EXAM: BP 119/56 / Pulse 80 / Resp 20 / Temp 98.1 F / SpO2 95% General appearance: Well appearing, alert, in no acute distress, well-hydrated, well nourished. Skin: Skin color, texture, turgor normal, no suspicious rashes or lesions. Stasis related erythema bilat pretibial areas, R>L. Positive wounds, left lower leg (see wound assessment) Head: Normocephalic, no masses, lesions, tenderness or abnormalities Eyes: Anicteric sclera. Pupils are equally round and reactive to light. Extraocular movements are intact. Lungs: Respirations even and unlabored Extremities: Edema: Trace edema right lower leg and foot; trace edema left lower leg and left foot Musculoskeletal: No joint swelling, deformity, or tenderness Peripheral pulses: triphasic doppler signals x 4; palpable DP pulses bilat Neuro: Oriented X 3. Ambulatory WOUND ASSESSMENT Wound 11: Location: left anterior lower leg superior Type: vascular insufficiency Stage: NA Exposed structure:None Progress: initial Wound measurements (cm): 1.5 x 2.5 x 0.1 Full thickness- Yes Tunneling/undermining: none Wound tissue color: 50% slough, 50% pink Periwound tissue: mild erythema Drainage: serosanguinous, scant Drainage odor: none Wound 12: Location: left anterior lower leg inferior Type: vascular insufficiency Stage: NA Exposed structure:None Progress: initial Wound measurements (cm): 0.7 x 0.5 Full thickness- Yes Tunneling/undermining: not applicable Wound tissue color: scab Periwound tissue: mild erythema Drainage: none Drainage odor: n/a PROCEDURE: Excisional Sharp Debridement- left anterior lower leg superior A time out was performed immediately prior to procedure start with the CARD PLACER and team , correctly identifying the patient name, date of , procedure, anatomy, patient position, safety precautions, and procedure-specific equipment needs. The procedure was explained to the patient including the risks, benefits and alternatives. The risks, including but not limited to infection and bleeding, were reviewed by the performing provider and the patient agrees to undergo the procedure. Written consent was obtained . With appropriate consent the wound was sharply debrided down to and including subcutaneous tissue Total tissue debrided Less than 20 sq.cm Using a sterile currette the wound was debrided. Patient required pre-medication: Lidocaine 2% gel Patient expressed pain during procedure: yes Scale: controlled with topical Lidocaine EBL: none Wound measurement prior to debridement: 1.5 x 2.5 x 0.1 Wound measurement post debridement: 1.5 x 2.7 x 0.1 Type of tissue debrided: ( slough, necrotic, devitalized) Tissue at wound bed after debridment: 90% pink, 10% slough Dressing applied after debridement: yes Patient tolerated procedure well without apparent complications. DATA PHOTOGRAPHY:no A photo was taken of the patient's wound(s). Photos can be found under the [facility] images tab on [facility]. The purpose of the photo(s) is to optimize the patient's medical care and allow a visual aid to their wound evaluation and progress. The photo(s) are not intended for publication, education, or research. If the use of the photo is desired in any additional way, other than for the above outlined purposes, then an additional consent for the intended use will need to be obtained by the requesting provider. 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 Pat dry. Vashe soak to wounds. Apply MediHoney and Adaptic to wounds. Cover with 4x4 gauze and conform roll gauze. Change daily and prn. - Vaseline to intact skin bilat lower legs daily to moisturize. - Single layer Tubi-b2b sales representative size F applied to LLE (d/t wound soreness-double layer too painful with wound); double layer Tubi-b2b sales representative to RLE - continue antibiotic as prescribed - Recommend elevate legs at least 30 min 3x/day - Follow up in wound center in 2 weeks I discussed the plan in detail with the patient and the patient verbalizes understanding and is in agreement. My previous progress note dated 08/19/2021 was copied forward, updated where appropriate, and reflective of current medical decision making today, 10/29/2021. Jess Copeland APRN, URIAH, CWS Certified Forest Fire Prevention Specialist October 29, 2021 documented in this encounter [facility] 10-29-2021 Instructions Rossi Huang RN - 10/29/2021 9:02 AM EDT WOUND CARE INSTRUCTIONS- Analilia Rodriguez Wound location: Left lower legs Wash your hands with soap and water before and after wound care. Gather all supplies needed. Wash your legs with Dial soap and warm water. Rinse and pat dry. Apply Vashe' soak for 5-10 minutes then pat dry Apply medi-honey to the base of the wound then adaptic (mesh like material) over the wound Cover with 4x4 gauze Secure with conform and tape Change your dressing every day Apply single layer tubi-b2b sales representative to the left leg beginning behind the toes and up to one inch below the knee. Apply double layer tubi-b2b sales representative to the right leg. Apply first thing in the morning and you may remove at bedtime SHORTY WRAP/TUBI-DAG SPRAYER: Remove compression wraps if they become uncomfortable or cause a change in color or sensation to the extremity. Your wrap should always be worn from the base of the toes to 1 below the knee. Avoid sitting with your legs in a dependent position or standing for long periods of time.Attempt to lay flat and elevate your legs above the level of your heart 2-3 times daily for 30 minutes at a time. If it becomes necessary to remove the wrap, do so by unwinding it and apply clean dressing as instructed then notify the wound care center. COMPRESSION must be removed if: it becomes wet or soiled If you have numbness or tingling in your foot or toes If you have increased pain If toes become cold or discolored Regarding lymphedema/edema: Elevation of extremity above the heart for 30 minutes three times daily and as needed Exercise such as writing the ABC's with your toes in the air, walking and/or calf pumps Wearing compression as ordered by provider Diet controlling of sodium as instructed by provider Use of medication to help control edema. To give your wound the best chance to heal: - Eat three balanced meals daily focusing on the protein - Control swelling by elevating the extremity above your heart - exercise the extremity - Control your blood sugar. Keep blood sugar less than 200 - Complete your wound care instructions - Vitamin C 500 mg twice daily - Multiple Vitamin Daily - Drink a protein shake daily Report any of the following changes to the Wound Center at [phone] or go to the Emergency Department: Fever or chills Increased drainage Green or yellow drainage Foul odor Increased pain Hardness around the wound Redness, warmth or swelling of the surrounding tissue Color change to the wound Plan: 1. Return to the wound center to see Jess Copeland CNP in 2 weeks 2. Continue Bactrim 10 day course your PCP started you on 10/23/21 Jess Copeland CNP/ sis/mm documented in this encounter [facility] 10-29-2021 Nurse Note Nursing Documentation Pertinent Medical History: DM II, heart stent Wound Etiology according to patient: Blisters and wounds appeared March 31 2021 Patient arrived via: ambulatory , POV Home Care Company/Nursing Facility:NA Consent captured for debridement per Jess Copeland CNP and good until November 2021 Anticoagulant Therapy: ASA 81 mg ACTIVE CARE PER PROVIDER: Jess Copeland CNP Wound 1-7 previously healed WOUND # 8 RIGHT anterior lateral lower leg (NEW 08/12/21) - Closed 08/19/21 WOUND # 9 RIGHT anterior medial lower leg (NEW 08/12/21) -Closed 08/19/21 WOUND # 10 LEFT anterior lateral lower leg (NEW 08/12/21) - Closed 08/19/21 _ WOUND ASSESSMENT: Refer to Provider's Wound Assessment Note VASCULAR ASSESSMENT BY PROVIDER: Doppler : triphasic x 4 CHF History: family hx noted, patient denies EDEMA: Right foot: trace Right calf: trace Left foot : trace Left Calf: trace Other: NA MEASUREMENTS: in CM Right Calf: 48.3 Right Ankle: 27.8 Left Calf: 47 Left Ankle: 27.5 Length: 46.5 - Not measured at 10/29/21 visit WOUND PHOTOGRAPHY: NO DEBRIDEMENT PROCEDURE BY PROVIDER: Anesthetic Used: 2% lidocaine gel applied by Nadja Jacob RN Wound # 11 & 12 Other procedure: N/A Specimen collected: N/A WOUND TREATMENT PER MD ORDER: All wounds cleansed by mechanical debridement with NS and gauze to allow provider to visualize wound bed WOUND # 11 LOCATION: Left anterior lower leg superior - new 10/29/21 L: 1.5 cm x W: 2.5 cm x D: 0.1 cm DEBRIDEMENT: SQ Post debridement measurements if applicable : L: 1.5 cm x W: 2.7 cm x D: 0.1 cm WOUND # 12 LOCATION: left anterior lower leg inferior - new 10/29/21 L: 0.7 cm x W: 0.5 cm x D: scabbed DEBRIDEMENT: NA Cleansed with: Vashe' Applied to conrad-wound skin: none Applied to wound bed: medi-honey, adaptic Covered and secured with: 4x4 gauze, conform and tape Other: single layer F tubi-b2b sales representative to left lower extremity since it is so sore from base of toes to 1: below knee. Double tubi-b2b sales representative to the right lower leg Scattered erythema noted on bilateral lower legs . 1. Right lateral lower leg 20 cm x 11cm 2. Left lateral lower leg 15 cm x 13.5 cm SHORTY WRAP/SurePress/Tubi-b2b sales representative: Foot is warm and pink before and after application. It was demonstrated to the patient how to check for adequate circulation. Patient voices understanding. If circulation becomes compromised by a change in color, increased pain, numbness or tingling to the area, the patient knows to remove the compression and elevate the leg above the heart. COMPRESSION: Double layerTubiGrip size: F bilateral lower legs SPECIAL NEEDS: Coordination of care N/A Emotional support N/A OR set-up N/A Equipment Operator N/A Incontinence needs N/A DISCHARGED in stable condition to: Self ambulatory with rollator walker Global surgical period dates if applicable: N/A Plan: 1. Return to the wound center to see Jess Copeland CNP in 2 weeks 2. Continue Bactrim 10 day course your PCP started you on 10/23/21 EDUCATION: The patient/family was instructed how to cleanse the wound(s). Visual demonstration on how to apply the dressing with teach back method. Signs & symptoms of infection were reviewed: Increased redness, swelling, pain, green/yellow drainage, fever and/or chills would all need to be evaluated by a Physician. Patient received typed home-going wound care instructions and has expressed intent to comply. OTHER EDUCATION: Jess discussed new wounds, antibiotic course, new wound care Education performed regarding lymphedema/edema: Elevation of extremity above the heart for 30 minutes three times daily and as needed Exercise such as writing the ABC's with your toes in the air, walking and/or calf pumps Wearing compression as ordered by provider Diet controlling of sodium as instructed by provider Use of medication to help control edema. _ UNIVERSAL PROTOCOL / SAFETY CHECKLIST Procedure to be Performed: serial sharp debridement Sign In: 914 A Moment of CARE was completed. Personnel directly involved with the procedure wore the appropriate PPE (Personal Protective Equipment). Patient/Surrogate Stated/Verified: PATIENT VERIFIED(optional for EMERGENT procedures): Patient name, Date of , Relevant allergies and The intended procedure Time Out Communication: 914 Intended patient and procedure match the source documents. Consent documented and matches the intended procedure. Sign Out: 916 SIGN OUT (optional for EMERGENT procedures): No specimen collected. Rossi Huang RN Current HBOT Status: Active or Complete - see screening below WOUND CENTER HYPERBARIC OXYGEN THERAPY SCREENING 1. Is the patient diabetic? (If No, skip to question 5) Yes 2. Does the patient have a lower extremity wound? Yes 3. Is there exposed/involved tendon or bone? No 4. Has the wound been present for 30 days? no If Yes to ALL questions above, consult the Hyperbaric Center 5. Has the patient been diagnosed with osteomyelitis? No 6. Has the patient had a previous skin graft or flap at the wound? No 7. Has the patient had or been offered vascular intervention/evaluation? No 8. Does the patient have a wound at an amputation site? No 9. Has the patient had radiation therapy at the site of the problem? No If Yes to ANY of questions 5-9, consult the Hyperbaric Center Rossi Huang RN/mm documented in this encounter [facility] 08-19-2021 History of Present illness Narrative Images from the original note were not included. WOUND CENTER PROGRESS NOTE PATIENT NAME: Analilia Rodriguez DATE OF FOLLOW UP: 08/19/2021 REASON FOR FOLLOW UP: bilat lower leg rash and wounds HISTORY OF PRESENT ILLNESS: Analilia Rodriguez is a 71 year old y/o male w/ hx DM2, HTN, CAD w/ stent placement, gout, who presents for wound assessment and treatment evaluation of bilat lower leg stasis dermatitis. Location: bilat lower legs Onset: chronic, comes and goes Aggravating factors: Diabetes mellitus and Vascular impairment Wound etiology: Vascular, Dermatologic Associated pain with wound: no; itching improved Relieving factors for wound pain: wound care Treatments: Current: Triamcinolone cream, triple antibiotic ointment Past: Xeroform, MediHoney, Bacitracin, Hydrocortisone cream, unna boot PAST MEDICAL HISTORY Diagnosis Date Cancer (HCC) colon cancer late Coronary artery disease one stent Diabetes mellitus without mention of complication Diabetes mellitus Gout Hypertension PMH - PAST MEDICAL HISTORY OF 09/10/07 Right shoulder fracture Renal disorder PAST SURGICAL HISTORY Procedure Laterality Date COLON SURGERY HX ORTHOPEDICS SURGERY HX , carpal tunnel TONSILLECTOMY HX ALLERGIES ALLERGIES Allergen Reactions Bees swells Lorazepam Intolerance Mupirocin Rash blisters Oseltamivir Unknown made me sick, told I shouldn't take it Silver Sulfadiazine Rash CURRENT OUTPATIENT MEDICATIONS triamcinolone acetonide (KENALOG) 0.1 % ointment Apply to affected areas on both lower legs twice a day as directed cholecalciferol (VITAMIN D-3) 50 mcg (2,000 unit) tablet Take 2,000 Units by mouth once daily. diclofenac sodium (VOLTAREN) 1 % topical gel Apply 2 g to affected area three times daily as needed (pain and swelling). febuxostat (ULORIC) 80 mg tab Take 1 tablet by mouth once daily. finasteride (PROSCAR) 5 mg tablet Take 1 tablet by mouth once daily. fluticasone (FLONASE) 50 mcg/actuation nasal spray Use 2 Sprays in each nostril every morning. HYDROcodone-acetaminophen (NORCO) 5-325 mg per tablet Take 1 tablet by mouth every 6 hours as needed. NOVOLOG MIX 70-30 100 unit/mL (70-30) inpn injection Inject subcutaneously three times daily with meals. -sliding scale Up to 40 units TID tamsulosin ER (FLOMAX) 0.4 mg Take 1 capsule by mouth daily at bedtime. carvedilol (COREG) 25 mg tablet Take 1 tablet by mouth twice daily. furosemide (LASIX) 20 mg tablet Take 1 tablet by mouth twice daily. Valsartan-Hydrochlorothiazide 320-25 mg per tablet Take 1 tablet by mouth once daily. blood sugar diagnostic(ASCENSIA CONTOUR TEST STRIPS) Testing twice daily needles, insulin disposable(BD INSULIN PEN NEEDLE UF SHORT 31 X 09/13 ) use as directed aspirin(ECOTRIN LOW STRENGTH 81 MG TAB) Take one(1) tablet daily. multivitamins(MULTIPLE VITAMINS TAB) Take one(1) tablet daily. calcium carbonate/vitamin d3(CALCIUM 600 + D(3) 600 MG (1,500)-200 UNIT TAB) Take 1 tablet by mouth once daily. LANCETS Use as directed. amLODIPine (NORVASC) 5 mg tablet Take 1 tablet by mouth once daily. GLIPIZIDE 10 MG TAB Take one(1) tablet two(2) times daily. exenatide(BYETTA 10 MCG/0.04 ML PER DOSE SUB-Q PEN INJECTOR) Inject ten(10) mcg subcutaneously twice daily within 60 minutes prior to a meal . carvedilol(COREG 6.25 MG TAB) Take one(1) tablet twice daily. furosemide(LASIX 40 MG TAB) Take one(1) tablet two(2) times daily. valsartan/hydrochlorothiazide(DIOV AN HCT 160 MG-12.5 MG TAB) Take one(1) tablet daily. amlodipine (NORVASC) 10 mg ORAL Tab Take one(1) tablet daily. No family history on file. Social History Tobacco Use Smoking status: Never Smoker Smokeless tobacco: Never Used Vaping Use Vaping Use: Never used Substance Use Topics Alcohol use: Yes Comment: rare Drug use: Never REVIEW OF SYSTEMS: GENERAL: No weight loss, malaise or fevers RESPIRATORY: Negative for cough, hemoptysis, wheezing, COPD, dyspnea or shortness of breath CARDIOVASCULAR: Negative for chest pain, CHF or palpitations. Positive for HTN, leg edema. GI: No nausea, vomiting, or diarrhea MUSCULOSKELETAL: Negative for joint pain or swelling, back pain or muscle pain SKIN: Positive for rash, bilat shins, R>L. HEMATOLOGY/LYMPHOLOGY: Negative for prolonged bleeding, bruising easily or swollen nodes ENDOCRINE: Negative for cold or heat intolerance, polyuria, polydipsia and goiter NEURO: No history of headaches, syncope, paralysis, seizures or tremors PHYSICAL EXAM: BP 127/55 / Pulse 57 / Resp 20 / Temp 96.8 F / SpO2 98% General appearance: Well appearing, alert, in no acute distress, well-hydrated, well nourished. Skin: Skin color, texture, turgor normal, no suspicious rashes or lesions. Macular erythema, R>L, no open wounds, no drainage. Head: Normocephalic, no masses, lesions, tenderness or abnormalities Eyes: Anicteric sclera. Pupils are equally round and reactive to light. Extraocular movements are intact. Lungs: Respirations even and unlabored Extremities: Edema: Trace edema right lower leg and foot; 2+ edema left lower leg, 1+ edema left foot Musculoskeletal: No joint swelling, deformity, or tenderness Peripheral pulses: triphasic doppler signals x 4; palpable DP pulses bilat Neuro: Oriented X 3. Ambulatory WOUND ASSESSMENT Wound 8: Location: right anterior lateral lower leg Type: dermatitis, vascular insufficiency Stage: NA Exposed structure:None Progress: closed Wound measurements (cm): 0 Full thickness- Yes Tunneling/undermining: not applicable Wound tissue color: epithelial Periwound tissue: rash Drainage:none Drainage odor: n/a Wound 9: Location: right anterior medial lower leg Type: dermatitis, vascular insufficiency Stage: NA Exposed structure:None Progress: closed Wound measurements (cm): 0 Full thickness- Yes Tunneling/undermining: not applicable Wound tissue color: epithelial Periwound tissue: rash Drainage: none Drainage odor: n/a Wound 10: Location: right anterior lateral lower leg Type: dermatitis, vascular insufficiency Stage: NA Exposed structure:None Progress: closed Wound measurements (cm): 0 Full thickness- Yes Tunneling/undermining: not applicable Wound tissue color: epithelial Periwound tissue: rash Drainage: none Drainage odor: n/a DATA PHOTOGRAPHY:no A photo was taken of the patient's wound(s). Photos can be found under the [facility] images tab on [facility]. The purpose of the photo(s) is to optimize the patient's medical care and allow a visual aid to their wound evaluation and progress. The photo(s) are not intended for publication, education, or research. If the use of the photo is desired in any additional way, other than for the above outlined purposes, then an additional consent for the intended use will need to be obtained by the requesting provider. Photo was taken of: Verbal consent was obtained: MICROBIOLOGY: Reviewed; wound culture (06/09/21), right leg-moderate Staphylococcus aureus, many Staphylococcus epidermidis. Wound culture, left leg-few Staph aureus, few coag neg Staph species IMAGING: Reviewed IMPRESSION/RECOMMENDATIONS The patient's age and other co morbidities are likely to impact wound and skin integrity Additional impediments to healing Diabetic: Yes Anticoagulation: Aspirin Antibiotics:No Steroids: No (I87.2) Stasis dermatitis of both legs (I87.303) Venous hypertension of both lower extremities Comment: Improved erythema bilat pretibial areas, no open wounds. Plan: - Cleanse legs with Dial soap and water. Pat dry. Apply equal part mixture of Triamcinolone 0.1% ointment to affected areas bilat lower legs twice a day x 1 more week, then once a day x 1 week, then every other day x 1 week, then discontinue. Keep SIDE GLUER. - discontinue triple antibiotic ointment, no longer needed - Vaseline to intact skin bilat lower legs daily to moisturize. - Double layer Tubi-b2b sales representative size F applied to bilat LE, on in AM, off at hs (to decrease heat and moisture on lower legs) ---continue to hold CircAid wraps until topical steroid course complete - Recommend elevate legs at least 30 min 3x/day - Follow up in wound center as needed I discussed the plan in detail with the patient and the patient verbalizes understanding and is in agreement. My previous progress note dated 08/12/2021 was copied forward, updated where appropriate, and reflective of current medical decision making today, 08/19/2021. Jess Copeland APRN, URIAH, CWS Certified Forest Fire Prevention Specialist August 19, 2021 documented in this encounter [facility] 08-19-2021 Nurse Note Nursing Documentation Pertinent Medical History: DM II, heart stent Wound Etiology according to patient: Blisters and wounds appeared March 31 2021 Patient arrived via: ambulatory , POV Home Care Company/Nursing Facility:NA Consent captured for debridement per Jess Copeland CNP and good until November 2021 Anticoagulant Therapy: ASA 81 mg ACTIVE CARE PER PROVIDER: Jess Copeland CNP Wound 1-7 previously healed _ WOUND ASSESSMENT: Refer to Provider's Wound Assessment Note VASCULAR ASSESSMENT BY PROVIDER: Doppler : triphasic x 4 CHF History: family hx noted, patient denies EDEMA: Right foot: trace Right calf: trace Left foot : 1+ Left Calf: 2+ Other: NA MEASUREMENTS: in CM Right Calf: 46.0 cm Right Ankle: 25.5 cm Left Calf:45.0 cm Left Ankle: 26.0 cm Length: 46.5 - Not measured at today's visit WOUND PHOTOGRAPHY: NO DEBRIDEMENT PROCEDURE BY PROVIDER: Anesthetic Used: N/A Wound # N/A Other procedure: N/A Specimen collected: N/A WOUND TREATMENT PER MD ORDER: All wounds cleansed by mechanical debridement with NS and gauze to allow provider to visualize wound bed WOUND # 8 RIGHT anterior lateral lower leg (NEW 08/12/21) - Closed 08/19/21 WOUND # 9 RIGHT anterior medial lower leg (NEW 08/12/21) -Closed 08/19/21 WOUND # 10 LEFT anterior lateral lower leg (NEW 08/12/21) - Closed 08/19/21 Scattered erythema noted on bilateral lower legs . No blisters or open areas noted. Pt denies itching. 1. Right lateral lower leg 20.1 cm x 10.5 cm 2. Left lateral lower leg 15.0 cm x 10.5 cm Cleansed with: normal saline, Applied to conrad-wound skin: Vaseline Applied to wound bed: Vaseline to intact skin Covered and secured with: double layer F tubi-b2b sales representative bilateral lower extremities from base of toes to 1: below knee Other: NA SHORTY WRAP/SurePress/Tubi-b2b sales representative: Foot is warm and pink before and after application. It was demonstrated to the patient how to check for adequate circulation. Patient voices understanding. If circulation becomes compromised by a change in color, increased pain, numbness or tingling to the area, the patient knows to remove the compression and elevate the leg above the heart. COMPRESSION: Double layerTubiGrip size: F bilateral lower legs SPECIAL NEEDS: Coordination of care N/A Emotional support N/A OR set-up N/A Equipment Operator N/A Incontinence needs N/A DISCHARGED in stable condition to: Self ambulatory with rollator walker Global surgical period dates if applicable: N/A Plan: 1. Return to the wound center to see Jess Copeland CNP as needed. Wound Center EDUCATION: The patient/family was instructed how to cleanse the wound(s). Visual demonstration on how to apply the dressing with teach back method. Signs & symptoms of infection were reviewed: Increased redness, swelling, pain, green/yellow drainage, fever and/or chills would all need to be evaluated by a Physician. Patient received typed home-going wound care instructions and has expressed intent to comply. OTHER EDUCATION: wound care Education performed regarding lymphedema/edema: Elevation of extremity above the heart for 30 minutes three times daily and as needed Exercise such as writing the ABC's with your toes in the air, walking and/or calf pumps Wearing compression as ordered by provider Diet controlling of sodium as instructed by provider Use of medication to help control edema. __ __ UNIVERSAL PROTOCOL / SAFETY CHECKLIST Procedure to be Performed: N/A Current HBOT Status: Active or Complete - see screening below WOUND CENTER HYPERBARIC OXYGEN THERAPY SCREENING 1. Is the patient diabetic? (If No, skip to question 5) Yes 2. Does the patient have a lower extremity wound? Yes 3. Is there exposed/involved tendon or bone? No 4. Has the wound been present for 30 days? no If Yes to ALL questions above, consult the Hyperbaric Center 5. Has the patient been diagnosed with osteomyelitis? No 6. Has the patient had a previous skin graft or flap at the wound? No 7. Has the patient had or been offered vascular intervention/evaluation? No 8. Does the patient have a wound at an amputation site? No 9. Has the patient had radiation therapy at the site of the problem? No If Yes to ANY of questions 5-9, consult the Hyperbaric Center Shira SLADE, RN, CWOCN Rossi Huang RN documented in this encounter [facility] 08-19-2021 Instructions Shira Loving RN - 08/19/2021 10:40 AM EDT WOUND CARE INSTRUCTIONS- Analilia Rodriguez Wound location: Right and Left lower legs Wash your hands with soap and water before and after wound care. Gather all supplies needed. Wash your legs with Dial soap and warm water. Rinse and pat dry. Apply Triamcinalone cream: - twice / day for 1 week. - once / day for 1 week. - every other day for 1 week. -Then you are finished with applying the Trimamcinalone cream. -Apply double layer of Tubigrip socks size F for compression to both lower legs - apply first thing in AM and may remove at bedtime. SHORTY WRAP/TUBI-DAG SPRAYER: Remove compression wraps if they become uncomfortable or cause a change in color or sensation to the extremity. Your wrap should always be worn from the base of the toes to 1 below the knee. Avoid sitting with your legs in a dependent position or standing for long periods of time.Attempt to lay flat and elevate your legs above the level of your heart 2-3 times daily for 30 minutes at a time. If it becomes necessary to remove the wrap, do so by unwinding it and apply clean dressing as instructed then notify the wound care center. COMPRESSION must be removed if: it becomes wet or soiled If you have numbness or tingling in your foot or toes If you have increased pain If toes become cold or discolored Regarding lymphedema/edema: Elevation of extremity above the heart for 30 minutes three times daily and as needed Exercise such as writing the ABC's with your toes in the air, walking and/or calf pumps Wearing compression as ordered by provider Diet controlling of sodium as instructed by provider Use of medication to help control edema. To give your wound the best chance to heal: - Eat three balanced meals daily focusing on the protein - Control swelling by elevating the extremity above your heart - exercise the extremity - Control your blood sugar. Keep blood sugar less than 200 - Complete your wound care instructions - Vitamin C 500 mg twice daily - Multiple Vitamin Daily - Drink a protein shake daily Report any of the following changes to the Wound Center at [phone] or go to the Emergency Department: Fever or chills Increased drainage Green or yellow drainage Foul odor Increased pain Hardness around the wound Redness, warmth or swelling of the surrounding tissue Color change to the wound Plan: 1. Return to the wound center to see Jess Copeland CNP as needed. Wound Center Jess Copeland CNP/ ariella /sis documented in this encounter [facility] 08-12-2021 History of Present illness Narrative Images from the original note were not included. WOUND CENTER PROGRESS NOTE PATIENT NAME: Analilia Rodriguez DATE OF FOLLOW UP: 08/12/2021 REASON FOR FOLLOW UP: bilat lower leg rash and wounds HISTORY OF PRESENT ILLNESS: Analilia Rodriguez is a 71 year old y/o male w/ hx DM2, HTN, CAD w/ stent placement, gout, who presents for wound assessment and treatment evaluation of bilat lower leg stasis dermatitis. Pt reports he developed new blisters on both crawford areas. He has been putting zinc oxide cream on the crawford areas. He stopped wearing the CircAid compression wraps after the blisters occurred; he is currently wearing Tubi-glass tinter on both legs. Location: bilat lower legs Onset: chronic, comes and goes Aggravating factors: Diabetes mellitus and Vascular impairment Wound etiology: Vascular, Dermatologic Associated pain with wound: no, but c/o itching Relieving factors for wound pain: wound care Treatments: Current: Hydrocortisone cream Past: Xeroform, MediHoney, Bacitracin, Hydrocortisone cream, unna boot PAST MEDICAL HISTORY Diagnosis Date Cancer (HCC) colon cancer late Coronary artery disease one stent Diabetes mellitus without mention of complication Diabetes mellitus Gout Hypertension PMH - PAST MEDICAL HISTORY OF 09/10/07 Right shoulder fracture Renal disorder PAST SURGICAL HISTORY Procedure Laterality Date COLON SURGERY HX ORTHOPEDICS SURGERY HX , carpal tunnel TONSILLECTOMY HX ALLERGIES ALLERGIES Allergen Reactions Bees swells Lorazepam Intolerance Mupirocin Rash blisters Oseltamivir Unknown made me sick, told I shouldn't take it Silver Sulfadiazine Rash CURRENT OUTPATIENT MEDICATIONS triamcinolone acetonide (KENALOG) 0.1 % ointment Apply to affected areas on both lower legs twice a day as directed cholecalciferol (VITAMIN D-3) 50 mcg (2,000 unit) tablet Take 2,000 Units by mouth once daily. diclofenac sodium (VOLTAREN) 1 % topical gel Apply 2 g to affected area three times daily as needed (pain and swelling). febuxostat (ULORIC) 80 mg tab Take 1 tablet by mouth once daily. finasteride (PROSCAR) 5 mg tablet Take 1 tablet by mouth once daily. fluticasone (FLONASE) 50 mcg/actuation nasal spray Use 2 Sprays in each nostril every morning. HYDROcodone-acetaminophen (NORCO) 5-325 mg per tablet Take 1 tablet by mouth every 6 hours as needed. NOVOLOG MIX 70-30 100 unit/mL (70-30) inpn injection Inject subcutaneously three times daily with meals. -sliding scale Up to 40 units TID tamsulosin ER (FLOMAX) 0.4 mg Take 1 capsule by mouth daily at bedtime. amLODIPine (NORVASC) 5 mg tablet Take 1 tablet by mouth once daily. carvedilol (COREG) 25 mg tablet Take 1 tablet by mouth twice daily. furosemide (LASIX) 20 mg tablet Take 1 tablet by mouth twice daily. Valsartan-Hydrochlorothiazide 320-25 mg per tablet Take 1 tablet by mouth once daily. GLIPIZIDE 10 MG TAB Take one(1) tablet two(2) times daily. blood sugar diagnostic(ASCENSIA CONTOUR TEST STRIPS) Testing twice daily exenatide(BYETTA 10 MCG/0.04 ML PER DOSE SUB-Q PEN INJECTOR) Inject ten(10) mcg subcutaneously twice daily within 60 minutes prior to a meal . needles, insulin disposable(BD INSULIN PEN NEEDLE UF SHORT 31 X 5/16 ) use as directed carvedilol(COREG 6.25 MG TAB) Take one(1) tablet twice daily. furosemide(LASIX 40 MG TAB) Take one(1) tablet two(2) times daily. aspirin(ECOTRIN LOW STRENGTH 81 MG TAB) Take one(1) tablet daily. valsartan/hydrochlorothiazide(DIOV AN HCT 160 MG-12.5 MG TAB) Take one(1) tablet daily. multivitamins(MULTIPLE VITAMINS TAB) Take one(1) tablet daily. calcium carbonate/vitamin d3(CALCIUM 600 + D(3) 600 MG (1,500)-200 UNIT TAB) Take 1 tablet by mouth once daily. LANCETS Use as directed. amlodipine (NORVASC) 10 mg ORAL Tab Take one(1) tablet daily. No family history on file. Social History Tobacco Use Smoking status: Never Smoker Smokeless tobacco: Never Used Vaping Use Vaping Use: Never used Substance Use Topics Alcohol use: Yes Comment: rare Drug use: Never REVIEW OF SYSTEMS: GENERAL: No weight loss, malaise or fevers RESPIRATORY: Negative for cough, hemoptysis, wheezing, COPD, dyspnea or shortness of breath CARDIOVASCULAR: Negative for chest pain, CHF or palpitations. Positive for HTN, leg edema. GI: No nausea, vomiting, or diarrhea MUSCULOSKELETAL: Negative for joint pain or swelling, back pain or muscle pain SKIN: Positive for rash, bilat shins, R>L. Positive for wounds, bilat LE (see wound assessment) HEMATOLOGY/LYMPHOLOGY: Negative for prolonged bleeding, bruising easily or swollen nodes ENDOCRINE: Negative for cold or heat intolerance, polyuria, polydipsia and goiter NEURO: No history of headaches, syncope, paralysis, seizures or tremors PHYSICAL EXAM: BP 127/70 / Pulse 80 / Resp 20 / Temp 97.5 F / SpO2 96% General appearance: Well appearing, alert, in no acute distress, well-hydrated, well nourished. Skin: Skin color, texture, turgor normal, no suspicious rashes or lesions. Maculopapular erythema, R>L with open blister areas, bilat LE (see wound assessment). Head: Normocephalic, no masses, lesions, tenderness or abnormalities Eyes: Anicteric sclera. Pupils are equally round and reactive to light. Extraocular movements are intact. Lungs: Respirations even and unlabored Extremities: Edema: generalized non pitting edema bilat lower legs and feet. Musculoskeletal: No joint swelling, deformity, or tenderness Peripheral pulses: triphasic doppler signals x 4; palpable DP pulses bilat Neuro: Oriented X 3. Ambulatory WOUND ASSESSMENT Wound 8: Location: right anterior lateral lower leg Type: dermatitis, vascular insufficiency Stage: NA Exposed structure:None Progress: initial Wound measurements (cm): 0.5 x 0.7 x 0.1 Full thickness- Yes Tunneling/undermining: not applicable Wound tissue color: dry red Periwound tissue: rash Drainage:none Drainage odor: n/a Wound 9: Location: right anterior medial lower leg Type: dermatitis, vascular insufficiency Stage: NA Exposed structure:None Progress:initial Wound measurements (cm): 3.4 x 2.5 x 0.1 Full thickness- Yes Tunneling/undermining: not applicable Wound tissue color: dry red Periwound tissue: rash Drainage: none Drainage odor: n/a Wound 10: Location: right anterior lateral lower leg Type: dermatitis, vascular insufficiency Stage: NA Exposed structure:None Progress: initial Wound measurements (cm): 1.8 x 1.8 x 0.1 Full thickness- Yes Tunneling/undermining: not applicable Wound tissue color: dry red Periwound tissue: rash Drainage: none Drainage odor: n/a DATA PHOTOGRAPHY:no A photo was taken of the patient's wound(s). Photos can be found under the [facility] images tab on [facility]. The purpose of the photo(s) is to optimize the patient's medical care and allow a visual aid to their wound evaluation and progress. The photo(s) are not intended for publication, education, or research. If the use of the photo is desired in any additional way, other than for the above outlined purposes, then an additional consent for the intended use will need to be obtained by the requesting provider. Photo was taken of: Verbal consent was obtained: MICROBIOLOGY: Reviewed; wound culture (06/09/21), right leg-moderate Staphylococcus aureus, many Staphylococcus epidermidis. Wound culture, left leg-few Staph aureus, few coag neg Staph species; sensitive to Doxycycline IMAGING: Reviewed IMPRESSION/RECOMMENDATIONS The patient's age and other co morbidities are likely to impact wound and skin integrity Additional impediments to healing Diabetic: Yes Anticoagulation: Aspirin Antibiotics:No Steroids: No (I87.2) Stasis dermatitis of both legs (I87.303) Venous hypertension of both lower extremities Comment: Increased rash/irritation bilat crawford areas, open wounds as noted. Pt reports he sleeps with CircAid wraps and stockings on, legs sweat; may be causing the rash. Plan: - Cleanse legs with Dial soap and water. Pat dry. Apply equal part mixture of Triamcinolone 0.1% ointment and triple antibiotic ointment to rash and wound areas, bilat lower legs twice a day. (Hydrocortisone 2.5% cream and triple antibiotic ointment applied in clinic today). Keep DIANA. - Vaseline to intact skin bilat lower legs daily to moisturize. - Double layer Tubi-b2b sales representative size F applied to bilat LE, on in AM, off at hs (to decrease heat and moisture on lower legs) ---hold CircAid wraps for now - Recommend elevate legs at least 30 min 3x/day - Follow up in wound center in 1 week I discussed the plan in detail with the patient and the patient verbalizes understanding and is in agreement. My previous progress note dated 07/30/2021 was copied forward, updated where appropriate, and reflective of current medical decision making today, 08/12/2021. Jess Copeland APRN, URIAH, CWS Certified Forest Fire Prevention Specialist August 12, 2021 documented in this encounter [facility] 08-12-2021 Instructions Dior Mccain RN - 08/12/2021 9:08 AM EDT WOUND CARE INSTRUCTIONS- Analilia Rodriguez Wound location: Right and Left lower legs Wash your hands with soap and water before and after wound care. Gather all supplies needed. Wash wound with wound wash or normal saline solution. Pat dry. Apply to the wound base and to rash - equal parts triamcinalone and triple antibiotic cream Apply ointments twice daily Apply double Tubigrip socks size F for compression both lower legs - apply first thing in AM and remove at bedtime SHORTY WRAP/TUBI-DAG SPRAYER: Remove compression wraps if they become uncomfortable or cause a change in color or sensation to the extremity. Your wrap should always be worn from the base of the toes to 1 below the knee. Avoid sitting with your legs in a dependent position or standing for long periods of time.Attempt to lay flat and elevate your legs above the level of your heart 2-3 times daily for 30 minutes at a time. If it becomes necessary to remove the wrap, do so by unwinding it and apply clean dressing as instructed then notify the wound care center. COMPRESSION must be removed if: it becomes wet or soiled If you have numbness or tingling in your foot or toes If you have increased pain If toes become cold or discolored Regarding lymphedema/edema: Elevation of extremity above the heart for 30 minutes three times daily and as needed Exercise such as writing the ABC's with your toes in the air, walking and/or calf pumps Wearing compression as ordered by provider Diet controlling of sodium as instructed by provider Use of medication to help control edema. To give your wound the best chance to heal: - Eat three balanced meals daily focusing on the protein - Control swelling by elevating the extremity above your heart - exercise the extremity - Control your blood sugar. Keep blood sugar less than 200 - Complete your wound care instructions - Vitamin C 500 mg twice daily - Multiple Vitamin Daily - Drink a protein shake daily Report any of the following changes to the Wound Center at [phone] or go to the Emergency Department: Fever or chills Increased drainage Green or yellow drainage Foul odor Increased pain Hardness around the wound Redness, warmth or swelling of the surrounding tissue Color change to the wound Plan: Return to the wound center to see Jess Copeland CNP in one week RX - triamcinalone sent to your pharmacy Continue aggressive nutritional support to assist wound healing Jess Copeland CNP/terry/lanny documented in this encounter [facility] 08-12-2021 Nurse Note Nursing Documentation Pertinent Medical History: DM II, heart stent Wound Etiology according to patient: Blisters and wounds appeared March 31 2021 Patient arrived via: [employer] [facility] [employer] [facility] Home Care Company/Nursing Facility:NA Consent captured for debridement per Jess Copeland CNP and good until November 2021 Anticoagulant Therapy: ASA 81 mg ACTIVE CARE PER PROVIDER: Jess Copeland CNP Wound 1-7 previously healed _ WOUND ASSESSMENT: Refer to Provider's Wound Assessment Note VASCULAR ASSESSMENT BY PROVIDER: Doppler : triphasic x 4 CHF History: family hx noted, patient denies EDEMA: Right foot: generalized non-pitting Right calf: generalized non-pitting Left foot : generalized non-pitting Left Calf: generalized non-pitting Other: NA MEASUREMENTS: in CM Right Calf: 47.0 Right Ankle: 27.0 Left Calf: 45.5 Left Ankle: 27.0 Length: 46.5 WOUND PHOTOGRAPHY: NO DEBRIDEMENT PROCEDURE BY PROVIDER: Anesthetic Used: N/A Wound # N/A Other procedure: N/A Specimen collected: N/A WOUND TREATMENT PER MD ORDER: All wounds cleansed by mechanical debridement with NS and gauze to allow provider to visualize wound bed WOUND # 8 RIGHT anterior lateral lower leg (NEW 08/12/21) L: 0.5 cm x W: 0.7 m x D: 0.1 cm DEBRIDEMENT by provider: Post debridement measurements: L: cm x W: cm x D: cm WOUND # 9 RIGHT anterior medial lower leg (NEW 08/12/21) L: 3.4 cm x W: 2.5 cm x D: 0.1 cm DEBRIDEMENT by provider: Post debridement measurements: L: cm x W: cm x D: cm WOUND # 10 LEFT anterior lateral lower leg (NEW 08/12/21) L: 1.8 cm x W: 1.8 cm x D: 0.1 cm DEBRIDEMENT by provider: Post debridement measurements: L: cm x W: cm x D: cm Reddened peppered rash noted on right lateral lower leg 23 cm x 9 cm and left lateral lower leg 12 cm x 8 cm - patient c/o itching Cleansed with: normal saline, Vashe Applied to conrad-wound skin: Hydrocortisone and triple antibiotic to wounds and rash Applied to wound bed: Vaseline to intact skin Covered and secured with: double layer of F tubi-b2b sales representative bilateral Other: NA SHORTY WRAP/SurePress/Tubi-b2b sales representative: Foot is warm and pink before and after application. It was demonstrated to the patient how to check for adequate circulation. Patient voices understanding. If circulation becomes compromised by a change in color, increased pain, numbness or tingling to the area, the patient knows to remove the compression and elevate the leg above the heart. COMPRESSION: tubi F bilateral lower legs SPECIAL NEEDS: Coordination of care N/A Emotional support N/A OR set-up N/A Equipment Operator N/A Incontinence needs N/A DISCHARGED in stable condition to: Self ambulatory with rollator walker Global surgical period dates if applicable: N/A Plan: Return to the wound center to see Jess Copeland CNP in one week RX - triamcinalone sent to your pharmacy Continue aggressive nutritional support to assist wound healing EDUCATION: The patient/family was instructed how to cleanse the wound(s). Visual demonstration on how to apply the dressing with teach back method. Signs & symptoms of infection were reviewed: Increased redness, swelling, pain, green/yellow drainage, fever and/or chills would all need to be evaluated by a Physician. Patient received typed home-going wound care instructions and has expressed intent to comply. OTHER EDUCATION: Reviewed importance of not occluding steroid dressing to leg and wearing compression without fail with removal at bedtime Education performed regarding lymphedema/edema: Elevation of extremity above the heart for 30 minutes three times daily and as needed Exercise such as writing the ABC's with your toes in the air, walking and/or calf pumps Wearing compression as ordered by provider Diet controlling of sodium as instructed by provider Use of medication to help control edema. __ __ UNIVERSAL PROTOCOL / SAFETY CHECKLIST Procedure to be Performed: N/A Current HBOT Status: Active or Complete - see screening below WOUND CENTER HYPERBARIC OXYGEN THERAPY SCREENING 1. Is the patient diabetic? (If No, skip to question 5) Yes 2. Does the patient have a lower extremity wound? Yes 3. Is there exposed/involved tendon or bone? No 4. Has the wound been present for 30 days? no If Yes to ALL questions above, consult the Hyperbaric Center 5. Has the patient been diagnosed with osteomyelitis? No 6. Has the patient had a previous skin graft or flap at the wound? No 7. Has the patient had or been offered vascular intervention/evaluation? No 8. Does the patient have a wound at an amputation site? No 9. Has the patient had radiation therapy at the site of the problem? No If Yes to ANY of questions 5-9, consult the Hyperbaric Center Dior Mccain RN /ml documented in this encounter [facility] 07-30-2021 Instructions Marlene Raymundo RN - 07/30/2021 8:58 AM EDT WOUND CARE INSTRUCTIONS- Analilia Oatestz Wound location: Right and Left lower legs Apply hydrocortisone to red/itchy areas on both shins for 2 additional weeks Apply twice daily Moisturize intact skin with vaseline daily Wear your own Velcro compression from breakfast to bedtime Both lower leg wounds: 1. Apply single layer Xeroform (yellow mesh gauze) to the wounds 2. Cover wounds with 4x4 gauze pads 3. Secure your dressings with conform roll gauze and tape 4. Apply Tubigrip socks over the dressings for compression both lower legs Regarding lymphedema/edema: Elevation of extremity above the heart for 30 minutes three times daily and as needed Exercise such as writing the ABC's with your toes in the air, walking and/or calf pumps Wearing compression as ordered by provider Diet controlling of sodium as instructed by provider Use of medication to help control edema. To give your wound the best chance to heal: - Eat three balanced meals daily focusing on the protein - Control swelling by elevating the extremity above your heart - exercise the extremity - Control your blood sugar. Keep blood sugar less than 200 - Complete your wound care instructions - Vitamin C 500 mg twice daily - Multiple Vitamin Daily - Drink a protein shake daily Report any of the following changes to the Wound Center at [phone] or go to the Emergency Department: Fever or chills Increased drainage Green or yellow drainage Foul odor Increased pain Hardness around the wound Redness, warmth or swelling of the surrounding tissue Color change to the wound Plan: 1. Return to the wound center to see Jess Copeland CNP in 2 weeks 2. Continue aggressive nutritional support to assist wound healing 3. Wound care supplies [facility] - Jess Copeland CNP/ramirez/bb documented in this encounter [facility] 07-30-2021 History of Present illness Narrative Images from the original note were not included. WOUND CENTER PROGRESS NOTE PATIENT NAME: Analilia Rodriguez DATE OF FOLLOW UP: 07/30/2021 REASON FOR FOLLOW UP: bilat lower leg wounds HISTORY OF PRESENT ILLNESS: Analilia Rodriguez is a 71 year old y/o male w/ hx DM2, HTN, CAD w/ stent placement, gout, who presents for wound assessment and treatment evaluation of bilat lower leg stasis dermatitis. Location: bilat lower legs Onset: May 2020 Aggravating factors: Diabetes mellitus and Vascular impairment Wound etiology: Vascular, Dermatologic Associated pain with wound: yes, mild tender, right distal lower leg Relieving factors for wound pain: wound care Treatments: Current: unna boot Past: Xeroform, MediHoney, Bacitracin, Hydrocortisone cream, unna boot PAST MEDICAL HISTORY Diagnosis Date Cancer (HCC) colon cancer late Coronary artery disease one stent Diabetes mellitus without mention of complication Diabetes mellitus Gout Hypertension PMH - PAST MEDICAL HISTORY OF 09/10/07 Right shoulder fracture Renal disorder PAST SURGICAL HISTORY Procedure Laterality Date COLON SURGERY HX ORTHOPEDICS SURGERY HX , carpal tunnel TONSILLECTOMY HX ALLERGIES ALLERGIES Allergen Reactions Bees swells Lorazepam Intolerance Mupirocin Rash blisters Oseltamivir Unknown made me sick, told I shouldn't take it Silver Sulfadiazine Rash CURRENT OUTPATIENT MEDICATIONS cholecalciferol (VITAMIN D-3) 50 mcg (2,000 unit) tablet Take 2,000 Units by mouth once daily. diclofenac sodium (VOLTAREN) 1 % topical gel Apply 2 g to affected area three times daily as needed (pain and swelling). betamethasone dipropionate, augmented (DIPROLENE) 0.05 % cream as needed. febuxostat (ULORIC) 80 mg tab Take 1 tablet by mouth once daily. finasteride (PROSCAR) 5 mg tablet Take 1 tablet by mouth once daily. fluticasone (FLONASE) 50 mcg/actuation nasal spray Use 2 Sprays in each nostril every morning. HYDROcodone-acetaminophen (NORCO) 5-325 mg per tablet Take 1 tablet by mouth every 6 hours as needed. NOVOLOG MIX 70-30 100 unit/mL (70-30) inpn injection Inject subcutaneously three times daily with meals. -sliding scale Up to 40 units TID tamsulosin ER (FLOMAX) 0.4 mg Take 1 capsule by mouth daily at bedtime. amLODIPine (NORVASC) 5 mg tablet Take 1 tablet by mouth once daily. carvedilol (COREG) 25 mg tablet Take 1 tablet by mouth twice daily. furosemide (LASIX) 20 mg tablet Take 1 tablet by mouth twice daily. Valsartan-Hydrochlorothiazide 320-25 mg per tablet Take 1 tablet by mouth once daily. GLIPIZIDE 10 MG TAB Take one(1) tablet two(2) times daily. blood sugar diagnostic(ASCENSIA CONTOUR TEST STRIPS) Testing twice daily exenatide(BYETTA 10 MCG/0.04 ML PER DOSE SUB-Q PEN INJECTOR) Inject ten(10) mcg subcutaneously twice daily within 60 minutes prior to a meal . needles, insulin disposable(BD INSULIN PEN NEEDLE UF SHORT 31 X 5/16 ) use as directed carvedilol(COREG 6.25 MG TAB) Take one(1) tablet twice daily. furosemide(LASIX 40 MG TAB) Take one(1) tablet two(2) times daily. aspirin(ECOTRIN LOW STRENGTH 81 MG TAB) Take one(1) tablet daily. valsartan/hydrochlorothiazide(DIOV AN HCT 160 MG-12.5 MG TAB) Take one(1) tablet daily. multivitamins(MULTIPLE VITAMINS TAB) Take one(1) tablet daily. calcium carbonate/vitamin d3(CALCIUM 600 + D(3) 600 MG (1,500)-200 UNIT TAB) Take 1 tablet by mouth once daily. LANCETS Use as directed. amlodipine (NORVASC) 10 mg ORAL Tab Take one(1) tablet daily. No family history on file. Social History Tobacco Use Smoking status: Never Smoker Smokeless tobacco: Never Used Vaping Use Vaping Use: Never used Substance Use Topics Alcohol use: Yes Comment: rare Drug use: Never REVIEW OF SYSTEMS: GENERAL: No weight loss, malaise or fevers RESPIRATORY: Negative for cough, hemoptysis, wheezing, COPD, dyspnea or shortness of breath CARDIOVASCULAR: Negative for chest pain, CHF or palpitations. Positive for HTN, leg edema. GI: No nausea, vomiting, or diarrhea MUSCULOSKELETAL: Negative for joint pain or swelling, back pain or muscle pain SKIN: Positive for mild erythema/rash, bilat shins HEMATOLOGY/LYMPHOLOGY: Negative for prolonged bleeding, bruising easily or swollen nodes ENDOCRINE: Negative for cold or heat intolerance, polyuria, polydipsia and goiter NEURO: No history of headaches, syncope, paralysis, seizures or tremors PHYSICAL EXAM: BP 133/56 / Pulse 81 / Resp 20 / Temp 98.9 F / SpO2 96% General appearance: Well appearing, alert, in no acute distress, well-hydrated, well nourished. Skin: Skin color, texture, turgor normal, no suspicious rashes or lesions. Mild erythema of bilat pretibial areas, R>L w/ mild overlying maculopapular rash, No open wounds, no drainage. Head: Normocephalic, no masses, lesions, tenderness or abnormalities Eyes: Anicteric sclera. Pupils are equally round and reactive to light. Extraocular movements are intact. Lungs: Respirations even and unlabored Extremities: Edema: trace edema right lower leg, no edema left lower leg; no edema bilat feet Musculoskeletal: No joint swelling, deformity, or tenderness Peripheral pulses: triphasic doppler signals x 4; palpable DP pulses bilat Neuro: Oriented X 3. Ambulatory WOUND ASSESSMENT N/a DATA PHOTOGRAPHY:no A photo was taken of the patient's wound(s). Photos can be found under the [facility] images tab on [facility]. The purpose of the photo(s) is to optimize the patient's medical care and allow a visual aid to their wound evaluation and progress. The photo(s) are not intended for publication, education, or research. If the use of the photo is desired in any additional way, other than for the above outlined purposes, then an additional consent for the intended use will need to be obtained by the requesting provider. Photo was taken of: Verbal consent was obtained: MICROBIOLOGY: Reviewed; wound culture (06/09/21), right leg-moderate Staphylococcus aureus, many Staphylococcus epidermidis. Wound culture, left leg-few Staph aureus, few coag neg Staph species; sensitive to Doxycycline IMAGING: Reviewed IMPRESSION/RECOMMENDATIONS The patient's age and other co morbidities are likely to impact wound and skin integrity Additional impediments to healing Diabetic: Yes Anticoagulation: Aspirin Antibiotics:No Steroids: No (I87.2) Stasis dermatitis of both legs (I87.303) Venous hypertension of both lower extremities Comment: No open wounds; positive stasis related erythema w/ mild overlying rash of bilat pretibial areas. Will treat with rash with topical steroid cream. Underlying pretibial erythema is largely chronic, will likely not improve much with topical steroid. Plan: - Cleanse legs with Dial soap and water. Pat dry. Apply Hydrocortisone 2.5% cream to affected areas bilat lower legs twice a day. Vaseline to bilat lower legs daily to moisturize. - Pt own CircAid compression wraps bilat (double layer Tubi-b2b sales representative size F applied to bilat LE in clinic today) - Recommend elevate legs at least 30 min 3x/day - Follow up in wound center in 2 weeks I discussed the plan in detail with the patient and the patient verbalizes understanding and is in agreement. My previous progress note dated 07/27/2021 was copied forward, updated where appropriate, and reflective of current medical decision making today, 07/30/2021. Jess Copeland APRN, URIAH, CWS Certified Forest Fire Prevention Specialist July 30, 2021 Medical Decision Making: Problems: Low: Stable chronic illness Risk: Low: Low risk from testing/treatment Medical Decision Making Level: 3 - Low documented in this encounter [facility] 07-30-2021 Nurse Note Nursing Documentation Pertinent Medical History: DM II, heart stent Wound Etiology according to patient: Blisters and wounds appeared March 31 2021 Patient arrived via: ambulatory , POV Home Care Company/Nursing Facility:NA Consent captured for debridement per Jess Copeland CNP and good until November 2021 Anticoagulant Therapy: ASA 81 mg ACTIVE CARE PER PROVIDER: Jess Copeland CNP Wound 1,3-5, 7 previously healed _ WOUND ASSESSMENT: Refer to Provider's Wound Assessment Note VASCULAR ASSESSMENT BY PROVIDER: Doppler : triphasic x 4 CHF History: NA EDEMA: Right foot: none Right calf: trace Left foot : none Left Calf: none Other: NA MEASUREMENTS: in CM Right Calf: 47.0 Right Ankle: 26.0 Left Calf: 45.6 Left Ankle: 26.5 Length: 46.5 WOUND PHOTOGRAPHY: NO DEBRIDEMENT PROCEDURE BY PROVIDER: Anesthetic Used: N/A Wound # N/A Other procedure: N/A Specimen collected: N/A WOUND TREATMENT PER MD ORDER: All wounds mechanically cleansed with NS and gauze WOUND # 2 LOCATION: LLE anterior crawford Resolved 05/17/21 - reopened 05/25/21 Circumferential periwound blisters 06/09/21, resolved 07/12/21, reopened on 07/16/21, Closed 07/27/21 WOUND # 6 LOCATION: Right Anterior Crawford - Distal Cluster - Closed on 07/23/21, Closed 07/27/21 Cleansed with: Applied to conrad-wound skin: Hydrocortisone cream to red itchy areas on both shins Applied to wound bed: Vaseline to intact skin Covered and secured with: double layer of F tubi-b2b sales representative bilateral Other: NA SHORTY WRAP/SurePress/Tubi-b2b sales representative: Foot is warm and pink before and after application. It was demonstrated to the patient how to check for adequate circulation. Patient voices understanding. If circulation becomes compromised by a change in color, increased pain, numbness or tingling to the area, the patient knows to remove the compression and elevate the leg above the heart. COMPRESSION: tubi F bilateral lower legs SPECIAL NEEDS: Coordination of care N/A Emotional support N/A OR set-up N/A Equipment Operator N/A Incontinence needs N/A DISCHARGED in stable condition to: Self ambulatory with rollator walker Global surgical period dates if applicable: N/A Plan: 1. Return to the wound center to see Jess Copeland CNP in 2 weeks 2. Continue aggressive nutritional support to assist wound healing 3. Wound care supplies [facility] - EDUCATION: The patient/family was instructed how to cleanse the wound(s). Visual demonstration on how to apply the dressing with teach back method. Signs & symptoms of infection were reviewed: Increased redness, swelling, pain, green/yellow drainage, fever and/or chills would all need to be evaluated by a Physician. Patient received typed home-going wound care instructions and has expressed intent to comply. OTHER EDUCATION: Education performed regarding lymphedema/edema: Elevation of extremity above the heart for 30 minutes three times daily and as needed Exercise such as writing the ABC's with your toes in the air, walking and/or calf pumps Wearing compression as ordered by provider Diet controlling of sodium as instructed by provider Use of medication to help control edema. __ __ UNIVERSAL PROTOCOL / SAFETY CHECKLIST Procedure to be Performed: N/A Current HBOT Status: Active or Complete - see screening below WOUND CENTER HYPERBARIC OXYGEN THERAPY SCREENING 1. Is the patient diabetic? (If No, skip to question 5) Yes 2. Does the patient have a lower extremity wound? Yes 3. Is there exposed/involved tendon or bone? No 4. Has the wound been present for 30 days? no If Yes to ALL questions above, consult the Hyperbaric Center 5. Has the patient been diagnosed with osteomyelitis? No 6. Has the patient had a previous skin graft or flap at the wound? No 7. Has the patient had or been offered vascular intervention/evaluation? No 8. Does the patient have a wound at an amputation site? No 9. Has the patient had radiation therapy at the site of the problem? No If Yes to ANY of questions 5-9, consult the Hyperbaric Center documented in this encounter [facility] 07-27-2021 History of Present illness Narrative Images from the original note were not included. WOUND CENTER PROGRESS NOTE PATIENT NAME: Analilia Rodriguez DATE OF FOLLOW UP: 07/27/2021 REASON FOR FOLLOW UP: bilat lower leg wounds HISTORY OF PRESENT ILLNESS: Analilia Rodriguez is a 71 year old y/o male w/ hx DM2, HTN, CAD w/ stent placement, gout, who presents for wound assessment and treatment evaluation of bilat lower leg wounds. Location: bilat lower legs Onset: May 2020 Aggravating factors: Diabetes mellitus and Vascular impairment Wound etiology: Vascular, Dermatologic Associated pain with wound: yes, mild tender, right distal lower leg Relieving factors for wound pain: wound care Treatments: Current: unna boot Past: Xeroform, MediHoney, Bacitracin, Hydrocortisone cream, unna boot PAST MEDICAL HISTORY Diagnosis Date Cancer (HCC) colon cancer late Coronary artery disease one stent Diabetes mellitus without mention of complication Diabetes mellitus Gout Hypertension PMH - PAST MEDICAL HISTORY OF 09/10/07 Right shoulder fracture Renal disorder PAST SURGICAL HISTORY Procedure Laterality Date COLON SURGERY HX ORTHOPEDICS SURGERY HX , carpal tunnel TONSILLECTOMY HX ALLERGIES ALLERGIES Allergen Reactions Bees swells Lorazepam Intolerance Mupirocin Rash blisters Oseltamivir Unknown made me sick, told I shouldn't take it Silver Sulfadiazine Rash CURRENT OUTPATIENT MEDICATIONS cholecalciferol (VITAMIN D-3) 50 mcg (2,000 unit) tablet Take 2,000 Units by mouth once daily. diclofenac sodium (VOLTAREN) 1 % topical gel Apply 2 g to affected area three times daily as needed (pain and swelling). betamethasone dipropionate, augmented (DIPROLENE) 0.05 % cream as needed. febuxostat (ULORIC) 80 mg tab Take 1 tablet by mouth once daily. finasteride (PROSCAR) 5 mg tablet Take 1 tablet by mouth once daily. fluticasone (FLONASE) 50 mcg/actuation nasal spray Use 2 Sprays in each nostril every morning. HYDROcodone-acetaminophen (NORCO) 5-325 mg per tablet Take 1 tablet by mouth every 6 hours as needed. NOVOLOG MIX 70-30 100 unit/mL (70-30) inpn injection Inject subcutaneously three times daily with meals. -sliding scale Up to 40 units TID tamsulosin ER (FLOMAX) 0.4 mg Take 1 capsule by mouth daily at bedtime. amLODIPine (NORVASC) 5 mg tablet Take 1 tablet by mouth once daily. carvedilol (COREG) 25 mg tablet Take 1 tablet by mouth twice daily. furosemide (LASIX) 20 mg tablet Take 1 tablet by mouth twice daily. Valsartan-Hydrochlorothiazide 320-25 mg per tablet Take 1 tablet by mouth once daily. GLIPIZIDE 10 MG TAB Take one(1) tablet two(2) times daily. blood sugar diagnostic(ASCENSIA CONTOUR TEST STRIPS) Testing twice daily exenatide(BYETTA 10 MCG/0.04 ML PER DOSE SUB-Q PEN INJECTOR) Inject ten(10) mcg subcutaneously twice daily within 60 minutes prior to a meal . needles, insulin disposable(BD INSULIN PEN NEEDLE UF SHORT 31 X 5/16 ) use as directed carvedilol(COREG 6.25 MG TAB) Take one(1) tablet twice daily. furosemide(LASIX 40 MG TAB) Take one(1) tablet two(2) times daily. aspirin(ECOTRIN LOW STRENGTH 81 MG TAB) Take one(1) tablet daily. valsartan/hydrochlorothiazide(DIOV AN HCT 160 MG-12.5 MG TAB) Take one(1) tablet daily. multivitamins(MULTIPLE VITAMINS TAB) Take one(1) tablet daily. calcium carbonate/vitamin d3(CALCIUM 600 + D(3) 600 MG (1,500)-200 UNIT TAB) Take 1 tablet by mouth once daily. LANCETS Use as directed. amlodipine (NORVASC) 10 mg ORAL Tab Take one(1) tablet daily. No family history on file. Social History Tobacco Use Smoking status: Never Smoker Smokeless tobacco: Never Used Vaping Use Vaping Use: Never used Substance Use Topics Alcohol use: Yes Comment: rare Drug use: Never REVIEW OF SYSTEMS: GENERAL: No weight loss, malaise or fevers RESPIRATORY: Negative for cough, hemoptysis, wheezing, COPD, dyspnea or shortness of breath CARDIOVASCULAR: Negative for chest pain, CHF or palpitations. Positive for HTN, leg edema. GI: No nausea, vomiting, or diarrhea MUSCULOSKELETAL: Negative for joint pain or swelling, back pain or muscle pain SKIN: Positive for erythema/rash, bilat shins HEMATOLOGY/LYMPHOLOGY: Negative for prolonged bleeding, bruising easily or swollen nodes ENDOCRINE: Negative for cold or heat intolerance, polyuria, polydipsia and goiter NEURO: No history of headaches, syncope, paralysis, seizures or tremors PHYSICAL EXAM: BP 136/63 / Pulse 82 / Resp 16 / Temp 97.1 F / SpO2 97% General appearance: Well appearing, alert, in no acute distress, well-hydrated, well nourished. Skin: Skin color, texture, turgor normal, no suspicious rashes or lesions. Mild erythema of bilat pretibial areas, R>L; no drainage. Head: Normocephalic, no masses, lesions, tenderness or abnormalities Eyes: Anicteric sclera. Pupils are equally round and reactive to light. Extraocular movements are intact. Lungs: Respirations even and unlabored Extremities: Edema: trace edema bilat lower legs and left foot, no edema bilat feet Musculoskeletal: No joint swelling, deformity, or tenderness Peripheral pulses: triphasic doppler signals x 4; palpable DP pulses bilat Neuro: Oriented X 3. Ambulatory WOUND ASSESSMENT N/a DATA PHOTOGRAPHY:no A photo was taken of the patient's wound(s). Photos can be found under the [facility] images tab on [facility]. The purpose of the photo(s) is to optimize the patient's medical care and allow a visual aid to their wound evaluation and progress. The photo(s) are not intended for publication, education, or research. If the use of the photo is desired in any additional way, other than for the above outlined purposes, then an additional consent for the intended use will need to be obtained by the requesting provider. Photo was taken of: Verbal consent was obtained: MICROBIOLOGY: Reviewed; wound culture (06/09/21), right leg-moderate Staphylococcus aureus, many Staphylococcus epidermidis. Wound culture, left leg-few Staph aureus, few coag neg Staph species; sensitive to Doxycycline IMAGING: Reviewed IMPRESSION/RECOMMENDATIONS The patient's age and other co morbidities are likely to impact wound and skin integrity Additional impediments to healing Diabetic: Yes Anticoagulation: Aspirin Antibiotics:No Steroids: No (I87.2) Stasis dermatitis of both legs (I87.303) Venous hypertension of both lower extremities Comment: No open wounds, but improving erythema of bilat pretibial areas. Fragile epithelial tissue of pretibial areas. Plan: continue unna boots for stasis dermatitis and to strengthen and protect fragile epithelial tissue - Cleanse legs with Dial soap and water. Pat dry. Vaseline to bilat lower legs. - Apply unna boot to bilat lower legs. Change twice a week (at wound center).. Unna Boot Application: zinc paste wrap applied to both lower extremity(s) followed by 4 coban and topped with a piece of stockinet from behind the toes to 1 below the knee. Toes are warm and pink before and and post application with a + dorsal pedis pulse on palpation. It was demonstrated to the patient how to check for adequate circulation. If the patient exhibits a change in color to the extremity, change in temperature, increased pain, or the boot becomes wet or too tight, the patient was instructed to remove the boot or go to the Emergency Department. Patient voices understanding with intent to comply. - Continue to hold CircAid compression wraps bilat - Recommend elevate legs at least 30 min 3x/day - Follow up in wound center on Mon07/30/2021 for treatment evaluation and unna boot change I discussed the plan in detail with the patient and the patient verbalizes understanding and is in agreement. My previous progress note dated 07/23/2021 was copied forward, updated where appropriate, and reflective of current medical decision making today, 07/27/2021. Jess Copeland APRN, FARM GENERAL MANAGER, CWS Certified Forest Fire Prevention Specialist July 27, 2021 documented in this encounter [facility] 07-27-2021 Instructions Maria L Roque RN - 07/27/2021 8:25 AM EDT WOUND CARE INSTRUCTIONS- Analilia Rodriguez Wound location: Right and Left lower legs Unna boots applied to both lower legs today. Please keep clean and dry until the morning of your next appointment and then you may remove the unna boots and take a shower (see below ). Unna Boot Application: If you exhibit a change in color to the extremity, change in temperature, increased pain, or the boot becomes wet or too tight, the patient was instructed to remove the boot or go to the Emergency Department. After your shower, please dress wounds as follows: -Gather supplies -Prepare a clean work surface such as new paper towel or newly cleaned towel -Clean all metal instruments with rubbing alcohol before and after each use. -Plastic garbage bag for old dressing - Wash your hands with soap and water before and after wound care. - Cleanse wounds with Vashe soak: apply Vashe moistened gauze to the wounds and allow to soak for 5-10 minutes, then remove & pat dry. Both lower leg wounds: 1. Apply single layer Xeroform (yellow mesh gauze) to the wounds 2. Cover wounds with 4x4 gauze pads 3. Secure your dressings with conform roll gauze and tape 4. Apply Tubigrip socks over the dressings for compression both lower legs Regarding lymphedema/edema: Elevation of extremity above the heart for 30 minutes three times daily and as needed Exercise such as writing the ABC's with your toes in the air, walking and/or calf pumps Wearing compression as ordered by provider Diet controlling of sodium as instructed by provider Use of medication to help control edema. To give your wound the best chance to heal: - Eat three balanced meals daily focusing on the protein - Control swelling by elevating the extremity above your heart - exercise the extremity - Control your blood sugar. Keep blood sugar less than 200 - Complete your wound care instructions - Vitamin C 500 mg twice daily - Multiple Vitamin Daily - Drink a protein shake daily Report any of the following changes to the Wound Center at [phone] or go to the Emergency Department: Fever or chills Increased drainage Green or yellow drainage Foul odor Increased pain Hardness around the wound Redness, warmth or swelling of the surrounding tissue Color change to the wound Plan: 1. Return to the wound center to see Jess Copeland CNP 07/30/2021 2. Continue aggressive nutritional support to assist wound healing 3. Wound care supplies Prism - Jess Copeland, URIAH/brice/sis documented in this encounter [facility] 07-27-2021 Nurse Note Nursing Documentation Pertinent Medical History: DM II, heart stent Wound Etiology according to patient: Blisters and wounds appeared March 31 2021 Patient arrived via: ambulatory , POV Home Care Company/Nursing Facility:NA Consent captured for debridement per Jess Copeland CNP and good until November 2021 Anticoagulant Therapy: ASA 81 mg ACTIVE CARE PER PROVIDER: Jess Copeland CNP WOUND # 3 LOCATION: RLE lateral crawford Resolved 05/17/21 WOUND #1 LOCATION: RLE crawford Resolved 05/17/21 - reopened 05/25/21 wound reopened - now 2 separate wounds 1A Right lower extremity crawford proximal Closed 06/01/21, reopened 06/09/21 Scabbed 06-16-2021, closed 07/12/21 1B Right lower extremity crawford distal-epithelialized 06/09/21 remains closed 06-16-2021, closed 07/12/21 WOUND # 3 LOCATION: Right Anterior Crawford - Proximal Cluster - Closed 07/20/21, Remains closed on 07/23/21 WOUND # 4 LOCATION: Right lower leg inferior/lateral (NEW 06/09/21) -Closed 07/12/21 WOUND # 5 LOCATION: Right Medial Lower Leg distal - Closed 07/12/21 WOUND # 3 LOCATION: Right crawford proximal (NEW 06/09/21) WOUND #6 LOCATION: Right lower leg anterior/distal (NEW 06/2021) WOUND #7 LOCATION: Right lower leg anterior/lateral (NEW 06/2021) __ WOUND ASSESSMENT: Refer to Provider's Wound Assessment Note VASCULAR ASSESSMENT BY PROVIDER: Doppler : triphasic x 4 CHF History: NA EDEMA: Right foot: none Right calf: trace Left foot : none Left Calf: trace Left & Right Ankle: 2+ Other: NA MEASUREMENTS: in CM Right Calf: 48.0 Right Ankle: 26.5 Left Calf: 45.9 Left Ankle: 26.5 Length: 46.5 WOUND PHOTOGRAPHY: NO DEBRIDEMENT PROCEDURE BY PROVIDER: Anesthetic Used: N/A Wound # N/A Other procedure: N/A Specimen collected: N/A WOUND TREATMENT PER MD ORDER: All wounds mechanically cleansed with NS and gauze WOUND # 2 LOCATION: LLE anterior crawford Resolved 05/17/21 - reopened 05/25/21 Circumferential periwound blisters 06/09/21, resolved 07/12/21, reopened on 07/16/21, Closed 07/27/21 WOUND # 6 LOCATION: Right Anterior Crawford - Distal Cluster - Closed on 07/23/21, Closed 07/27/21 07/27/21 - No open wounds. Continued Unna Boot application to protect newly formed epithelium. Pt will return to wound center on 07/30/21. Cleansed with: Applied to conrad-wound skin: vaseline to intact skin Applied to wound bed: Unna Boot Covered and secured with: coban wrap Other: NA Unna Boot Application: zinc paste wrap applied to both lower extremity(s) followed by 4 coban and topped with a piece of stockinet from behind the toes to 1 below the knee. Toes are warm and pink before and and post application with a + dorsal pedis pulse on palpation. It was demonstrated to the patient how to check for adequate circulation. If the patient exhibits a change in color to the extremity, change in temperature, increased pain, or the boot becomes wet or too tight, the patient was instructed to remove the boot or go to the Emergency Department. Patient voices understanding with intent to comply. COMPRESSION: Unna boots bilateral lower legs SPECIAL NEEDS: Coordination of care N/A Emotional support N/A OR set-up N/A Equipment Operator N/A Incontinence needs N/A DISCHARGED in stable condition to: Self ambulatory with rollator walker Global surgical period dates if applicable: N/A Plan: 1. Return to the wound center to see Jess Copeland CNP 07/30/2021 2. Continue aggressive nutritional support to assist wound healing 3. Wound care supplies [facility] - EDUCATION: The patient/family was instructed how to cleanse the wound(s). Visual demonstration on how to apply the dressing with teach back method. Signs & symptoms of infection were reviewed: Increased redness, swelling, pain, green/yellow drainage, fever and/or chills would all need to be evaluated by a Physician. Patient received typed home-going wound care instructions and has expressed intent to comply. OTHER EDUCATION: Education performed regarding lymphedema/edema: Elevation of extremity above the heart for 30 minutes three times daily and as needed Exercise such as writing the ABC's with your toes in the air, walking and/or calf pumps Wearing compression as ordered by provider Diet controlling of sodium as instructed by provider Use of medication to help control edema. __ __ UNIVERSAL PROTOCOL / SAFETY CHECKLIST Procedure to be Performed: N/A Current HBOT Status: Active or Complete - see screening below WOUND CENTER HYPERBARIC OXYGEN THERAPY SCREENING 1. Is the patient diabetic? (If No, skip to question 5) Yes 2. Does the patient have a lower extremity wound? Yes 3. Is there exposed/involved tendon or bone? No 4. Has the wound been present for 30 days? no If Yes to ALL questions above, consult the Hyperbaric Center 5. Has the patient been diagnosed with osteomyelitis? No 6. Has the patient had a previous skin graft or flap at the wound? No 7. Has the patient had or been offered vascular intervention/evaluation? No 8. Does the patient have a wound at an amputation site? No 9. Has the patient had radiation therapy at the site of the problem? No If Yes to ANY of questions 5-9, consult the Hyperbaric Center Maria L Roque RN/nh documented in this encounter [facility] 07-23-2021 History of Present illness Narrative Images from the original note were not included. WOUND CENTER PROGRESS NOTE PATIENT NAME: Analilia Rodriguez DATE OF FOLLOW UP: 07/23/2021 REASON FOR FOLLOW UP: bilat lower leg wounds HISTORY OF PRESENT ILLNESS: Analilia Rodriguez is a 71 year old y/o male w/ hx DM2, HTN, CAD w/ stent placement, gout, who presents for wound assessment and treatment evaluation of bilat lower leg wounds. Location: bilat lower legs Onset: May 2020 Aggravating factors: Diabetes mellitus and Vascular impairment Wound etiology: Vascular, Dermatologic Associated pain with wound: yes, mild tender, right distal lower leg Relieving factors for wound pain: wound care Treatments: Current: unna boot Past: Xeroform, MediHoney, Bacitracin, Hydrocortisone cream, unna boot PAST MEDICAL HISTORY Diagnosis Date Cancer (HCC) colon cancer late Coronary artery disease one stent Diabetes mellitus without mention of complication Diabetes mellitus Gout Hypertension PMH - PAST MEDICAL HISTORY OF 09/10/07 Right shoulder fracture Renal disorder PAST SURGICAL HISTORY Procedure Laterality Date COLON SURGERY HX ORTHOPEDICS SURGERY HX , carpal tunnel TONSILLECTOMY HX ALLERGIES ALLERGIES Allergen Reactions Bees swells Lorazepam Intolerance Mupirocin Rash blisters Oseltamivir Unknown made me sick, told I shouldn't take it Silver Sulfadiazine Rash CURRENT OUTPATIENT MEDICATIONS cholecalciferol (VITAMIN D-3) 50 mcg (2,000 unit) tablet Take 2,000 Units by mouth once daily. diclofenac sodium (VOLTAREN) 1 % topical gel Apply 2 g to affected area three times daily as needed (pain and swelling). betamethasone dipropionate, augmented (DIPROLENE) 0.05 % cream as needed. febuxostat (ULORIC) 80 mg tab Take 1 tablet by mouth once daily. finasteride (PROSCAR) 5 mg tablet Take 1 tablet by mouth once daily. fluticasone (FLONASE) 50 mcg/actuation nasal spray Use 2 Sprays in each nostril every morning. HYDROcodone-acetaminophen (NORCO) 5-325 mg per tablet Take 1 tablet by mouth every 6 hours as needed. NOVOLOG MIX 70-30 100 unit/mL (70-30) inpn injection Inject subcutaneously three times daily with meals. -sliding scale Up to 40 units TID tamsulosin ER (FLOMAX) 0.4 mg Take 1 capsule by mouth daily at bedtime. carvedilol (COREG) 25 mg tablet Take 1 tablet by mouth twice daily. furosemide (LASIX) 20 mg tablet Take 1 tablet by mouth twice daily. Valsartan-Hydrochlorothiazide 320-25 mg per tablet Take 1 tablet by mouth once daily. blood sugar diagnostic(ASCENSIA CONTOUR TEST STRIPS) Testing twice daily needles, insulin disposable(BD INSULIN PEN NEEDLE UF SHORT 31 X 09/13 ) use as directed aspirin(ECOTRIN LOW STRENGTH 81 MG TAB) Take one(1) tablet daily. multivitamins(MULTIPLE VITAMINS TAB) Take one(1) tablet daily. calcium carbonate/vitamin d3(CALCIUM 600 + D(3) 600 MG (1,500)-200 UNIT TAB) Take 1 tablet by mouth once daily. LANCETS Use as directed. amLODIPine (NORVASC) 5 mg tablet Take 1 tablet by mouth once daily. GLIPIZIDE 10 MG TAB Take one(1) tablet two(2) times daily. exenatide(BYETTA 10 MCG/0.04 ML PER DOSE SUB-Q PEN INJECTOR) Inject ten(10) mcg subcutaneously twice daily within 60 minutes prior to a meal . carvedilol(COREG 6.25 MG TAB) Take one(1) tablet twice daily. furosemide(LASIX 40 MG TAB) Take one(1) tablet two(2) times daily. valsartan/hydrochlorothiazide(DIOV AN HCT 160 MG-12.5 MG TAB) Take one(1) tablet daily. amlodipine (NORVASC) 10 mg ORAL Tab Take one(1) tablet daily. No family history on file. Social History Tobacco Use Smoking status: Never Smoker Smokeless tobacco: Never Used Vaping Use Vaping Use: Never used Substance Use Topics Alcohol use: Yes Comment: rare Drug use: Never REVIEW OF SYSTEMS: GENERAL: No weight loss, malaise or fevers RESPIRATORY: Negative for cough, hemoptysis, wheezing, COPD, dyspnea or shortness of breath CARDIOVASCULAR: Negative for chest pain, CHF or palpitations. Positive for HTN, leg edema. GI: No nausea, vomiting, or diarrhea MUSCULOSKELETAL: Negative for joint pain or swelling, back pain or muscle pain SKIN: Positive for wounds, bilat shins HEMATOLOGY/LYMPHOLOGY: Negative for prolonged bleeding, bruising easily or swollen nodes ENDOCRINE: Negative for cold or heat intolerance, polyuria, polydipsia and goiter NEURO: No history of headaches, syncope, paralysis, seizures or tremors PHYSICAL EXAM: BP 132/65 / Pulse 82 / Resp 16 / Temp 97.1 F / SpO2 96% General appearance: Well appearing, alert, in no acute distress, well-hydrated, well nourished. Skin: Skin color, texture, turgor normal, no suspicious rashes or lesions. Mild erythema of bilat pretibial areas, R>L. Wounds, bilat pretibial areas (see wound assessment) Head: Normocephalic, no masses, lesions, tenderness or abnormalities Eyes: Anicteric sclera. Pupils are equally round and reactive to light. Extraocular movements are intact. Lungs: Respirations even and unlabored Extremities: Edema: trace edema bilat lower legs and left foot, no edema bilat feet Musculoskeletal: No joint swelling, deformity, or tenderness Peripheral pulses: triphasic doppler signals x 4; palpable DP pulses bilat Neuro: Oriented X 3. Ambulatory WOUND ASSESSMENT Wound 2: Location: left lower leg anterior crawford Type: vascular insufficiency/cellulitis Stage: NA Exposed structure:None Progress: closed Wound measurements (cm): 0 Full thickness- Yes Tunneling/undermining: not applicable Wound tissue color: epithelial, fragile Periwound tissue: dry and intact, erythema Drainage: none Drainage odor: n/a Wound 6: Location: right anterior crawford, distal cluster (renamed) Type: open blister Stage: NA Exposed structure:None Progress:closed Wound measurements (cm): 0 Full thickness- Yes Tunneling/undermining: not applicable Wound tissue color: epithelial, fragile Periwound tissue:dry and intact, erythema Drainage: none Drainage odor: n/a DATA PHOTOGRAPHY:no A photo was taken of the patient's wound(s). Photos can be found under the [facility] images tab on [facility]. The purpose of the photo(s) is to optimize the patient's medical care and allow a visual aid to their wound evaluation and progress. The photo(s) are not intended for publication, education, or research. If the use of the photo is desired in any additional way, other than for the above outlined purposes, then an additional consent for the intended use will need to be obtained by the requesting provider. Photo was taken of: Verbal consent was obtained: MICROBIOLOGY: Reviewed; wound culture (06/09/21), right leg-moderate Staphylococcus aureus, many Staphylococcus epidermidis. Wound culture, left leg-few Staph aureus, few coag neg Staph species; sensitive to Doxycycline IMAGING: Reviewed IMPRESSION/RECOMMENDATIONS The patient's age and other co morbidities are likely to impact wound and skin integrity Additional impediments to healing Diabetic: Yes Anticoagulation: Aspirin Antibiotics:No Steroids: No (I87.311, L97.919) Chronic venous hypertension of right leg with ulcer (HCC) (I87.312, L97.929) Chronic venous hypertension of left leg with ulcer (HCC) Comment: Wounds closed, fragile epithelial tissue. Fragile epithelial tissue of pretibial areas. Plan: continue unna boots to strengthen and protect fragile epithelial tissue - Cleanse legs with Dial soap and water. Pat dry. Vaseline to bilat lower legs. - Apply unna boot to bilat lower legs. Change twice a week (at wound center).. Unna Boot Application: zinc paste wrap applied to both lower extremity(s) followed by 4 coban and topped with a piece of stockinet from behind the toes to 1 below the knee. Toes are warm and pink before and and post application with a + dorsal pedis pulse on palpation. It was demonstrated to the patient how to check for adequate circulation. If the patient exhibits a change in color to the extremity, change in temperature, increased pain, or the boot becomes wet or too tight, the patient was instructed to remove the boot or go to the Emergency Department. Patient voices understanding with intent to comply. - Continue to hold CircAid compression wraps bilat - Recommend elevate legs at least 30 min 3x/day - Follow up in wound center on 07/27/2021 for wound/treatment evaluation and unna boot change I discussed the plan in detail with the patient and the patient verbalizes understanding and is in agreement. My previous progress note dated 07/20/2021 was copied forward, updated where appropriate, and reflective of current medical decision making today, 07/23/2021. Jess Copeland APRN, URIAH, CWS Certified Forest Fire Prevention Specialist July 23, 2021 documented in this encounter [facility] 07-23-2021 Instructions Shira Loving RN - 07/23/2021 9:55 AM EDT WOUND CARE INSTRUCTIONS- Analilia Rodriguez Wound location: Right and Left lower legs Unna boots applied to both lower legs today. Please keep clean and dry until the morning of your next appointment and then you may remove the unna boots and take a shower (see below ). Unna Boot Application: If you exhibit a change in color to the extremity, change in temperature, increased pain, or the boot becomes wet or too tight, the patient was instructed to remove the boot or go to the Emergency Department. After your shower, please dress wounds as follows: -Gather supplies -Prepare a clean work surface such as new paper towel or newly cleaned towel -Clean all metal instruments with rubbing alcohol before and after each use. -Plastic garbage bag for old dressing - Wash your hands with soap and water before and after wound care. - Cleanse wounds with Vashe soak: apply Vashe moistened gauze to the wounds and allow to soak for 5-10 minutes, then remove & pat dry. Both lower leg wounds: 1. Apply single layer Xeroform (yellow mesh gauze) to the wounds 2. Cover wounds with 4x4 gauze pads 3. Secure your dressings with conform roll gauze and tape 4. Apply Tubigrip socks over the dressings for compression both lower legs Regarding lymphedema/edema: Elevation of extremity above the heart for 30 minutes three times daily and as needed Exercise such as writing the ABC's with your toes in the air, walking and/or calf pumps Wearing compression as ordered by provider Diet controlling of sodium as instructed by provider Use of medication to help control edema. To give your wound the best chance to heal: - Eat three balanced meals daily focusing on the protein - Control swelling by elevating the extremity above your heart - exercise the extremity - Control your blood sugar. Keep blood sugar less than 200 - Complete your wound care instructions - Vitamin C 500 mg twice daily - Multiple Vitamin Daily - Drink a protein shake daily Report any of the following changes to the Wound Center at [phone] or go to the Emergency Department: Fever or chills Increased drainage Green or yellow drainage Foul odor Increased pain Hardness around the wound Redness, warmth or swelling of the surrounding tissue Color change to the wound Plan: 1. Return to the wound center to see Jess Copeland CNP on Thursday 07/27 at 8:00am - Anticipate Unna Boot application. 2. Continue aggressive nutritional support to assist wound healing 3. Wound care supplies Prism - Jess Copeland CNP/ariella /brice documented in this encounter [facility] 07-23-2021 Nurse Note Nursing Documentation Pertinent Medical History: DM II, heart stent Wound Etiology according to patient: Blisters and wounds appeared March 31 2021 Patient arrived via: ambulatory , POV Home Care Company/Nursing Facility:NA Consent captured for debridement per Jess Copeland CNP and good until November 2021 Anticoagulant Therapy: ASA 81 mg ACTIVE CARE PER PROVIDER: Jess Copeland CNP WOUND # 3 LOCATION: RLE lateral crawford Resolved 05/17/21 WOUND #1 LOCATION: RLE crawford Resolved 05/17/21 - reopened 05/25/21 wound reopened - now 2 separate wounds 1A Right lower extremity crawford proximal Closed 06/01/21, reopened 06/09/21 Scabbed 06-16-2021, closed 07/12/21 1B Right lower extremity crawford distal-epithelialized 06/09/21 remains closed 06-16-2021, closed 07/12/21 WOUND # 3 LOCATION: Right Anterior Crawford - Proximal Cluster - Closed 07/20/21, Remains closed on 07/23/21 WOUND # 4 LOCATION: Right lower leg inferior/lateral (NEW 06/09/21) -Closed 07/12/21 WOUND # 5 LOCATION: Right Medial Lower Leg distal - Closed 07/12/21 WOUND # 3 LOCATION: Right crawford proximal (NEW 06/09/21) WOUND #6 LOCATION: Right lower leg anterior/distal (NEW 06/2021) WOUND #7 LOCATION: Right lower leg anterior/lateral (NEW 06/2021) __ WOUND ASSESSMENT: Refer to Provider's Wound Assessment Note VASCULAR ASSESSMENT BY PROVIDER: Doppler : triphasic x 4 CHF History: NA EDEMA: Right foot: none Right calf: trace Left foot : none Left Calf: trace Left & Right Ankle: 2+ Other: NA MEASUREMENTS: in CM Right Calf: 46.2 Right Ankle: 26.0 Left Calf: 45.5 Left Ankle: 26.0 Length: 46.5 - Not measured at today's visit WOUND PHOTOGRAPHY: NO DEBRIDEMENT PROCEDURE BY PROVIDER: Anesthetic Used: N/A Wound # N/A Other procedure: N/A Specimen collected: N/A WOUND TREATMENT PER MD ORDER: All wounds mechanically cleansed with NS and gauze WOUND # 2 LOCATION: LLE anterior crawford Resolved 05/17/21 - reopened 05/25/21 Circumferential periwound blisters 06/09/21, resolved 07/12/21, reopened on 07/16/21 Debridement by provider: N/A WOUND # 6 LOCATION: Right Anterior Crawford - Distal Cluster - Closed on 07/23/21 07/23/21 - No open wounds. Continued Unna Boot application to protect newly formed epithelium. Pt will return to wound center on 07/27/21. Cleansed with: Dial soap and water Applied to conrad-wound skin: vaseline to intact skin Applied to wound bed: Unna Boot Covered and secured with: coban wrap Other: NA Unna Boot Application: zinc paste wrap applied to both lower extremity(s) followed by 4 coban and topped with a piece of stockinet from behind the toes to 1 below the knee. Toes are warm and pink before and and post application with a + dorsal pedis pulse on palpation. It was demonstrated to the patient how to check for adequate circulation. If the patient exhibits a change in color to the extremity, change in temperature, increased pain, or the boot becomes wet or too tight, the patient was instructed to remove the boot or go to the Emergency Department. Patient voices understanding with intent to comply. COMPRESSION: Unna boots bilateral lower legs SPECIAL NEEDS: Coordination of care N/A Emotional support N/A OR set-up N/A Equipment Operator N/A Incontinence needs N/A DISCHARGED in stable condition to: Self ambulatory with rollator walker Global surgical period dates if applicable: N/A Plan: 1. Return to the wound center to see Jess Copeland CNP on Thursday 07/27 at 8:00am - Anticipate Unna Boot application. 2. Continue aggressive nutritional support to assist wound healing 3. Wound care supplies [facility] EDUCATION: The patient/family was instructed how to cleanse the wound(s). Visual demonstration on how to apply the dressing with teach back method. Signs & symptoms of infection were reviewed: Increased redness, swelling, pain, green/yellow drainage, fever and/or chills would all need to be evaluated by a Physician. Patient received typed home-going wound care instructions and has expressed intent to comply. OTHER EDUCATION: Education performed regarding lymphedema/edema: Elevation of extremity above the heart for 30 minutes three times daily and as needed Exercise such as writing the ABC's with your toes in the air, walking and/or calf pumps Wearing compression as ordered by provider Diet controlling of sodium as instructed by provider Use of medication to help control edema. __ __ UNIVERSAL PROTOCOL / SAFETY CHECKLIST Procedure to be Performed: sharp debridement lower leg wounds -NA Sign In: N/A A Moment of CARE was completed. Personnel directly involved with the procedure wore the appropriate PPE (Personal Protective Equipment). Patient/Surrogate Stated/Verified: PATIENT VERIFIED(optional for EMERGENT procedures): Patient name, Date of , Relevant allergies and The intended procedure Time Out Communication: N/A Intended patient and procedure match the source documents. Consent documented and matches the intended procedure. Sign Out: N/A SIGN OUT (optional for EMERGENT procedures): No specimen collected. Current HBOT Status: Active or Complete - see screening below WOUND CENTER HYPERBARIC OXYGEN THERAPY SCREENING 1. Is the patient diabetic? (If No, skip to question 5) Yes 2. Does the patient have a lower extremity wound? Yes 3. Is there exposed/involved tendon or bone? No 4. Has the wound been present for 30 days? no If Yes to ALL questions above, consult the Hyperbaric Center 5. Has the patient been diagnosed with osteomyelitis? No 6. Has the patient had a previous skin graft or flap at the wound? No 7. Has the patient had or been offered vascular intervention/evaluation? No 8. Does the patient have a wound at an amputation site? No 9. Has the patient had radiation therapy at the site of the problem? No If Yes to ANY of questions 5-9, consult the Hyperbaric Center Shira SLADE, RN, CWOCN Maria L Roque RN documented in this encounter [facility] 07-20-2021 History of Present illness Narrative Images from the original note were not included. WOUND CENTER PROGRESS NOTE PATIENT NAME: Analilia Rodriguez DATE OF FOLLOW UP: 07/20/2021 REASON FOR FOLLOW UP: bilat lower leg wounds HISTORY OF PRESENT ILLNESS: Analilia Rodriguez is a 71 year old y/o male w/ hx DM2, HTN, CAD w/ stent placement, gout, who presents for wound assessment and treatment evaluation of bilat lower leg wounds. Location: bilat lower legs Onset: May 2020 Aggravating factors: Diabetes mellitus and Vascular impairment Wound etiology: Vascular, Dermatologic Associated pain with wound: yes, mild Relieving factors for wound pain: wound care Treatments: Current: calcium alginate, unna boot- right leg; unna boot-left leg Past: Xeroform, MediHoney, Bacitracin, Hydrocortisone cream, unna boot PAST MEDICAL HISTORY Diagnosis Date Cancer (HCC) colon cancer late Coronary artery disease one stent Diabetes mellitus without mention of complication Diabetes mellitus Gout Hypertension PMH - PAST MEDICAL HISTORY OF 09/10/07 Right shoulder fracture Renal disorder PAST SURGICAL HISTORY Procedure Laterality Date COLON SURGERY HX ORTHOPEDICS SURGERY HX , carpal tunnel TONSILLECTOMY HX ALLERGIES ALLERGIES Allergen Reactions Bees swells Lorazepam Intolerance Mupirocin Rash blisters Oseltamivir Unknown made me sick, told I shouldn't take it Silver Sulfadiazine Rash CURRENT OUTPATIENT MEDICATIONS cholecalciferol (VITAMIN D-3) 50 mcg (2,000 unit) tablet Take 2,000 Units by mouth once daily. diclofenac sodium (VOLTAREN) 1 % topical gel Apply 2 g to affected area three times daily as needed (pain and swelling). betamethasone dipropionate, augmented (DIPROLENE) 0.05 % cream as needed. febuxostat (ULORIC) 80 mg tab Take 1 tablet by mouth once daily. finasteride (PROSCAR) 5 mg tablet Take 1 tablet by mouth once daily. fluticasone (FLONASE) 50 mcg/actuation nasal spray Use 2 Sprays in each nostril every morning. HYDROcodone-acetaminophen (NORCO) 5-325 mg per tablet Take 1 tablet by mouth every 6 hours as needed. NOVOLOG MIX 70-30 100 unit/mL (70-30) inpn injection Inject subcutaneously three times daily with meals. -sliding scale Up to 40 units TID tamsulosin ER (FLOMAX) 0.4 mg Take 1 capsule by mouth daily at bedtime. amLODIPine (NORVASC) 5 mg tablet Take 1 tablet by mouth once daily. carvedilol (COREG) 25 mg tablet Take 1 tablet by mouth twice daily. furosemide (LASIX) 20 mg tablet Take 1 tablet by mouth twice daily. Valsartan-Hydrochlorothiazide 320-25 mg per tablet Take 1 tablet by mouth once daily. GLIPIZIDE 10 MG TAB Take one(1) tablet two(2) times daily. blood sugar diagnostic(ASCENSIA CONTOUR TEST STRIPS) Testing twice daily exenatide(BYETTA 10 MCG/0.04 ML PER DOSE SUB-Q PEN INJECTOR) Inject ten(10) mcg subcutaneously twice daily within 60 minutes prior to a meal . needles, insulin disposable(BD INSULIN PEN NEEDLE UF SHORT 31 X 5/16 ) use as directed carvedilol(COREG 6.25 MG TAB) Take one(1) tablet twice daily. furosemide(LASIX 40 MG TAB) Take one(1) tablet two(2) times daily. aspirin(ECOTRIN LOW STRENGTH 81 MG TAB) Take one(1) tablet daily. valsartan/hydrochlorothiazide(DIOV AN HCT 160 MG-12.5 MG TAB) Take one(1) tablet daily. multivitamins(MULTIPLE VITAMINS TAB) Take one(1) tablet daily. calcium carbonate/vitamin d3(CALCIUM 600 + D(3) 600 MG (1,500)-200 UNIT TAB) Take 1 tablet by mouth once daily. LANCETS Use as directed. amlodipine (NORVASC) 10 mg ORAL Tab Take one(1) tablet daily. No family history on file. Social History Tobacco Use Smoking status: Never Smoker Smokeless tobacco: Never Used Vaping Use Vaping Use: Never used Substance Use Topics Alcohol use: Yes Comment: rare Drug use: Never REVIEW OF SYSTEMS: GENERAL: No weight loss, malaise or fevers RESPIRATORY: Negative for cough, hemoptysis, wheezing, COPD, dyspnea or shortness of breath CARDIOVASCULAR: Negative for chest pain, CHF or palpitations. Positive for HTN, leg edema. GI: No nausea, vomiting, or diarrhea MUSCULOSKELETAL: Negative for joint pain or swelling, back pain or muscle pain SKIN: Positive for wounds, bilat shins HEMATOLOGY/LYMPHOLOGY: Negative for prolonged bleeding, bruising easily or swollen nodes ENDOCRINE: Negative for cold or heat intolerance, polyuria, polydipsia and goiter NEURO: No history of headaches, syncope, paralysis, seizures or tremors PHYSICAL EXAM: BP 132/65 / Pulse 82 / Resp 16 / Temp 97.1 F / SpO2 96% General appearance: Well appearing, alert, in no acute distress, well-hydrated, well nourished. Skin: Skin color, texture, turgor normal, no suspicious rashes or lesions. Mild erythema of bilat pretibial areas, R>L. Wounds, bilat pretibial areas (see wound assessment) Head: Normocephalic, no masses, lesions, tenderness or abnormalities Eyes: Anicteric sclera. Pupils are equally round and reactive to light. Extraocular movements are intact. Lungs: Respirations even and unlabored Extremities: Edema: trace edema bilat lower legs and left foot, no edema of right foot Musculoskeletal: No joint swelling, deformity, or tenderness Peripheral pulses: triphasic doppler signals x 4; palpable DP pulses bilat Neuro: Oriented X 3. Ambulatory WOUND ASSESSMENT Wound 2: Location: left lower leg anterior crawford Type: vascular insufficiency/cellulitis Stage: NA Exposed structure:None Progress: improved Wound measurements (cm): 0.6 x 0.6 x 0.1 Full thickness- Yes Tunneling/undermining: not applicable Wound tissue color: 80% epithelial, 20% pink Periwound tissue:dry and intact Drainage: serosanguinous, scant Drainage odor: none Wound 3: Location: right anterior crawford, proximal cluster (renamed d/t healing) Type: cellulitis Stage: NA Exposed structure:None Progress:healed Wound measurements (cm): 0 Full thickness- Yes Tunneling/undermining: not applicable Wound tissue color: epithelial Periwound tissue: dry and intact, mild erythema Drainage: none Drainage odor: n/a Wound 6: Location: right anterior crawford, distal cluster (renamed) Type: open blister Stage: NA Exposed structure:None Progress: improved Wound measurements (cm): 0.4 x 0.4 x 0.1 Full thickness- Yes Tunneling/undermining: not applicable Wound tissue color: red Periwound tissue:dry and intact Drainage: serosanguinous, small Drainage odor: none DATA PHOTOGRAPHY:no A photo was taken of the patient's wound(s). Photos can be found under the [facility] images tab on [facility]. The purpose of the photo(s) is to optimize the patient's medical care and allow a visual aid to their wound evaluation and progress. The photo(s) are not intended for publication, education, or research. If the use of the photo is desired in any additional way, other than for the above outlined purposes, then an additional consent for the intended use will need to be obtained by the requesting provider. Photo was taken of: Verbal consent was obtained: MICROBIOLOGY: Reviewed; wound culture (06/09/21), right leg-moderate Staphylococcus aureus, many Staphylococcus epidermidis. Wound culture, left leg-few Staph aureus, few coag neg Staph species; sensitive to Doxycycline IMAGING: Reviewed IMPRESSION/RECOMMENDATIONS The patient's age and other co morbidities are likely to impact wound and skin integrity Additional impediments to healing Diabetic: Yes Anticoagulation: Aspirin Antibiotics:No Steroids: No (I87.311, L97.919) Chronic venous hypertension of right leg with ulcer (HCC) (I87.312, L97.929) Chronic venous hypertension of left leg with ulcer (HCC) Comment: Wounds improved; no s/s infection. Plan: - Cleanse legs with Dial soap and water. Pat dry. Vashe soak to wounds. - Apply unna boot to bilat lower legs. Change twice a week (at wound center).. Unna Boot Application: zinc paste wrap applied to both lower extremity(s) followed by 4 coban and topped with a piece of stockinet from behind the toes to 1 below the knee. Toes are warm and pink before and and post application with a + dorsal pedis pulse on palpation. It was demonstrated to the patient how to check for adequate circulation. If the patient exhibits a change in color to the extremity, change in temperature, increased pain, or the boot becomes wet or too tight, the patient was instructed to remove the boot or go to the Emergency Department. Patient voices understanding with intent to comply. - Continue to hold CircAid compression wraps bilat - Recommend elevate legs at least 30 min 3x/day - Follow up in wound center on Mon07/23/2021 for wound/treatment evaluation and unna boot change I discussed the plan in detail with the patient and the patient verbalizes understanding and is in agreement. My previous progress note dated 07/16/2021 was copied forward, updated where appropriate, and reflective of current medical decision making today, 07/20/2021. Jess Copeland APRN, FARM GENERAL MANAGER, CWS Certified Forest Fire Prevention Specialist July 20, 2021 documented in this encounter [facility] 07-20-2021 Instructions Luzma Yang RN - 07/20/2021 8:13 AM EDT WOUND CARE INSTRUCTIONS- Analilia Rodriguez Wound location: Right and Left lower legs Unna boots applied to both lower legs today; please keep clean and dry until the morning of your next appointment and then you can remove the unna boots and take a shower. After your shower, please dress wounds as follows: -Gather supplies -Prepare a clean work surface such as new paper towel or newly cleaned towel -Clean all metal instruments with rubbing alcohol before and after each use. -plastic garbage bag for old dressing - Wash your hands with soap and water before and after wound care. - Cleanse wounds with Vashe soak: apply Vashe moistened gauze to the wounds and allow to soak for 5-10 minutes, then remove & pat dry. Both lower leg wounds: 1. Apply single layer Xeroform (yellow mesh gauze) to the wounds 2. Cover wounds with 4x4 gauze pads 3. Secure your dressings with conform roll gauze and tape 4. Apply Tubigrip socks over the dressings for compression both lower legs Unna Boot Application: If you exhibit a change in color to the extremity, change in temperature, increased pain, or the boot becomes wet or too tight, the patient was instructed to remove the boot or go to the Emergency Department. Regarding lymphedema/edema: Elevation of extremity above the heart for 30 minutes three times daily and as needed Exercise such as writing the ABC's with your toes in the air, walking and/or calf pumps Wearing compression as ordered by provider Diet controlling of sodium as instructed by provider Use of medication to help control edema. To give your wound the best chance to heal: - Eat three balanced meals daily focusing on the protein - Control swelling by elevating the extremity above your heart - exercise the extremity - Control your blood sugar. Keep blood sugar less than 200 - Complete your wound care instructions - Vitamin C 500 mg twice daily - Multiple Vitamin Daily - Drink a protein shake daily Report any of the following changes to the Wound Center at [phone] or go to the Emergency Department: Fever or chills Increased drainage Green or yellow drainage Foul odor Increased pain Hardness around the wound Redness, warmth or swelling of the surrounding tissue Color change to the wound Plan: 1. Return to the wound center to see Jess Copeland CNP on 07/23/21 @ 10am 2. Continue aggressive nutritional support to assist wound healing 3. Wound care supplies [facility] - Jess Copeland CNP/morgan/julio documented in this encounter [facility] 07-20-2021 Nurse Note Nursing Documentation Pertinent Medical History: DM , heart stent Wound Etiology according to patient: Blisters and wounds appeared March 31 2021 Patient arrived via:ambulatory , POV Home Care Company/Nursing Facility:NA Consent captured for debridement per Angelica until December 20 Anticoagulant Therapy: ASA ACTIVE CARE PER PROVIDER: Jess Copeland CNP WOUND # 3 LOCATION: RLE lateral crawford Resolved 05/17/21 WOUND #1 LOCATION: RLE crawford Resolved 05/17/21 - reopened 05/25/21 wound reopened - now 2 separate wounds 1A Right lower extremity crawford proximal Closed 06/01/21, reopened 06/09/21 Scabbed 06-16-2021, closed 07/12/21 1B Right lower extremity crawford distal-epithelialized 06/09/21 remains closed 06-16-2021, closed 07/12/21 WOUND # 4 LOCATION: Right lower leg inferior/lateral (NEW 06/09/21) -Closed 07/12/21 WOUND # 5 LOCATION: Right Medial Lower Leg distal - Closed 07/12/21 WOUND # 3 LOCATION: Right rcawford proximal (NEW 06/09/21) WOUND #6 LOCATION: Right lower leg anterior/distal (NEW 06/2021) WOUND #7 LOCATION: Right lower leg anterior/lateral (NEW 06/2021) __ WOUND ASSESSMENT: Refer to Provider's Wound Assessment Note VASCULAR ASSESSMENT BY PROVIDER: Doppler : triphasic x 4 CHF History: NA EDEMA: Right foot: none Right calf: trace Left foot : trace Left Calf: trace Other: NA MEASUREMENTS: in CM Right Calf: 46.5 Right Ankle: 26.7 Left Calf: 46.5 Left Ankle: 26.0 Length: 46.5 - Not measured at today's visit WOUND PHOTOGRAPHY: NO DEBRIDEMENT PROCEDURE BY PROVIDER: Anesthetic Used: N/A Wound # N/A Other procedure: N/A Specimen collected: N/A WOUND TREATMENT PER MD ORDER: All wounds mechanically cleansed with NS and gauze WOUND # 2 LOCATION: LLE anterior crawford Resolved 05/17/21 - reopened 05/25/21 L: 0.6 cm x W: 0.6 cm x D: 0.1 cm Circumferential periwound blisters 06/09/21, resolved 07/12/21, reopened on 07/16/21 Debridement by provider: N/A 07/16/21 - Wounds #3 = #3, & 6 & 7 = #6 renamed due to healing - please see below WOUND # __3___ LOCATION: Right Anterior Crawford - Proximal Cluster L: cm x W: cm x D: cm- closed 07/20/21 DEBRIDEMENT: NA WOUND # __6___ LOCATION: Right Anterior Crawford - Distal Cluster L: 0.4 cm x W: 0.4 cm x D: 0.1 cm DEBRIDEMENT: NA Cleansed with: Dial soap and water Applied to conrad-wound skin: vaseline to intact skin Applied to wound bed: Unna Boot Covered and secured with: coban Other: NA Unna Boot Application: zinc paste wrap applied to both lower extremity(s) followed by 4 coban and topped with a piece of stockinet from behind the toes to 1 below the knee. Toes are warm and pink before and and post application with a + dorsal pedis pulse on palpation. It was demonstrated to the patient how to check for adequate circulation. If the patient exhibits a change in color to the extremity, change in temperature, increased pain, or the boot becomes wet or too tight, the patient was instructed to remove the boot or go to the Emergency Department. Patient voices understanding with intent to comply. * 07/20/21 Area of concern Right Lower Leg Anterior lateral Proximal red irritation with itching per patient COMPRESSION: Unna boots bilateral lower legs SPECIAL NEEDS: Coordination of care N/A Emotional support N/A OR set-up N/A Equipment Operator N/A Incontinence needs N/A DISCHARGED in stable condition to: Self ambulatory with walker Global surgical period dates if applicable: N/A Plan: 1. Return to the wound center to see Jess Copeland CNP on Monday07/20/21 at 8:00am 2. Continue aggressive nutritional support to assist wound healing 3. Wound care supplies [facility] - EDUCATION: The patient/family was instructed how to cleanse the wound(s). Visual demonstration on how to apply the dressing with teach back method. Signs & symptoms of infection were reviewed: Increased redness, swelling, pain, green/yellow drainage, fever and/or chills would all need to be evaluated by a Physician. Patient received typed home-going wound care instructions and has expressed intent to comply. OTHER EDUCATION: Education performed regarding lymphedema/edema: Elevation of extremity above the heart for 30 minutes three times daily and as needed Exercise such as writing the ABC's with your toes in the air, walking and/or calf pumps Wearing compression as ordered by provider Diet controlling of sodium as instructed by provider Use of medication to help control edema. __ __ UNIVERSAL PROTOCOL / SAFETY CHECKLIST Procedure to be Performed: sharp debridement lower leg wounds -NA Sign In: N/A A Moment of CARE was completed. Personnel directly involved with the procedure wore the appropriate PPE (Personal Protective Equipment). Patient/Surrogate Stated/Verified: PATIENT VERIFIED(optional for EMERGENT procedures): Patient name, Date of , Relevant allergies and The intended procedure Time Out Communication: N/A Intended patient and procedure match the source documents. Consent documented and matches the intended procedure. Sign Out: N/A SIGN OUT (optional for EMERGENT procedures): No specimen collected. Current HBOT Status: Active or Complete - see screening below WOUND CENTER HYPERBARIC OXYGEN THERAPY SCREENING 1. Is the patient diabetic? (If No, skip to question 5) Yes 2. Does the patient have a lower extremity wound? Yes 3. Is there exposed/involved tendon or bone? No 4. Has the wound been present for 30 days? no If Yes to ALL questions above, consult the Hyperbaric Center 5. Has the patient been diagnosed with osteomyelitis? No 6. Has the patient had a previous skin graft or flap at the wound? No 7. Has the patient had or been offered vascular intervention/evaluation? No 8. Does the patient have a wound at an amputation site? No 9. Has the patient had radiation therapy at the site of the problem? No If Yes to ANY of questions 5-9, consult the Hyperbaric Center Luzma Yang RN/julio documented in this encounter [facility] ADMISSION HISTORY A [place] PHYSICIAL CHIEF COMPLAINT: HISTORY OF PRESENT ILLNESS: REVIEW OF SYSTEMS: ACTIVE PROBLEMS: (26) Acute bacterial sinusitis (391569224) CAD (coronary artery disease) (62816566) Chronic kidney disease (0892230805) Colon cancer (167362835) Diabetes (509120387) Dizziness (6094483055) Gout (4912472874) Hypertension ([id number]) IDDM (insulin dependent diabetes mellitus) (667137890) Lumbar canal stenosis (95190986) Lumbar herniated disc (591869012) Lumbar pain ([id number]) Lumbar radiculopathy (627084777) Neuropathy ([id number]) CEDRIC treated with BiPAP (263636056) Osteoarthritis ([id number]) Pain of left shoulder blade (7655881950) Peripheral edema (649580969) Prophylactic antibiotic (2129339590) Renal insufficiency (139066521) S/P PTCA (percutaneous transluminal coronary angioplasty) (0557518014) Sciatica ([id number]) Sleep apnea (050720046) Ulcer of big toe (902839066) Urinary tract infection in male (000265642) UTI symptoms (991210644) MEDICATIONS: Active Inpt Meds: None Active PRN Meds: None One Time Meds: None Active IV Meds: Lactated Ringers Infusion 1,000 mL (LR 1,000 mL) Start: 03/08/21 7:44:00 EST, Rate: 50 mL/hr ALLERGIES: (5) Ativan Bee Stings Mupirocin Silvadene 1% topical cream Tamiflu FAMILY HISTORY: SOCIAL HISTORY: PHYSICAL EXAM: VITALS: [id number](kg) 03/08 07:2335.9149/[id number]/18806.0 24 Hr Tmax: 35.9 at 03/08 07:23 36 Hr Tmax: 35.9 at 03/08 07:23 Vital Signs are the last 5 in the past 48 hours. Weights display the last 5 within 7 days. Initial Wt: 03/08 136.0 kg 299 lb Current Wt: 03/08 136.0 kg 299 lb GENERAL: HEENT: CARDIOVASCULAR: RESPIRATORY: ABDOMEN: EXREMETIES: NEUROLOGICAL: PSYCHIATRIC: LABS: 36hr Labs 03/08 0727 Blood Glucose, [id number] Blood Glucose, [id number] DIAGNOSTICS: IMPRESSION: PLAN: History and Physical Update I have examined the patient; reviewed the H&P and there are no changes to the H&P unless noted below. Future Appointments Appointment Date:03/31/2021 01:00:00 PM Scheduled Provider:AMANDO SANFORD MD Location:PM Office Appointment Type:PM OV Appointment Date:05/13/2021 11:15:00 AM Scheduled Provider:ARON WALTON Location:[facility] [place] Appointment Type:CV OV Appointment Date:08/10/2021 09:00:00 AM Scheduled Provider:MELE MACK DO Location:[facility] [place] Appointment Type:PC OV Future Scheduled Tests Radiology* XR Knee 3 Views Left 01/01/21 [facility] 11-08-2021 Hospital Discharge instructions Patient Education 03/08/2021 09:20:59 Colonoscopy, Adult, Care After Colonoscopy, Adult, Care After This sheet gives you information about how to care for yourself after your procedure. Your health care provider may also give you more specific instructions. If you have problems or questions, contact your health care provider. What can I expect after the procedure? After the procedure, it is common to have: A small amount of blood in your stool for 24 hours after the procedure. Some gas. Mild abdominal cramping or bloating. Follow these instructions at home: General instructions For the first 24 hours after the procedure: ?Do not drive or use machinery. ?Do not sign important documents. ?Do not drink alcohol. ?Do your regular daily activities at a slower pace than normal. ?Eat soft, kbcg-kz-jovxrr foods. Take qmlr-yte-uqvccey or prescription medicines only as told by your health care provider. Relieving cramping and bloating Try walking around when you have cramps or feel bloated. Apply heat to your abdomen as told by your health care provider. Use a heat source that your healthcare provider recommends, such as a moist heat pack or a heating pad. ?Place a towel between your skin and the heat source. ?Leave the heat on for 20 30 minutes. ?Remove the heat if your skin turns bright red. This is especially important if you are unable to feel pain, heat, or cold. You may have a greater risk of getting burned. Eating and drinking Drink enough fluid to keep your urine pale yellow. Resume your normal diet as instructed by your health care provider. Avoid heavy or fried foods thatare hard to digest. Avoid drinking alcohol for as long as instructed by your health care provider. Contact a health care provider if: You have blood in your stool 2 3 days after the procedure. Get help right away if: You have more than a small spotting of blood in your stool. You pass large blood clots in your stool. Your abdomen is swollen. You have nausea or vomiting. You have a fever. You have increasing abdominal pain that is not relieved with medicine. Summary After the procedure, it is common to have a small amount of blood in your stool. You may also have mild abdominal cramping and bloating. For the first 24 hours after the procedure, do not drive or use machinery, sign important documents, or drink alcohol. Contact your health care provider if you have a lot of blood in your stool, nausea or vomiting, a fever, or increased abdominal pain. This information is not intended to replace advice given to you by your health care provider. Make sure you discuss any questions you have with your health care provider. Document Released: 11/29/2004 Document Revised: 02/07/2018 Document Reviewed: 06/28/2016 [employer] Patient Education 2020 [employer]. 03/08/2021 09:20:50 Monitored Anesthesia Care, Care After Monitored Anesthesia Care, Care After These instructions provide you with information about caring for yourself after your procedure. Your health care provider may also give you more specific instructions. Your treatment has been plannedaccording to current medical practices, but problems sometimes occur. Call your health care provider if you have any problems or questions after your procedure. What can I expect after the procedure? After your procedure, you may: Feel sleepy for several hours. Feel clumsy and have poor balance for several hours. Feel forgetful about what happened after the procedure. Have poor judgment for several hours. Feel nauseous or vomit. Have a sore throat if you had a breathing tube during the procedure. Follow these instructions at home: For at least 24 hours after the procedure: Have a responsible adult stay with you. It is important to have someone help care for you until youare awake and alert. Rest as needed. Do not: ?Participate in activities in which you could fall or become injured. ?Drive. ?Use heavy machinery. ?Drink alcohol. ?Take sleeping pills or medicines that cause drowsiness. ?Make important decisions or sign legal documents. ?Take care of children on your own. Eating and drinking Follow the diet that is recommended by your health care provider. If you vomit, drink water, juice, or soup when you can drink without vomiting. Make sure you have little or no nausea before eating solid foods. General instructions Take hbjs-caq-gvbvuzz and prescription medicines only as told by your health care provider. If you have sleep apnea, surgery and certain medicines can increase your risk for breathing problems. Follow instructions from your health care provider about wearing your sleep device: ?Anytime you are sleeping, including during daytime naps. ?While taking prescription pain medicines, sleeping medicines, or medicines that make you drowsy. If you smoke, do not smoke without supervision. Keep all follow-up visits as told by your health care provider. This is important. Contact a health care provider if: You keep feeling nauseous or you keep vomiting. You feel light-headed. You develop a rash. You have a fever. Get help right away if: You have trouble breathing. Summary For several hours after your procedure, you may feel sleepy and have poor judgment. Have a responsible adult stay with you for at least 24 hours or until you are awake and alert. This information is not intended to replace advice given to you by your health care provider. Make sure you discuss any questions you have with your health care provider. Document Released: 08/07/2016 Document Revised: 07/16/2018 Document Reviewed: 08/07/2016 [employer] Patient Education 2020 [employer] 03/08/2021 09:20:32 Monitored Anesthesia Care, Care After Monitored Anesthesia Care, Care After These instructions provide you with information about caring for yourself after your procedure. Your health care provider may also give you more specific instructions. Your treatment has been plannedaccording to current medical practices, but problems sometimes occur. Call your health care provider if you have any problems or questions after your procedure. What can I expect after the procedure? After your procedure, you may: Feel sleepy for several hours. Feel clumsy and have poor balance for several hours. Feel forgetful about what happened after the procedure. Have poor judgment for several hours. Feel nauseous or vomit. Have a sore throat if you had a breathing tube during the procedure. Follow these instructions at home: For at least 24 hours after the procedure: Have a responsible adult stay with you. It is important to have someone help care for you until youare awake and alert. Rest as needed. Do not: ?Participate in activities in which you could fall or become injured. ?Drive. ?Use heavy machinery. ?Drink alcohol. ?Take sleeping pills or medicines that cause drowsiness. ?Make important decisions or sign legal documents. ?Take care of children on your own. Eating and drinking Follow the diet that is recommended by your health care provider. If you vomit, drink water, juice, or soup when you can drink without vomiting. Make sure you have little or no nausea before eating solid foods. General instructions Take kwfm-fah-isenlnq and prescription medicines only as told by your health care provider. If you have sleep apnea, surgery and certain medicines can increase your risk for breathing problems. Follow instructions from your health care provider about wearing your sleep device: ?Anytime you are sleeping, including during daytime naps. ?While taking prescription pain medicines, sleeping medicines, or medicines that make you drowsy. If you smoke, do not smoke without supervision. Keep all follow-up visits as told by your health care provider. This is important. Contact a health care provider if: You keep feeling nauseous or you keep vomiting. You feel light-headed. You develop a rash. You have a fever. Get help right away if: You have trouble breathing. Summary For several hours after your procedure, you may feel sleepy and have poor judgment. Have a responsible adult stay with you for at least 24 hours or until you are awake and alert. This information is not intended to replace advice given to you by your health care provider. Make sure you discuss any questions you have with your health care provider. Document Released: 08/07/2016 Document Revised: 07/16/2018 Document Reviewed: 08/07/2016 [employer] Patient Education 2020 [employer]. Follow Up Care 02/15/2021 12:41:54 With:BLADE VILLASENOR Address: [place] KINGHT [address] [address]- [phone] Business (1) When: Unknown Comments:CALL OFFICE IF FOLLOW UP NEEDED [facility] Evaluation + Plan note Future Appointments Appointment Date:05/13/2021 11:15:00 AM Scheduled Provider:ARON WALTON Location:[facility] [place] Appointment Type:CV OV Appointment Date:08/10/2021 09:00:00 AM Scheduled Provider:MELE MACK DO Location:[facility] [place] Appointment Type:PC OV Future Scheduled Tests Radiology* XR Knee 3 Views Left 01/01/21 [facility] Evaluation + Plan note Future Appointments Appointment Date:08/10/2021 09:00:00 AM Scheduled Provider:MELE MACK DO Location:[facility] [place] Appointment Type:PC OV Appointment Date:11/10/2021 10:30:00 AM Scheduled Provider:ARON WALTON Location:[facility] [place] Appointment Type:CV OV Future Scheduled Tests Radiology* XR Knee 3 Views Left 01/01/21 [facility] evaluation + Plan note Future Appointments Appointment Date:11/10/2021 10:30:00 AM Scheduled Provider:ARON WALTON Location:[facility] [place] Appointment Type:CV OV Appointment Date:02/11/2022 09:00:00 AM Scheduled Provider:MELE MACK DO Location:[facility] [place] Appointment Type:PC OV Future Scheduled Tests Laboratory* Uric Acid 08/10/21 Radiology* XR Knee 3 Views Left 01/01/21 [facility] evaluation + Plan note Future Appointments Appointment Date:01/27/2022 07:30:00 AM Scheduled Provider:MELE MACK DO Location:[facility] [place] Appointment Type:PC OV Future Scheduled Tests Laboratory* Uric Acid 08/10/21 * Urine Culture 01/14/22 [facility] Evaluation + Plan note Future Appointments Appointment Date:07/28/2022 10:00:00 AM Scheduled Provider:MELE MACK DO Location:[facility] [place] Appointment Type:PC OV Future Scheduled Tests Laboratory* Uric Acid 08/10/21 * Urine Culture 01/14/22 [facility] Evaluation + Plan note Future Appointments Appointment Date:07/21/2022 08:30:00 AM Scheduled Provider:AMANDO SANFORD MD Location:PM Office Appointment Type:PM OV Appointment Date:07/28/2022 10:00:00 AM Scheduled Provider:MELE MACK DO Location:[facility] [place] Appointment Type:PC OV Appointment Date:01/26/2023 10:15:00 AM Scheduled Provider:ARON WALTON Location:[facility] [place] Appointment Type:CV OV Future Scheduled Tests Laboratory* Uric Acid 08/10/21 * Urine Culture 01/14/22 [facility] Evaluation + Plan note Future Appointments Appointment Date:07/28/2022 10:00:00 AM Scheduled Provider:MELE MACK DO Location:[facility] [place] Appointment Type:PC OV Appointment Date:09/29/2022 08:00:00 AM Scheduled Provider:AMANDO ASNFORD MD Location:PM Office Appointment Type:PM OV Appointment Date:01/26/2023 10:15:00 AM Scheduled Provider:ARON WALTON Location:[facility] [place] Appointment Type:CV OV Future Scheduled Tests Laboratory* Uric Acid 08/10/21 * Urine Culture 01/14/22 [facility] Evaluation + Plan note Future Appointments Appointment Date:01/26/2023 10:15:00 AM Scheduled Provider:ARON WALTON Location:[facility] [place] Appointment Type:CV OV Appointment Date:02/02/2023 10:00:00 AM Scheduled Provider:MELE MACK DO Location:[facility] [place] Appointment Type:PC OV Future Scheduled Tests Laboratory* Urine Culture 01/14/22 [facility] Evaluation + Plan note Future Appointments Appointment Date:01/26/2023 10:15:00 AM Scheduled Provider:ARON WALTON Location:[facility] [place] Appointment Type:CV OV Appointment Date:02/02/2023 10:00:00 AM Scheduled Provider:MELE MACK DO Location:[facility] [place] Appointment Type:PC OV Appointment Date:02/22/2023 08:45:00 AM Scheduled Provider:STEPHEN TAVAREZ Location:[facility] PM Appointment Type:PM OV Future Scheduled Tests Laboratory* Urine Culture 01/14/22 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)- Primary Chronic venous hypertension with ulcer Idiopathic chronic venous hypertension of left leg with ulcer (HCC) Chronic [facility] with [facility] Diagnosis Stasis dermatitis of both legs- Primary Varicose veins of lower extremities with inflammation Venous hypertension of both lower extremities [facility] Diagnosis Stasis dermatitis of both legs- Primary Varicose veins of lower extremities with inflammation Venous hypertension of both lower extremities [facility] Diagnosis Stasis dermatitis of both legs- Primary Varicose veins of lower extremities with inflammation Venous hypertension of both lower extremities [facility] Diagnosis Idiopathic chronic venous hypertension of left leg with ulcer (HCC)- Primary Chronic venous hypertension with ulcer [facility] Diagnosis 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)- Primary Chronic venous hypertension with ulcer Idiopathic chronic venous hypertension of left leg with ulcer (HCC) Chronic venous hypertension with ulcer [facility] Diagnosis Cellulitis of right anterior lower leg- Primary Cellulitis and abscess of leg, except foot Cellulitis of left anterior lower leg 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) Chronic venous hypertension with ulcer Idiopathic chronic venous hypertension of left leg with ulcer (HCC) Chronic venous hypertension with ulcer [facility] Diagnosis Wound infection- Primary Posttraumatic wound infection not elsewhere classified Venous stasis dermatitis of both lower extremities 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) Chronic venous hypertension with ulcer Idiopathic chronic venous hypertension of left leg with ulcer (HCC) Chronic venous hypertension with ulcer [facility] Diagnosis Venous stasis dermatitis of both lower extremities- Primary 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) Chronic venous hypertension with ulcer Idiopathic chronic venous hypertension of left leg with ulcer (HCC) Chronic venous hypertension with ulcer [facility] Diagnosis 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)- Primary Chronic venous hypertension with ulcer Idiopathic chronic venous hypertension of left leg with ulcer (HCC) Chronic venous hypertension with ulcer Venous stasis dermatitis of both lower extremities [facility] Diagnosis Idiopathic chronic venous hypertension of left leg with ulcer (HCC)- Primary Chronic venous hypertension with ulcer 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) Chronic venous hypertension with ulcer Venous stasis dermatitis of both lower extremities [facility] Diagnosis Venous stasis dermatitis of both lower extremities- Primary Idiopathic chronic venous hypertension of left leg with ulcer (HCC) Chronic venous hypertension with ulcer [facility] Diagnosis Eyelid problem- Primary Unspecified disorder of eyelid [facility]* Diagnosis URI, acute- Primary Acute upper respiratory infections of unspecified site [facility] Diagnosis Primary osteoarthritis of left knee- Primary Primary localized osteoarthrosis, lower leg Primary osteoarthritis of right knee Primary localized osteoarthrosis, lower leg [facility] Diagnosis Primary osteoarthritis of left knee Primary localized osteoarthrosis, lower leg Primary osteoarthritis of right knee Primary localized osteoarthrosis, lower leg [facility] Diagnosis Primary osteoarthritis of left knee- Primary Primary localized osteoarthrosis, lower leg Primary osteoarthritis of right knee Primary localized osteoarthrosis, lower leg [facility] Diagnosis Primary osteoarthritis of left knee- Primary Primary localized osteoarthrosis, lower leg Primary osteoarthritis of right knee Primary localized osteoarthrosis, lower leg documented in this encounter [facility] note* Diagnosis Primary osteoarthritis of left knee- Primary Primary localized osteoarthrosis, lower leg Primary osteoarthritis of right knee Primary localized osteoarthrosis, lower leg documented in this encounter [facility] note* Diagnosis Sinobronchitis- Primary Unspecified sinusitis (chronic) documented in this encounter [facility] note* Diagnosis Acute conjunctivitis of left eye, unspecified acute conjunctivitis type- Primary documented in this encounter [facility] note* Diagnosis Venous stasis dermatitis of both lower extremities- Primary Blister (nonthermal), right lower leg, initial encounter documented in this encounter [facility] note* Diagnosis Pain Generalized pain documented in this encounter [facility] note* Diagnosis Tooth abscess- Primary Periapical abscess without sinus documented in this encounter [facility] course Narrative No data available for this section [facility] Hospital Discharge instructions No data available for this section [facility] progress note No data available for this section [facility] Management reason for referral (narrative)* Diagnostic Procedure Only (Routine) - Closed Specialty Diagnoses / Procedures Referred By Contac t Referred To Contact XR IMAGING Diagnoses Pain Procedures XR KNEE GENERAL 4V AP BOTH/PA BOTH/LAT/MERC BILATERAL RADIOLOGIC EXAM KNEE COMPLETE 4/MORE VIEWS Rafi Ruffin MD [address] [place] [address] Xr Imaging [place] [id number] Referral ID Status Reason Start Date Expiration Date V isits Requested Visits Authorized [id number] Closed Auto-Generate d Referral 07/21/2022 08/20/2023 1 1 * Diagnostic Procedure Only (Routine) - Closed Specialty Diagnoses / Procedures Referred By Contac t Referred To Contact XR IMAGING Diagnoses Pain Procedures XR PELVIS 1V AP RADIOLOGIC EXAMINATION PELVIS 1/2 VIEWS Rafi Ruffin MD [address] [place] [address] [place] [id number] Referral ID Status Reason Start Date Expiration Date V isits Requested Visits Authorized [id number] Closed Auto-Generate d Referral 07/21/2022 08/20/2023 1 1 [facility] Summary Purpose Family History No Family History Records FoundNo Family History Records Found No data available for this section No Family History Records FoundNo Family History Records FoundNo Family History Records Found Advance Directives No Advanced Directives Records FoundDocuments on File Type Date Recorded 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 Advance Directive(s) 05/09/2020 1:36 PM Health Concerns Infection Onset Date Last Indicated Resolved Time COVID-19 Rule-Out 06/20/2022 06/20/2022 Infection Onset Date Last Indicated Resolved Time COVID-19 Rule-Out 06/20/2022 06/20/2022 06/20/2022 7:32 PM EST Reason for Referral Specialty Diagnoses / Procedures Referred By Andres smith Referred To Contact [facility] Diagnoses Primary osteoarthritis of left knee Primary osteoarthritis of right knee Procedures CONSULT TO PHYSICAL THERAPY PHYSICAL THERAPY EVALUATION HIGH COMPLEX 45 MINS Lyndsey Sanchez DO [address] [place] [address] [facility] [place] [address] [place] [address] Referral ID Status Reason Start Date Expiration Date Visits Requested Visits Authorized [id number] Authorized PCP Requested Referral Auto-Generate d Referral 07/21/2022 07/21/2023 99 99 Medications Administered Section Inactive Administered Medications - up to 3 most recent administrations Medication Order MAR Action Action Date Dose Rate Site betamethasone acetate-betamethasone sodium phosphate 12 mg injection (CELESTONE) 12 mg, Injection - FOR ORTHO USE ONLY, ONE TIME INJECTION, 1 dose, Starting on Katy 07/21/22 at 1405, Until [place] 07/21/22 at 1405 Given 07/21/2022 2:05 PM EDT 12 mg Kn ee, Left lidocaine (PF) 20 mg/mL (2 %) 4 mL injection (XYLOCAINE) 4 mL, Injection - FOR ORTHO USE ONLY, ONE TIME INJECTION, 1 dose, Starting on [place]y 07/21/22 at 1405, Until Katy 3 at 1405 Given 07/21/2022 2:05 PM EDT 4 mL Kn ee, Left triamcinolone acetonide 40 mg injection (KeNALog 40) 40 mg, Injection - FOR ORTHO USE ONLY, ONE TIME INJECTION, 1 dose, Starting on [place]y 07/21/22 at 1405, Until Katy 3 at 1405 Given 07/21/2022 2:05 PM EDT 40 mg Kn ee, Left Additional Source Comments (unrecognized sect ion and content) No Status Records FoundNo Status Records FoundNo Status Records FoundNo Status Records FoundNo Status Records Found INFORMATION SOURCE (unrecogn ized section and content) DATE CREATED AUTHOR AUTHOR'S ORGANIZ ATION 10/25/2017 [facility] DATE CREATED AUTHOR AUTHOR'S ORGANIZ ATION 12/07/2022 [facility] DATE CREATED AUTHOR AUTHOR'S ORGANIZ ATION 03/08/2023 [facility] DATE CREATED AUTHOR AUTHOR'S ORGANIZ ATION 03/26/2023 [facility] Source Comments (unrecognize d section and content) In the event this informatio n is protected by the Federal Confidentiality of Alcohol and Drug Abuse Patient Records regulations: The Federal rules restrict any use of the information to criminally investigate or prosecute any alcohol or drug abuse patient.[facility] the event this information is protected by the Federal Confidentiality of Alcohol and Drug Abuse Patient Records regulations: The Federal rules restrict any use of the information to criminally investigate or prosecute any alcohol or drug abuse patient.[facility] Hospital[facility] the event this information is protected by the Federal Confidentiality of Alcohol and Drug Abuse Patient Records regulations: The Federal rules restrict any use of the information to criminally investigate or prosecute any alcohol or drug abuse patient.[facility] HospitalIn the event this information is protected by the Federal Confidentiality of Alcohol and Drug Abuse Patient Records regulations: The Federal rules restrict any use of the information to criminally investigate or prosecute any alcohol or drug abuse patient.[facility] HospitalIn the event this information is protected by the Federal Confidentiality of Alcohol and Drug Abuse Patient Records regulations: The Federal rules restrict any use of the information to criminally investigate or prosecute any alcohol or drug abuse patient.[facility] HospitalIn the event this information is protected by the Federal Confidentiality of Alcohol and Drug Abuse Patient Records regulations: The Federal rules restrict any use of the information to criminally investigate or prosecute any alcohol or drug abuse patient.[facility] HospitalIn the event this information is protected by the Federal Confidentiality of Alcohol and Drug Abuse Patient Records regulations: The Federal rules restrict any use of the information to criminally investigate or prosecute any alcohol or drug abuse patient.[facility] HospitalIn the event this information is protected by the Federal Confidentiality of Alcohol and Drug Abuse Patient Records regulations: The Federal rules restrict any use of the information to criminally investigate or prosecute any alcohol or drug abuse patient.[facility] HospitalIn the event this information is protected by the Federal Confidentiality of Alcohol and Drug Abuse Patient Records regulations: The Federal rules restrict any use of the information to criminally investigate or prosecute any alcohol or drug abuse patient.[facility] HospitalIn the event this information is protected by the Federal Confidentiality of Alcohol and Drug Abuse Patient Records regulations: The Federal rules restrict any use of the information to criminally investigate or prosecute any alcohol or drug abuse patient.[facility] HospitalIn the event this information is protected by the Federal Confidentiality of Alcohol and Drug Abuse Patient Records regulations: The Federal rules restrict any use of the information to criminally investigate or prosecute any alcohol or drug abuse patient.[facility] HospitalIn the event this information is protected by the Federal Confidentiality of Alcohol and Drug Abuse Patient Records regulations: The Federal rules restrict any use of the information to criminally investigate or prosecute any alcohol or drug abuse patient.[facility] HospitalIn the event this information is protected by the Federal Confidentiality of Alcohol and Drug Abuse Patient Records regulations: The Federal rules restrict any use of the information to criminally investigate or prosecute any alcohol or drug abuse patient.[facility] HospitalIn the event this information is protected by the Federal Confidentiality of Alcohol and Drug Abuse Patient Records regulations: The Federal rules restrict any use of the information to criminally investigate or prosecute any alcohol or drug abuse patient.[facility] HospitalIn the event this information is protected by the Federal Confidentiality of Alcohol and Drug Abuse Patient Records regulations: The Federal rules restrict any use of the information to criminally investigate or prosecute any alcohol or drug abuse patient.[facility] HospitalIn the event this information is protected by the Federal Confidentiality of Alcohol and Drug Abuse Patient Records regulations: The Federal rules restrict any use of the information to criminally investigate or prosecute any alcohol or drug abuse patient.[facility] HospitalIn the event this information is protected by the Federal Confidentiality of Alcohol and Drug Abuse Patient Records regulations: The Federal rules restrict any use of the information to criminally investigate or prosecute any alcohol or drug abuse patient.[facility] HospitalIn the event this information is protected by the Federal Confidentiality of Alcohol and Drug Abuse Patient Records regulations: The Federal rules restrict any use of the information to criminally investigate or prosecute any alcohol or drug abuse patient.[facility] HospitalIn the event this information is protected by the Federal Confidentiality of Alcohol and Drug Abuse Patient Records regulations: The Federal rules restrict any use of the information to criminally investigate or prosecute any alcohol or drug abuse patient.[facility] HospitalIn the event this information is protected by the Federal Confidentiality of Alcohol and Drug Abuse Patient Records regulations: The Federal rules restrict any use of the information to criminally investigate or prosecute any alcohol or drug abuse patient.[facility] HospitalIn the event this information is protected by the Federal Confidentiality of Alcohol and Drug Abuse Patient Records regulations: The Federal rules restrict any use of the information to criminally investigate or prosecute any alcohol or drug abuse patient.[facility] HospitalIn the event this information is protected by the Federal Confidentiality of Alcohol and Drug Abuse Patient Records regulations: The Federal rules restrict any use of the information to criminally investigate or prosecute any alcohol or drug abuse patient.[facility] HospitalIn the event this information is protected by the Federal Confidentiality of Alcohol and Drug Abuse Patient Records regulations: The Federal rules restrict any use of the information to criminally investigate or prosecute any alcohol or drug abuse patient.[facility] HospitalIn the event this information is protected by the Federal Confidentiality of Alcohol and Drug Abuse Patient Records regulations: The Federal rules restrict any use of the information to criminally investigate or prosecute any alcohol or drug abuse patient.[facility] HospitalIn the event this information is protected by the Federal Confidentiality of Alcohol and Drug Abuse Patient Records regulations: The Federal rules restrict any use of the information to criminally investigate or prosecute any alcohol or drug abuse patient.[facility] HospitalIn the event this information is protected by the Federal Confidentiality of Alcohol and Drug Abuse Patient Records regulations: The Federal rules restrict any use of the information to criminally investigate or prosecute any alcohol or drug abuse patient.[facility] HospitalIn the event this information is protected by the Federal Confidentiality of Alcohol and Drug Abuse Patient Records regulations: The Federal rules restrict any use of the information to criminally investigate or prosecute any alcohol or drug abuse patient.[facility] Reason for Visit (unrecogniz ed section and content) Specialty Diagnoses / Procedures Referred By Andres smith Referred To Contact [facility] Diagnoses Primary osteoarthritis of left knee Primary osteoarthritis of right knee Procedures CONSULT TO PHYSICAL THERAPY PHYSICAL THERAPY EVALUATION HIGH COMPLEX 45 MINS Lyndsey Sanchez DO [address] [place] [address] [facility] [address] [place] [address] Referral ID Status Reason Start Date Expiration Date Visits Requested Visits Authorized [id number] Authorized PCP Requested Referral Auto-Generate d Referral 07/21/2022 07/21/2023 99 99 Reason Comments Wound Check BLE Reason Comments Wound Check Right Leg Reason Comments Wound Check bilateral lower legs Reason Comments Wound Check left lower leg Reason Comments Wound Check Bilateral Lower extr emities Reason Comments Wound Check lower legs Reason Comments Wound Check Bilateral Lower Extr emities Reason Comments Wound Check RLE Reason Comments Eye Problem Left eye swelling, s ore watery, itchy x 4 days Reason Comments Cough ST, sinus congestion , CHILDERS x1 day Reason Comments Results Reason Comments PT Eval Reason Comments Physical Therapy Specialty Diagnoses / Procedures Referred By Contac t Referred To Contact [facility] Diagnoses Primary osteoarthritis of left knee Primary osteoarthritis of right knee Procedures CONSULT TO PHYSICAL THERAPY PHYSICAL THERAPY EVALUATION HIGH COMPLEX 45 MINS Lyndsey Sanchez DO [address] [place] [address] [facility] [address] [place] [address] Reason Comments Nasal Congestion Cough, headache, eye s sore, runny nose Reason Comments Eye Pain Left Eye X2 days Reason Comments Wound Check Bilateral legs Reason Comments Radio Gen RMP Specialty Diagnoses / Procedures Referred By Contac t Referred To Contact X[facility]AG[facility] Diagnoses Pain Procedures XR KNEE GENERAL 4V AP BOTH/PA BOTH/LAT/MERC BILATERAL RADIOLOGIC EXAM KNEE COMPLETE 4/MORE VIEWS Rafi Ruffin MD [address] [place] [address] [place] [address] Referral ID Status Reason Start Date Expiration Date V isits Requested Visits Authorized [id number] Closed Auto-Generate d Referral 07/21/2022 08/20/2023 1 1 Reason Comments Mouth/Lip Problem Broken tooth left si de Sinus Problem Left side headache e arache, sinus pressure x 3 days Care Teams (unrecognized sec tion and content) Driver Operator Relationship Specialty Start Date End Date Jeremy Mele [address] [address] PCP - General Family Practice 05/09/20 Driver Operator Relationship Specialty Start Date End Date Jeremy Mele [address] [address] PCP - General Family Practice 05/09/20 Driver Operator Relationship Specialty Start Date End Date [place] [address] [address] PCP - General Family Practice 05/09/20 Driver Operator Relationship Specialty Start Date End Date [place] [address] [address] (Work) PCP - General Family Practice 05/09/20 Driver Operator Relationship Specialty Start Date End Date Mele Mack [address] [place] [address] PCP - General Family Practice 05/09/20 Driver Operator Relationship Specialty Start Date End Date Jeremy Mele Martino [address] [place] [address] PCP - General Family Medicine 05/09/20 Driver Operator Relationship Specialty Start Date End Date Jeremy Mele Martino DO [address] [place] [address] PCP - General Family Medicine 05/09/20 Driver Operator Relationship Specialty Start Date End Date Jeremy Mele Martino [address] [place] [address] PCP - General Family Medicine 05/09/20 Driver Operator Relationship Specialty Start Date End Date Jeremy Mele Martino DO [address] [place] [address] PCP - General Family Medicine 05/09/20 Driver Operator Relationship Specialty Start Date End Date Jeremy Mele Martino DO [address] [place] [address] PCP - General Family Medicine 05/09/20 Driver Operator Relationship Specialty Start Date End Date Jeremy Mele Martino DO [address] [place] [address] PCP - General Family Medicine 05/09/20 Driver Operator Relationship Specialty Start Date End Date Jeremy eMle Martino DO [address] [place] [address] PCP - General Family Medicine 05/09/20 Driver Operator Relationship Specialty Start Date End Date Mele Mack DO [address] [place] [address] PCP - General Family Medicine 05/09/20 Driver Operator Relationship Specialty Start Date End Date Mele MackDO [address] [place] [address] PCP - General Family Medicine 05/09/20 Driver Operator Relationship Specialty Start Date End Date Mele MackDO [address] [place] [address] PCP - General Family Medicine 05/09/20 Driver Operator Relationship Specialty Start Date End Date Mele Mack SalenaDO [address] [place] [address] PCP - General Family Medicine 05/09/20 Driver Operator Relationship Specialty Start Date End Date Jeremy Mele MartinoDO [address] [place] [address] PCP - General Family Medicine 05/09/20 Care Team (unrecognized sect ion and content) Personnel Name: JEREMY MELE Address: Address: [address] [place] [id number] [place] [address] Name: Abdirizak Lord PT Care Team Personnel Name: Abdirizak Lord PT Position: P3 Scheduling - Frame Pulley Mortising Machine Operator Advanced Member Role: Other Name: JEREMY MELE Position: P4 Physician - Primary Care Med Service: Active Provider Member Role: Primary Care Physician Address: Address: [address] [place] [address]- Name: CHRISTY SPARKS APRN-UTILIZATION MANAGEMENT MANAGER Position: P4 Advanced Practice Nurse Med Service: Active Provider Member Role: Pain Management Address: Address: [address] [place], [place] [address] [[email or web address] Name: AMANDO SANFORD MD Position: P4 Physician - General Surgery Med Service: Employed Provider Member Role: Pain Management Address: Address: [address] [facility] [place] [id number]- Care Team Related Persons Name: ROJAS RODRIGUEZ Address: [place] [phone] Care Team Personnel Name: Risa Lode Miner Blasting Angela PT Position: P3 Scheduling - Frame Pulley Mortising Machine Operator Advanced Member Role: Other Name: MELE MACK DO Position: P4 Physician - Primary Care Member Role: Primary Care Physician Address: Address: [address] [place] [address]- Name: CHRISTY SPARKS APRN-UTILIZATION MANAGEMENT MANAGER Position: P4 Advanced Practice Nurse Member Role: Pain Management Address: Address: [address] [facility] [place] [address]- Name: AMANDO SANFORD MD Position: P4 Physician - General Surgery Member Role: Pain Management Address: Address: [address] [facility] [place] [address]- Care Team Related Persons Name: ROJAS RODRIGUEZ Address: [place] [id number] [place] Care Team Personnel Name: Abdirizak Lord Clerk Angela PT Position: P3 Scheduling - Frame Pulley Mortising Machine Operator Advanced Member Role: Other Name: MELE MACK DO Position: P4 Physician - Primary Care Member Role: Primary Care Physician Address: Address: [address] [place] [address] Name: CHRISTY SPARKS APRN-UTILIZATION MANAGEMENT MANAGER Position: P4 Advanced Curtain Roller Assembler Member Role: Pain Management Address: Address: [address] [facility] [place] [address]- Name: AMANDO SANFORD MD Position: P4 Physician - General Surgery Member Role: Pain Management Address: Address: [address] [facility] [address] Care Team Related Persons Name: ROJAS RODRIGUEZ Address: [place] [id number] Care Team Personnel Name: Risa Lode Miner Blasting Angela PT Position: P3 Scheduling - Frame Pulley Mortising Machine Operator Advanced Member Role: Other Name: MELE MACK DO Position: P4 Physician - Primary Care Member Role: Primary Care Physician Address: Address: [address] [place] [address]- Name: CHRISTY SPARKSUTILIZATION MANAGEMENT MANAGER Position: P4 Advanced Curtain Roller Assembler Member Role: Pain Management Address: Address: [address] [place] [id number] Name: AMANDO SANFORD MD Position: P4 Physician - General Surgery Member Role: Pain Management Address: Address: [address] [facility] [place] [id number] Care Team Related Persons Name: ROJAS RODRIGUEZ Address: [address] [phone] [place] Care Team Personnel Name: Risa Lode Miner Blasting Angela PT Position: P3 Scheduling - Frame Pulley Mortising Machine Operator Advanced Member Role: Other Name: MELE MACK DO Position: P4 Physician - Primary Care Member Role: Primary Care Physician Address: Address: [address] [place] [address] Name: CHRISTY SPARKS Position: P4 Advanced Curtain Roller Assembler Member Role: Pain Management Address: Address: [address] [place] [id number] Name: AMANDO SANFORD MD Position: P4 Physician - General Surgery Member Role: Pain Management Address: Address: [address] [facility] Pain [place] [id number] Care Team Related Persons Name: ROJAS RODRIGUEZ Address: [place] [phone] FOR RECORDS PERTAINING TO PATIENTS WHO ARE OR HAVE BEEN ENROLLED IN A CHEMICAL DEPENDENCY/SUBSTANCEABUSE PROGRAM, SOME INFORMATION MAY BE OMITTED. This clinical summary was aggregated from multiple sources. Caution should be exercised in using it in the provision of clinical care. This summary normalizes information from multiple sources, and as a consequence, information in this document may materially change the coding, format and clinical context of patient data. In addition, data may be omitted in some cases. CLINICAL DECISIONS SHOULD BE BASED ON THE PRIMARY CLINICAL RECORDS. [employer] provides no warranty or guarantee of the accuracy or completeness of information in this document.
[2023-07-11 10:14] LABS: Hemoglobin 13.7 g/dL (13.0-16.5); Mean Corp Hgb Conc 33.4 g/dL (32-36); Mean Corpuscular Hgb 32.9 pg (27.0-32.0); Mean Corpuscular Volume 98.6 fL (80-94); Mean Platelet Vol. 10.3 fl (6.2-12.0); Platelet Count 241 K/mm3 (150-450); RBC Distribution Width CV 11.9 % (11.6-14.6); RBC Distribution Width SD 42.9 fl (35.1-43.9); Red Blood Count 4.16 M/mm3 (4.6-6.2); White Blood Count 9.5 K/mm3 (4.4-11.0)
[2023-07-11 10:20] LABS: Color, Urine Yellow (Yellow); Glucose, Dipstick Normal (Normal); Ketone-Dipstick Negative (Negative); Leukocyte Esterase-Dipstick 25 /ul (Negative); Nitrite-Dipstick Negative (Negative); Occult Blood-Urine 10 /ul (Negative); Protein-Dipstick 100 mg/dl (Negative); Specific Gravity, Urine 1.015 (1.002-1.030); Urine Bilirubin Dipstick Negative (Negative); Urine Clarity Clear (Clear); Urine Urobilinogen Normal (Normal)
[2023-07-11 10:28] LABS: Vitamin D,25 Hydroxy 46.4 ng/mL
[2023-07-11 10:30] LABS: Red Blood Cells-Urine 0-5 SEEN /hpf (0-5); Squamous Epithelial Cells - UA 0-5 SEEN /hpf (0-5); Transitional Epithelial - Ur 0-5 SEEN /hpf (0-5); White Blood Cells 5-10 SEEN /hpf (0-5)
[2023-07-11 10:39] LABS: Albumin, Serum 3.4 g/dL (3.2-5.0); BUN 57 mg/dL (7-18); BUN/Creat Ratio 32.8 RATIO (10-20); Calcium,Total 10.1 mg/dL (8.5-10.1); Chloride 105 mmol/L (98-107); Creatinine, Serum 1.74 mg/dL (0.70-1.30); EST Glomerular Filtration Rate 41 mL/min (>60); Est Glom Filt Rate - Afr Amer 49 mL/min (>60); Glucose 167 mg/dL (74-106); Phosphorus 3.3 mg/dL (2.5-4.9); Potassium 3.8 mmol/L (3.5-5.1); Sodium Level 139 mmol/L (136-145)
[2023-07-11 10:55] LABS: Protein, Urine (Random) 106.3 mg/dL (<11.9); Protein:Creat Ratio 1293 mg/g CRE (0-200)
== END | disposition home or self-care (01) ==
LOC: MTLAB 07:30
PROVIDERS: PCP Preventive Medicine Occupational Medicine; Referring Provider Internal Medicine Nephrology; Visit Provider Internal Medicine Nephrology
DX: N18.4 Chronic kidney disease, stage 4 (severe) (principal)
CPT/HCPCS: 36415; 80069; 81001; 82306; 82570; 83970; 84156; 85027

== ENCOUNTER → 2023-10-09 | Outpatient (CLI) | payer MEDICARE, BC, SELFPAY ==
[2023-10-09 09:03] LABS: Bacteria 0 SEEN /hpf (None Seen); Mucous, Urine 0 SEEN /hpf (<or=2+); Red Blood Cells-Urine 0 SEEN /hpf (0-5)
[2023-10-09 10:43] LABS: Hematocrit 39.6 % (40-54); Hemoglobin 13.1 g/dL (13.0-16.5); Mean Corp Hgb Conc 33.1 g/dL (32-36); Mean Corpuscular Hgb 32.7 pg (27.0-32.0); Mean Corpuscular Volume 98.8 fL (80-94); Mean Platelet Vol. 10.1 fl (6.2-12.0); Platelet Count 271 K/mm3 (150-450); RBC Distribution Width CV 12.3 % (11.6-14.6); RBC Distribution Width SD 44.8 fl (35.1-43.9); Red Blood Count 4.01 M/mm3 (4.6-6.2); White Blood Count 8.1 K/mm3 (4.4-11.0)
[2023-10-09 10:53] LABS: Color, Urine Yellow (Yellow); Glucose, Dipstick Normal (Normal); Ketone-Dipstick Negative (Negative); Leukocyte Esterase-Dipstick 100 /ul (Negative); Nitrite-Dipstick Negative (Negative); Occult Blood-Urine Negative /ul (Negative); Protein-Dipstick 30 mg/dl (Negative); Urine Bilirubin Dipstick Negative (Negative); Urine Clarity Clear (Clear); Urine Urobilinogen Normal (Normal); Urine pH 6.5 (5.0 - 8.0)
[2023-10-09 11:01] LABS: White Blood Cells 0-5 SEEN /hpf (0-5)
[2023-10-09 11:02] LABS: Squamous Epithelial Cells - UA 5-10 SEEN /hpf (0-5)
[2023-10-09 11:12] LABS: Vitamin D,25 Hydroxy 45.2 ng/mL
[2023-10-09 11:22] LABS: Protein, Urine (Random) 31.4 mg/dL (<11.9); Protein:Creat Ratio 1000 mg/g CRE (0-200)
[2023-10-09 11:23] LABS: Albumin, Serum 3.5 g/dL (3.2-5.0); BUN 49 mg/dL (7-18); BUN/Creat Ratio 28.2 RATIO (10-20); Chloride 103 mmol/L (98-107); Creatinine, Serum 1.74 mg/dL (0.70-1.30); EST Glomerular Filtration Rate 41 mL/min (>60); Est Glom Filt Rate - Afr Amer 49 mL/min (>60); Glucose 122 mg/dL (74-106); Phosphorus 3.1 mg/dL (2.5-4.9); Potassium 4.2 mmol/L (3.5-5.1); Sodium Level 136 mmol/L (136-145)
== END | disposition home or self-care (01) ==
LOC: LAB.FUTURE 09:00 → LAB 09:02
PROVIDERS: PCP Preventive Medicine Occupational Medicine; Referring Provider Internal Medicine Nephrology; Visit Provider Internal Medicine Nephrology
DX: N18.4 Chronic kidney disease, stage 4 (severe) (principal)
CPT/HCPCS: 36415; 80069; 81001; 82306; 82570; 83970; 84156; 85027

== ENCOUNTER → 2023-10-23 | Outpatient (CLI) | payer MEDICARE, BC, SELFPAY ==
[2023-10-23 16:41] LABS: Hemoglobin A1c 6.4 % (3.8-5.6)
== END | disposition home or self-care (01) ==
PROVIDERS: PCP Preventive Medicine Occupational Medicine; Referring Provider Internal Medicine Endocrinology, Diabetes & Metabolism; Visit Provider Internal Medicine Endocrinology, Diabetes & Metabolism
DX: E11.65 Type 2 diabetes mellitus with hyperglycemia (principal); E78.2 Mixed hyperlipidemia; I10 Essential (primary) hypertension
CPT/HCPCS: 36415; 80048; 83036; 84450; 84460

== ENCOUNTER → 2023-10-24 | Outpatient (CLI) | payer MEDICARE, BC, SELFPAY ==
[2023-10-24 15:35] LABS: AST(SGOT) 21 U/L (15-37); Alanine Aminotransfer ALT/SGPT 25 U/L (16-61); Anion Gap 5 (5-15); BUN 60 mg/dL (7-18); BUN/Creat Ratio 30.6 RATIO (10-20); Chloride 105 mmol/L (98-107); Creatinine, Serum 1.96 mg/dL (0.70-1.30); EST Glomerular Filtration Rate 36 mL/min (>60); Est Glom Filt Rate - Afr Amer 43 mL/min (>60); Glucose 162 mg/dL (74-106); Potassium 4.5 mmol/L (3.5-5.1); Sodium Level 139 mmol/L (136-145)
== END | disposition home or self-care (01) ==
LOC: LAB.FUTURE 12:48 → MTLAB 12:49
PROVIDERS: PCP Preventive Medicine Occupational Medicine; Referring Provider Internal Medicine Endocrinology, Diabetes & Metabolism; Visit Provider Internal Medicine Endocrinology, Diabetes & Metabolism
DX: E11.65 Type 2 diabetes mellitus with hyperglycemia (principal); E78.2 Mixed hyperlipidemia; I10 Essential (primary) hypertension
CPT/HCPCS: 80048; 84450; 84460

== ENCOUNTER → 2024-03-11 | Outpatient (CLI) | payer MEDICARE, BC, SELFPAY ==
[2024-03-11 15:26] LABS: AST(SGOT) 22 U/L (15-37); Alanine Aminotransfer ALT/SGPT 26 U/L (16-61); Anion Gap 7 (5-15); BUN 47 mg/dL (7-18); BUN/Creat Ratio 25.4 RATIO (10-20); Calcium,Total 9.9 mg/dL (8.5-10.1); Chloride 103 mmol/L (98-107); Creatinine, Serum 1.85 mg/dL (0.70-1.30); EST Glomerular Filtration Rate 38 mL/min (>60); Est Glom Filt Rate - Afr Amer 46 mL/min (>60); Glucose 129 mg/dL (74-106); Potassium 3.9 mmol/L (3.5-5.1); Sodium Level 139 mmol/L (136-145)
[2024-03-11 15:52] LABS: Hemoglobin A1c 6.8 % (3.8-5.6)
[2024-03-11 16:08] LABS: Microalbumin:Creatinine Ratio 769.8 mg/g CRE (<30 mg/g CRE)
== END | disposition home or self-care (01) ==
PROVIDERS: PCP Preventive Medicine Occupational Medicine; Referring Provider Internal Medicine Endocrinology, Diabetes & Metabolism; Visit Provider Internal Medicine Endocrinology, Diabetes & Metabolism
DX: E11.65 Type 2 diabetes mellitus with hyperglycemia (principal)
CPT/HCPCS: 36415; 80048; 82043; 82570; 83036; 84450; 84460

== ENCOUNTER → 2024-05-14 | Outpatient (CLI) | payer MEDICARE, BC, SELFPAY ==
[2024-05-14 09:35] LABS: Bacteria 0 SEEN /hpf (None Seen); Mucous, Urine 0 SEEN /hpf (<or=2+); Red Blood Cells-Urine 0 SEEN /hpf (0-5)
[2024-05-14 12:05] LABS: Protein, Urine (Random) 40.7 mg/dL (<11.9); Protein:Creat Ratio 781 mg/g CRE (0-200)
[2024-05-14 12:40] LABS: Color, Urine Yellow (Yellow); Glucose, Dipstick 1000 mg/dl (Normal); Ketone-Dipstick Negative (Negative); Leukocyte Esterase-Dipstick 25 /ul (Negative); Nitrite-Dipstick Negative (Negative); Occult Blood-Urine Negative /ul (Negative); Protein-Dipstick 30 mg/dl (Negative); Specific Gravity, Urine 1.015 (1.002-1.030); Urine Bilirubin Dipstick Negative (Negative); Urine Clarity Clear (Clear); Urine Urobilinogen Normal (Normal)
[2024-05-14 12:44] LABS: Albumin, Serum 3.2 g/dL (3.2-5.0); BUN 50 mg/dL (7-18); BUN/Creat Ratio 27.8 RATIO (10-20); Calcium,Total 9.8 mg/dL (8.5-10.1); Chloride 105 mmol/L (98-107); EST Glomerular Filtration Rate 39 mL/min (>60); Est Glom Filt Rate - Afr Amer 47 mL/min (>60); Glucose 205 mg/dL (74-106); Phosphorus 4.1 mg/dL (2.5-4.9); Potassium 4.3 mmol/L (3.5-5.1); Sodium Level 137 mmol/L (136-145)
[2024-05-14 12:48] LABS: Squamous Epithelial Cells - UA 0-5 SEEN /hpf (0-5); White Blood Cells 0-5 SEEN /hpf (0-5)
[2024-05-14 12:50] LABS: PTHIN 121.8 pg/mL (18.4-80.1)
[2024-05-14 13:00] LABS: Vitamin D,25 Hydroxy 52.9 ng/mL
[2024-05-14 15:18] LABS: Hematocrit 41.8 % (40-54); Hemoglobin 14.2 g/dL (13.0-16.5); Mean Corpuscular Hgb 34.2 pg (27.0-32.0); Mean Corpuscular Volume 100.7 fL (80-94); Mean Platelet Vol. 10.2 fl (6.2-12.0); Platelet Count 246 K/mm3 (150-450); RBC Distribution Width SD 43.9 fl (35.1-43.9); Red Blood Count 4.15 M/mm3 (4.6-6.2); White Blood Count 8.3 K/mm3 (4.4-11.0)
== END | disposition home or self-care (01) ==
LOC: MTLAB 09:29
PROVIDERS: PCP Preventive Medicine Occupational Medicine; Referring Provider Internal Medicine Nephrology; Visit Provider Internal Medicine Nephrology
DX: N18.4 Chronic kidney disease, stage 4 (severe) (principal)

== ENCOUNTER → 2024-07-08 | Outpatient (CLI) | payer MEDICARE, BC, SELFPAY ==
[2024-07-08 13:03] LABS: AST(SGOT) 24 U/L (<=37); Alanine Aminotransfer ALT/SGPT 16 U/L (<=46); Anion Gap 12 (5-15); BUN 54 mg/dL (4-19); BUN/Creat Ratio 33.3 RATIO (10-20); Calcium,Total 10.4 mg/dL (7.6-11.0); Carbon Dioxide 27.2 mmol/L (21.0-32.0); Chloride 101 mmol/L (98-108); Creatinine, Serum 1.62 mg/dL (0.70-1.20); EST Glomerular Filtration Rate 44 (>60); Glucose 97 mg/dL (70-99); Potassium 4.1 mmol/L (3.3-5.1); Sodium Level 140 mmol/L (133-145)
[2024-07-08 13:21] LABS: Cholesterol 135 mg/dL (<=200); High Density Lipoprotein 35 mg/dL; Low Density Lipoprotein Calc. 57 mg/dL; Triglycerides 213 mg/dL; Very Low Density Lipoprotein 43 mg/dL (5-40); cholesterol:hdl ratio screen 3.82
== END | disposition home or self-care (01) ==
LOC: MTLAB 09:20
PROVIDERS: PCP Preventive Medicine Occupational Medicine; Referring Provider Internal Medicine Endocrinology, Diabetes & Metabolism; Visit Provider Internal Medicine Endocrinology, Diabetes & Metabolism
DX: E11.42 Type 2 diabetes mellitus with diabetic polyneuropathy (principal); E78.2 Mixed hyperlipidemia
CPT/HCPCS: 36415; 80048; 80061; 83036; 84450; 84460